=== PATIENT | male | born 1935 | race Caucasian/White ===

== ENCOUNTER 2018-07-21 21:52 | Inpatient (IN) | payer MEDICARE, BC ==
[~2018-07-21] VITALS: Ht 165.1 cm; Wt 73.6 kg
[~2018-07-21 21:52] MED LIST: ACETAMINOPHEN325 M1 ORAL; ACETAMINOPHEN650 M2 ORAL; ATORVASTATIN CA40 MG ORAL; BACTRIM DS TAB1 EAC1 ORAL; CLONIDINE0.1 MG PO; COLACE100 MG ORAL; COUMADIN3 MG ORAL; DEPAKENE250 MG/5 M ORAL; DEPAKENE250 MG/5 M PO; DILANTIN-1125 MG/5 M PO; DOCUSATE SODIU100 M2 ORAL; DORZOLAMIDE HCL10 M1 BOTH EYES; FLOMAX0.4 MG ORAL; FLUOXETINE HCL20 MG ORAL; HEPARIN SO5000 UNIT2 SUBQ; HYDROCODON-ACE1 EA13 ORAL; LACTULOSE20 GM/301 ORAL; LEVAQUIN750 MG ORAL; LOPRESSOR25 M1 ORAL; LORAZEPAM2 MG/1 M4 ORAL; LOVENOX30 MG/0.3 SQ; MELATONIN5 M4 ORAL; METOPROLOL SUCC25 MG ORAL; METOPROLOL TART25 MG ORAL; MOM30 ML ORAL; MULTIVITAMINS1 EAC8 ORAL; NORCO 5-325 TA1 EACH ORAL; NORCO 7.5/3251 EA ORAL; OMEPRAZOLE20 M2 ORAL; QUETIAPINE FUMA50 MG ORAL; RANITIDINE HCL150 M1 ORAL; TAMSULOSIN HCL0.4 MG ORAL; TEMAZEPAM15 MG ORAL; XARELTO10 MG ORAL; ZITHROMAX250 MG ORAL; dilantin
[2018-07-21 21:55] VITALS: BP 129/76
--- NOTE | 2018-07-21 21:55 | NUR ---
ED Nurse Note: patient presents BIBA, with c/o SOB satting 94% on NR.
[2018-07-21] MEDS ORDERED: Albuterol ud Inhalation HHN ONE (22:00)
--- NOTE | 2018-07-21 22:05 | Emergency Room Report ---
History of Present Illness General Chief Complaint: Dyspnea/Respdistress Source: Medical Record Present Illness HPI This is an 82-year-old male with history of medical problems including cerebral palsy, DVT, CAD with MA in the past. He presents with chief complaint shortness of breath and respiratory distress. Onset was acute and occurred 30 minutes to an hour prior to arrival. Per EMS, his room air oxygenation was 87% . Better after oxygen. He has a cough and felt warm to the touch. Denies any other complaint. History is limited because of patient condition. Allergies: Coded Allergies: PENICILLIN G (Verified Allergy, Intermediate, 04/13/14) PENICILLINS (Unverified Allergy, Unknown, 07/21/18) Patient History Past Medical History: see triage record, old chart reviewed Past Surgical History: other Pertinent Family History: none Social History: Denies: smoking Immunizations: UTD Reviewed Nursing Documentation: PMH: Agreed; PSxH: Agreed Nursing Documentation-PMH Past Medical History: No History, Except For Hx Cardiac Problems: Yes - MA, CAD, Hyperlipidemia Hx Hypertension: Yes Hx COPD: Yes Hx Diabetes: Yes Hx Cancer: No Hx Gastrointestinal Problems: Yes - GERD Hx Neurological Problems: Yes - Subarachnoid hemorrhage, Cerebral Palsy, Cerebral Aneurysm, Abnormal gait Hx Parkinson's Disease: Yes Hx Seizures: Yes Hx Cerebral Palsy: Yes Hx Tremors: Yes Hx Dysphasia: Yes Hx Weakness: Yes Review of Systems Respiratory: Reports: cough, shortness of breath All Other Systems: limited - Secondary to patient's condition Physical Exam Vital Signs Date Time Temp Pulse Resp B/P (MAP) Pulse Ox O2 Delivery O2 Flow Rate FiO2 07/21/18 21:36 134 24 129/76 95 Non-Rebreather 15.0 vitals with fever and tachycardia Sp02 EP Interpretation: abnormal General Appearance: moderate distress Head: normocephalic, atraumatic Eyes: bilateral eye PERRL, bilateral eye EOMI ENT: hearing grossly normal, normal pharynx Neck: full range of motion, supple, no meningismus Respiratory: chest non-tender, respiratory distress, decreased breath sounds, rhonchi Cardiovascular #1: regular rate, rhythm, no murmur, tachycardia Gastrointestinal: normal bowel sounds, non tender, no mass, no organomegaly, no bruit, non-distended Musculoskeletal: back normal, gait/station normal, normal range of motion Psychiatric: mood/affect normal Skin: warm/dry Procedures Critical Care Time Critical Care Time Critical care is mandated in this patient who presented with sepsis from pneumonia. Patient require my urgent intervention to attenuate the risks of metabolic collapse which may lead to cardiovascular collapse and . Critical care time is 35 minutes excluding any reportable procedure. Critical care time included evaluation, multiple reevaluation, looking at old charts, interpreting laboratory and diagnostic data, discussing case with patient and family and consultants, and charting. Medical Decision Making Diagnostic Impression: Primary Impression: Sepsis Qualified Codes: A41.9 - Sepsis, unspecified organism Additional Impressions: HCAP (healthcare-associated pneumonia) Respiratory distress ER Course Patient presents with respiratory distress and fever. Chest x-ray pretty unremarkable except for possible left lingular infiltrate. Labs unremarkable. I place him on antibiotics to cover for healthcare associated pneumonia. Will admit. I discussed case with Dr. Perry and Dr. Patel for admission. Lab Results Impression labs with elevated lactic acid EKG Diagnostic Results Rate: tachycardiac Rhythm: NSR ST Segments: other - NSST changes. PVC Rhythm Strip Diag. Results Rhythm Strip Time: 00:38 EP Interpretation: yes Rate: 100 Rhythm: NSR, no PVC's, no ectopy Chest X-Ray Diagnostic Results Chest X-Ray Diagnostic Results : Chest X-Ray Ordered: Yes # of Views/Limited/Complete: 1 View Indication: Shortness of Breath EP Interpretation: Yes Interpretation: no effusion, no pneumothorax, other - Left lingula infiltrate Impression: Other - Left lingula infiltrate Electronically Signed by: Sameer Weir MD Last Vital Signs Date Time Temp Pulse Resp B/P (MAP) Pulse Ox O2 Delivery O2 Flow Rate FiO2 07/21/18 21:36 134 24 129/76 95 Non-Rebreather 15.0 Status: improved Disposition: ADMITTED INPATIENT Condition: Serious Sameer Weir MD Jul 21, 2018 22:05
[2018-07-21] MEDS ORDERED: Acetaminophen 500mg (ES) tab ORAL ONE (22:15)
[2018-07-21] MEDS ORDERED: IPRATROPIU0.2 MG/1 M HHN (22:28)
--- NOTE | 2018-07-21 22:57 | NUR ---
ED Nurse Note: Patient responding to breathing treatment well, still tachycardic, satting between 94-97% on 3l of O2 afterbreating treatment. Sepsis workuo Addendum: 07/21/18 at 2332 by LOLY sepsis work up completed, IV started at left forearm 24G.
[2018-07-21 22:59] LABS: BASOPHILS % (AUTO) 0.6 % (0.0-2.0); EOSINOPHILS % (AUTO) 0.5 % (0.0-3.0); HEMATOCRIT 36.9 % (42.0-52.0); HEMOGLOBIN 12.1 G/DL (14.2-18.0); LYMPHOCYTES % (AUTO) 9.1 % (20.0-45.0); MEAN CORPUSCULAR VOLUME 94 FL (80-99); MONOCYTES % (AUTO) 9.1 % (1.0-10.0); NEUTROPHILS % (AUTO) 80.7 % (45.0-75.0); PLATELET COUNT 134 K/UL (150-450); RED BLOOD COUNT 3.93 M/UL (4.70-6.10); RED CELL DISTRIBUTION WIDTH 13.6 % (11.6-14.8); WHITE BLOOD COUNT 9.8 K/UL (4.8-10.8)
[2018-07-21 23:11] LABS: INR 1.4 (0.9-1.1)
[2018-07-21 23:23] LABS: ALANINE AMINOTRANSFERASE 13 U/L (12-78); ALBUMIN 2.5 G/DL (3.4-5.0); ALBUMIN/GLOBULIN RATIO 0.5 (1.0-2.7); ALKALINE PHOSPHATASE 79 U/L (46-116); ANION GAP 10 mmol/L (5-15); ASPARTATE AMINO TRANSFERASE 33 U/L (15-37); BILIRUBIN,TOTAL 0.4 MG/DL (0.2-1.0); BLOOD UREA NITROGEN 32 mg/dL (7-18); CALCIUM 8.8 MG/DL (8.5-10.1); CARBON DIOXIDE 27 MMOL/L (21-32); CHLORIDE 105 MMOL/L (98-107); CKMB 3.2 NG/ML (0.0-3.6); CREATINE KINASE 214 U/L (26-308); CREATININE 1.4 MG/DL (0.55-1.30); POTASSIUM 4.4 MMOL/L (3.5-5.1); SODIUM 142 MMOL/L (136-145)
[2018-07-21 23:28] VITALS: BP 116/64
--- NOTE | 2018-07-21 23:58 | NUR ---
ED Nurse Note: Patient resting comfortably. no s/s of acute distress. morales patent, urine clear and lexie in color.
[2018-07-22] MEDS ORDERED: Cefepime HCl 1 GM in D5W 55 ML IVPB ONE (00:15)
--- NOTE | 2018-07-22 01:25 | NUR ---
ED Nurse Note: Patient awake and alert, no s/s of acute distress. awaiting transport to tele.
--- NOTE | 2018-07-22 01:48 | NUR ---
ED Nurse Note: Report callled into becca RN, patient is awake and alert X3, no s/s of acute distress. PAtient has NS and levaquin running in the left AC. PAtient will be accompanied to tele by an eR-techCecil and RN, Hammad Valentine. Patient vital signs are stable upon departure.
[2018-07-22 02:10] VITALS: BP 124/79
--- NOTE | 2018-07-22 02:15 | NUR ---
NURSE NOTES: Patient received from ED, report received from JOSE LUIS Urrutia. Patient awake, alert and verbally responsive to simple questions. No SOB, no acute distress on 3 L via NC, O2 sat at 96%. Put on equipment monitor phototypesetting, shows sinus rhythm. Body assessment done, no skin breakdown noted. IV site on L FA #24,patent and intact. F/C intact and patent inserted at ED for urinary retention, noted with yellow-colored output. Belongings checked. Oriented to staff and unit, instructed to press call light for any assistance. Fall precaution and sz precautions in place. Paged Dr. Patel for admission orders. Will continue plan of care.
[2018-07-22 04:00] VITALS: BP 130/82
--- NOTE | 2018-07-22 07:29 | NUR ---
HAND-OFF: Report given to JOSE LUIS Cochran. Obtained admission orders from Dr. Perry, orders noted and carried out, will endorse to verify cefepime 1 gm Q12 d/t allergy. Also MD aware regarding dark lexie-colored output in the F/C, inserted at ED upon admission.
[2018-07-22] MEDS ORDERED: Lactulose 20gm/30ml UDC ORAL PRN (07:30)
[2018-07-22] MEDS ORDERED: HYDROcodone/Acetamin 10/325 tab ORAL PRN (07:30)
[2018-07-22] MEDS ORDERED: HYDROcodone/Acetamin 10/325 tab ORAL SCH (07:30)
[2018-07-22] MEDS ORDERED: Albuterol/Ipratropium 3ml neb HHN PRN (07:30)
[2018-07-22 08:00] VITALS: BP 115/79
[2018-07-22] MEDS ORDERED: Metoprolol 25mg tab ORAL SCH (09:00)
[2018-07-22] MEDS: Azithromycin 250mg tab ORAL SCH ×2 (09:48→09:54)
[2018-07-22] MEDS: Multivitamin w/Minerals tab ORAL SCH (09:48)
[2018-07-22] MEDS: Heparin 5000 units/ml inj SUBQ SCH ×2 (09:51→21:00)
[2018-07-22] MEDS: Docusate 100mg cap ORAL SCH ×2 (09:54→18:11)
[2018-07-22] MEDS: Metoprolol 25mg tab ORAL SCH ×2 (09:54→21:00)
[2018-07-22 10:49] LABS: BASOPHILS % (AUTO) 0.5 % (0.0-2.0); EOSINOPHILS % (AUTO) 1.9 % (0.0-3.0); HEMATOCRIT 34.6 % (42.0-52.0); HEMOGLOBIN 11.3 G/DL (14.2-18.0); LYMPHOCYTES % (AUTO) 10.5 % (20.0-45.0); MEAN CORPUSCULAR VOLUME 94 FL (80-99); MONOCYTES % (AUTO) 11.4 % (1.0-10.0); NEUTROPHILS % (AUTO) 75.8 % (45.0-75.0); PLATELET COUNT 127 K/UL (150-450); RED BLOOD COUNT 3.68 M/UL (4.70-6.10); WHITE BLOOD COUNT 6.7 K/UL (4.8-10.8)
[2018-07-22 11:08] LABS: ALANINE AMINOTRANSFERASE 14 U/L (12-78); ALBUMIN 2.3 G/DL (3.4-5.0); ALBUMIN/GLOBULIN RATIO 0.5 (1.0-2.7); ALKALINE PHOSPHATASE 69 U/L (46-116); ANION GAP 5 mmol/L (5-15); ASPARTATE AMINO TRANSFERASE 20 U/L (15-37); BILIRUBIN,TOTAL 0.3 MG/DL (0.2-1.0); BLOOD UREA NITROGEN 23 mg/dL (7-18); CALCIUM 8.2 MG/DL (8.5-10.1); CARBON DIOXIDE 31 MMOL/L (21-32); CHLORIDE 110 MMOL/L (98-107); PHOSPHORUS 2.6 MG/DL (2.5-4.9); POTASSIUM 3.8 MMOL/L (3.5-5.1); SODIUM 146 MMOL/L (136-145)
--- NOTE | 2018-07-22 11:50 | Diagnostic Imaging Report ---
Indication: Shortness of breath Technique: One view of the chest Comparison: 04/27/2016 Findings: Atelectatic changes are seen at both lung bases. The remainder of the lungs and pleural spaces are clear. The heart size is upper limits of normal. The aorta is tortuous Impression: Bilateral basilar atelectatic changes No acute process otherwise
[2018-07-22 12:00] VITALS: BP 121/69
--- NOTE | 2018-07-22 12:31 | Consultation ---
History of Present Illness General Chief Complaint: Dyspnea/Respdistress Present Illness HPI 82-year-old white male, with hx of bipolar do who presents with a chief complaint of shortness of breath. the pt is well known to me from the sniff the pt is hard of hearing and reported more anxiety the pt is currently on depakote and seroquel Allergies: Coded Allergies: PENICILLIN G (Verified Allergy, Intermediate, 04/13/14) PENICILLINS (Unverified Allergy, Unknown, 07/21/18) Medication History Scheduled Atorvastatin Calcium* (Atorvastatin Calcium*), 40 MG ORAL BEDTIME, (Reported) Docusate Sodium (Docusate Sodium), 100 MG ORAL TWICE A DAY, (Reported) Heparin Sod (Porcine) (Heparin Sodium*), 5,000 UNITS SUBQ Q12HR, (Reported) Hydrocodone Bit/Acetaminophen 10-325* (Hydrocodon-Acetaminophn 10-325*), 1 TAB ORAL Q6H, (Reported) Metoprolol Tartrate* (Metoprolol Tartrate*), 25 MG ORAL EVERY 12 HOURS, ( Reported) Multivitamin With Minerals (Multivitamins With Minerals*), 1 TAB ORAL DAILY, ( Reported) Omeprazole (Omeprazole), 20 MG ORAL DAILY, (Reported) Quetiapine Fumarate* (Quetiapine Fumarate*), 25 MG ORAL HS, (Reported) Ranitidine Hcl (Ranitidine Hcl), 150 MG ORAL DAILY, (Reported) Tamsulosin Hcl (Tamsulosin Hcl*), 0.4 MG ORAL BEDTIME, (Reported) Valproate Sodium (Depakene), 500 MG PO QPM, (Reported) Scheduled PRN Acetaminophen (Acetaminophen 8 Hour), 650 MG ORAL Q6H PRN for PRN, (Reported) Clonidine HCl (Clonidine HCl), 0.1 MG PO Q6HR PRN for PRN, (Reported) Lactulose (Lactulose*), 30 ML ORAL DAILY PRN for Constipation, (Reported) Melatonin (Melatonin), 5 MG ORAL BEDTIME PRN for Insomnia, (Reported) Temazepam (Temazepam*), 15 MG ORAL BEDTIME PRN for PRN, (Reported) Discontinued Medications Fluoxetine Hcl* (Fluoxetine Hcl*), 20 MG ORAL DAILY, (Reported) Discontinued Reason: MD discontinued med Ipratropium [place] 0.5MG/2.5ML (Ipratropium [place] 0.5MG/2.5ML), 0.5 MG HHN Q6H PRN for Shortness of Breath, (Reported) Discontinued Reason: MD discontinued med Levofloxacin* (Levaquin*), 750 MG ORAL DAILY, (Reported) Discontinued Reason: MD discontinued med Lorazepam (Lorazepam), 2 MG ORAL Q6HR PRN for PRN, (Reported) Discontinued Reason: MD discontinued med Rivaroxaban (Xarelto*), 15 MG ORAL BID, (Reported) Discontinued Reason: MD discontinued med Rivaroxaban (Xarelto*), 20 MG ORAL DAILY, (Reported) Discontinued Reason: MD discontinued med Trimethoprim/Sulfamethoxazole 160/800* (Bactrim Ds Tablet*), 1 TAB ORAL TWICE A DAY, (Reported) Discontinued Reason: MD discontinued med Valproate Sodium (Depakene), 250 MG ORAL BID Discontinued Reason: Medication dose changed Valproate Sodium (Depakene), 7.5 ML PO DAILY, (Reported) Discontinued Reason: Medication dose changed Warfarin Sod* (Coumadin*), 3 MG ORAL QPM, (Reported) Discontinued Reason: MD discontinued med Patient History History Provided By: Patient, Medical Record, PMD Healthcare decision maker Resuscitation status Full Code Advanced Directive on File No Past Medical/Surgical History Past Medical/Surgical History: (1) Acute respiratory failure (2) Anxiety disorder (3) MDD (major depressive disorder), recurrent episode, moderate (4) MA (myocardial infarction) (5) SAH (subarachnoid hemorrhage) (6) Unable to ambulate (7) Iron deficiency anemia (8) History of alcohol abuse (9) Cerebral palsy (10) CAD (coronary artery disease) (11) HTN (hypertension) (12) BPH (benign prostatic hyperplasia) (13) Hyperkalemia (14) HCAP (healthcare-associated pneumonia) (15) Sepsis Review of Systems Psychiatric: Reports: anxiety, depressed feelings, emotional problems Physical Exam General Appearance: no apparent distress, alert Neurologic: oriented x 3, responsive, depressed affect Last 24 Hour Vital Signs Date Time Temp Pulse Resp B/P (MAP) Pulse Ox O2 Delivery O2 Flow Rate FiO2 07/22/18 09:54 91 115/79 07/22/18 08:08 Nasal Cannula 3.0 07/22/18 08:00 97.2 91 23 115/79 (91) 95 07/22/18 07:58 85 07/22/18 04:00 97.9 96 20 130/82 (98) 98 07/22/18 04:00 96 07/22/18 02:35 Nasal Cannula 3.0 07/22/18 02:10 94 07/22/18 02:10 97.6 94 18 124/79 (94) 96 07/22/18 01:50 97.5 115 30 116/64 95 Nasal Cannula 3.0 32 07/21/18 23:28 97.5 115 30 116/64 95 Nasal Cannula 3.0 32 07/21/18 22:47 97.5 07/21/18 22:31 124 23 97 Nasal Cannula 3.0 32 07/21/18 22:05 133 24 98 Non-Rebreather 15.0 100 07/21/18 22:03 133 24 Non-Rebreather 15.0 100 07/21/18 21:55 134 24 Non-Rebreather 15.0 07/21/18 21:55 100.4 120 24 129/76 95 Non-Rebreather 15.0 07/21/18 21:36 134 24 129/76 95 Non-Rebreather 15.0 Intake and Output 07/21/18 07/22/18 18:59 06:59 Intake Total 2060 ml Output Total 220 ml Balance 1840 ml Intake Oral 60 ml IV Total 2000 ml Output Urine Total 220 ml Laboratory Tests Test 07/21/18 22:30 07/22/18 00:00 07/22/18 10:30 White Blood Count 9.8 K/UL (4.8-10.8) 6.7 K/UL (4.8-10.8) Red Blood Count 3.93 M/UL (4.70-6.10) L 3.68 M/UL (4.70-6.10) L Hemoglobin 12.1 G/DL (14.2-18.0) L 11.3 G/DL (14.2-18.0) L Hematocrit 36.9 % (42.0-52.0) L 34.6 % (42.0-52.0) L Mean Corpuscular Volume 94 FL (80-99) 94 FL (80-99) Mean Corpuscular Hemoglobin 30.8 PG (27.0-31.0) 30.5 PG (27.0-31.0) Mean Corpuscular Hemoglobin Concent 32.9 G/DL (32.0-36.0) 32.5 G/DL (32.0-36.0) Red Cell Distribution Width 13.6 % (11.6-14.8) 14.0 % (11.6-14.8) Platelet Count 134 K/UL (150-450) L 127 K/UL (150-450) L Mean Platelet Volume 7.2 FL (6.5-10.1) 7.6 FL (6.5-10.1) Neutrophils (%) (Auto) 80.7 % (45.0-75.0) H 75.8 % (45.0-75.0) H Lymphocytes (%) (Auto) 9.1 % (20.0-45.0) L 10.5 % (20.0-45.0) L Monocytes (%) (Auto) 9.1 % (1.0-10.0) 11.4 % (1.0-10.0) H Eosinophils (%) (Auto) 0.5 % (0.0-3.0) 1.9 % (0.0-3.0) Basophils (%) (Auto) 0.6 % (0.0-2.0) 0.5 % (0.0-2.0) Prothrombin Time 14.2 SEC (9.30-11.50) H Prothromb Time International Ratio 1.4 (0.9-1.1) H Activated Partial Thromboplast Time 35 SEC (23-33) H Sodium Level 142 MMOL/L (136-145) 146 MMOL/L (136-145) H Potassium Level 4.4 MMOL/L (3.5-5.1) 3.8 MMOL/L (3.5-5.1) Chloride Level 105 MMOL/L (98-107) 110 MMOL/L (98-107) H Carbon Dioxide Level 27 MMOL/L (21-32) 31 MMOL/L (21-32) Anion Gap 10 mmol/L (5-15) 5 mmol/L (5-15) Blood Urea Nitrogen 32 mg/dL (7-18) H 23 mg/dL (7-18) H Creatinine 1.4 MG/DL (0.55-1.30) H 1.0 MG/DL (0.55-1.30) Estimat Glomerular Filtration Rate mL/min (>60) mL/min (>60) Glucose Level 166 MG/DL (74-106) H 81 MG/DL (74-106) Lactic Acid Level 2.70 mmol/L (0.4-2.0) H 2.00 mmol/L (0.66-2.22) Calcium Level 8.8 MG/DL (8.5-10.1) 8.2 MG/DL (8.5-10.1) L Total Bilirubin 0.4 MG/DL (0.2-1.0) 0.3 MG/DL (0.2-1.0) Aspartate Amino Transf (AST/SGOT) 33 U/L (15-37) 20 U/L (15-37) Alanine Aminotransferase (ALT/SGPT) 13 U/L (12-78) 14 U/L (12-78) Alkaline Phosphatase 79 U/L (46-116) 69 U/L (46-116) Total Creatine Kinase 214 U/L (26-308) Creatine Kinase MB 3.2 NG/ML (0.0-3.6) Creatine Kinase MB Relative Index 1.4 Troponin I 0.030 ng/mL (0.000-0.056) 0.069 ng/mL (0.000-0.056) Total Protein 7.5 G/DL (6.4-8.2) 6.7 G/DL (6.4-8.2) Albumin 2.5 G/DL (3.4-5.0) L 2.3 G/DL (3.4-5.0) L Globulin 5.0 g/dL 4.4 g/dL Albumin/Globulin Ratio 0.5 (1.0-2.7) L 0.5 (1.0-2.7) L Phosphorus Level 2.6 MG/DL (2.5-4.9) Magnesium Level 1.7 MG/DL (1.8-2.4) L Microbiology Date/Time Source Procedure Growth Status 07/22/18 01:30 Rectum Received Height (Feet): 5 Height (Inches): 5.00 Weight (Pounds): 165 Medications Current Medications Medications (Trade) Dose Ordered Sig/Yazmin Route PRN Reason Start Time Stop Time Status Last Admin Dose Admin Acetaminophen (Tylenol) 650 mg Q6H PRN ORAL Mild Pain/Temp > 100.5 07/22/18 07:30 08/21/18 07:29 Acetaminophen/ Hydrocodone Bitart ([place] 10/325) 1 tab Q6H PRN ORAL Severe Pain (Pain Scale 7-10) 07/22/18 07:30 07/29/18 07:29 Albuterol/ Ipratropium (Albuterol/ Ipratropium) 3 ml Q6H PRN HHN Shortness of Breath 07/22/18 07:30 07/27/18 07:29 Atorvastatin Calcium (Lipitor) 40 mg BEDTIME ORAL 07/22/18 21:00 08/21/18 20:59 Azithromycin (Zithromax) 250 mg DAILY ORAL 07/22/18 09:00 07/29/18 08:59 07/22/18 09:54 Cefepime HCl 1 gm/ Dextrose 55 ml @ 110 mls/hr Q24H IVPB 07/23/18 00:00 07/30/18 00:00 Clonidine HCl (Catapres Tab) 0.1 mg Q6H PRN ORAL SBP >160 07/22/18 07:30 08/21/18 07:29 Docusate Sodium (Colace) 100 mg TWICE A DAY ORAL 07/22/18 09:00 08/21/18 08:59 07/22/18 09:54 Heparin Sodium (Porcine) (Heparin 5000 units/ml) 5,000 units Q12HR SUBQ 07/22/18 09:00 08/21/18 08:59 07/22/18 09:51 Lactulose (Cephulac) 30 gm DAILY PRN ORAL Constipation 07/22/18 07:30 08/21/18 07:29 Metoprolol Tartrate (Lopressor) 25 mg Q12HR ORAL 07/22/18 09:00 08/21/18 08:59 07/22/18 09:54 Multivitamins Therapeutic (Therapeutic Multivitamin) 1 ea DAILY ORAL 07/22/18 09:00 08/21/18 08:59 07/22/18 09:48 Pantoprazole (Protonix) 40 mg DAILY ORAL 07/22/18 09:00 08/21/18 08:59 07/22/18 09:48 Quetiapine Fumarate (SEROquel) 25 mg QHS ORAL 07/22/18 21:00 08/21/18 20:59 Tamsulosin HCl (Flomax) 0.4 mg BEDTIME ORAL 07/22/18 21:00 08/21/18 20:59 Temazepam (Restoril) 15 mg BEDTIME PRN ORAL insomnia 07/22/18 07:30 07/29/18 07:29 Valproic Acid (Depakene) 500 mg Q12HR ORAL 07/22/18 09:00 08/21/18 08:59 07/22/18 09:52 Assessment/Plan Problem List: (1) MDD (major depressive disorder), recurrent episode, moderate ICD Codes: F33.1 - Major depressive disorder, recurrent, moderate SNOMED: 10891072, 860613438 (2) Anxiety disorder ICD Codes: F41.9 - Anxiety disorder, unspecified SNOMED: 776739041 Assessment/Plan cont depakote cont Akira Francis MD Jul 22, 2018 12:31
--- NOTE | 2018-07-22 13:27 | Consultation ---
History of Present Illness General Date patient seen: Jul 22, 2018 Chief Complaint: Dyspnea/Respdistress Present Illness HPI 82 year old male with past medical history significant for cerebral palsy, history of brain aneurysm, BPH, coronary artery disease, prior history of myocardial infarction, hypertension, skilled nursing resident BIPA b/o episode of desaturation and dyspnea. His pulse oximeter was 87% on room air. He had low grade temperature of 100.4 and was thought to have sepsis and admitted to telemetry. Allergies: Coded Allergies: PENICILLIN G (Verified Allergy, Intermediate, 04/13/14) PENICILLINS (Unverified Allergy, Unknown, 07/21/18) Medication History Scheduled Atorvastatin Calcium* (Atorvastatin Calcium*), 40 MG ORAL BEDTIME, (Reported) Docusate Sodium (Docusate Sodium), 100 MG ORAL TWICE A DAY, (Reported) Heparin Sod (Porcine) (Heparin Sodium*), 5,000 UNITS SUBQ Q12HR, (Reported) Hydrocodone Bit/Acetaminophen 10-325* (Hydrocodon-Acetaminophn 10-325*), 1 TAB ORAL Q6H, (Reported) Metoprolol Tartrate* (Metoprolol Tartrate*), 25 MG ORAL EVERY 12 HOURS, ( Reported) Multivitamin With Minerals (Multivitamins With Minerals*), 1 TAB ORAL DAILY, ( Reported) Omeprazole (Omeprazole), 20 MG ORAL DAILY, (Reported) Quetiapine Fumarate* (Quetiapine Fumarate*), 25 MG ORAL HS, (Reported) Ranitidine Hcl (Ranitidine Hcl), 150 MG ORAL DAILY, (Reported) Tamsulosin Hcl (Tamsulosin Hcl*), 0.4 MG ORAL BEDTIME, (Reported) Valproate Sodium (Depakene), 500 MG PO QPM, (Reported) Scheduled PRN Acetaminophen (Acetaminophen 8 Hour), 650 MG ORAL Q6H PRN for PRN, (Reported) Clonidine HCl (Clonidine HCl), 0.1 MG PO Q6HR PRN for PRN, (Reported) Lactulose (Lactulose*), 30 ML ORAL DAILY PRN for Constipation, (Reported) Melatonin (Melatonin), 5 MG ORAL BEDTIME PRN for Insomnia, (Reported) Temazepam (Temazepam*), 15 MG ORAL BEDTIME PRN for PRN, (Reported) Discontinued Medications Fluoxetine Hcl* (Fluoxetine Hcl*), 20 MG ORAL DAILY, (Reported) Discontinued Reason: MD discontinued med Ipratropium [place] 0.5MG/2.5ML (Ipratropium [place] 0.5MG/2.5ML), 0.5 MG HHN Q6H PRN for Shortness of Breath, (Reported) Discontinued Reason: MD discontinued med Levofloxacin* (Levaquin*), 750 MG ORAL DAILY, (Reported) Discontinued Reason: MD discontinued med Lorazepam (Lorazepam), 2 MG ORAL Q6HR PRN for PRN, (Reported) Discontinued Reason: MD discontinued med Rivaroxaban (Xarelto*), 15 MG ORAL BID, (Reported) Discontinued Reason: MD discontinued med Rivaroxaban (Xarelto*), 20 MG ORAL DAILY, (Reported) Discontinued Reason: MD discontinued med Trimethoprim/Sulfamethoxazole 160/800* (Bactrim Ds Tablet*), 1 TAB ORAL TWICE A DAY, (Reported) Discontinued Reason: MD discontinued med Valproate Sodium (Depakene), 250 MG ORAL BID Discontinued Reason: Medication dose changed Valproate Sodium (Depakene), 7.5 ML PO DAILY, (Reported) Discontinued Reason: Medication dose changed Warfarin Sod* (Coumadin*), 3 MG ORAL QPM, (Reported) Discontinued Reason: MD discontinued med Patient History Healthcare decision maker Resuscitation status Full Code Advanced Directive on File No Past Medical/Surgical History Past Medical/Surgical History: (1) SAH (subarachnoid hemorrhage) (2) SD (myocardial infarction) (3) History of alcohol abuse (4) CAD (coronary artery disease) (5) HTN (hypertension) (6) BPH (benign prostatic hyperplasia) Review of Systems All Other Systems: negative except mentioned in HPI Physical Exam General Appearance: WD/WN Lines, tubes and drains: peripheral HEENT: normocephalic, atraumatic Neck: non-tender, normal alignment Respiratory/Chest: chest wall non-tender, lungs clear Abdomen: normal bowel sounds, non tender Extremities: normal range of motion Skin Exam: normal pigmentation Last 24 Hour Vital Signs Date Time Temp Pulse Resp B/P (MAP) Pulse Ox O2 Delivery O2 Flow Rate FiO2 07/22/18 09:54 91 115/79 07/22/18 08:08 Nasal Cannula 3.0 07/22/18 08:00 97.2 91 23 115/79 (91) 95 07/22/18 07:58 85 07/22/18 04:00 97.9 96 20 130/82 (98) 98 07/22/18 04:00 96 07/22/18 02:35 Nasal Cannula 3.0 07/22/18 02:10 94 07/22/18 02:10 97.6 94 18 124/79 (94) 96 07/22/18 01:50 97.5 115 30 116/64 95 Nasal Cannula 3.0 32 07/21/18 23:28 97.5 115 30 116/64 95 Nasal Cannula 3.0 32 07/21/18 22:47 97.5 07/21/18 22:31 124 23 97 Nasal Cannula 3.0 32 07/21/18 22:05 133 24 98 Non-Rebreather 15.0 100 07/21/18 22:03 133 24 Non-Rebreather 15.0 100 07/21/18 21:55 134 24 Non-Rebreather 15.0 07/21/18 21:55 100.4 120 24 129/76 95 Non-Rebreather 15.0 07/21/18 21:36 134 24 129/76 95 Non-Rebreather 15.0 Intake and Output 07/21/18 07/22/18 18:59 06:59 Intake Total 2060 ml Output Total 220 ml Balance 1840 ml Intake Oral 60 ml IV Total 2000 ml Output Urine Total 220 ml Laboratory Tests Test 07/21/18 22:30 07/22/18 00:00 07/22/18 10:30 White Blood Count 9.8 K/UL (4.8-10.8) 6.7 K/UL (4.8-10.8) Red Blood Count 3.93 M/UL (4.70-6.10) L 3.68 M/UL (4.70-6.10) L Hemoglobin 12.1 G/DL (14.2-18.0) L 11.3 G/DL (14.2-18.0) L Hematocrit 36.9 % (42.0-52.0) L 34.6 % (42.0-52.0) L Mean Corpuscular Volume 94 FL (80-99) 94 FL (80-99) Mean Corpuscular Hemoglobin 30.8 PG (27.0-31.0) 30.5 PG (27.0-31.0) Mean Corpuscular Hemoglobin Concent 32.9 G/DL (32.0-36.0) 32.5 G/DL (32.0-36.0) Red Cell Distribution Width 13.6 % (11.6-14.8) 14.0 % (11.6-14.8) Platelet Count 134 K/UL (150-450) L 127 K/UL (150-450) L Mean Platelet Volume 7.2 FL (6.5-10.1) 7.6 FL (6.5-10.1) Neutrophils (%) (Auto) 80.7 % (45.0-75.0) H 75.8 % (45.0-75.0) H Lymphocytes (%) (Auto) 9.1 % (20.0-45.0) L 10.5 % (20.0-45.0) L Monocytes (%) (Auto) 9.1 % (1.0-10.0) 11.4 % (1.0-10.0) H Eosinophils (%) (Auto) 0.5 % (0.0-3.0) 1.9 % (0.0-3.0) Basophils (%) (Auto) 0.6 % (0.0-2.0) 0.5 % (0.0-2.0) Prothrombin Time 14.2 SEC (9.30-11.50) H Prothromb Time International Ratio 1.4 (0.9-1.1) H Activated Partial Thromboplast Time 35 SEC (23-33) H Sodium Level 142 MMOL/L (136-145) 146 MMOL/L (136-145) H Potassium Level 4.4 MMOL/L (3.5-5.1) 3.8 MMOL/L (3.5-5.1) Chloride Level 105 MMOL/L (98-107) 110 MMOL/L (98-107) H Carbon Dioxide Level 27 MMOL/L (21-32) 31 MMOL/L (21-32) Anion Gap 10 mmol/L (5-15) 5 mmol/L (5-15) Blood Urea Nitrogen 32 mg/dL (7-18) H 23 mg/dL (7-18) H Creatinine 1.4 MG/DL (0.55-1.30) H 1.0 MG/DL (0.55-1.30) Estimat Glomerular Filtration Rate mL/min (>60) mL/min (>60) Glucose Level 166 MG/DL (74-106) H 81 MG/DL (74-106) Lactic Acid Level 2.70 mmol/L (0.4-2.0) H 2.00 mmol/L (0.66-2.22) Calcium Level 8.8 MG/DL (8.5-10.1) 8.2 MG/DL (8.5-10.1) L Total Bilirubin 0.4 MG/DL (0.2-1.0) 0.3 MG/DL (0.2-1.0) Aspartate Amino Transf (AST/SGOT) 33 U/L (15-37) 20 U/L (15-37) Alanine Aminotransferase (ALT/SGPT) 13 U/L (12-78) 14 U/L (12-78) Alkaline Phosphatase 79 U/L (46-116) 69 U/L (46-116) Total Creatine Kinase 214 U/L (26-308) Creatine Kinase MB 3.2 NG/ML (0.0-3.6) Creatine Kinase MB Relative Index 1.4 Troponin I 0.030 ng/mL (0.000-0.056) 0.069 ng/mL (0.000-0.056) Total Protein 7.5 G/DL (6.4-8.2) 6.7 G/DL (6.4-8.2) Albumin 2.5 G/DL (3.4-5.0) L 2.3 G/DL (3.4-5.0) L Globulin 5.0 g/dL 4.4 g/dL Albumin/Globulin Ratio 0.5 (1.0-2.7) L 0.5 (1.0-2.7) L Phosphorus Level 2.6 MG/DL (2.5-4.9) Magnesium Level 1.7 MG/DL (1.8-2.4) L Microbiology Date/Time Source Procedure Growth Status 07/22/18 01:30 Rectum Received Height (Feet): 5 Height (Inches): 5.00 Weight (Pounds): 165 Medications Current Medications Medications (Trade) Dose Ordered Sig/Yazmin Route PRN Reason Start Time Stop Time Status Last Admin Dose Admin Acetaminophen (Tylenol) 650 mg Q6H PRN ORAL Mild Pain/Temp > 100.5 07/22/18 07:30 08/21/18 07:29 Acetaminophen/ Hydrocodone Bitart ([place] 10/325) 1 tab Q6H PRN ORAL Severe Pain (Pain Scale 7-10) 07/22/18 07:30 07/29/18 07:29 Albuterol/ Ipratropium (Albuterol/ Ipratropium) 3 ml Q6H PRN HHN Shortness of Breath 07/22/18 07:30 07/27/18 07:29 Atorvastatin Calcium (Lipitor) 40 mg BEDTIME ORAL 07/22/18 21:00 08/21/18 20:59 Azithromycin (Zithromax) 250 mg DAILY ORAL 07/22/18 09:00 07/29/18 08:59 07/22/18 09:54 Cefepime HCl 1 gm/ Dextrose 55 ml @ 110 mls/hr Q24H IVPB 07/23/18 00:00 07/30/18 00:00 Clonidine HCl (Catapres Tab) 0.1 mg Q6H PRN ORAL SBP >160 07/22/18 07:30 08/21/18 07:29 Docusate Sodium (Colace) 100 mg TWICE A DAY ORAL 07/22/18 09:00 08/21/18 08:59 07/22/18 09:54 Heparin Sodium (Porcine) (Heparin 5000 units/ml) 5,000 units Q12HR SUBQ 07/22/18 09:00 08/21/18 08:59 07/22/18 09:51 Lactulose (Cephulac) 30 gm DAILY PRN ORAL Constipation 07/22/18 07:30 08/21/18 07:29 Metoprolol Tartrate (Lopressor) 25 mg Q12HR ORAL 07/22/18 09:00 08/21/18 08:59 07/22/18 09:54 Multivitamins Therapeutic (Therapeutic Multivitamin) 1 ea DAILY ORAL 07/22/18 09:00 08/21/18 08:59 07/22/18 09:48 Pantoprazole (Protonix) 40 mg DAILY ORAL 07/22/18 09:00 08/21/18 08:59 07/22/18 09:48 Quetiapine Fumarate (SEROquel) 25 mg QHS ORAL 07/22/18 21:00 08/21/18 20:59 Tamsulosin HCl (Flomax) 0.4 mg BEDTIME ORAL 07/22/18 21:00 08/21/18 20:59 Temazepam (Restoril) 15 mg BEDTIME PRN ORAL insomnia 07/22/18 07:30 07/29/18 07:29 Valproic Acid (Depakene) 500 mg Q12HR ORAL 07/22/18 09:00 08/21/18 08:59 07/22/18 09:52 Assessment/Plan Problem List: (1) Acute respiratory failure ICD Codes: J96.00 - Acute respiratory failure, unspecified whether with hypoxia or hypercapnia SNOMED: 94244121 (2) Sepsis ICD Codes: A41.9 - Sepsis, unspecified organism SNOMED: 45307575 Qualifiers: Qualified Codes: A41.9 - Sepsis, unspecified organism (3) Unable to ambulate ICD Codes: R26.2 - Difficulty in walking, not elsewhere classified SNOMED: 523876480 (4) BPH (benign prostatic hyperplasia) ICD Codes: N40.0 - Benign prostatic hyperplasia without lower urinary tract symptoms SNOMED: 968176557, 416557047 (5) HTN (hypertension) ICD Codes: I10 - Essential (primary) hypertension SNOMED: 46019105 (6) History of alcohol abuse ICD Codes: F10.10 - History of alcohol abuse SNOMED: 956789588 Assessment/Plan CT angio to rule out PE iv abx chopra culture symptomatic treatment check echo dvt prophylaxis Aldair Patel MD Jul 22, 2018 13:27
--- NOTE | 2018-07-22 13:28 | General Progress Note ---
Progress Note Progress Note pt needs procedures done including CT angio chest to rule out PE. He is not capable of signing himself. Unknown family or DPOA. Aldair Patel MD Jul 22, 2018 13:28
[2018-07-22] MEDS ORDERED: Isovue-370 150ml vial INJ PRN (13:30)
[2018-07-22 16:00] VITALS: BP 132/97
--- NOTE | 2018-07-22 18:25 | History & Physical ---
History and Physical History & Physicial Dictated for Int Med-Dr Perry no. [id number]. Jose Jha MD Jul 22, 2018 18:25
--- NOTE | 2018-07-22 18:27 | NUR ---
CASE MANAGEMENT: REVIEW 82/M BIBA FROM HOME CC: RESP DISTRESS SI: SEPSIS . PNA T 100.4 HR 134 RR 24 BP 129/76 SAT 95% NON-REBREATHER FIO2 100 H/H 12.1/36.9 BUN 32 CR 1.4 LACTIC ACID 2.70 IS: NS IVF BOLUS X1 ALBUTEROL HHN X1 TYLENOL PO X1 LEVOFLOXACIN IV X1 CEFEPIME IV X1 PATIENT ADMITTED TO TELEMETRY UNIT 07/21/2018 DCP: PATIENT IS FROM HOME
[2018-07-22] MEDS ORDERED: Promethazine/Codeine 5ml UD ORAL PRN (18:30)
--- NOTE | 2018-07-22 19:30 | History and Physical Report ---
DATE OF ADMISSION: 07/22/2018 CHIEF COMPLAINT: The patient is an 82-year-old white male, who presents with a chief complaint of shortness of breath. HISTORY OF PRESENT ILLNESS: The patient is a resident of [facility]. According to staff at [facility], the patient became acutely short of breath. The patient was found to have oxygen saturation of 87%. The patient was transferred to [facility]. The patient is admitted with acute respiratory failure to rule out pneumonia. PAST MEDICAL HISTORY: Significant for, 1. Deep venous thrombosis of right lower extremity in 2015. 2. Dysphagia. 3. Chronic renal failure. 4. History of cerebral palsy. 5. Brain aneurysm. 6. Benign prostatic hypertrophy. 7. Coronary artery disease, status post myocardial infarction. 8. Hypertension. PAST SURGICAL HISTORY: Significant for open reduction and internal fixation of right hip fracture in 2013. CURRENT MEDICATIONS: 1. Tylenol 650 mg one tab p.o. q.6 hours p.r.n. 2. Atorvastatin 40 mg p.o. at bedtime. 3. Clonidine 0.1 mg p.o. q.6 hours p.r.n. 4. Heparin 5000 units subcutaneously twice daily. 5. [place] 10/325 mg one tablet p.o. q.6 h. p.r.n. 6. Lactulose 30 mL orally daily. 7. Metoprolol 25 mg p.o. twice daily. 8. Multivitamin one tablet p.o. daily. 9. Omeprazole 20 mg p.o. daily. 10. Seroquel 25 mg p.o. at bedtime. 11. Ranitidine 150 mg p.o. daily. 12. Tamsulosin 0.4 mg p.o. at bedtime. 13. Temazepam 15 mg p.o. at bedtime. 14. Depakote 500 mg p.o. at bedtime. ALLERGIES: Penicillin. SOCIAL HISTORY: The patient is single and lives at [facility]. The patient denies tobacco or alcohol use. PHYSICAL EXAMINATION: VITAL SIGNS: Temperature 100.4, respirations 24, pulse 134, and blood pressure 129/76. GENERAL: The patient is a well-developed and well-nourished white male, who is in moderate respiratory distress. HEENT: Eyes, pupils are equal and responsive to light and accommodation. Extraocular movements are intact. NECK: Supple without lymphadenopathy. CHEST: Bilateral crackles in the bilateral bases. Otherwise, clear to auscultation without wheezes or rales. CARDIOVASCULAR: Tachycardic. Regular rhythm. S1 and S2 are normal without murmurs, rubs, or gallops. ABDOMEN: Soft, nontender, and nondistended. Positive bowel sounds. No evidence of hepatosplenomegaly. Currently, no rebound or guarding noted. EXTREMITIES: Negative for clubbing, cyanosis, or edema. RECTAL/GENITAL: Refused. NEUROLOGIC: Cranial nerves II through XII are grossly intact without focal deficits. IMAGING: A chest x-ray was reported as bibasilar atelectatic changes. Otherwise, no acute disease. LABORATORY STUDY: WBC 9.8, hemoglobin 12.1, hematocrit 36.9, and platelets 135,000. Sodium 142, potassium 4.4, chloride 105, CO2 27, BUN 32, creatinine 1.4, and glucose 166. ASSESSMENT: This is an 82-year-old white male. 1. Respiratory failure. 2. Hypoxia. 3. Hypertension. 4. Hypercholesterolemia. 5. Coronary artery disease. 6. Chronic renal failure. 7. Deep venous thrombosis of the right lower extremity, history. 8. Cerebral palsy. 9. Benign prostatic hypertrophy. 10. History of brain aneurysm. TREATMENT: 1. Hypoxia/respiratory failure. The patient was placed initially on a nonrebreather. A Pulmonary consultation has been obtained with Dr. Aldair Patel. The patient has been started empirically on cefepime for possible early pneumonia. We will follow recommendations of Pulmonary. 2. Hypertension. Continue metoprolol and clonidine as above. 3. Hypercholesterolemia. Continue atorvastatin as above. 4. Coronary artery disease, status post myocardial infarction. 5. Chronic renal failure. 6. History of deep venous thrombosis of right lower extremity. Continue heparin as above. 7. Cerebral palsy. 8. Benign prostatic hypertrophy. Continue Flomax as above. 9. History of brain aneurysm. Jose Jha M.D. DR: JC JOB#: [id number] CC:
--- NOTE | 2018-07-22 19:34 | NUR ---
HAND-OFF: Report given to Yehuda Layton.
--- NOTE | 2018-07-22 19:37 | NUR ---
NURSE NOTES: Got report from Dimas AMAYA. Pt in stable condition. Denies any pain. No s/s of distress or discomfort noted. Pt resting in bed comfortably. Bed in low and locked position, call light within reach, bedside table within reach. continue to monitor.
[2018-07-22 20:00] VITALS: BP 137/82
[2018-07-22] MEDS ORDERED: Atorvastatin 80mg tab ORAL SCH (21:00)
[2018-07-22] MEDS ORDERED: Tamsulosin 0.4mg cap ORAL SCH (21:00)
[2018-07-23] VITALS: BP 134/86
[2018-07-23 04:20] VITALS: BP 156/86
[2018-07-23 07:16] LABS: ANION GAP 6 mmol/L (5-15); BLOOD UREA NITROGEN 17 mg/dL (7-18); CARBON DIOXIDE 28 MMOL/L (21-32); CHLORIDE 107 MMOL/L (98-107); CREATININE 0.9 MG/DL (0.55-1.30); POTASSIUM 4.1 MMOL/L (3.5-5.1); SODIUM 141 MMOL/L (136-145)
--- NOTE | 2018-07-23 07:30 | NUR ---
NURSE NOTES: Received report from JOSE LUIS Blackman. Patient is resting in bed, in semi- burgos position. Alert and oriented x2. No signs and symptoms of acute distress at this time. Bed at lowest position, with two side rails up. call light and bed side table within reach. Will continue to monitor and follow plan of care.
[2018-07-23 07:40] LABS: BASOPHILS % (AUTO) 0.4 % (0.0-2.0); EOSINOPHILS % (AUTO) 3.5 % (0.0-3.0); HEMATOCRIT 33.2 % (42.0-52.0); HEMOGLOBIN 11.1 G/DL (14.2-18.0); LYMPHOCYTES % (AUTO) 14.7 % (20.0-45.0); MEAN CORPUSCULAR VOLUME 92 FL (80-99); MONOCYTES % (AUTO) 12.4 % (1.0-10.0); NEUTROPHILS % (AUTO) 68.9 % (45.0-75.0); PLATELET COUNT 132 K/UL (150-450); RED BLOOD COUNT 3.61 M/UL (4.70-6.10); RED CELL DISTRIBUTION WIDTH 13.3 % (11.6-14.8); WHITE BLOOD COUNT 6.3 K/UL (4.8-10.8)
[2018-07-23 08:00] VITALS: BP 162/87
[2018-07-23] MEDS: Azithromycin 250mg tab ORAL SCH (09:51)
[2018-07-23] MEDS: Metoprolol 25mg tab ORAL SCH ×2 (09:51→20:44)
[2018-07-23] MEDS: Docusate 100mg cap ORAL SCH ×2 (09:51→17:26)
[2018-07-23] MEDS: Multivitamin w/Minerals tab ORAL SCH (09:51)
[2018-07-23] MEDS: Heparin 5000 units/ml inj SUBQ SCH ×2 (09:53→20:45)
--- NOTE | 2018-07-23 10:03 | Diagnostic Imaging Report ---
ndication: Chest pain Technique: IV administration nonionic contrast. Spiral acquisitions obtained from the lung bases to the lung apices. Multiplanar and 3-D reconstructions were generated. Total dose length product 882.39 mGycm. CTDIvol(s) 21.41 mGy. Dose reduction achieved using automated exposure control Comparison: none Findings: There is good quality opacification of the pulmonary arteries. However, there is some image degradation due to respiratory motion artifact. No definite intraluminal filling defects or other findings to suggest acute pulmonary embolus demonstrated there are questionably some mural filling defects in a few segmental left upper lobe arteries, but these are probably artifactual as similar findings are seen in one or more adjacent veins. There is normal variant anatomy of common origin of the right brachiocephalic and left common carotid arteries. Otherwise unremarkable great neck vessels. No evidence of thoracic aortic aneurysm or dissection. The ascending thoracic aorta is mildly ectatic but not frankly aneurysmal. No evidence of pulmonary arterial dilatation or isolated right ventricular dilatation. The included upper abdominal visceral vessels appear unremarkable. The pulmonary parenchyma demonstrates areas of dense opacification of the right lower lobe. Similar but less extensive findings were seen in the left lower lobe. The right lower lobe opacities demonstrate a slight degree of associated bronchiectasis and honeycombing. There is some associated calcification bilaterally. There is mild hyperinflation of the upper lobes. No definite effusions. The heart size is upper limits normal. There is evidence of left ventricular muscular hypertrophy. No pericardial effusion. No mediastinal or hilar mass or adenopathy. There is minimal bilateral gynecomastia. No axillary or chest wall mass or adenopathy. The esophagus is unremarkable. There are degenerative changes of the thoracic spine The included upper abdominal anatomy demonstrates a left renal cyst. Stranding and perinephric fluid adjacent to the cyst may indicate partial cyst rupture. Impression: Limited exam due to respiratory motion artifact, precluding exclusion of peripheral emboli. No gross large vessel central pulmonary emboli demonstrated Bilateral lower lobe parenchymal opacities, right greater than left. Presence of some bronchiectasis, honeycombing, and calcification suggests that these are predominantly areas of chronic scarring. However, superimposed acute infiltrates are also possible. Correlate with clinical findings Bilateral upper lobe hyperinflation, likely COPD Evidence of left ventricular muscular hypertrophy. Left renal cyst. Stranding and perinephric fluid adjacent to the cyst could indicate partial cyst rupture Incidental findings as noted, including gynecomastia, degenerative spondylosis The CT scanner at [facility] is accredited by the [employer] and the scans are performed using protocols designed to limit radiation exposure to as low as reasonably achievable to attain images of sufficient resolution adequate for diagnostic evaluation.
[2018-07-23 12:00] VITALS: BP 139/82
--- NOTE | 2018-07-23 12:06 | Pulmonology Progress Note ---
Assessment/Plan Problems: (1) Acute respiratory failure (2) Sepsis (3) Unable to ambulate (4) BPH (benign prostatic hyperplasia) (5) HTN (hypertension) (6) History of alcohol abuse Assessment/Plan CT chest reviewed, RLL infiltrate check sputum IV abx chest pt monitor BP dvt prophylaxis Subjective Interval Events: awake, comfortable Allergies: Coded Allergies: PENICILLIN G (Verified Allergy, Intermediate, 04/13/14) PENICILLINS (Unverified Allergy, Unknown, 07/21/18) Objective Last 24 Hour Vital Signs Date Time Temp Pulse Resp B/P (MAP) Pulse Ox O2 Delivery O2 Flow Rate FiO2 07/23/18 09:51 77 162/87 07/23/18 09:00 Nasal Cannula 3.0 07/23/18 08:00 77 07/23/18 08:00 97.2 77 20 162/87 (112) 99 07/23/18 06:35 77 22 Room Air 21 07/23/18 04:20 97.2 91 18 156/86 (109) 95 07/23/18 04:00 85 07/23/18 00:00 74 07/23/18 00:00 98.4 92 19 134/86 (102) 95 07/22/18 23:03 65 20 Room Air 07/22/18 21:00 89 137/82 07/22/18 21:00 Nasal Cannula 3.0 07/22/18 20:00 86 07/22/18 20:00 98.6 89 19 137/82 (100) 95 07/22/18 16:00 97.2 73 22 132/97 (109) 93 07/22/18 15:49 76 Intake and Output 07/22/18 07/23/18 18:59 06:59 Intake Total 480 ml 240 ml Output Total 460 ml 550 ml Balance 20 ml -310 ml Intake Oral 480 ml 240 ml Output Urine Total 460 ml 550 ml # Voids 1 General Appearance: WD/WN, cachetic HEENT: normocephalic Respiratory/Chest: chest wall non-tender, crackles/rales Cardiovascular: normal peripheral pulses, normal rate Abdomen: normal bowel sounds, soft, non tender Genitourinary: normal external genitalia Extremities: no clubbing Skin: no ulcers Neurologic/Psychiatric: digital cartographer II-XII grossly normal Lymphatic: no groin adenopathy Musculoskeletal: no effusion Microbiology Date/Time Source Procedure Growth Status 07/21/18 22:35 Blood Blood Culture - Preliminary NO GROWTH AFTER 24 HOURS Resulted 07/21/18 22:30 Blood Blood Culture - Preliminary NO GROWTH AFTER 24 HOURS Resulted 07/22/18 01:30 Rectum Received Laboratory Tests 07/22/18 17:10: Troponin I 0.035 07/23/18 05:50: Troponin I 0.027, White Blood Count 6.3, Red Blood Count 3.61L, Hemoglobin 11.1L , Hematocrit 33.2L, Mean Corpuscular Volume 92, Mean Corpuscular Hemoglobin 30.7 , Mean Corpuscular Hemoglobin Concent 33.4, Red Cell Distribution Width 13.3, Platelet Count 132L, Mean Platelet Volume 7.6, Neutrophils (%) (Auto) 68.9, Lymphocytes (%) (Auto) 14.7L, Monocytes (%) (Auto) 12.4H, Eosinophils (%) (Auto ) 3.5H, Basophils (%) (Auto) 0.4, Sodium Level 141, Potassium Level 4.1, Chloride Level 107, Carbon Dioxide Level 28, Anion Gap 6, Blood Urea Nitrogen 17 , Creatinine 0.9, Estimat Glomerular Filtration Rate , Glucose Level 81, Calcium Level 9.0 Current Medications Medications (Trade) Dose Ordered Sig/Yazmin Route PRN Reason Start Time Stop Time Status Last Admin Dose Admin Acetaminophen (Tylenol) 650 mg Q6H PRN ORAL Mild Pain/Temp > 100.5 07/22/18 07:30 08/21/18 07:29 Acetaminophen/ Hydrocodone Bitart ([place] 10/325) 1 tab Q6H PRN ORAL Severe Pain (Pain Scale 7-10) 07/22/18 07:30 07/29/18 07:29 Albuterol/ Ipratropium (Albuterol/ Ipratropium) 3 ml Q6H PRN HHN Shortness of Breath 07/22/18 07:30 07/27/18 07:29 Atorvastatin Calcium (Lipitor) 40 mg BEDTIME ORAL 07/22/18 21:00 08/21/18 20:59 Azithromycin (Zithromax) 250 mg DAILY ORAL 07/22/18 09:00 07/29/18 08:59 07/23/18 09:51 Cefepime HCl 1 gm/ Dextrose 55 ml @ 110 mls/hr Q24H IVPB 07/23/18 00:00 07/30/18 00:00 Clonidine HCl (Catapres Tab) 0.1 mg Q6H PRN ORAL SBP >160 07/22/18 07:30 08/21/18 07:29 Docusate Sodium (Colace) 100 mg TWICE A DAY ORAL 07/22/18 09:00 08/21/18 08:59 07/23/18 09:51 Heparin Sodium (Porcine) (Heparin 5000 units/ml) 5,000 units Q12HR SUBQ 07/22/18 09:00 08/21/18 08:59 07/23/18 09:53 Iopamidol (Isovue-370 150ml) 150 ml NOW PRN INJ Radiology Procedure 07/22/18 13:30 07/24/18 13:19 Lactulose (Cephulac) 30 gm DAILY PRN ORAL Constipation 07/22/18 07:30 08/21/18 07:29 Metoprolol Tartrate (Lopressor) 25 mg Q12HR ORAL 07/22/18 09:00 08/21/18 08:59 07/23/18 09:51 Multivitamins Therapeutic (Therapeutic Multivitamin) 1 ea DAILY ORAL 07/22/18 09:00 08/21/18 08:59 07/23/18 09:51 Pantoprazole (Protonix) 40 mg DAILY ORAL 07/22/18 09:00 08/21/18 08:59 07/23/18 09:51 Promethazine HCl/ Codeine (Phenergan with Codeine) 5 ml Q4H PRN ORAL For Cough 07/22/18 18:30 08/21/18 18:29 Quetiapine Fumarate (SEROquel) 25 mg QHS ORAL 07/22/18 21:00 08/21/18 20:59 Tamsulosin HCl (Flomax) 0.4 mg BEDTIME ORAL 07/22/18 21:00 08/21/18 20:59 Temazepam (Restoril) 15 mg BEDTIME PRN ORAL insomnia 07/22/18 07:30 07/29/18 07:29 Valproic Acid (Depakene) 500 mg Q12HR ORAL 07/22/18 09:00 08/21/18 08:59 07/23/18 09:52 Aldair Patel MD Jul 23, 2018 12:06
--- NOTE | 2018-07-23 13:05 | General Progress Note ---
Assessment/Plan Problem List: (1) MDD (major depressive disorder), recurrent episode, moderate ICD Codes: F33.1 - Major depressive disorder, recurrent, moderate SNOMED: 35283091, 437741611 (2) Anxiety disorder ICD Codes: F41.9 - Anxiety disorder, unspecified SNOMED: 208416002 Assessment/Plan cont seroquel 25mg po qhs lexapro 10mg po qam provided ro/st Subjective Neurologic/Psychiatric: Reports: anxiety, depressed, emotional problems Allergies: Coded Allergies: PENICILLIN G (Verified Allergy, Intermediate, 04/13/14) PENICILLINS (Unverified Allergy, Unknown, 07/21/18) Objective Last 24 Hour Vital Signs Date Time Temp Pulse Resp B/P (MAP) Pulse Ox O2 Delivery O2 Flow Rate FiO2 07/23/18 12:00 98.0 78 20 139/82 (101) 99 07/23/18 09:51 77 162/87 07/23/18 09:00 Nasal Cannula 3.0 07/23/18 08:00 77 07/23/18 08:00 97.2 77 20 162/87 (112) 99 07/23/18 06:35 77 22 Room Air 21 07/23/18 04:20 97.2 91 18 156/86 (109) 95 07/23/18 04:00 85 07/23/18 00:00 74 07/23/18 00:00 98.4 92 19 134/86 (102) 95 07/22/18 23:03 65 20 Room Air 07/22/18 21:00 89 137/82 07/22/18 21:00 Nasal Cannula 3.0 07/22/18 20:00 86 07/22/18 20:00 98.6 89 19 137/82 (100) 95 07/22/18 16:00 97.2 73 22 132/97 (109) 93 07/22/18 15:49 76 Intake and Output 07/22/18 07/23/18 18:59 06:59 Intake Total 480 ml 240 ml Output Total 460 ml 550 ml Balance 20 ml -310 ml Intake Oral 480 ml 240 ml Output Urine Total 460 ml 550 ml # Voids 1 Laboratory Tests 07/22/18 17:10: Troponin I 0.035 07/23/18 05:50: Troponin I 0.027, White Blood Count 6.3, Red Blood Count 3.61L, Hemoglobin 11.1L , Hematocrit 33.2L, Mean Corpuscular Volume 92, Mean Corpuscular Hemoglobin 30.7 , Mean Corpuscular Hemoglobin Concent 33.4, Red Cell Distribution Width 13.3, Platelet Count 132L, Mean Platelet Volume 7.6, Neutrophils (%) (Auto) 68.9, Lymphocytes (%) (Auto) 14.7L, Monocytes (%) (Auto) 12.4H, Eosinophils (%) (Auto ) 3.5H, Basophils (%) (Auto) 0.4, Sodium Level 141, Potassium Level 4.1, Chloride Level 107, Carbon Dioxide Level 28, Anion Gap 6, Blood Urea Nitrogen 17 , Creatinine 0.9, Estimat Glomerular Filtration Rate , Glucose Level 81, Calcium Level 9.0 Height (Feet): 5 Height (Inches): 5.00 Weight (Pounds): 165 General Appearance: no apparent distress, alert Neurologic: oriented x 3, responsive, depressed affect Akira Shaffer MD Jul 23, 2018 13:05
[2018-07-23 16:00] VITALS: BP 102/79
--- NOTE | 2018-07-23 16:33 | NUR ---
TRANSFER TO FLOOR: Patient transferred to Med-Surg, per Dr. Patel's order. Report given to JOSE LUIS Estrada. Belongings and medications given to JOSE LUIS Estrada. Patient transfered in stable condition.
--- NOTE | 2018-07-23 16:34 | NUR ---
NURSE NOTES: Received pt from Tele (JOSE LUIS Ndiaye) with stable condition. pt is a/ox1 nonverbal. breathing regular and unlabored. denies any pain at this time. Iv site intact and patent. will continue to monitor
--- NOTE | 2018-07-23 16:38 | Internal Med Progress Note ---
Subjective Date of Service: Jul 23, 2018 Physician Name Jha,Jose Attending Physician Joey Perry MD Current Medications Medications (Trade) Dose Ordered Sig/Yazmin Route PRN Reason Start Time Stop Time Status Last Admin Dose Admin Acetaminophen (Tylenol) 650 mg Q6H PRN ORAL Mild Pain/Temp > 100.5 07/22/18 07:30 08/21/18 07:29 Acetaminophen/ Hydrocodone Bitart ([place] 10/325) 1 tab Q6H PRN ORAL Severe Pain (Pain Scale 7-10) 07/22/18 07:30 07/29/18 07:29 Albuterol/ Ipratropium (Albuterol/ Ipratropium) 3 ml Q6H PRN HHN Shortness of Breath 07/22/18 07:30 07/27/18 07:29 Atorvastatin Calcium (Lipitor) 40 mg BEDTIME ORAL 07/22/18 21:00 08/21/18 20:59 Azithromycin (Zithromax) 250 mg DAILY ORAL 07/22/18 09:00 07/29/18 08:59 07/23/18 09:51 Cefepime HCl 1 gm/ Dextrose 55 ml @ 110 mls/hr Q24H IVPB 07/23/18 18:00 07/30/18 17:59 Clonidine HCl (Catapres Tab) 0.1 mg Q6H PRN ORAL SBP >160 07/22/18 07:30 08/21/18 07:29 Docusate Sodium (Colace) 100 mg TWICE A DAY ORAL 07/22/18 09:00 08/21/18 08:59 07/23/18 09:51 Escitalopram Oxalate (Lexapro) 10 mg DAILY ORAL 07/24/18 09:00 08/23/18 08:59 Heparin Sodium (Porcine) (Heparin 5000 units/ml) 5,000 units Q12HR SUBQ 07/22/18 09:00 08/21/18 08:59 07/23/18 09:53 Iopamidol (Isovue-370 150ml) 150 ml NOW PRN INJ Radiology Procedure 07/22/18 13:30 07/24/18 13:19 Lactulose (Cephulac) 30 gm DAILY PRN ORAL Constipation 07/22/18 07:30 08/21/18 07:29 Metoprolol Tartrate (Lopressor) 25 mg Q12HR ORAL 07/22/18 09:00 08/21/18 08:59 07/23/18 09:51 Multivitamins Therapeutic (Therapeutic Multivitamin) 1 ea DAILY ORAL 07/22/18 09:00 08/21/18 08:59 07/23/18 09:51 Pantoprazole (Protonix) 40 mg DAILY ORAL 07/22/18 09:00 08/21/18 08:59 07/23/18 09:51 Promethazine HCl/ Codeine (Phenergan with Codeine) 5 ml Q4H PRN ORAL For Cough 07/22/18 18:30 08/21/18 18:29 Quetiapine Fumarate (SEROquel) 25 mg QHS ORAL 07/22/18 21:00 08/21/18 20:59 Tamsulosin HCl (Flomax) 0.4 mg BEDTIME ORAL 07/22/18 21:00 08/21/18 20:59 Temazepam (Restoril) 15 mg BEDTIME PRN ORAL insomnia 07/22/18 07:30 07/29/18 07:29 Valproic Acid (Depakene) 500 mg Q12HR ORAL 07/22/18 09:00 08/21/18 08:59 07/23/18 09:52 Allergies: Coded Allergies: PENICILLIN G (Verified Allergy, Intermediate, 04/13/14) PENICILLINS (Unverified Allergy, Unknown, 07/21/18) ROS Limited/Unobtainable: No Constitutional: Reports: no symptoms HEENT: Reports: no symptoms Cardiovascular: Reports: no symptoms Respiratory: Reports: shortness of breath Gastrointestinal/Abdominal: Reports: no symptoms Genitourinary: Reports: no symptoms Neurologic/Psychiatric: Reports: no symptoms Subjective 82 YO M admitted with dyspnea. Now pneumonia. Cover for Int Paul-Dr Perry Objective Last Vital Signs Date Time Temp Pulse Resp B/P (MAP) Pulse Ox O2 Delivery O2 Flow Rate FiO2 07/23/18 16:00 98.6 86 20 102/79 (87) 99 07/23/18 09:00 Nasal Cannula 3.0 07/23/18 06:35 21 General Appearance: WD/WN, no apparent distress, alert EENT: PERRL/EOMI, normal ENT inspection, TMs normal Neck: non-tender, normal alignment, supple, normal inspection Cardiovascular: normal peripheral pulses, normal rate, regular rhythm, no gallop/murmur, no JVD Respiratory/Chest: respiratory distress, accessory muscle use, crackles/rales, rhonchi - bilaterally, expiratory wheezing Abdomen: normal bowel sounds, non tender, soft, no organomegaly, no mass Extremities: normal range of motion, non-tender 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, no motor/sensory deficits Skin: normal pigmentation, warm/dry Laboratory Tests Test 07/22/18 17:10 07/23/18 05:50 Troponin I 0.035 ng/mL (0.000-0.056) 0.027 ng/mL (0.000-0.056) White Blood Count 6.3 K/UL (4.8-10.8) Red Blood Count 3.61 M/UL (4.70-6.10) L Hemoglobin 11.1 G/DL (14.2-18.0) L Hematocrit 33.2 % (42.0-52.0) L Mean Corpuscular Volume 92 FL (80-99) Mean Corpuscular Hemoglobin 30.7 PG (27.0-31.0) Mean Corpuscular Hemoglobin Concent 33.4 G/DL (32.0-36.0) Red Cell Distribution Width 13.3 % (11.6-14.8) Platelet Count 132 K/UL (150-450) L Mean Platelet Volume 7.6 FL (6.5-10.1) Neutrophils (%) (Auto) 68.9 % (45.0-75.0) Lymphocytes (%) (Auto) 14.7 % (20.0-45.0) L Monocytes (%) (Auto) 12.4 % (1.0-10.0) H Eosinophils (%) (Auto) 3.5 % (0.0-3.0) H Basophils (%) (Auto) 0.4 % (0.0-2.0) Sodium Level 141 MMOL/L (136-145) Potassium Level 4.1 MMOL/L (3.5-5.1) Chloride Level 107 MMOL/L (98-107) Carbon Dioxide Level 28 MMOL/L (21-32) Anion Gap 6 mmol/L (5-15) Blood Urea Nitrogen 17 mg/dL (7-18) Creatinine 0.9 MG/DL (0.55-1.30) Estimat Glomerular Filtration Rate mL/min (>60) Glucose Level 81 MG/DL (74-106) Calcium Level 9.0 MG/DL (8.5-10.1) Microbiology Date/Time Source Procedure Growth Status 07/21/18 22:35 Blood Blood Culture - Preliminary NO GROWTH AFTER 24 HOURS Resulted 07/21/18 22:30 Blood Blood Culture - Preliminary NO GROWTH AFTER 24 HOURS Resulted 07/22/18 01:30 Rectum Received Intake and Output 07/22/18 07/23/18 18:59 06:59 Intake Total 480 ml 240 ml Output Total 460 ml 550 ml Balance 20 ml -310 ml Intake Oral 480 ml 240 ml Output Urine Total 460 ml 550 ml # Voids 1 Assessment/Plan Problem List: (1) Renal failure (2) HCAP (healthcare-associated pneumonia) Assessment & Plan: CT angio chest=neg pulm embolus. Continue cefepime and azithromycin. See pulmonary note. (3) Acute respiratory failure Assessment & Plan: tolerating nasal canula (4) HTN (hypertension) (5) CAD (coronary artery disease) (6) Cerebral palsy (7) BPH (benign prostatic hyperplasia) Status: not improved Jose Jha MD Jul 23, 2018 16:38
[2018-07-23] MEDS ORDERED: HYDROcodone/Acetamin 10/325 tab ORAL PRN (16:42)
[2018-07-23] MEDS ORDERED: Isovue-370 150ml vial INJ PRN (16:42)
[2018-07-23] MEDS ORDERED: Albuterol/Ipratropium 3ml neb HHN PRN (16:42)
[2018-07-23] MEDS ORDERED: Promethazine/Codeine 5ml UD ORAL PRN (16:43)
[2018-07-23] MEDS ORDERED: Lactulose 20gm/30ml UDC ORAL PRN (16:43)
[2018-07-23] MEDS: Cefepime HCl 1 GM in D5W 55 ML IVPB SCH (17:25)
[2018-07-23] MEDS ORDERED: Cefepime HCl 1 GM in D5W 55 ML IVPB SCH ×3 (18:00)
--- NOTE | 2018-07-23 19:32 | NUR ---
HAND-OFF: Report given to JOSE LUIS Nassar.
[2018-07-23 20:00] VITALS: BP 132/94
--- NOTE | 2018-07-23 20:19 | NUR ---
NURSE NOTES: Received patient awake in bed, noticed dinner at the bedside untouched, group underwriter fed him one spoonful but he refused a second. Tremors noted. IV site asymptomatic, dressing dry and intact. Bed on lowest position, call light and belongings within reach, 2 side rails up.
[2018-07-23] MEDS: Atorvastatin 20mg tab ORAL SCH (20:43)
[2018-07-23] MEDS: Tamsulosin 0.4mg cap ORAL SCH (20:44)
[2018-07-24] VITALS: BP 127/88
[2018-07-24 01:51] LABS: APPEARANCE,URINE CLEAR; BILIRUBIN, URINE NEGATIVE (NEGATIVE); GLUCOSE, URINE (UA) NEGATIVE (NEGATIVE); KETONES,URINE 1+ (NEGATIVE); LEUKOCYTE ESTERASE ,URINE 1+ (NEGATIVE); NITRITE,URINE NEGATIVE (NEGATIVE); PH,URINE 6 (4.5-8.0); PROTEIN,URINE 3+ (NEGATIVE); UROBILINOGEN,URINE NORMAL MG/DL (0.0-1.0)
[2018-07-24 01:59] LABS: COLOR,URINE YELLOW
[2018-07-24 04:00] VITALS: BP 129/87
[2018-07-24 07:00] LABS: BASOPHILS % (AUTO) 0.3 % (0.0-2.0); HEMATOCRIT 35.6 % (42.0-52.0); LYMPHOCYTES % (AUTO) 12.2 % (20.0-45.0); MEAN CORPUSCULAR VOLUME 93 FL (80-99); MONOCYTES % (AUTO) 16.5 % (1.0-10.0); NEUTROPHILS % (AUTO) 70.9 % (45.0-75.0); PLATELET COUNT 144 K/UL (150-450); RED BLOOD COUNT 3.85 M/UL (4.70-6.10); RED CELL DISTRIBUTION WIDTH 13.7 % (11.6-14.8); WHITE BLOOD COUNT 8.4 K/UL (4.8-10.8)
--- NOTE | 2018-07-24 07:14 | NUR ---
HAND-OFF: Report given to JOSE LUIS Zavala.
[2018-07-24 07:15] LABS: ALANINE AMINOTRANSFERASE 10 U/L (12-78); ALBUMIN 2.2 G/DL (3.4-5.0); ALBUMIN/GLOBULIN RATIO 0.4 (1.0-2.7); ALKALINE PHOSPHATASE 63 U/L (46-116); ANION GAP 7 mmol/L (5-15); ASPARTATE AMINO TRANSFERASE 23 U/L (15-37); BILIRUBIN,TOTAL 0.3 MG/DL (0.2-1.0); BLOOD UREA NITROGEN 15 mg/dL (7-18); CALCIUM 8.4 MG/DL (8.5-10.1); CARBON DIOXIDE 28 MMOL/L (21-32); CHLORIDE 105 MMOL/L (98-107); CREATININE 1.1 MG/DL (0.55-1.30); PHOSPHORUS 3.4 MG/DL (2.5-4.9); POTASSIUM 4.2 MMOL/L (3.5-5.1); SODIUM 140 MMOL/L (136-145)
--- NOTE | 2018-07-24 07:46 | NUR ---
NURSE NOTES: Patient received in stable condition, sleeping in bed. Breathing unlabored on room air. No s/s of respiratory distress or pain. [place] catheter patent and intact. IV sites patent, no s/s of infiltration or irritation observed. Bed locked in low position, will continue to monitor.
[2018-07-24 08:00] VITALS: BP 111/73
[2018-07-24] MEDS: Heparin 5000 units/ml inj SUBQ SCH ×2 (09:00→21:00)
[2018-07-24] MEDS: Azithromycin 250mg tab ORAL SCH (09:06)
[2018-07-24] MEDS: Metoprolol 25mg tab ORAL SCH ×3 (09:07→22:59)
[2018-07-24] MEDS: Multivitamin w/Minerals tab ORAL SCH (09:07)
[2018-07-24] MEDS: Docusate 100mg cap ORAL SCH ×2 (09:07→18:13)
--- NOTE | 2018-07-24 11:34 | Internal Med Progress Note ---
Subjective Date of Service: Jul 24, 2018 Physician Name Jose Jha Attending Physician Joey Perry MD Current Medications Medications (Trade) Dose Ordered Sig/Yazmin Route PRN Reason Start Time Stop Time Status Last Admin Dose Admin Acetaminophen (Tylenol) 650 mg Q6H PRN ORAL Mild Pain/Temp > 100.5 07/23/18 16:41 08/21/18 16:40 Acetaminophen/ Hydrocodone Bitart ([place] 10/325) 1 tab Q6H PRN ORAL Severe Pain (Pain Scale 7-10) 07/23/18 16:42 07/29/18 16:41 Albuterol/ Ipratropium (Albuterol/ Ipratropium) 3 ml Q6H PRN HHN Shortness of Breath 07/23/18 16:42 07/27/18 16:41 Atorvastatin Calcium (Lipitor) 40 mg BEDTIME ORAL 07/23/18 21:00 08/21/18 20:59 07/23/18 20:43 Azithromycin (Zithromax) 250 mg DAILY ORAL 07/24/18 09:00 07/29/18 08:59 07/24/18 09:06 Cefepime HCl 1 gm/ Dextrose 55 ml @ 110 mls/hr Q24H IVPB 07/23/18 18:00 07/30/18 17:59 07/23/18 17:25 Clonidine HCl (Catapres Tab) 0.1 mg Q6H PRN ORAL SBP >160 07/23/18 16:42 08/21/18 16:41 Docusate Sodium (Colace) 100 mg TWICE A DAY ORAL 07/23/18 18:00 08/21/18 08:59 07/24/18 09:07 Escitalopram Oxalate (Lexapro) 10 mg DAILY ORAL 07/24/18 09:00 08/23/18 08:59 07/24/18 09:07 Heparin Sodium (Porcine) (Heparin 5000 units/ml) 5,000 units Q12HR SUBQ 07/23/18 21:00 08/21/18 08:59 07/23/18 20:45 Iopamidol (Isovue-370 150ml) 150 ml NOW PRN INJ Radiology Procedure 07/23/18 16:42 07/24/18 16:41 Lactulose (Cephulac) 30 gm DAILYPRN PRN ORAL Constipation 07/23/18 16:43 08/22/18 16:42 Metoprolol Tartrate (Lopressor) 25 mg Q12HR ORAL 07/23/18 21:00 08/21/18 08:59 07/24/18 09:07 Multivitamins Therapeutic (Therapeutic Multivitamin) 1 ea DAILY ORAL 07/24/18 09:00 08/21/18 08:59 07/24/18 09:07 Pantoprazole (Protonix) 40 mg DAILY ORAL 07/24/18 09:00 08/21/18 08:59 07/24/18 09:08 Promethazine HCl/ Codeine (Phenergan with Codeine) 5 ml Q4H PRN ORAL For Cough 07/23/18 16:43 08/21/18 16:42 Quetiapine Fumarate (SEROquel) 25 mg QHS ORAL 07/23/18 21:00 08/21/18 20:59 07/23/18 20:44 Tamsulosin HCl (Flomax) 0.4 mg BEDTIME ORAL 07/23/18 21:00 08/21/18 20:59 07/23/18 20:44 Temazepam (Restoril) 15 mg BEDTIME PRN ORAL insomnia 07/23/18 21:00 07/29/18 07:29 Valproic Acid (Depakene) 500 mg Q12HR ORAL 07/23/18 21:00 08/21/18 08:59 07/24/18 09:07 Allergies: Coded Allergies: PENICILLIN G (Verified Allergy, Intermediate, 04/13/14) PENICILLINS (Unverified Allergy, Unknown, 07/21/18) ROS Limited/Unobtainable: No Constitutional: Reports: no symptoms HEENT: Reports: no symptoms Cardiovascular: Reports: no symptoms Respiratory: Reports: shortness of breath Gastrointestinal/Abdominal: Reports: no symptoms Genitourinary: Reports: no symptoms Neurologic/Psychiatric: Reports: no symptoms Subjective 82 YO M admitted with dyspnea. Now pneumonia. Cover for Int Paul-Dr Perry Objective Last Vital Signs Date Time Temp Pulse Resp B/P (MAP) Pulse Ox O2 Delivery O2 Flow Rate FiO2 07/24/18 09:07 100 129/87 07/24/18 09:00 Nasal Cannula 3.0 07/24/18 08:00 98.2 19 95 07/23/18 20:00 21 Laboratory Tests Test 07/24/18 01:00 07/24/18 05:10 Urine Color Yellow Urine Appearance Clear Urine pH 6 (4.5-8.0) Urine Specific [place] 1.010 (1.005-1.035) Urine Protein 3+ (NEGATIVE) H Urine Glucose (UA) Negative (NEGATIVE) Urine Ketones 1+ (NEGATIVE) H Urine Blood 5+ (NEGATIVE) H Urine Nitrite Negative (NEGATIVE) Urine Bilirubin Negative (NEGATIVE) Urine Urobilinogen Normal MG/DL (0.0-1.0) Urine Leukocyte Esterase 1+ (NEGATIVE) H Urine RBC Tntc /HPF (0 - 0) H Urine WBC 10-15 /HPF (0 - 0) H Urine Squamous Epithelial Cells None /LPF (NONE/OCC) Urine Bacteria Few /HPF (NONE) White Blood Count 8.4 K/UL (4.8-10.8) Red Blood Count 3.85 M/UL (4.70-6.10) L Hemoglobin 12.0 G/DL (14.2-18.0) L Hematocrit 35.6 % (42.0-52.0) L Mean Corpuscular Volume 93 FL (80-99) Mean Corpuscular Hemoglobin 31.0 PG (27.0-31.0) Mean Corpuscular Hemoglobin Concent 33.5 G/DL (32.0-36.0) Red Cell Distribution Width 13.7 % (11.6-14.8) Platelet Count 144 K/UL (150-450) L Mean Platelet Volume 8.1 FL (6.5-10.1) Neutrophils (%) (Auto) 70.9 % (45.0-75.0) Lymphocytes (%) (Auto) 12.2 % (20.0-45.0) L Monocytes (%) (Auto) 16.5 % (1.0-10.0) H Eosinophils (%) (Auto) 0.0 % (0.0-3.0) Basophils (%) (Auto) 0.3 % (0.0-2.0) Erythrocyte Sedimentation Rate 70 MM/HR (0-20) H Sodium Level 140 MMOL/L (136-145) Potassium Level 4.2 MMOL/L (3.5-5.1) Chloride Level 105 MMOL/L (98-107) Carbon Dioxide Level 28 MMOL/L (21-32) Anion Gap 7 mmol/L (5-15) Blood Urea Nitrogen 15 mg/dL (7-18) Creatinine 1.1 MG/DL (0.55-1.30) Estimat Glomerular Filtration Rate mL/min (>60) Glucose Level 117 MG/DL (74-106) H Calcium Level 8.4 MG/DL (8.5-10.1) L Phosphorus Level 3.4 MG/DL (2.5-4.9) Magnesium Level 1.9 MG/DL (1.8-2.4) Total Bilirubin 0.3 MG/DL (0.2-1.0) Aspartate Amino Transf (AST/SGOT) 23 U/L (15-37) Alanine Aminotransferase (ALT/SGPT) 10 U/L (12-78) L Alkaline Phosphatase 63 U/L (46-116) Troponin I 0.015 ng/mL (0.000-0.056) C-Reactive Protein, Quantitative 16.9 mg/dL (0.00-0.90) H Total Protein 7.1 G/DL (6.4-8.2) Albumin 2.2 G/DL (3.4-5.0) L Globulin 4.9 g/dL Albumin/Globulin Ratio 0.4 (1.0-2.7) L Microbiology Date/Time Source Procedure Growth Status 07/21/18 22:35 Blood Blood Culture - Preliminary NO GROWTH AFTER 48 HOURS Resulted 07/21/18 22:30 Blood Blood Culture - Preliminary NO GROWTH AFTER 48 HOURS Resulted 07/22/18 01:30 Nasal Nares MRSA Culture - Final NO METHICILLIN RESISTANT STAPH AUREUS... Complete 07/22/18 01:30 Rectum VRE Culture - Final Enterococcus Faecalis - Vre Complete Intake and Output 07/23/18 07/24/18 19:00 07:00 Intake Total 295 ml 240 ml Output Total 650 ml 400 ml Balance -355 ml -160 ml Intake Oral 240 ml 240 ml IV Total 55 ml Output Urine Total 650 ml 400 ml # Voids 1 Objective General Appearance: WD/WN, no apparent distress, alert EENT: PERRL/EOMI, normal ENT inspection, TMs normal Neck: non-tender, normal alignment, supple, normal inspection Cardiovascular: normal peripheral pulses, normal rate, regular rhythm, no gallop/murmur, no JVD Respiratory/Chest: respiratory distress, accessory muscle use, crackles/rales, rhonchi - bilaterally, expiratory wheezing Abdomen: normal bowel sounds, non tender, soft, no organomegaly, no mass Extremities: normal range of motion, non-tender 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 Continue cefepime and azithromycin. See pulmonary note. (3) Acute respiratory failure Assessment & Plan: tolerating nasal canula (4) HTN (hypertension) (5) CAD (coronary artery disease) (6) Cerebral palsy (7) BPH (benign prostatic hyperplasia) Status: not improved Assessment/Plan Discharge planning: Jose Hernandez MD Jul 24, 2018 11:34
[2018-07-24 12:00] VITALS: BP 106/69
--- NOTE | 2018-07-24 12:47 | General Progress Note ---
Assessment/Plan Problem List: (1) MDD (major depressive disorder), recurrent episode, moderate ICD Codes: F33.1 - Major depressive disorder, recurrent, moderate SNOMED: 14837609, [id number] (2) Anxiety disorder ICD Codes: F41.9 - Anxiety disorder, unspecified SNOMED: 487314916 Status: stable, progressing Assessment/Plan cont depakote cont seroquel Subjective Neurologic/Psychiatric: Reports: anxiety, depressed, emotional problems Allergies: Coded Allergies: PENICILLIN G (Verified Allergy, Intermediate, 04/13/14) PENICILLINS (Unverified Allergy, Unknown, 07/21/18) Objective Last 24 Hour Vital Signs Date Time Temp Pulse Resp B/P (MAP) Pulse Ox O2 Delivery O2 Flow Rate FiO2 07/24/18 09:07 100 129/87 07/24/18 09:00 Nasal Cannula 3.0 07/24/18 08:10 81 18 Nasal Cannula 2.0 28 07/24/18 08:10 Nasal Cannula 2.0 28 07/24/18 08:10 95 Nasal Cannula 2.0 28 07/24/18 08:00 98.2 80 19 111/73 (86) 95 07/24/18 04:00 98.5 100 19 129/87 (101) 99 07/24/18 00:00 98.1 99 20 127/88 (101) 99 07/23/18 21:00 Nasal Cannula 3.0 07/23/18 20:44 86 102/79 07/23/18 20:00 98.3 101 18 132/94 (107) 99 07/23/18 20:00 82 20 Room Air 21 07/23/18 16:00 98.6 86 20 102/79 (87) 99 Intake and Output 07/23/18 07/24/18 19:00 07:00 Intake Total 295 ml 240 ml Output Total 650 ml 400 ml Balance -355 ml -160 ml Intake Oral 240 ml 240 ml IV Total 55 ml Output Urine Total 650 ml 400 ml # Voids 1 Laboratory Tests 07/24/18 01:00: Urine Color Yellow, Urine Appearance Clear, Urine pH 6, Urine Specific [place] 1.010, Urine Protein 3+H, Urine Glucose (UA) Negative, Urine Ketones 1+H, Urine Blood 5+H, Urine Nitrite Negative, Urine Bilirubin Negative, Urine Urobilinogen Normal, Urine Leukocyte Esterase 1+H, Urine RBC TntcH, Urine WBC 10-15H, Urine Squamous Epithelial Cells None, Urine Bacteria Few 07/24/18 05:10: White Blood Count 8.4, Red Blood Count 3.85L, Hemoglobin 12.0L, Hematocrit 35.6L , Mean Corpuscular Volume 93, Mean Corpuscular Hemoglobin 31.0, Mean Corpuscular Hemoglobin Concent 33.5, Red Cell Distribution Width 13.7, Platelet Count 144L, Mean Platelet Volume 8.1, Neutrophils (%) (Auto) 70.9, Lymphocytes ( %) (Auto) 12.2L, Monocytes (%) (Auto) 16.5H, Eosinophils (%) (Auto) 0.0, Basophils (%) (Auto) 0.3, Erythrocyte Sedimentation Rate 70H, Sodium Level 140, Potassium Level 4.2, Chloride Level 105, Carbon Dioxide Level 28, Anion Gap 7, Blood Urea Nitrogen 15, Creatinine 1.1, Estimat Glomerular Filtration Rate , Glucose Level 117H, Calcium Level 8.4L, Phosphorus Level 3.4, Magnesium Level 1.9, Total Bilirubin 0.3, Aspartate Amino Transf (AST/SGOT) 23, Alanine Aminotransferase (ALT/SGPT) 10L, Alkaline Phosphatase 63, Troponin I 0.015, C- Reactive Protein, Quantitative 16.9H, Total Protein 7.1, Albumin 2.2L, Globulin 4.9, Albumin/Globulin Ratio 0.4L Height (Feet): 5 Height (Inches): 5.00 Weight (Pounds): 162 General Appearance: no apparent distress, alert Neurologic: oriented x 3, responsive, depressed affect Akira Shaffer MD Jul 24, 2018 12:47
--- NOTE | 2018-07-24 13:40 | Pulmonology Progress Note ---
Assessment/Plan Problems: (1) Acute respiratory failure (2) Sepsis (3) Unable to ambulate (4) BPH (benign prostatic hyperplasia) (5) HTN (hypertension) (6) History of alcohol abuse Assessment/Plan CT chest reviewed, RLL infiltrate cultures still pending, afebrile now check sputum IV abx chest pt monitor BP dvt prophylaxis Subjective ROS Limited/Unobtainable: No Constitutional: Reports: no symptoms HEENT: Repors: no symptoms Allergies: Coded Allergies: PENICILLIN G (Verified Allergy, Intermediate, 04/13/14) PENICILLINS (Unverified Allergy, Unknown, 07/21/18) Objective Last 24 Hour Vital Signs Date Time Temp Pulse Resp B/P (MAP) Pulse Ox O2 Delivery O2 Flow Rate FiO2 07/24/18 09:07 100 129/87 07/24/18 09:00 Nasal Cannula 3.0 07/24/18 08:10 81 18 Nasal Cannula 2.0 28 07/24/18 08:10 Nasal Cannula 2.0 28 07/24/18 08:10 95 Nasal Cannula 2.0 28 07/24/18 08:00 98.2 80 19 111/73 (86) 95 07/24/18 04:00 98.5 100 19 129/87 (101) 99 07/24/18 00:00 98.1 99 20 127/88 (101) 99 07/23/18 21:00 Nasal Cannula 3.0 07/23/18 20:44 86 102/79 07/23/18 20:00 98.3 101 18 132/94 (107) 99 07/23/18 20:00 82 20 Room Air 21 07/23/18 16:00 98.6 86 20 102/79 (87) 99 Intake and Output 07/23/18 07/24/18 18:59 06:59 Intake Total 295 ml 240 ml Output Total 650 ml 400 ml Balance -355 ml -160 ml Intake Oral 240 ml 240 ml IV Total 55 ml Output Urine Total 650 ml 400 ml # Voids 1 General Appearance: WD/WN HEENT: normocephalic, atraumatic Respiratory/Chest: chest wall non-tender, lungs clear Abdomen: normal bowel sounds, soft, non tender, non distended Genitourinary: normal external genitalia Extremities: no clubbing Skin: no lesions Microbiology Date/Time Source Procedure Growth Status 07/21/18 22:35 Blood Blood Culture - Preliminary NO GROWTH AFTER 48 HOURS Resulted 07/21/18 22:30 Blood Blood Culture - Preliminary NO GROWTH AFTER 48 HOURS Resulted 07/22/18 01:30 Nasal Nares MRSA Culture - Final NO METHICILLIN RESISTANT STAPH AUREUS... Complete 07/22/18 01:30 Rectum VRE Culture - Final Enterococcus Faecalis - Vre Complete Laboratory Tests 07/24/18 01:00: Urine Color Yellow, Urine Appearance Clear, Urine pH 6, Urine Specific [place] 1.010, Urine Protein 3+H, Urine Glucose (UA) Negative, Urine Ketones 1+H, Urine Blood 5+H, Urine Nitrite Negative, Urine Bilirubin Negative, Urine Urobilinogen Normal, Urine Leukocyte Esterase 1+H, Urine RBC TntcH, Urine WBC 10-15H, Urine Squamous Epithelial Cells None, Urine Bacteria Few 07/24/18 05:10: White Blood Count 8.4, Red Blood Count 3.85L, Hemoglobin 12.0L, Hematocrit 35.6L , Mean Corpuscular Volume 93, Mean Corpuscular Hemoglobin 31.0, Mean Corpuscular Hemoglobin Concent 33.5, Red Cell Distribution Width 13.7, Platelet Count 144L, Mean Platelet Volume 8.1, Neutrophils (%) (Auto) 70.9, Lymphocytes ( %) (Auto) 12.2L, Monocytes (%) (Auto) 16.5H, Eosinophils (%) (Auto) 0.0, Basophils (%) (Auto) 0.3, Erythrocyte Sedimentation Rate 70H, Sodium Level 140, Potassium Level 4.2, Chloride Level 105, Carbon Dioxide Level 28, Anion Gap 7, Blood Urea Nitrogen 15, Creatinine 1.1, Estimat Glomerular Filtration Rate , Glucose Level 117H, Calcium Level 8.4L, Phosphorus Level 3.4, Magnesium Level 1.9, Total Bilirubin 0.3, Aspartate Amino Transf (AST/SGOT) 23, Alanine Aminotransferase (ALT/SGPT) 10L, Alkaline Phosphatase 63, Troponin I 0.015, C- Reactive Protein, Quantitative 16.9H, Total Protein 7.1, Albumin 2.2L, Globulin 4.9, Albumin/Globulin Ratio 0.4L Current Medications Medications (Trade) Dose Ordered Sig/Yazmin Route PRN Reason Start Time Stop Time Status Last Admin Dose Admin Acetaminophen (Tylenol) 650 mg Q6H PRN ORAL Mild Pain/Temp > 100.5 2/12/19 16:41 08/21/18 16:40 Acetaminophen/ Hydrocodone Bitart ([place] 10/325) 1 tab Q6H PRN ORAL Severe Pain (Pain Scale 7-10) 07/23/18 16:42 07/29/18 16:41 Albuterol/ Ipratropium (Albuterol/ Ipratropium) 3 ml Q6H PRN HHN Shortness of Breath 07/23/18 16:42 07/27/18 16:41 Atorvastatin Calcium (Lipitor) 40 mg BEDTIME ORAL 07/23/18 21:00 08/21/18 20:59 07/23/18 20:43 Azithromycin (Zithromax) 250 mg DAILY ORAL 07/24/18 09:00 07/29/18 08:59 07/24/18 09:06 Cefepime HCl 1 gm/ Dextrose 55 ml @ 110 mls/hr Q24H IVPB 07/23/18 18:00 07/30/18 17:59 07/23/18 17:25 Clonidine HCl (Catapres Tab) 0.1 mg Q6H PRN ORAL SBP >160 07/23/18 16:42 08/21/18 16:41 Docusate Sodium (Colace) 100 mg TWICE A DAY ORAL 07/23/18 18:00 08/21/18 08:59 07/24/18 09:07 Escitalopram Oxalate (Lexapro) 10 mg DAILY ORAL 07/24/18 09:00 08/23/18 08:59 07/24/18 09:07 Heparin Sodium (Porcine) (Heparin 5000 units/ml) 5,000 units Q12HR SUBQ 07/23/18 21:00 08/21/18 08:59 07/23/18 20:45 Iopamidol (Isovue-370 150ml) 150 ml NOW PRN INJ Radiology Procedure 07/23/18 16:42 07/24/18 16:41 Lactulose (Cephulac) 30 gm DAILYPRN PRN ORAL Constipation 07/23/18 16:43 08/22/18 16:42 Metoprolol Tartrate (Lopressor) 25 mg Q12HR ORAL 07/23/18 21:00 08/21/18 08:59 07/24/18 09:07 Multivitamins Therapeutic (Therapeutic Multivitamin) 1 ea DAILY ORAL 07/24/18 09:00 08/21/18 08:59 07/24/18 09:07 Pantoprazole (Protonix) 40 mg DAILY ORAL 07/24/18 09:00 08/21/18 08:59 07/24/18 09:08 Promethazine HCl/ Codeine (Phenergan with Codeine) 5 ml Q4H PRN ORAL For Cough 07/23/18 16:43 08/21/18 16:42 Quetiapine Fumarate (SEROquel) 25 mg QHS ORAL 07/23/18 21:00 08/21/18 20:59 07/23/18 20:44 Tamsulosin HCl (Flomax) 0.4 mg BEDTIME ORAL 07/23/18 21:00 08/21/18 20:59 07/23/18 20:44 Temazepam (Restoril) 15 mg BEDTIME PRN ORAL insomnia 07/23/18 21:00 07/29/18 07:29 Valproic Acid (Depakene) 500 mg Q12HR ORAL 07/23/18 21:00 08/21/18 08:59 07/24/18 09:07 Aldair Patel MD Jul 24, 2018 13:40
[2018-07-24 16:00] VITALS: BP 119/79
--- NOTE | 2018-07-24 17:18 | Consultation ---
History of Present Illness General Date patient seen: Jul 24, 2018 Time patient seen: 17:07 Chief Complaint: Dyspnea/Respdistress Present Illness HPI 82 y/o M with hx of Bipolar disorder, Cerebral palsy, HLD, dysphagia, R hip fx s /p ORIF 2013, GERD, RLE DVT 2015, Parkinson's disease, brain aneurysm, BPH, CAD /MT, HTN, SNF resident presents to ED on 07/22 with desaturation (87% at RA), dyspnea, cough and fever of 100.4. Allergies: Coded Allergies: PENICILLIN G (Verified Allergy, Intermediate, 04/13/14) PENICILLINS (Unverified Allergy, Unknown, 07/21/18) Medication History Scheduled Atorvastatin Calcium* (Atorvastatin Calcium*), 40 MG ORAL BEDTIME, (Reported) Docusate Sodium (Docusate Sodium), 100 MG ORAL TWICE A DAY, (Reported) Heparin Sod (Porcine) (Heparin Sodium*), 5,000 UNITS SUBQ Q12HR, (Reported) Hydrocodone Bit/Acetaminophen 10-325* (Hydrocodon-Acetaminophn 10-325*), 1 TAB ORAL Q6H, (Reported) Metoprolol Tartrate* (Metoprolol Tartrate*), 25 MG ORAL EVERY 12 HOURS, ( Reported) Multivitamin With Minerals (Multivitamins With Minerals*), 1 TAB ORAL DAILY, ( Reported) Omeprazole (Omeprazole), 20 MG ORAL DAILY, (Reported) Quetiapine Fumarate* (Quetiapine Fumarate*), 25 MG ORAL HS, (Reported) Ranitidine Hcl (Ranitidine Hcl), 150 MG ORAL DAILY, (Reported) Tamsulosin Hcl (Tamsulosin Hcl*), 0.4 MG ORAL BEDTIME, (Reported) Valproate Sodium (Depakene), 500 MG PO QPM, (Reported) Scheduled PRN Acetaminophen (Acetaminophen 8 Hour), 650 MG ORAL Q6H PRN for PRN, (Reported) Clonidine HCl (Clonidine HCl), 0.1 MG PO Q6HR PRN for PRN, (Reported) Lactulose (Lactulose*), 30 ML ORAL DAILY PRN for Constipation, (Reported) Melatonin (Melatonin), 5 MG ORAL BEDTIME PRN for Insomnia, (Reported) Temazepam (Temazepam*), 15 MG ORAL BEDTIME PRN for PRN, (Reported) Discontinued Medications Fluoxetine Hcl* (Fluoxetine Hcl*), 20 MG ORAL DAILY, (Reported) Discontinued Reason: MD discontinued med Ipratropium [place] 0.5MG/2.5ML (Ipratropium [place] 0.5MG/2.5ML), 0.5 MG HHN Q6H PRN for Shortness of Breath, (Reported) Discontinued Reason: MD discontinued med Levofloxacin* (Levaquin*), 750 MG ORAL DAILY, (Reported) Discontinued Reason: MD discontinued med Lorazepam (Lorazepam), 2 MG ORAL Q6HR PRN for PRN, (Reported) Discontinued Reason: MD discontinued med Rivaroxaban (Xarelto*), 15 MG ORAL BID, (Reported) Discontinued Reason: MD discontinued med Rivaroxaban (Xarelto*), 20 MG ORAL DAILY, (Reported) Discontinued Reason: MD discontinued med Trimethoprim/Sulfamethoxazole 160/800* (Bactrim Ds Tablet*), 1 TAB ORAL TWICE A DAY, (Reported) Discontinued Reason: MD discontinued med Valproate Sodium (Depakene), 250 MG ORAL BID Discontinued Reason: Medication dose changed Valproate Sodium (Depakene), 7.5 ML PO DAILY, (Reported) Discontinued Reason: Medication dose changed Warfarin Sod* (Coumadin*), 3 MG ORAL QPM, (Reported) Discontinued Reason: MD discontinued med Patient History Healthcare decision maker Resuscitation status Full Code Advanced Directive on File No Patient History Narrative Pmhx: as above shx:The patient is single and lives at [facility]. The patient denies tobacco or alcohol use. Fhx: non contributory Review of Systems All Other Systems: negative except mentioned in HPI Physical Exam Physical Exam Narrative General Appearance: WD/WN Lines, tubes and drains: peripheral HEENT: normocephalic, atraumatic Neck: non-tender, normal alignment Respiratory/Chest: chest wall non-tender, lungs clear Abdomen: normal bowel sounds, non tender Extremities: normal range of motion Skin Exam: normal pigmentation Last 24 Hour Vital Signs Date Time Temp Pulse Resp B/P (MAP) Pulse Ox O2 Delivery O2 Flow Rate FiO2 07/24/18 16:00 98.4 87 19 119/79 (92) 95 07/24/18 12:00 97.3 82 20 106/69 (81) 99 07/24/18 09:07 100 129/87 07/24/18 09:00 Nasal Cannula 3.0 07/24/18 08:10 81 18 Nasal Cannula 2.0 28 07/24/18 08:10 Nasal Cannula 2.0 28 07/24/18 08:10 95 Nasal Cannula 2.0 28 07/24/18 08:00 98.2 80 19 111/73 (86) 95 07/24/18 04:00 98.5 100 19 129/87 (101) 99 07/24/18 00:00 98.1 99 20 127/88 (101) 99 07/23/18 21:00 Nasal Cannula 3.0 07/23/18 20:44 86 102/79 07/23/18 20:00 98.3 101 18 132/94 (107) 99 07/23/18 20:00 82 20 Room Air 21 Intake and Output 07/23/18 07/24/18 18:59 06:59 Intake Total 295 ml 240 ml Output Total 650 ml 400 ml Balance -355 ml -160 ml Intake Oral 240 ml 240 ml IV Total 55 ml Output Urine Total 650 ml 400 ml # Voids 1 Laboratory Tests Test 07/24/18 01:00 07/24/18 05:10 Urine Color Yellow Urine Appearance Clear Urine pH 6 (4.5-8.0) Urine Specific [place] 1.010 (1.005-1.035) Urine Protein 3+ (NEGATIVE) H Urine Glucose (UA) Negative (NEGATIVE) Urine Ketones 1+ (NEGATIVE) H Urine Blood 5+ (NEGATIVE) H Urine Nitrite Negative (NEGATIVE) Urine Bilirubin Negative (NEGATIVE) Urine Urobilinogen Normal MG/DL (0.0-1.0) Urine Leukocyte Esterase 1+ (NEGATIVE) H Urine RBC Tntc /HPF (0 - 0) H Urine WBC 10-15 /HPF (0 - 0) H Urine Squamous Epithelial Cells None /LPF (NONE/OCC) Urine Bacteria Few /HPF (NONE) White Blood Count 8.4 K/UL (4.8-10.8) Red Blood Count 3.85 M/UL (4.70-6.10) L Hemoglobin 12.0 G/DL (14.2-18.0) L Hematocrit 35.6 % (42.0-52.0) L Mean Corpuscular Volume 93 FL (80-99) Mean Corpuscular Hemoglobin 31.0 PG (27.0-31.0) Mean Corpuscular Hemoglobin Concent 33.5 G/DL (32.0-36.0) Red Cell Distribution Width 13.7 % (11.6-14.8) Platelet Count 144 K/UL (150-450) L Mean Platelet Volume 8.1 FL (6.5-10.1) Neutrophils (%) (Auto) 70.9 % (45.0-75.0) Lymphocytes (%) (Auto) 12.2 % (20.0-45.0) L Monocytes (%) (Auto) 16.5 % (1.0-10.0) H Eosinophils (%) (Auto) 0.0 % (0.0-3.0) Basophils (%) (Auto) 0.3 % (0.0-2.0) Erythrocyte Sedimentation Rate 70 MM/HR (0-20) H Sodium Level 140 MMOL/L (136-145) Potassium Level 4.2 MMOL/L (3.5-5.1) Chloride Level 105 MMOL/L (98-107) Carbon Dioxide Level 28 MMOL/L (21-32) Anion Gap 7 mmol/L (5-15) Blood Urea Nitrogen 15 mg/dL (7-18) Creatinine 1.1 MG/DL (0.55-1.30) Estimat Glomerular Filtration Rate mL/min (>60) Glucose Level 117 MG/DL (74-106) H Calcium Level 8.4 MG/DL (8.5-10.1) L Phosphorus Level 3.4 MG/DL (2.5-4.9) Magnesium Level 1.9 MG/DL (1.8-2.4) Total Bilirubin 0.3 MG/DL (0.2-1.0) Aspartate Amino Transf (AST/SGOT) 23 U/L (15-37) Alanine Aminotransferase (ALT/SGPT) 10 U/L (12-78) L Alkaline Phosphatase 63 U/L (46-116) Troponin I 0.015 ng/mL (0.000-0.056) C-Reactive Protein, Quantitative 16.9 mg/dL (0.00-0.90) H Total Protein 7.1 G/DL (6.4-8.2) Albumin 2.2 G/DL (3.4-5.0) L Globulin 4.9 g/dL Albumin/Globulin Ratio 0.4 (1.0-2.7) L Height (Feet): 5 Height (Inches): 5.00 Weight (Pounds): 162 Medications Current Medications Medications (Trade) Dose Ordered Sig/Yazmin Route PRN Reason Start Time Stop Time Status Last Admin Dose Admin Acetaminophen (Tylenol) 650 mg Q6H PRN ORAL Mild Pain/Temp > 100.5 07/23/18 16:41 08/21/18 16:40 Acetaminophen/ Hydrocodone Bitart ([place] 10/325) 1 tab Q6H PRN ORAL Severe Pain (Pain Scale 7-10) 07/23/18 16:42 07/29/18 16:41 Albuterol/ Ipratropium (Albuterol/ Ipratropium) 3 ml Q6H PRN HHN Shortness of Breath 07/23/18 16:42 07/27/18 16:41 Atorvastatin Calcium (Lipitor) 40 mg BEDTIME ORAL 07/23/18 21:00 08/21/18 20:59 07/23/18 20:43 Azithromycin (Zithromax) 250 mg DAILY ORAL 07/24/18 09:00 07/29/18 08:59 07/24/18 09:06 Cefepime HCl 1 gm/ Dextrose 55 ml @ 110 mls/hr Q24H IVPB 07/23/18 18:00 07/30/18 17:59 07/23/18 17:25 Clonidine HCl (Catapres Tab) 0.1 mg Q6H PRN ORAL SBP >160 07/23/18 16:42 08/21/18 16:41 Docusate Sodium (Colace) 100 mg TWICE A DAY ORAL 07/23/18 18:00 08/21/18 08:59 07/24/18 09:07 Escitalopram Oxalate (Lexapro) 10 mg DAILY ORAL 07/24/18 09:00 08/23/18 08:59 07/24/18 09:07 Heparin Sodium (Porcine) (Heparin 5000 units/ml) 5,000 units Q12HR SUBQ 07/23/18 21:00 08/21/18 08:59 07/23/18 20:45 Lactulose (Cephulac) 30 gm DAILYPRN PRN ORAL Constipation 07/23/18 16:43 08/22/18 16:42 Metoprolol Tartrate (Lopressor) 25 mg Q12HR ORAL 07/23/18 21:00 08/21/18 08:59 07/24/18 09:07 Multivitamins Therapeutic (Therapeutic Multivitamin) 1 ea DAILY ORAL 07/24/18 09:00 08/21/18 08:59 07/24/18 09:07 Pantoprazole (Protonix) 40 mg DAILY ORAL 07/24/18 09:00 08/21/18 08:59 07/24/18 09:08 Promethazine HCl/ Codeine (Phenergan with Codeine) 5 ml Q4H PRN ORAL For Cough 07/23/18 16:43 08/21/18 16:42 Quetiapine Fumarate (SEROquel) 25 mg QHS ORAL 07/23/18 21:00 08/21/18 20:59 07/23/18 20:44 Tamsulosin HCl (Flomax) 0.4 mg BEDTIME ORAL 07/23/18 21:00 08/21/18 20:59 07/23/18 20:44 Temazepam (Restoril) 15 mg BEDTIME PRN ORAL insomnia 07/23/18 21:00 07/29/18 07:29 Valproic Acid (Depakene) 500 mg Q12HR ORAL 07/23/18 21:00 08/21/18 08:59 07/24/18 09:07 Assessment/Plan Assessment/Plan Abx: Cefepime 07/22- Azithromycin 07/22- Levaquin x1 07/22 Assessment: Sepsis 2ry to PNA- r/o UTI, r/o Influenza -u/a wbc 10-15, RBC tnct, nit neg, leuk +1; ucx p -BCx NTD Acute hypoxic respiratory failure s/p NRB, now on NC -CTA chest: Limited exam due to respiratory motion artifact, precluding exclusion of peripheral emboli. No gross large vessel central pulmonary emboli demonstrated. Bilateral lower lobe parenchymal opacities, right greater than left. Presence of some bronchiectasis, honeycombing, and calcification suggests that these are predominantly areas of chronic scarring. However, superimposed acute infiltrates are also possible.Correlate with clinical findings, Bilateral upper lobe hyperinflation, likely COPD Low grade fever, improving No leukocytosis Bipolar disorder Cerebral palsy HLD dysphagia R hip fx s/p ORIF 2014 GERD RLE DVT 2016 Parkinson's disease brain aneurysm BPH CAD/MT HTN SNF resident Plan: -Continue empiric Cefepime and Azithromycin #3 for PNA pending cultures -start empiric Tamiflu pending influenza test -f/u cx -Monitor CBC/CMP, temperatures -sp cx, legionella ag urine, influenza sc -aspiration precautions Thank you for this consultation. Will continue to follow along with you. Discussed with Daly Eaton M.D. Jul 24, 2018 17:18
[2018-07-24] MEDS: Cefepime HCl 1 GM in D5W 55 ML IVPB SCH (18:18)
--- NOTE | 2018-07-24 19:30 | NUR ---
NURSE NOTES: Patient awake in bed, takes off the O2 at times, no signs of pain. With [place] cath intact and draining well.Instructed the use of call light. Call light and needs in reach. Bed in lowest position, lock engaged and alarm on. Will continue to monitor.
--- NOTE | 2018-07-24 19:37 | NUR ---
HAND-OFF: Report given to Becky AMAYA.
[2018-07-24 20:00] VITALS: BP 100/79
[2018-07-24] MEDS: Atorvastatin 20mg tab ORAL SCH (22:59)
[2018-07-24] MEDS: Tamsulosin 0.4mg cap ORAL SCH (23:00)
[2018-07-25] VITALS: BP 156/88
--- NOTE | 2018-07-25 02:00 | NUR ---
NURSE NOTES: Influenza swab done and urine collected. Sent to the lab.
[2018-07-25 04:00] VITALS: BP 157/95
[2018-07-25 07:07] LABS: ANION GAP 7 mmol/L (5-15); BLOOD UREA NITROGEN 17 mg/dL (7-18); CALCIUM 8.6 MG/DL (8.5-10.1); CARBON DIOXIDE 28 MMOL/L (21-32); CHLORIDE 104 MMOL/L (98-107); POTASSIUM 3.9 MMOL/L (3.5-5.1); SODIUM 139 MMOL/L (136-145)
[2018-07-25 07:15] LABS: BASOPHILS % (AUTO) 0.4 % (0.0-2.0); EOSINOPHILS % (AUTO) 0.2 % (0.0-3.0); HEMATOCRIT 34.3 % (42.0-52.0); HEMOGLOBIN 11.4 G/DL (14.2-18.0); LYMPHOCYTES % (AUTO) 10.8 % (20.0-45.0); MEAN CORPUSCULAR VOLUME 92 FL (80-99); MONOCYTES % (AUTO) 14.6 % (1.0-10.0); PLATELET COUNT 148 K/UL (150-450); RED BLOOD COUNT 3.73 M/UL (4.70-6.10); RED CELL DISTRIBUTION WIDTH 13.7 % (11.6-14.8); WHITE BLOOD COUNT 8.3 K/UL (4.8-10.8)
--- NOTE | 2018-07-25 07:37 | NUR ---
HAND-OFF: Report given to JOSE LUIS Zavala.
--- NOTE | 2018-07-25 07:54 | NUR ---
NURSE NOTES: Patient received in stable condition, sleeping in bed. Breathing unlabored, NC at 2L/min. No s/s of respiratory distress or pain observed. [place] catheter patent and intact, draining yellow colored urine. Seizure precautions maintained. Bed rails padded and locked in low position. Will continue to monitor.
[2018-07-25 08:00] VITALS: BP 151/93
[2018-07-25] MEDS: Heparin 5000 units/ml inj SUBQ SCH ×2 (09:00→21:00)
[2018-07-25] MEDS: Azithromycin 250mg tab ORAL SCH (09:12)
[2018-07-25] MEDS: Metoprolol 25mg tab ORAL SCH ×2 (09:13→21:32)
[2018-07-25] MEDS: Multivitamin w/Minerals tab ORAL SCH (09:13)
[2018-07-25] MEDS: Docusate 100mg cap ORAL SCH ×2 (09:13→17:09)
[2018-07-25 12:00] VITALS: BP 135/75
--- NOTE | 2018-07-25 12:54 | Pulmonology Progress Note ---
Assessment/Plan Problems: (1) Acute respiratory failure (2) Sepsis (3) Unable to ambulate (4) BPH (benign prostatic hyperplasia) (5) HTN (hypertension) (6) History of alcohol abuse Assessment/Plan improving no new complains all reviewed cultures still pending, afebrile now check sputum IV abx chest pt monitor BP dvt prophylaxis Subjective ROS Limited/Unobtainable: No Constitutional: Reports: no symptoms HEENT: Repors: no symptoms Respiratory: Reports: no symptoms Allergies: Coded Allergies: PENICILLIN G (Verified Allergy, Intermediate, 04/13/14) PENICILLINS (Unverified Allergy, Unknown, 07/21/18) Objective Last 24 Hour Vital Signs Date Time Temp Pulse Resp B/P (MAP) Pulse Ox O2 Delivery O2 Flow Rate FiO2 07/25/18 12:00 98.0 86 20 135/75 (95) 95 07/25/18 09:48 Nasal Cannula 2.0 07/25/18 09:13 101 157/95 07/25/18 09:00 Nasal Cannula 3.0 07/25/18 08:10 Nasal Cannula 2.0 28 07/25/18 08:10 97 Nasal Cannula 2.0 28 07/25/18 08:10 103 18 Nasal Cannula 2.0 28 07/25/18 08:00 99.1 100 20 151/93 (112) 96 07/25/18 04:00 98.0 101 19 157/95 (115) 93 07/25/18 00:00 98.9 105 17 156/88 (110) 93 07/24/18 21:00 Nasal Cannula 3.0 07/24/18 21:00 109 100/79 07/24/18 20:51 94 Nasal Cannula 2.0 28 07/24/18 20:50 20 18 Nasal Cannula 2.0 28 07/24/18 20:48 Nasal Cannula 2.0 28 07/24/18 20:00 98.9 109 18 100/79 (86) 93 07/24/18 16:00 98.4 87 19 119/79 (92) 95 Intake and Output 07/24/18 07/25/18 19:00 07:00 Intake Total 240 ml Output Total 150 ml 150 ml Balance 90 ml -150 ml Intake Oral 240 ml Output Urine Total 150 ml 150 ml # Bowel Movements 1 General Appearance: WD/WN HEENT: normocephalic, atraumatic Respiratory/Chest: chest wall non-tender, normal breath sounds Cardiovascular: normal peripheral pulses, normal rate Abdomen: soft, non tender, no mass Extremities: no clubbing Skin: no lesions Neurologic/Psychiatric: vascular specialists II-XII grossly normal Microbiology Date/Time Source Procedure Growth Status 07/24/18 23:50 Nasopharynx Influenza Types A,B Antigen (YANE) - Final Complete 07/24/18 01:00 Urine,Clean Catch Urine Culture - Preliminary NO GROWTH AFTER 24 HOURS Resulted Laboratory Tests 07/24/18 23:00: Urine Legionella Antigen [Pending] 07/25/18 05:15: White Blood Count 8.3, Red Blood Count 3.73L, Hemoglobin 11.4L, Hematocrit 34.3L , Mean Corpuscular Volume 92, Mean Corpuscular Hemoglobin 30.7, Mean Corpuscular Hemoglobin Concent 33.3, Red Cell Distribution Width 13.7, Platelet Count 148L, Mean Platelet Volume 6.9, Neutrophils (%) (Auto) 74.0, Lymphocytes ( %) (Auto) 10.8L, Monocytes (%) (Auto) 14.6H, Eosinophils (%) (Auto) 0.2, Basophils (%) (Auto) 0.4, Sodium Level 139, Potassium Level 3.9, Chloride Level 104, Carbon Dioxide Level 28, Anion Gap 7, Blood Urea Nitrogen 17, Creatinine 1.0, Estimat Glomerular Filtration Rate , Glucose Level 101, Calcium Level 8.6 Current Medications Medications (Trade) Dose Ordered Sig/Yazmin Route PRN Reason Start Time Stop Time Status Last Admin Dose Admin Acetaminophen (Tylenol) 650 mg Q6H PRN ORAL Mild Pain/Temp > 100.5 07/23/18 16:41 08/21/18 16:40 Acetaminophen/ Hydrocodone Bitart ([place] 10/325) 1 tab Q6H PRN ORAL Severe Pain (Pain Scale 7-10) 07/23/18 16:42 07/29/18 16:41 Albuterol/ Ipratropium (Albuterol/ Ipratropium) 3 ml Q6H PRN HHN Shortness of Breath 07/23/18 16:42 07/27/18 16:41 Atorvastatin Calcium (Lipitor) 40 mg BEDTIME ORAL 07/23/18 21:00 08/21/18 20:59 07/24/18 22:59 Azithromycin (Zithromax) 250 mg DAILY ORAL 07/24/18 09:00 07/29/18 08:59 07/25/18 09:12 Cefepime HCl 1 gm/ Dextrose 55 ml @ 110 mls/hr Q24H IVPB 07/23/18 18:00 07/30/18 17:59 07/24/18 18:18 Clonidine HCl (Catapres Tab) 0.1 mg Q6H PRN ORAL SBP >160 07/23/18 16:42 08/21/18 16:41 Docusate Sodium (Colace) 100 mg TWICE A DAY ORAL 07/23/18 18:00 08/21/18 08:59 07/25/18 09:13 Escitalopram Oxalate (Lexapro) 10 mg DAILY ORAL 07/24/18 09:00 08/23/18 08:59 07/25/18 09:13 Heparin Sodium (Porcine) (Heparin 5000 units/ml) 5,000 units Q12HR SUBQ 07/23/18 21:00 08/21/18 08:59 07/23/18 20:45 Lactulose (Cephulac) 30 gm DAILYPRN PRN ORAL Constipation 07/23/18 16:43 08/22/18 16:42 Metoprolol Tartrate (Lopressor) 25 mg Q12HR ORAL 07/23/18 21:00 08/21/18 08:59 07/25/18 09:13 Multivitamins Therapeutic (Therapeutic Multivitamin) 1 ea DAILY ORAL 07/24/18 09:00 08/21/18 08:59 07/25/18 09:13 Oseltamivir Phosphate (Tamiflu) 30 mg TWICE A DAY ORAL 07/24/18 18:00 07/29/18 17:59 07/25/18 09:13 Pantoprazole (Protonix) 40 mg DAILY ORAL 07/24/18 09:00 08/21/18 08:59 07/25/18 09:13 Promethazine HCl/ Codeine (Phenergan with Codeine) 5 ml Q4H PRN ORAL For Cough 07/23/18 16:43 08/21/18 16:42 Quetiapine Fumarate (SEROquel) 25 mg QHS ORAL 07/23/18 21:00 08/21/18 20:59 07/24/18 22:59 Tamsulosin HCl (Flomax) 0.4 mg BEDTIME ORAL 07/23/18 21:00 08/21/18 20:59 07/24/18 23:00 Temazepam (Restoril) 15 mg BEDTIME PRN ORAL insomnia 07/23/18 21:00 07/29/18 07:29 Valproic Acid (Depakene) 500 mg Q12HR ORAL 07/23/18 21:00 08/21/18 08:59 07/25/18 09:13 Aldair Patel MD Jul 25, 2018 12:54
--- NOTE | 2018-07-25 13:28 | General Progress Note ---
Assessment/Plan Problem List: (1) MDD (major depressive disorder), recurrent episode, moderate ICD Codes: F33.1 - Major depressive disorder, recurrent, moderate SNOMED: 17658067, [id number] (2) Anxiety disorder ICD Codes: F41.9 - Anxiety disorder, unspecified SNOMED: 099272057 Status: stable, progressing Assessment/Plan cont depakote cont seroquel provide ro/st Subjective Neurologic/Psychiatric: Reports: anxiety, depressed, emotional problems Allergies: Coded Allergies: PENICILLIN G (Verified Allergy, Intermediate, 04/13/14) PENICILLINS (Unverified Allergy, Unknown, 07/21/18) Objective Last 24 Hour Vital Signs Date Time Temp Pulse Resp B/P (MAP) Pulse Ox O2 Delivery O2 Flow Rate FiO2 07/25/18 12:00 98.0 86 20 135/75 (95) 95 07/25/18 09:48 Nasal Cannula 2.0 07/25/18 09:13 101 157/95 07/25/18 09:00 Nasal Cannula 3.0 07/25/18 08:10 Nasal Cannula 2.0 28 07/25/18 08:10 97 Nasal Cannula 2.0 28 07/25/18 08:10 103 18 Nasal Cannula 2.0 28 07/25/18 08:00 99.1 100 20 151/93 (112) 96 07/25/18 04:00 98.0 101 19 157/95 (115) 93 07/25/18 00:00 98.9 105 17 156/88 (110) 93 07/24/18 21:00 Nasal Cannula 3.0 07/24/18 21:00 109 100/79 07/24/18 20:51 94 Nasal Cannula 2.0 28 07/24/18 20:50 20 18 Nasal Cannula 2.0 28 07/24/18 20:48 Nasal Cannula 2.0 28 07/24/18 20:00 98.9 109 18 100/79 (86) 93 07/24/18 16:00 98.4 87 19 119/79 (92) 95 Intake and Output 07/24/18 07/25/18 19:00 07:00 Intake Total 240 ml Output Total 150 ml 150 ml Balance 90 ml -150 ml Intake Oral 240 ml Output Urine Total 150 ml 150 ml # Bowel Movements 1 Laboratory Tests 07/24/18 23:00: Urine Legionella Antigen [Pending] 07/25/18 05:15: White Blood Count 8.3, Red Blood Count 3.73L, Hemoglobin 11.4L, Hematocrit 34.3L , Mean Corpuscular Volume 92, Mean Corpuscular Hemoglobin 30.7, Mean Corpuscular Hemoglobin Concent 33.3, Red Cell Distribution Width 13.7, Platelet Count 148L, Mean Platelet Volume 6.9, Neutrophils (%) (Auto) 74.0, Lymphocytes ( %) (Auto) 10.8L, Monocytes (%) (Auto) 14.6H, Eosinophils (%) (Auto) 0.2, Basophils (%) (Auto) 0.4, Sodium Level 139, Potassium Level 3.9, Chloride Level 104, Carbon Dioxide Level 28, Anion Gap 7, Blood Urea Nitrogen 17, Creatinine 1.0, Estimat Glomerular Filtration Rate , Glucose Level 101, Calcium Level 8.6 Height (Feet): 5 Height (Inches): 5.00 Weight (Pounds): 162 General Appearance: WD/WN, no apparent distress, alert Neurologic: oriented x 3, responsive, depressed affect Akira Shaffer MD Jul 25, 2018 13:27
--- NOTE | 2018-07-25 13:33 | NUR ---
RD ASSESSMENT & RECOMMENDATIONS SEE CARE ACTIVITY FOR COMPLETE ASSESSMENT DAILY ESTIMATED NEEDS: Needs based on cardiac, sepsis/ 70.4kg 25-30 kcals/kg 2547-2793 total kcals 1-2 g protein/kg 70-140g g total protein 25-30 mL/kg 8710-8849 total fluid mLs NUTRITION DIAGNOSIS: 1) Chewing and swallowing difficulty R/T edentulous status, h/o dysphagia, h/o cerebral palsy and Parkinson's disease as evidenced by pt on chopped texture diet. CURRENT DIET:Cardiac, mech soft chopped PO DIET RECOMMENDATIONS: Low Na/ texture per [employer] ADDITIONAL RECOMMENDATIONS: * Rec [employer] eval for appropriate texture- dyspahgia dx, h/o Parkinson's, h/o cerebral palsy * Monitor PO intake and tolerance * Calibrated bedscale wt for accurate CBW
[2018-07-25 16:00] VITALS: BP 142/82
--- NOTE | 2018-07-25 16:06 | Infectious Diseases Prog Note ---
Assessment/Plan Assessment/Plan Abx: Cefepime 07/22- Azithromycin 07/22- Levaquin x1 07/22 Assessment: Sepsis 2ry to PNA- r/o UTI -u/a wbc 10-15, RBC tnct, nit neg, leuk +1; ucx NTD -BCx NTD -sp cx p -Influenza sc neg Acute hypoxic respiratory failure s/p NRB, now on NC -CTA chest: Limited exam due to respiratory motion artifact, precluding exclusion of peripheral emboli. No gross large vessel central pulmonary emboli demonstrated. Bilateral lower lobe parenchymal opacities, right greater than left. Presence of some bronchiectasis, honeycombing, and calcification suggests that these are predominantly areas of chronic scarring. However, superimposed acute infiltrates are also possible.Correlate with clinical findings, Bilateral upper lobe hyperinflation, likely COPD Low grade fever, SP No leukocytosis Bipolar disorder Cerebral palsy HLD dysphagia R hip fx s/p ORIF 2013 GERD RLE DVT 2016 Parkinson's disease brain aneurysm BPH CAD/VA HTN SNF resident Plan: -Continue empiric Cefepime and Azithromycin #4/-7 for PNA pending cultures -D/c empiric Tamiflu #2 -07/22 SP Levaquin x1 -f/u cx -Monitor CBC/CMP, temperatures -f/u sp cx, legionella ag urine -aspiration precautions Thank you for this consultation. Will continue to follow along with you. Discussed with RN. Subjective Allergies: Coded Allergies: PENICILLIN G (Verified Allergy, Intermediate, 04/13/14) PENICILLINS (Unverified Allergy, Unknown, 07/21/18) Subjective afebrile >72hrs no leukocytosis at 2l NC Objective Vital Signs Last 24 Hour Vital Signs Date Time Temp Pulse Resp B/P (MAP) Pulse Ox O2 Delivery O2 Flow Rate FiO2 07/25/18 12:00 98.0 86 20 135/75 (95) 95 07/25/18 09:48 Nasal Cannula 2.0 07/25/18 09:13 101 157/95 07/25/18 09:00 Nasal Cannula 3.0 07/25/18 08:10 Nasal Cannula 2.0 28 07/25/18 08:10 97 Nasal Cannula 2.0 28 07/25/18 08:10 103 18 Nasal Cannula 2.0 28 07/25/18 08:00 99.1 100 20 151/93 (112) 96 07/25/18 04:00 98.0 101 19 157/95 (115) 93 07/25/18 00:00 98.9 105 17 156/88 (110) 93 07/24/18 21:00 Nasal Cannula 3.0 07/24/18 21:00 109 100/79 07/24/18 20:51 94 Nasal Cannula 2.0 28 07/24/18 20:50 20 18 Nasal Cannula 2.0 28 07/24/18 20:48 Nasal Cannula 2.0 28 07/24/18 20:00 98.9 109 18 100/79 (86) 93 07/24/18 16:00 98.4 87 19 119/79 (92) 95 Height (Feet): 5 Height (Inches): 5.00 Weight (Pounds): 162 Objective General Appearance: WD/WN Lines, tubes and drains: peripheral HEENT: normocephalic, atraumatic Neck: non-tender, normal alignment Respiratory/Chest: chest wall non-tender, lungs clear Abdomen: normal bowel sounds, non tender Extremities: normal range of motion Skin Exam: normal pigmentation Microbiology Date/Time Source Procedure Growth Status 07/24/18 23:50 Nasopharynx Influenza Types A,B Antigen (YANE) - Final Complete 07/24/18 01:00 Urine,Clean Catch Urine Culture - Preliminary NO GROWTH AFTER 24 HOURS Resulted Laboratory Tests Test 07/24/18 23:00 07/25/18 05:15 Urine Legionella Antigen Pending White Blood Count 8.3 K/UL (4.8-10.8) Red Blood Count 3.73 M/UL (4.70-6.10) L Hemoglobin 11.4 G/DL (14.2-18.0) L Hematocrit 34.3 % (42.0-52.0) L Mean Corpuscular Volume 92 FL (80-99) Mean Corpuscular Hemoglobin 30.7 PG (27.0-31.0) Mean Corpuscular Hemoglobin Concent 33.3 G/DL (32.0-36.0) Red Cell Distribution Width 13.7 % (11.6-14.8) Platelet Count 148 K/UL (150-450) L Mean Platelet Volume 6.9 FL (6.5-10.1) Neutrophils (%) (Auto) 74.0 % (45.0-75.0) Lymphocytes (%) (Auto) 10.8 % (20.0-45.0) L Monocytes (%) (Auto) 14.6 % (1.0-10.0) H Eosinophils (%) (Auto) 0.2 % (0.0-3.0) Basophils (%) (Auto) 0.4 % (0.0-2.0) Sodium Level 139 MMOL/L (136-145) Potassium Level 3.9 MMOL/L (3.5-5.1) Chloride Level 104 MMOL/L (98-107) Carbon Dioxide Level 28 MMOL/L (21-32) Anion Gap 7 mmol/L (5-15) Blood Urea Nitrogen 17 mg/dL (7-18) Creatinine 1.0 MG/DL (0.55-1.30) Estimat Glomerular Filtration Rate mL/min (>60) Glucose Level 101 MG/DL (74-106) Calcium Level 8.6 MG/DL (8.5-10.1) Current Medications Medications (Trade) Dose Ordered Sig/Yazmin Route PRN Reason Start Time Stop Time Status Last Admin Dose Admin Acetaminophen (Tylenol) 650 mg Q6H PRN ORAL Mild Pain/Temp > 100.5 07/23/18 16:41 08/21/18 16:40 Acetaminophen/ Hydrocodone Bitart ([place] 10/325) 1 tab Q6H PRN ORAL Severe Pain (Pain Scale 7-10) 07/23/18 16:42 07/29/18 16:41 Albuterol/ Ipratropium (Albuterol/ Ipratropium) 3 ml Q6H PRN HHN Shortness of Breath 07/23/18 16:42 07/27/18 16:41 Atorvastatin Calcium (Lipitor) 40 mg BEDTIME ORAL 07/23/18 21:00 08/21/18 20:59 07/24/18 22:59 Azithromycin (Zithromax) 250 mg DAILY ORAL 07/24/18 09:00 07/29/18 08:59 07/25/18 09:12 Cefepime HCl 1 gm/ Dextrose 55 ml @ 110 mls/hr Q24H IVPB 07/23/18 18:00 07/30/18 17:59 07/24/18 18:18 Clonidine HCl (Catapres Tab) 0.1 mg Q6H PRN ORAL SBP >160 07/23/18 16:42 08/21/18 16:41 Docusate Sodium (Colace) 100 mg TWICE A DAY ORAL 07/23/18 18:00 08/21/18 08:59 07/25/18 09:13 Escitalopram Oxalate (Lexapro) 10 mg DAILY ORAL 07/24/18 09:00 08/23/18 08:59 07/25/18 09:13 Heparin Sodium (Porcine) (Heparin 5000 units/ml) 5,000 units Q12HR SUBQ 07/23/18 21:00 08/21/18 08:59 07/23/18 20:45 Lactulose (Cephulac) 30 gm DAILYPRN PRN ORAL Constipation 07/23/18 16:43 08/22/18 16:42 Metoprolol Tartrate (Lopressor) 25 mg Q12HR ORAL 07/23/18 21:00 08/21/18 08:59 07/25/18 09:13 Multivitamins Therapeutic (Therapeutic Multivitamin) 1 ea DAILY ORAL 07/24/18 09:00 08/21/18 08:59 07/25/18 09:13 Oseltamivir Phosphate (Tamiflu) 30 mg TWICE A DAY ORAL 07/24/18 18:00 07/29/18 17:59 07/25/18 09:13 Pantoprazole (Protonix) 40 mg DAILY ORAL 07/24/18 09:00 08/21/18 08:59 07/25/18 09:13 Promethazine HCl/ Codeine (Phenergan with Codeine) 5 ml Q4H PRN ORAL For Cough 07/23/18 16:43 08/21/18 16:42 Quetiapine Fumarate (SEROquel) 25 mg QHS ORAL 07/23/18 21:00 08/21/18 20:59 07/24/18 22:59 Tamsulosin HCl (Flomax) 0.4 mg BEDTIME ORAL 07/23/18 21:00 08/21/18 20:59 07/24/18 23:00 Temazepam (Restoril) 15 mg BEDTIME PRN ORAL insomnia 07/23/18 21:00 07/29/18 07:29 Valproic Acid (Depakene) 500 mg Q12HR ORAL 07/23/18 21:00 08/21/18 08:59 07/25/18 09:13 Daly Daniel M.D. Jul 25, 2018 16:06
[2018-07-25] MEDS: Cefepime HCl 1 GM in D5W 55 ML IVPB SCH (17:09)
--- NOTE | 2018-07-25 19:30 | NUR ---
HAND-OFF: Report given to Dana AMAYA.
--- NOTE | 2018-07-25 19:35 | Internal Med Progress Note ---
Subjective Date of Service: Jul 25, 2018 Physician Name Jose Jha Attending Physician Joey Perry MD Current Medications Medications (Trade) Dose Ordered Sig/Yazmin Route PRN Reason Start Time Stop Time Status Last Admin Dose Admin Acetaminophen (Tylenol) 650 mg Q6H PRN ORAL Mild Pain/Temp > 100.5 07/23/18 16:41 08/21/18 16:40 Acetaminophen/ Hydrocodone Bitart ([place] 10/325) 1 tab Q6H PRN ORAL Severe Pain (Pain Scale 7-10) 07/23/18 16:42 07/29/18 16:41 Albuterol/ Ipratropium (Albuterol/ Ipratropium) 3 ml Q6H PRN HHN Shortness of Breath 07/23/18 16:42 07/27/18 16:41 Atorvastatin Calcium (Lipitor) 40 mg BEDTIME ORAL 07/23/18 21:00 08/21/18 20:59 07/24/18 22:59 Azithromycin (Zithromax) 250 mg DAILY ORAL 07/24/18 09:00 07/29/18 08:59 07/25/18 09:12 Cefepime HCl 1 gm/ Dextrose 55 ml @ 110 mls/hr Q12H IVPB 07/26/18 06:00 08/02/18 05:59 Clonidine HCl (Catapres Tab) 0.1 mg Q6H PRN ORAL SBP >160 07/23/18 16:42 08/21/18 16:41 Docusate Sodium (Colace) 100 mg TWICE A DAY ORAL 07/23/18 18:00 08/21/18 08:59 07/25/18 17:09 Escitalopram Oxalate (Lexapro) 10 mg DAILY ORAL 07/24/18 09:00 08/23/18 08:59 07/25/18 09:13 Heparin Sodium (Porcine) (Heparin 5000 units/ml) 5,000 units Q12HR SUBQ 07/23/18 21:00 08/21/18 08:59 07/23/18 20:45 Lactulose (Cephulac) 30 gm DAILYPRN PRN ORAL Constipation 07/23/18 16:43 08/22/18 16:42 Metoprolol Tartrate (Lopressor) 25 mg Q12HR ORAL 07/23/18 21:00 08/21/18 08:59 07/25/18 09:13 Multivitamins Therapeutic (Therapeutic Multivitamin) 1 ea DAILY ORAL 07/24/18 09:00 08/21/18 08:59 07/25/18 09:13 Pantoprazole (Protonix) 40 mg DAILY ORAL 07/24/18 09:00 08/21/18 08:59 07/25/18 09:13 Promethazine HCl/ Codeine (Phenergan with Codeine) 5 ml Q4H PRN ORAL For Cough 07/23/18 16:43 08/21/18 16:42 Quetiapine Fumarate (SEROquel) 25 mg QHS ORAL 07/23/18 21:00 08/21/18 20:59 07/24/18 22:59 Tamsulosin HCl (Flomax) 0.4 mg BEDTIME ORAL 07/23/18 21:00 08/21/18 20:59 07/24/18 23:00 Temazepam (Restoril) 15 mg BEDTIME PRN ORAL insomnia 07/23/18 21:00 07/29/18 07:29 Valproic Acid (Depakene) 500 mg Q12HR ORAL 07/23/18 21:00 08/21/18 08:59 07/25/18 09:13 Allergies: Coded Allergies: PENICILLIN G (Verified Allergy, Intermediate, 04/13/14) PENICILLINS (Unverified Allergy, Unknown, 07/21/18) ROS Limited/Unobtainable: No Constitutional: Reports: no symptoms HEENT: Reports: no symptoms Cardiovascular: Reports: no symptoms Respiratory: Reports: shortness of breath Gastrointestinal/Abdominal: Reports: no symptoms Genitourinary: Reports: no symptoms Neurologic/Psychiatric: Reports: no symptoms Subjective 82 YO M admitted with dyspnea. Now pneumonia. Cover for Int Paul-Dr Perry Objective Last Vital Signs Date Time Temp Pulse Resp B/P (MAP) Pulse Ox O2 Delivery O2 Flow Rate FiO2 07/25/18 16:00 98.1 87 20 142/82 (102) 95 07/25/18 09:48 Nasal Cannula 2.0 07/25/18 08:10 28 Laboratory Tests Test 07/24/18 23:00 07/25/18 05:15 Urine Legionella Antigen Pending White Blood Count 8.3 K/UL (4.8-10.8) Red Blood Count 3.73 M/UL (4.70-6.10) L Hemoglobin 11.4 G/DL (14.2-18.0) L Hematocrit 34.3 % (42.0-52.0) L Mean Corpuscular Volume 92 FL (80-99) Mean Corpuscular Hemoglobin 30.7 PG (27.0-31.0) Mean Corpuscular Hemoglobin Concent 33.3 G/DL (32.0-36.0) Red Cell Distribution Width 13.7 % (11.6-14.8) Platelet Count 148 K/UL (150-450) L Mean Platelet Volume 6.9 FL (6.5-10.1) Neutrophils (%) (Auto) 74.0 % (45.0-75.0) Lymphocytes (%) (Auto) 10.8 % (20.0-45.0) L Monocytes (%) (Auto) 14.6 % (1.0-10.0) H Eosinophils (%) (Auto) 0.2 % (0.0-3.0) Basophils (%) (Auto) 0.4 % (0.0-2.0) Sodium Level 139 MMOL/L (136-145) Potassium Level 3.9 MMOL/L (3.5-5.1) Chloride Level 104 MMOL/L (98-107) Carbon Dioxide Level 28 MMOL/L (21-32) Anion Gap 7 mmol/L (5-15) Blood Urea Nitrogen 17 mg/dL (7-18) Creatinine 1.0 MG/DL (0.55-1.30) Estimat Glomerular Filtration Rate mL/min (>60) Glucose Level 101 MG/DL (74-106) Calcium Level 8.6 MG/DL (8.5-10.1) Microbiology Date/Time Source Procedure Growth Status 07/24/18 23:50 Nasopharynx Influenza Types A,B Antigen (YANE) - Final Complete 07/24/18 01:00 Urine,Clean Catch Urine Culture - Preliminary NO GROWTH AFTER 24 HOURS Resulted Intake and Output 07/24/18 07/25/18 19:00 07:00 Intake Total 240 ml Output Total 150 ml 150 ml Balance 90 ml -150 ml Intake Oral 240 ml Output Urine Total 150 ml 150 ml # Bowel Movements 1 Objective General Appearance: WD/WN, no apparent distress, alert EENT: PERRL/EOMI, normal ENT inspection, TMs normal Neck: non-tender, normal alignment, supple, normal inspection Cardiovascular: normal peripheral pulses, normal rate, regular rhythm, no gallop/murmur, no JVD Respiratory/Chest: respiratory distress, accessory muscle use, crackles/rales, rhonchi - bilaterally, expiratory wheezing Abdomen: normal bowel sounds, non tender, soft, no organomegaly, no mass Extremities: normal range of motion, non-tender 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 Continue cefepime and azithromycin. See pulmonary note. (3) Acute respiratory failure Assessment & Plan: tolerating nasal canula (4) HTN (hypertension) (5) CAD (coronary artery disease) (6) Cerebral palsy (7) BPH (benign prostatic hyperplasia) Status: not improved Assessment/Plan Discharge planning: Jose Hernandez MD Jul 25, 2018 19:35
--- NOTE | 2018-07-25 19:58 | NUR ---
NURSE NOTES: Patient in bed, awake. No s/s of respiratory distress or pain observed. Del Rosario catheter in place. Bed in lowest position, call light within reach, bed alarm on. Will continue to monitor.
[2018-07-25 20:00] VITALS: BP 138/85
[2018-07-25] MEDS: Tamsulosin 0.4mg cap ORAL SCH (21:32)
[2018-07-25] MEDS: Atorvastatin 20mg tab ORAL SCH (21:33)
[2018-07-26 00:40] VITALS: BP 117/67
[2018-07-26 04:00] VITALS: BP 136/73
--- NOTE | 2018-07-26 05:00 | NUR ---
NURSE NOTES: PATIENT ASLEEP, V/S STABLE, NO DISTRESS.
[2018-07-26] MEDS: Cefepime HCl 1 GM in D5W 55 ML IVPB SCH ×2 (05:12→17:49)
--- NOTE | 2018-07-26 07:12 | NUR ---
HAND-OFF: Report given to BENITO VALADEZ RN.
[2018-07-26 07:37] LABS: ANION GAP 5 mmol/L (5-15); BLOOD UREA NITROGEN 20 mg/dL (7-18); CALCIUM 8.7 MG/DL (8.5-10.1); CARBON DIOXIDE 29 MMOL/L (21-32); CHLORIDE 105 MMOL/L (98-107); CREATININE 0.8 MG/DL (0.55-1.30); POTASSIUM 3.9 MMOL/L (3.5-5.1); SODIUM 139 MMOL/L (136-145)
--- NOTE | 2018-07-26 07:38 | NUR ---
NURSE NOTES: Report received from JOSE LUIS Cortez. Pt in bed, awake, talkative, no apparent distress noted, bed in lowest position, call light within reach.
[2018-07-26 08:00] VITALS: BP 128/74
[2018-07-26 08:10] LABS: BASOPHILS % (AUTO) 0.3 % (0.0-2.0); EOSINOPHILS % (AUTO) 3.7 % (0.0-3.0); HEMATOCRIT 31.6 % (42.0-52.0); HEMOGLOBIN 10.5 G/DL (14.2-18.0); LYMPHOCYTES % (AUTO) 9.8 % (20.0-45.0); MEAN CORPUSCULAR VOLUME 92 FL (80-99); MONOCYTES % (AUTO) 10.5 % (1.0-10.0); NEUTROPHILS % (AUTO) 75.8 % (45.0-75.0); PLATELET COUNT 151 K/UL (150-450); RED BLOOD COUNT 3.44 M/UL (4.70-6.10); RED CELL DISTRIBUTION WIDTH 13.6 % (11.6-14.8); WHITE BLOOD COUNT 7.4 K/UL (4.8-10.8)
[2018-07-26] MEDS: Metoprolol 25mg tab ORAL SCH ×2 (09:05→22:19)
[2018-07-26] MEDS: Multivitamin w/Minerals tab ORAL SCH (09:05)
[2018-07-26] MEDS: Docusate 100mg cap ORAL SCH ×2 (09:05→17:48)
[2018-07-26] MEDS: Azithromycin 250mg tab ORAL SCH (09:05)
[2018-07-26] MEDS: Heparin 5000 units/ml inj SUBQ SCH ×2 (09:06→22:23)
[2018-07-26 12:00] VITALS: BP 130/71
--- NOTE | 2018-07-26 13:32 | Pulmonology Progress Note ---
Assessment/Plan Problems: (1) Acute respiratory failure (2) Sepsis (3) Unable to ambulate (4) BPH (benign prostatic hyperplasia) (5) HTN (hypertension) (6) History of alcohol abuse Assessment/Plan improving no new complains all reviewed ID consult appreciated cultures still pending, afebrile now check sputum IV abx chest pt monitor BP dvt prophylaxis Subjective ROS Limited/Unobtainable: No Constitutional: Reports: no symptoms HEENT: Repors: no symptoms Respiratory: Reports: no symptoms Allergies: Coded Allergies: PENICILLIN G (Verified Allergy, Intermediate, 04/13/14) PENICILLINS (Unverified Allergy, Unknown, 07/21/18) Objective Last 24 Hour Vital Signs Date Time Temp Pulse Resp B/P (MAP) Pulse Ox O2 Delivery O2 Flow Rate FiO2 07/26/18 12:00 98.8 81 17 130/71 (90) 97 07/26/18 09:05 72 128/74 07/26/18 09:00 Room Air 07/26/18 08:00 98.0 72 12 128/74 (92) 95 07/26/18 04:00 97.8 69 19 136/73 (94) 96 07/26/18 00:40 97.5 70 19 117/67 (84) 95 07/25/18 22:23 Room Air 07/25/18 21:32 81 138/85 07/25/18 20:00 98.6 81 20 138/85 (102) 94 07/25/18 19:50 Room Air 21 07/25/18 19:49 87 18 Room Air 21 07/25/18 19:49 94 Room Air 21 07/25/18 16:00 98.1 87 20 142/82 (102) 95 Intake and Output 07/25/18 07/26/18 18:59 06:59 Intake Total 610 ml 115 ml Output Total 400 ml 300 ml Balance 210 ml -185 ml Intake Oral 610 ml 60 ml IV Total 55 ml Output Urine Total 400 ml 300 ml # Bowel Movements 1 1 General Appearance: WD/WN HEENT: normocephalic, anicteric Respiratory/Chest: chest wall non-tender, normal breath sounds Cardiovascular: normal peripheral pulses, regular rhythm Abdomen: normal bowel sounds, no mass Microbiology Date/Time Source Procedure Growth Status 07/24/18 23:50 Nasopharynx Influenza Types A,B Antigen (YANE) - Final Complete 07/24/18 01:00 Urine,Clean Catch Urine Culture - Final NO GROWTH AFTER 48 HOURS Complete Laboratory Tests 07/26/18 06:27: White Blood Count 7.4, Red Blood Count 3.44L, Hemoglobin 10.5L, Hematocrit 31.6L , Mean Corpuscular Volume 92, Mean Corpuscular Hemoglobin 30.6, Mean Corpuscular Hemoglobin Concent 33.3, Red Cell Distribution Width 13.6, Platelet Count 151, Mean Platelet Volume 7.3, Neutrophils (%) (Auto) 75.8H, Lymphocytes ( %) (Auto) 9.8L, Monocytes (%) (Auto) 10.5H, Eosinophils (%) (Auto) 3.7H, Basophils (%) (Auto) 0.3, Sodium Level 139, Potassium Level 3.9, Chloride Level 105, Carbon Dioxide Level 29, Anion Gap 5, Blood Urea Nitrogen 20H, Creatinine 0.8, Estimat Glomerular Filtration Rate , Glucose Level 90, Calcium Level 8.7 Current Medications Medications (Trade) Dose Ordered Sig/Yazmin Route PRN Reason Start Time Stop Time Status Last Admin Dose Admin Acetaminophen (Tylenol) 650 mg Q6H PRN ORAL Mild Pain/Temp > 100.5 07/23/18 16:41 08/21/18 16:40 Acetaminophen/ Hydrocodone Bitart ([place] 10/325) 1 tab Q6H PRN ORAL Severe Pain (Pain Scale 7-10) 07/23/18 16:42 07/29/18 16:41 Albuterol/ Ipratropium (Albuterol/ Ipratropium) 3 ml Q6H PRN HHN Shortness of Breath 07/23/18 16:42 07/27/18 16:41 Atorvastatin Calcium (Lipitor) 40 mg BEDTIME ORAL 07/23/18 21:00 08/21/18 20:59 07/25/18 21:33 Azithromycin (Zithromax) 250 mg DAILY ORAL 07/24/18 09:00 07/29/18 08:59 07/26/18 09:05 Cefepime HCl 1 gm/ Dextrose 55 ml @ 110 mls/hr Q12H IVPB 07/26/18 06:00 08/02/18 05:59 07/26/18 05:12 Clonidine HCl (Catapres Tab) 0.1 mg Q6H PRN ORAL SBP >160 07/23/18 16:42 08/21/18 16:41 Docusate Sodium (Colace) 100 mg TWICE A DAY ORAL 07/23/18 18:00 08/21/18 08:59 07/26/18 09:05 Escitalopram Oxalate (Lexapro) 10 mg DAILY ORAL 07/24/18 09:00 08/23/18 08:59 07/26/18 09:05 Heparin Sodium (Porcine) (Heparin 5000 units/ml) 5,000 units Q12HR SUBQ 07/23/18 21:00 08/21/18 08:59 07/26/18 09:06 Lactulose (Cephulac) 30 gm DAILYPRN PRN ORAL Constipation 07/23/18 16:43 08/22/18 16:42 Metoprolol Tartrate (Lopressor) 25 mg Q12HR ORAL 07/23/18 21:00 08/21/18 08:59 07/26/18 09:05 Multivitamins Therapeutic (Therapeutic Multivitamin) 1 ea DAILY ORAL 07/24/18 09:00 08/21/18 08:59 07/26/18 09:05 Pantoprazole (Protonix) 40 mg DAILY ORAL 07/24/18 09:00 08/21/18 08:59 07/26/18 09:05 Promethazine HCl/ Codeine (Phenergan with Codeine) 5 ml Q4H PRN ORAL For Cough 07/23/18 16:43 08/21/18 16:42 Quetiapine Fumarate (SEROquel) 25 mg QHS ORAL 07/23/18 21:00 08/21/18 20:59 07/25/18 21:43 Tamsulosin HCl (Flomax) 0.4 mg BEDTIME ORAL 07/23/18 21:00 08/21/18 20:59 07/25/18 21:32 Temazepam (Restoril) 15 mg BEDTIME PRN ORAL insomnia 07/23/18 21:00 07/29/18 07:29 Valproic Acid (Depakene) 500 mg Q12HR ORAL 07/23/18 21:00 08/21/18 08:59 07/26/18 09:05 Aldair Patel MD Jul 26, 2018 13:32
--- NOTE | 2018-07-26 15:04 | Internal Med Progress Note ---
Subjective Date of Service: Jul 26, 2018 Physician Name Jose Jha Attending Physician Joey Perry MD Current Medications Medications (Trade) Dose Ordered Sig/Yazmin Route PRN Reason Start Time Stop Time Status Last Admin Dose Admin Acetaminophen (Tylenol) 650 mg Q6H PRN ORAL Mild Pain/Temp > 100.5 07/23/18 16:41 08/21/18 16:40 Acetaminophen/ Hydrocodone Bitart ([place] 10/325) 1 tab Q6H PRN ORAL Severe Pain (Pain Scale 7-10) 07/23/18 16:42 07/29/18 16:41 Albuterol/ Ipratropium (Albuterol/ Ipratropium) 3 ml Q6H PRN HHN Shortness of Breath 07/23/18 16:42 07/27/18 16:41 Atorvastatin Calcium (Lipitor) 40 mg BEDTIME ORAL 07/23/18 21:00 08/21/18 20:59 07/25/18 21:33 Azithromycin (Zithromax) 250 mg DAILY ORAL 07/24/18 09:00 07/29/18 08:59 07/26/18 09:05 Cefepime HCl 1 gm/ Dextrose 55 ml @ 110 mls/hr Q12H IVPB 07/26/18 06:00 08/02/18 05:59 07/26/18 05:12 Clonidine HCl (Catapres Tab) 0.1 mg Q6H PRN ORAL SBP >160 07/23/18 16:42 08/21/18 16:41 Docusate Sodium (Colace) 100 mg TWICE A DAY ORAL 07/23/18 18:00 08/21/18 08:59 07/26/18 09:05 Escitalopram Oxalate (Lexapro) 10 mg DAILY ORAL 07/24/18 09:00 08/23/18 08:59 07/26/18 09:05 Heparin Sodium (Porcine) (Heparin 5000 units/ml) 5,000 units Q12HR SUBQ 07/23/18 21:00 08/21/18 08:59 07/26/18 09:06 Lactulose (Cephulac) 30 gm DAILYPRN PRN ORAL Constipation 07/23/18 16:43 08/22/18 16:42 Metoprolol Tartrate (Lopressor) 25 mg Q12HR ORAL 07/23/18 21:00 08/21/18 08:59 07/26/18 09:05 Multivitamins Therapeutic (Therapeutic Multivitamin) 1 ea DAILY ORAL 07/24/18 09:00 08/21/18 08:59 07/26/18 09:05 Pantoprazole (Protonix) 40 mg DAILY ORAL 07/24/18 09:00 08/21/18 08:59 07/26/18 09:05 Promethazine HCl/ Codeine (Phenergan with Codeine) 5 ml Q4H PRN ORAL For Cough 07/23/18 16:43 08/21/18 16:42 Quetiapine Fumarate (SEROquel) 25 mg QHS ORAL 07/23/18 21:00 08/21/18 20:59 07/25/18 21:43 Tamsulosin HCl (Flomax) 0.4 mg BEDTIME ORAL 07/23/18 21:00 08/21/18 20:59 07/25/18 21:32 Temazepam (Restoril) 15 mg BEDTIME PRN ORAL insomnia 07/23/18 21:00 07/29/18 07:29 Valproic Acid (Depakene) 500 mg Q12HR ORAL 07/23/18 21:00 08/21/18 08:59 07/26/18 09:05 Allergies: Coded Allergies: PENICILLIN G (Verified Allergy, Intermediate, 04/13/14) PENICILLINS (Unverified Allergy, Unknown, 07/21/18) ROS Limited/Unobtainable: No Subjective 82 YO M admitted with dyspnea. Now pneumonia. Cover for Int Paul-Dr Perry Objective Last Vital Signs Date Time Temp Pulse Resp B/P (MAP) Pulse Ox O2 Delivery O2 Flow Rate FiO2 07/26/18 12:00 98.8 81 17 130/71 (90) 97 07/26/18 09:00 Room Air 07/25/18 19:50 21 07/25/18 09:48 2.0 Laboratory Tests Test 07/26/18 06:27 White Blood Count 7.4 K/UL (4.8-10.8) Red Blood Count 3.44 M/UL (4.70-6.10) L Hemoglobin 10.5 G/DL (14.2-18.0) L Hematocrit 31.6 % (42.0-52.0) L Mean Corpuscular Volume 92 FL (80-99) Mean Corpuscular Hemoglobin 30.6 PG (27.0-31.0) Mean Corpuscular Hemoglobin Concent 33.3 G/DL (32.0-36.0) Red Cell Distribution Width 13.6 % (11.6-14.8) Platelet Count 151 K/UL (150-450) Mean Platelet Volume 7.3 FL (6.5-10.1) Neutrophils (%) (Auto) 75.8 % (45.0-75.0) H Lymphocytes (%) (Auto) 9.8 % (20.0-45.0) L Monocytes (%) (Auto) 10.5 % (1.0-10.0) H Eosinophils (%) (Auto) 3.7 % (0.0-3.0) H Basophils (%) (Auto) 0.3 % (0.0-2.0) Sodium Level 139 MMOL/L (136-145) Potassium Level 3.9 MMOL/L (3.5-5.1) Chloride Level 105 MMOL/L (98-107) Carbon Dioxide Level 29 MMOL/L (21-32) Anion Gap 5 mmol/L (5-15) Blood Urea Nitrogen 20 mg/dL (7-18) H Creatinine 0.8 MG/DL (0.55-1.30) Estimat Glomerular Filtration Rate mL/min (>60) Glucose Level 90 MG/DL (74-106) Calcium Level 8.7 MG/DL (8.5-10.1) Microbiology Date/Time Source Procedure Growth Status 07/24/18 23:50 Nasopharynx Influenza Types A,B Antigen (YANE) - Final Complete 07/24/18 01:00 Urine,Clean Catch Urine Culture - Final NO GROWTH AFTER 48 HOURS Complete Intake and Output 07/25/18 07/26/18 19:00 07:00 Intake Total 610 ml 115 ml Output Total 400 ml 300 ml Balance 210 ml -185 ml Intake Oral 610 ml 60 ml IV Total 55 ml Output Urine Total 400 ml 300 ml # Bowel Movements 1 1 Objective General Appearance: WD/WN, no apparent distress, alert EENT: PERRL/EOMI, normal ENT inspection, TMs normal Neck: non-tender, normal alignment, supple, normal inspection Cardiovascular: normal peripheral pulses, normal rate, regular rhythm, no gallop/murmur, no JVD Respiratory/Chest: respiratory distress, accessory muscle use, crackles/rales, rhonchi - bilaterally, expiratory wheezing Abdomen: normal bowel sounds, non tender, soft, no organomegaly, no mass Extremities: normal range of motion, non-tender 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 Continue cefepime and azithromycin. See pulmonary note. (3) Acute respiratory failure Assessment & Plan: tolerating nasal canula (4) HTN (hypertension) (5) CAD (coronary artery disease) (6) Cerebral palsy (7) BPH (benign prostatic hyperplasia) Status: not improved Assessment/Plan Discharge planning: Jose Hernandez MD Jul 26, 2018 15:04
[2018-07-26 16:00] VITALS: BP 131/76
--- NOTE | 2018-07-26 17:09 | Infectious Diseases Prog Note ---
Assessment/Plan Assessment/Plan Assessment: Sepsis 2ry to PNA- r/o UTI -u/a wbc 10-15, RBC tnct, nit neg, leuk +1; ucx NTD -BCx NTD -sp cx p -Influenza sc neg Acute hypoxic respiratory failure s/p NRB, now on NC -CTA chest: Limited exam due to respiratory motion artifact, precluding exclusion of peripheral emboli. No gross large vessel central pulmonary emboli demonstrated. Bilateral lower lobe parenchymal opacities, right greater than left. Presence of some bronchiectasis, honeycombing, and calcification suggests that these are predominantly areas of chronic scarring. However, superimposed acute infiltrates are also possible.Correlate with clinical findings, Bilateral upper lobe hyperinflation, likely COPD Low grade fever, SP No leukocytosis Bipolar disorder Cerebral palsy HLD dysphagia R hip fx s/p ORIF 2013 GERD RLE DVT 2016 Parkinson's disease brain aneurysm BPH CAD/LA HTN SNF resident Plan: -Continue empiric Cefepime and Azithromycin #5/5-7 for PNA pending cultures -07/25 SP Tamiflu #2 -07/22 SP Levaquin x1 -f/u cx -Monitor CBC/CMP, temperatures -f/u sp cx, legionella ag urine -aspiration precautions Thank you for this consultation. Will continue to follow along with you. Discussed with RN. Subjective Allergies: Coded Allergies: PENICILLIN G (Verified Allergy, Intermediate, 04/13/14) PENICILLINS (Unverified Allergy, Unknown, 07/21/18) Subjective afebrile no leukocytosis at RA Objective Vital Signs Last 24 Hour Vital Signs Date Time Temp Pulse Resp B/P (MAP) Pulse Ox O2 Delivery O2 Flow Rate FiO2 07/26/18 16:00 97.7 86 18 131/76 (94) 95 07/26/18 12:00 98.8 81 17 130/71 (90) 97 07/26/18 09:05 72 128/74 07/26/18 09:00 Room Air 07/26/18 08:00 98.0 72 12 128/74 (92) 95 07/26/18 04:00 97.8 69 19 136/73 (94) 96 07/26/18 00:40 97.5 70 19 117/67 (84) 95 07/25/18 22:23 Room Air 07/25/18 21:32 81 138/85 07/25/18 20:00 98.6 81 20 138/85 (102) 94 07/25/18 19:50 Room Air 21 07/25/18 19:49 87 18 Room Air 21 07/25/18 19:49 94 Room Air 21 Height (Feet): 5 Height (Inches): 5.00 Weight (Pounds): 162 Objective General Appearance: WD/WN Lines, tubes and drains: peripheral HEENT: normocephalic, atraumatic Neck: non-tender, normal alignment Respiratory/Chest: chest wall non-tender, lungs clear Abdomen: normal bowel sounds, non tender Extremities: normal range of motion Skin Exam: normal pigmentation Microbiology Date/Time Source Procedure Growth Status 07/24/18 23:50 Nasopharynx Influenza Types A,B Antigen (YANE) - Final Complete 07/24/18 01:00 Urine,Clean Catch Urine Culture - Final NO GROWTH AFTER 48 HOURS Complete Laboratory Tests Test 07/26/18 06:27 White Blood Count 7.4 K/UL (4.8-10.8) Red Blood Count 3.44 M/UL (4.70-6.10) L Hemoglobin 10.5 G/DL (14.2-18.0) L Hematocrit 31.6 % (42.0-52.0) L Mean Corpuscular Volume 92 FL (80-99) Mean Corpuscular Hemoglobin 30.6 PG (27.0-31.0) Mean Corpuscular Hemoglobin Concent 33.3 G/DL (32.0-36.0) Red Cell Distribution Width 13.6 % (11.6-14.8) Platelet Count 151 K/UL (150-450) Mean Platelet Volume 7.3 FL (6.5-10.1) Neutrophils (%) (Auto) 75.8 % (45.0-75.0) H Lymphocytes (%) (Auto) 9.8 % (20.0-45.0) L Monocytes (%) (Auto) 10.5 % (1.0-10.0) H Eosinophils (%) (Auto) 3.7 % (0.0-3.0) H Basophils (%) (Auto) 0.3 % (0.0-2.0) Sodium Level 139 MMOL/L (136-145) Potassium Level 3.9 MMOL/L (3.5-5.1) Chloride Level 105 MMOL/L (98-107) Carbon Dioxide Level 29 MMOL/L (21-32) Anion Gap 5 mmol/L (5-15) Blood Urea Nitrogen 20 mg/dL (7-18) H Creatinine 0.8 MG/DL (0.55-1.30) Estimat Glomerular Filtration Rate mL/min (>60) Glucose Level 90 MG/DL (74-106) Calcium Level 8.7 MG/DL (8.5-10.1) Current Medications Medications (Trade) Dose Ordered Sig/Yazmin Route PRN Reason Start Time Stop Time Status Last Admin Dose Admin Acetaminophen (Tylenol) 650 mg Q6H PRN ORAL Mild Pain/Temp > 100.5 07/23/18 16:41 08/21/18 16:40 Acetaminophen/ Hydrocodone Bitart ([place] 10/325) 1 tab Q6H PRN ORAL Severe Pain (Pain Scale 7-10) 07/23/18 16:42 07/29/18 16:41 Albuterol/ Ipratropium (Albuterol/ Ipratropium) 3 ml Q6H PRN HHN Shortness of Breath 07/23/18 16:42 07/27/18 16:41 Atorvastatin Calcium (Lipitor) 40 mg BEDTIME ORAL 07/23/18 21:00 08/21/18 20:59 07/25/18 21:33 Azithromycin (Zithromax) 250 mg DAILY ORAL 07/24/18 09:00 07/29/18 08:59 07/26/18 09:05 Cefepime HCl 1 gm/ Dextrose 55 ml @ 110 mls/hr Q12H IVPB 07/26/18 06:00 08/02/18 05:59 07/26/18 05:12 Clonidine HCl (Catapres Tab) 0.1 mg Q6H PRN ORAL SBP >160 07/23/18 16:42 08/21/18 16:41 Docusate Sodium (Colace) 100 mg TWICE A DAY ORAL 07/23/18 18:00 08/21/18 08:59 07/26/18 09:05 Escitalopram Oxalate (Lexapro) 10 mg DAILY ORAL 07/24/18 09:00 08/23/18 08:59 07/26/18 09:05 Heparin Sodium (Porcine) (Heparin 5000 units/ml) 5,000 units Q12HR SUBQ 07/23/18 21:00 08/21/18 08:59 07/26/18 09:06 Lactulose (Cephulac) 30 gm DAILYPRN PRN ORAL Constipation 07/23/18 16:43 08/22/18 16:42 Metoprolol Tartrate (Lopressor) 25 mg Q12HR ORAL 07/23/18 21:00 08/21/18 08:59 07/26/18 09:05 Multivitamins Therapeutic (Therapeutic Multivitamin) 1 ea DAILY ORAL 07/24/18 09:00 08/21/18 08:59 07/26/18 09:05 Pantoprazole (Protonix) 40 mg DAILY ORAL 07/24/18 09:00 08/21/18 08:59 07/26/18 09:05 Promethazine HCl/ Codeine (Phenergan with Codeine) 5 ml Q4H PRN ORAL For Cough 07/23/18 16:43 08/21/18 16:42 Quetiapine Fumarate (SEROquel) 25 mg QHS ORAL 07/23/18 21:00 08/21/18 20:59 07/25/18 21:43 Tamsulosin HCl (Flomax) 0.4 mg BEDTIME ORAL 07/23/18 21:00 08/21/18 20:59 07/25/18 21:32 Temazepam (Restoril) 15 mg BEDTIME PRN ORAL insomnia 07/23/18 21:00 07/29/18 07:29 Valproic Acid (Depakene) 500 mg Q12HR ORAL 07/23/18 21:00 08/21/18 08:59 07/26/18 09:05 Daly Daniel M.D. Jul 26, 2018 17:09
[2018-07-26 20:00] VITALS: BP 151/80
--- NOTE | 2018-07-26 20:01 | NUR ---
HAND-OFF: Report given to JOSE LUIS Cortez. Pt stable.
--- NOTE | 2018-07-26 20:28 | General Progress Note ---
Assessment/Plan Problem List: (1) MDD (major depressive disorder), recurrent episode, moderate ICD Codes: F33.1 - Major depressive disorder, recurrent, moderate SNOMED: 58822691, 644633535 (2) Anxiety disorder ICD Codes: F41.9 - Anxiety disorder, unspecified SNOMED: 325952980 Assessment/Plan cont depakote cont seroquel provide ro/st Subjective Neurologic/Psychiatric: Reports: anxiety, depressed, emotional problems Allergies: Coded Allergies: PENICILLIN G (Verified Allergy, Intermediate, 04/13/14) PENICILLINS (Unverified Allergy, Unknown, 07/21/18) Objective Last 24 Hour Vital Signs Date Time Temp Pulse Resp B/P (MAP) Pulse Ox O2 Delivery O2 Flow Rate FiO2 07/26/18 16:00 97.7 86 18 131/76 (94) 95 07/26/18 12:00 98.8 81 17 130/71 (90) 97 07/26/18 09:05 72 128/74 07/26/18 09:00 Room Air 07/26/18 08:00 98.0 72 12 128/74 (92) 95 07/26/18 04:00 97.8 69 19 136/73 (94) 96 07/26/18 00:40 97.5 70 19 117/67 (84) 95 07/25/18 22:23 Room Air 07/25/18 21:32 81 138/85 Intake and Output 07/25/18 07/26/18 19:00 07:00 Intake Total 610 ml 115 ml Output Total 400 ml 300 ml Balance 210 ml -185 ml Intake Oral 610 ml 60 ml IV Total 55 ml Output Urine Total 400 ml 300 ml # Bowel Movements 1 1 Laboratory Tests 07/26/18 06:27: White Blood Count 7.4, Red Blood Count 3.44L, Hemoglobin 10.5L, Hematocrit 31.6L , Mean Corpuscular Volume 92, Mean Corpuscular Hemoglobin 30.6, Mean Corpuscular Hemoglobin Concent 33.3, Red Cell Distribution Width 13.6, Platelet Count 151, Mean Platelet Volume 7.3, Neutrophils (%) (Auto) 75.8H, Lymphocytes ( %) (Auto) 9.8L, Monocytes (%) (Auto) 10.5H, Eosinophils (%) (Auto) 3.7H, Basophils (%) (Auto) 0.3, Sodium Level 139, Potassium Level 3.9, Chloride Level 105, Carbon Dioxide Level 29, Anion Gap 5, Blood Urea Nitrogen 20H, Creatinine 0.8, Estimat Glomerular Filtration Rate , Glucose Level 90, Calcium Level 8.7 Height (Feet): 5 Height (Inches): 5.00 Weight (Pounds): 162 General Appearance: WD/WN, no apparent distress, alert Neurologic: oriented x 3, responsive, depressed affect Akira Shaffer MD Jul 26, 2018 20:28
[2018-07-26] MEDS: Tamsulosin 0.4mg cap ORAL SCH (22:20)
[2018-07-26] MEDS: Atorvastatin 20mg tab ORAL SCH (22:20)
--- NOTE | 2018-07-26 22:57 | NUR ---
NURSE NOTES: Patient in bed, awake. No s/s of respiratory distress or s/s pain noted. Del Rosario catheter in place, draining urine. Bed in lowest position, call light within reach, bed alarm on. Will continue to monitor.
[2018-07-27 00:39] VITALS: BP 109/74
[2018-07-27 04:59] VITALS: BP 125/70
[2018-07-27] MEDS: Cefepime HCl 1 GM in D5W 55 ML IVPB SCH (05:22)
--- NOTE | 2018-07-27 07:20 | NUR ---
NURSE NOTES: Report received from JOSE LUIS Cortez. Pt in bed, asleep, respiration unlabored, no apparent distress, bed in lowest position, call light within reach.
--- NOTE | 2018-07-27 07:28 | NUR ---
HAND-OFF: Report given to BENITO VALADEZ RN.
[2018-07-27 08:00] VITALS: BP 126/75
--- NOTE | 2018-07-27 08:03 | Infectious Diseases Prog Note ---
Assessment/Plan Assessment/Plan Sepsis 2ry to PNA- r/o UTI -u/a wbc 10-15, RBC tnct, nit neg, leuk +1; ucx NTD -BCx NTD -sp cx p -Influenza sc neg Acute hypoxic respiratory failure s/p NRB, now on NC -CTA chest: Limited exam due to respiratory motion artifact, precluding exclusion of peripheral emboli. No gross large vessel central pulmonary emboli demonstrated. Bilateral lower lobe parenchymal opacities, right greater than left. Presence of some bronchiectasis, honeycombing, and calcification suggests that these are predominantly areas of chronic scarring. However, superimposed acute infiltrates are also possible.Correlate with clinical findings, Bilateral upper lobe hyperinflation, likely COPD Low grade fever, SP No leukocytosis Bipolar disorder Cerebral palsy HLD dysphagia R hip fx s/p ORIF 2013 GERD RLE DVT 2016 Parkinson's disease brain aneurysm BPH CAD/[place] HTN SNF resident Plan: -Continue empiric Cefepime and Azithromycin #6/7 for PNA -07/25 SP Tamiflu #2 -07/22 SP Levaquin x1 -f/u cx -Monitor CBC/CMP, temperatures -f/u sp cx, legionella ag urine -aspiration precautions Thank you for this consultation. Will continue to follow along with you. Subjective Allergies: Coded Allergies: PENICILLIN G (Verified Allergy, Intermediate, 04/13/14) PENICILLINS (Unverified Allergy, Unknown, 07/21/18) Subjective Afebrile No Leukocytosis Objective Vital Signs Last 24 Hour Vital Signs Date Time Temp Pulse Resp B/P (MAP) Pulse Ox O2 Delivery O2 Flow Rate FiO2 07/27/18 04:59 97.9 69 18 125/70 (88) 95 07/27/18 00:39 97.5 78 18 109/74 (86) 94 07/26/18 22:43 Room Air 07/26/18 22:19 79 151/80 07/26/18 20:58 Room Air 21 07/26/18 20:56 88 18 Room Air 21 07/26/18 20:56 96 Room Air 21 07/26/18 20:00 98.3 79 18 151/80 (103) 96 07/26/18 16:00 97.7 86 18 131/76 (94) 95 07/26/18 12:00 98.8 81 17 130/71 (90) 97 07/26/18 09:05 72 128/74 07/26/18 09:00 Room Air Height (Feet): 5 Height (Inches): 5.00 Weight (Pounds): 162 Objective General Appearance: NAD HEENT: NCAT, MMM Respiratory/Chest: chest wall non-tender, lungs clear Abdomen: normal bowel sounds, non tender Extremities: normal range of motion Microbiology Date/Time Source Procedure Growth Status 07/24/18 23:50 Nasopharynx Influenza Types A,B Antigen (YANE) - Final Complete Current Medications Medications (Trade) Dose Ordered Sig/Yazmin Route PRN Reason Start Time Stop Time Status Last Admin Dose Admin Acetaminophen (Tylenol) 650 mg Q6H PRN ORAL Mild Pain/Temp > 100.5 07/23/18 16:41 08/21/18 16:40 Acetaminophen/ Hydrocodone Bitart ([place] 10/325) 1 tab Q6H PRN ORAL Severe Pain (Pain Scale 7-10) 07/23/18 16:42 07/29/18 16:41 Albuterol/ Ipratropium (Albuterol/ Ipratropium) 3 ml Q6H PRN HHN Shortness of Breath 07/23/18 16:42 07/27/18 16:41 Atorvastatin Calcium (Lipitor) 40 mg BEDTIME ORAL 07/23/18 21:00 08/21/18 20:59 07/26/18 22:20 Azithromycin (Zithromax) 250 mg DAILY ORAL 07/24/18 09:00 07/29/18 08:59 07/26/18 09:05 Cefepime HCl 1 gm/ Dextrose 55 ml @ 110 mls/hr Q12H IVPB 07/26/18 06:00 08/02/18 05:59 07/27/18 05:22 Clonidine HCl (Catapres Tab) 0.1 mg Q6H PRN ORAL SBP >160 07/23/18 16:42 08/21/18 16:41 Docusate Sodium (Colace) 100 mg TWICE A DAY ORAL 07/23/18 18:00 08/21/18 08:59 07/26/18 17:48 Escitalopram Oxalate (Lexapro) 10 mg DAILY ORAL 07/24/18 09:00 08/23/18 08:59 07/26/18 09:05 Heparin Sodium (Porcine) (Heparin 5000 units/ml) 5,000 units Q12HR SUBQ 07/23/18 21:00 08/21/18 08:59 07/26/18 22:23 Lactulose (Cephulac) 30 gm DAILYPRN PRN ORAL Constipation 07/23/18 16:43 08/22/18 16:42 Metoprolol Tartrate (Lopressor) 25 mg Q12HR ORAL 07/23/18 21:00 08/21/18 08:59 07/26/18 22:19 Multivitamins Therapeutic (Therapeutic Multivitamin) 1 ea DAILY ORAL 07/24/18 09:00 08/21/18 08:59 07/26/18 09:05 Pantoprazole (Protonix) 40 mg DAILY ORAL 07/24/18 09:00 08/21/18 08:59 07/26/18 09:05 Promethazine HCl/ Codeine (Phenergan with Codeine) 5 ml Q4H PRN ORAL For Cough 07/23/18 16:43 08/21/18 16:42 Quetiapine Fumarate (SEROquel) 25 mg QHS ORAL 07/23/18 21:00 08/21/18 20:59 07/26/18 22:19 Tamsulosin HCl (Flomax) 0.4 mg BEDTIME ORAL 07/23/18 21:00 08/21/18 20:59 07/26/18 22:20 Temazepam (Restoril) 15 mg BEDTIME PRN ORAL insomnia 07/23/18 21:00 07/29/18 07:29 Valproic Acid (Depakene) 500 mg Q12HR ORAL 07/23/18 21:00 08/21/18 08:59 07/26/18 22:20 Cipriano Silva MD Jul 27, 2018 08:03
[2018-07-27] MEDS: Docusate 100mg cap ORAL SCH (09:01)
[2018-07-27] MEDS: Metoprolol 25mg tab ORAL SCH (09:01)
[2018-07-27] MEDS: Multivitamin w/Minerals tab ORAL SCH (09:01)
[2018-07-27] MEDS: Azithromycin 250mg tab ORAL SCH (09:01)
[2018-07-27] MEDS: Heparin 5000 units/ml inj SUBQ SCH (09:03)
[2018-07-27] MEDS ORDERED: CEFEPIME-D1 GM/50 ML IVPB (11:06)
--- NOTE | 2018-07-27 11:07 | Pulmonology Progress Note ---
Assessment/Plan Problems: (1) Acute respiratory failure (2) Sepsis (3) Unable to ambulate (4) BPH (benign prostatic hyperplasia) (5) HTN (hypertension) (6) History of alcohol abuse Assessment/Plan improving no new complains all reviewed ID consult appreciated cultures still pending, afebrile now check sputum IV abx chest pt monitor BP dvt prophylaxis needs none more day of iv cefepime All medications and treatment were reviewed. med/recon for chcf done Subjective ROS Limited/Unobtainable: No Constitutional: Reports: no symptoms HEENT: Repors: no symptoms Respiratory: Reports: no symptoms Allergies: Coded Allergies: PENICILLIN G (Verified Allergy, Intermediate, 04/13/14) PENICILLINS (Unverified Allergy, Unknown, 07/21/18) Objective Last 24 Hour Vital Signs Date Time Temp Pulse Resp B/P (MAP) Pulse Ox O2 Delivery O2 Flow Rate FiO2 07/27/18 09:01 72 126/75 07/27/18 09:00 Room Air 07/27/18 08:00 98.0 72 20 126/75 (92) 96 07/27/18 04:59 97.9 69 18 125/70 (88) 95 07/27/18 00:39 97.5 78 18 109/74 (86) 94 07/26/18 22:43 Room Air 07/26/18 22:19 79 151/80 07/26/18 20:58 Room Air 21 07/26/18 20:56 88 18 Room Air 21 07/26/18 20:56 96 Room Air 21 07/26/18 20:00 98.3 79 18 151/80 (103) 96 07/26/18 16:00 97.7 86 18 131/76 (94) 95 07/26/18 12:00 98.8 81 17 130/71 (90) 97 Intake and Output 07/26/18 07/27/18 18:59 06:59 Intake Total 1055 ml Output Total 1900 ml Balance -845 ml IV Total 55 ml Other 1000 ml Output Urine Total 1900 ml Objective General Appearance: WD/WN Lines, tubes and drains: peripheral HEENT: normocephalic, atraumatic Neck: non-tender Respiratory/Chest: chest wall non-tender, normal breath sounds Breasts: no masses Cardiovascular/Chest: normal peripheral pulses Genitourinary/Rectal: normal genital exam Extremities: normal range of motion Microbiology Date/Time Source Procedure Growth Status 07/24/18 23:50 Nasopharynx Influenza Types A,B Antigen (YANE) - Final Complete Current Medications Medications (Trade) Dose Ordered Sig/Yazmin Route PRN Reason Start Time Stop Time Status Last Admin Dose Admin Acetaminophen (Tylenol) 650 mg Q6H PRN ORAL Mild Pain/Temp > 100.5 07/23/18 16:41 08/21/18 16:40 Acetaminophen/ Hydrocodone Bitart ([place] 10/325) 1 tab Q6H PRN ORAL Severe Pain (Pain Scale 7-10) 07/23/18 16:42 07/29/18 16:41 Albuterol/ Ipratropium (Albuterol/ Ipratropium) 3 ml Q6H PRN HHN Shortness of Breath 07/23/18 16:42 07/27/18 16:41 Atorvastatin Calcium (Lipitor) 40 mg BEDTIME ORAL 07/23/18 21:00 08/21/18 20:59 07/26/18 22:20 Azithromycin (Zithromax) 250 mg DAILY ORAL 07/24/18 09:00 07/29/18 08:59 07/27/18 09:01 Cefepime HCl 1 gm/ Dextrose 55 ml @ 110 mls/hr Q12H IVPB 07/26/18 06:00 08/02/18 05:59 07/27/18 05:22 Clonidine HCl (Catapres Tab) 0.1 mg Q6H PRN ORAL SBP >160 07/23/18 16:42 08/21/18 16:41 Docusate Sodium (Colace) 100 mg TWICE A DAY ORAL 07/23/18 18:00 08/21/18 08:59 07/27/18 09:01 Escitalopram Oxalate (Lexapro) 10 mg DAILY ORAL 07/24/18 09:00 08/23/18 08:59 07/27/18 09:01 Heparin Sodium (Porcine) (Heparin 5000 units/ml) 5,000 units Q12HR SUBQ 07/23/18 21:00 08/21/18 08:59 07/27/18 09:03 Lactulose (Cephulac) 30 gm DAILYPRN PRN ORAL Constipation 07/23/18 16:43 3/14/19 16:42 Metoprolol Tartrate (Lopressor) 25 mg Q12HR ORAL 07/23/18 21:00 08/21/18 08:59 07/27/18 09:01 Multivitamins Therapeutic (Therapeutic Multivitamin) 1 ea DAILY ORAL 07/24/18 09:00 08/21/18 08:59 07/27/18 09:01 Pantoprazole (Protonix) 40 mg DAILY ORAL 07/24/18 09:00 08/21/18 08:59 07/27/18 09:01 Promethazine HCl/ Codeine (Phenergan with Codeine) 5 ml Q4H PRN ORAL For Cough 07/23/18 16:43 08/21/18 16:42 Quetiapine Fumarate (SEROquel) 25 mg QHS ORAL 07/23/18 21:00 08/21/18 20:59 07/26/18 22:19 Tamsulosin HCl (Flomax) 0.4 mg BEDTIME ORAL 07/23/18 21:00 08/21/18 20:59 07/26/18 22:20 Temazepam (Restoril) 15 mg BEDTIME PRN ORAL insomnia 07/23/18 21:00 07/29/18 07:29 Valproic Acid (Depakene) 500 mg Q12HR ORAL 07/23/18 21:00 08/21/18 08:59 07/27/18 09:01 Aldair Patel MD Jul 27, 2018 11:07
[2018-07-27 11:47] LABS: BASOPHILS % (AUTO) 0.7 % (0.0-2.0); EOSINOPHILS % (AUTO) 6.2 % (0.0-3.0); HEMATOCRIT 36.1 % (42.0-52.0); HEMOGLOBIN 11.8 G/DL (14.2-18.0); LYMPHOCYTES % (AUTO) 13.2 % (20.0-45.0); MEAN CORPUSCULAR VOLUME 92 FL (80-99); MONOCYTES % (AUTO) 10.1 % (1.0-10.0); NEUTROPHILS % (AUTO) 69.9 % (45.0-75.0); PLATELET COUNT 183 K/UL (150-450); RED BLOOD COUNT 3.94 M/UL (4.70-6.10); RED CELL DISTRIBUTION WIDTH 13.2 % (11.6-14.8); WHITE BLOOD COUNT 5.6 K/UL (4.8-10.8)
[2018-07-27 11:52] LABS: ANION GAP 7 mmol/L (5-15); BLOOD UREA NITROGEN 20 mg/dL (7-18); CALCIUM 8.5 MG/DL (8.5-10.1); CARBON DIOXIDE 27 MMOL/L (21-32); CHLORIDE 106 MMOL/L (98-107); POTASSIUM 4.1 MMOL/L (3.5-5.1); SODIUM 140 MMOL/L (136-145)
[2018-07-27 12:00] VITALS: BP 124/57
[2018-07-27 12:30] LABS: CREATININE 0.9 MG/DL (0.55-1.30)
--- NOTE | 2018-07-27 12:45 | NUR ---
DISCHARGE DISPOSITION: PLEASE READ PATIENT TO BE DISCHARGED TO [address] ROOM [address]C T: [phone]>>> CALL [facility] FOR REPORT [facility] ETA 1530 TRANSFER REPORT TO BE PROVIDED
--- NOTE | 2018-07-27 14:51 | NUR ---
NURSE NOTES: Called report to JOSE LUIS Leblanc at [facility]. Pt being discharged with Del Rosario and IV to continue Cefepime abx.
--- NOTE | 2018-07-27 15:59 | Diagnostic Imaging Report ---
EXAM: XR Left Hand Complete, 3 or More Views CLINICAL HISTORY: Swelling TECHNIQUE: Frontal, lateral and oblique views of the left hand. COMPARISON: No relevant prior studies available. FINDINGS: Bones/joints: Cortical irregularity noted within the trapezium. Moderate to severe degenerative joint space loss at the thumb carpometacarpal joint and the radiocarpal joint. Mild degenerative joint space loss at the interphalangeal and remaining carpometacarpal joints. Soft tissues: Diffuse soft tissue swelling overlying the left wrist and hand. No radiodense foreign bodies. No soft tissue gas lucencies. IMPRESSION: 1. Diffuse soft tissue swelling overlying the left wrist and hand. 2. Moderate to severe degenerative joint space loss at the thumb carpometacarpal joint and the radiocarpal joint. 3. Recommend correlation with point tenderness over the region of the thumb carpometacarpal joint to exclude a fracture of the trapezium.
--- NOTE | 2018-07-27 16:01 | Diagnostic Imaging Report ---
EXAM: XR Left Forearm, 2 Views CLINICAL HISTORY: Swelling TECHNIQUE: Frontal and lateral views of the left forearm. COMPARISON: Left hand x-rays obtained the same date. FINDINGS: Bones/joints: Well-corticated 3 mm ossific body anterior to the elbow joint, nonspecific, likely chronic. Extensive degenerative changes at the thumb carpometacarpal joint and at the radiocarpal joint. Degenerative joint space narrowing at the elbow joint. Soft tissues: Soft tissue swelling overlying the distal forearm and wrist. No radiodense foreign bodies. No soft tissue gas lucencies. IMPRESSION: 1. Soft tissue swelling overlying the distal forearm and wrist. 2. Well-corticated 3 mm ossific body anterior to the elbow joint, nonspecific, likely chronic. This may represent soft tissue calcification, small accessory ossicle, or sequela of remote trauma.
--- NOTE | 2018-07-27 16:13 | NUR ---
NURSE NOTES: PT discharged back to [facility] with all belongings. Iv in place according to order and Del Rosario in place according to order, pt stable for discharge.
--- NOTE | 2018-07-27 16:23 | Cardiology Report ---
APPROVED REPORT EKG Measurement Heart [id number] Sinus tachyarrhythmia Left axis deviation Left ventricular hypertrophy with repolarization abnormality Inferior infarct, age undetermined Abnormal ECG
--- NOTE | 2018-07-27 22:17 | General Progress Note ---
Assessment/Plan Problem List: (1) MDD (major depressive disorder), recurrent episode, moderate ICD Codes: F33.1 - Major depressive disorder, recurrent, moderate SNOMED: 62999392, [id number] (2) Anxiety disorder ICD Codes: F41.9 - Anxiety disorder, unspecified SNOMED: [id number] Assessment/Plan cont depakote cont seroquel provide ro/st Subjective Neurologic/Psychiatric: Reports: anxiety, depressed, emotional problems Allergies: Coded Allergies: PENICILLIN G (Verified Allergy, Intermediate, 04/13/14) PENICILLINS (Unverified Allergy, Unknown, 07/21/18) Objective Last 24 Hour Vital Signs Date Time Temp Pulse Resp B/P (MAP) Pulse Ox O2 Delivery O2 Flow Rate FiO2 07/27/18 12:00 98.0 68 14 124/57 (79) 95 07/27/18 09:01 72 126/75 07/27/18 09:00 Room Air 07/27/18 08:00 98.0 72 20 126/75 (92) 96 07/27/18 04:59 97.9 69 18 125/70 (88) 95 07/27/18 00:39 97.5 78 18 109/74 (86) 94 07/26/18 22:43 Room Air 07/26/18 22:19 79 151/80 Intake and Output 07/26/18 07/27/18 19:00 07:00 Intake Total 1055 ml Output Total 1900 ml Balance -845 ml IV Total 55 ml Other 1000 ml Output Urine Total 1900 ml Laboratory Tests 07/27/18 11:30: White Blood Count 5.6, Red Blood Count 3.94L, Hemoglobin 11.8L, Hematocrit 36.1L , Mean Corpuscular Volume 92, Mean Corpuscular Hemoglobin 29.9, Mean Corpuscular Hemoglobin Concent 32.6, Red Cell Distribution Width 13.2, Platelet Count 183, Mean Platelet Volume 7.5, Neutrophils (%) (Auto) 69.9, Lymphocytes (% ) (Auto) 13.2L, Monocytes (%) (Auto) 10.1H, Eosinophils (%) (Auto) 6.2H, Basophils (%) (Auto) 0.7, Sodium Level 140, Potassium Level 4.1, Chloride Level 106, Carbon Dioxide Level 27, Anion Gap 7, Blood Urea Nitrogen 20H, Creatinine 0.9, Estimat Glomerular Filtration Rate , Glucose Level 89, Calcium Level 8.5 Height (Feet): 5 Height (Inches): 5.00 Weight (Pounds): 162 General Appearance: no apparent distress, alert Neurologic: oriented x 3, responsive, depressed affect Akira Shaffer MD Jul 27, 2018 22:17
--- NOTE | 2018-07-29 12:52 | Cardiology Report ---
APPROVED REPORT EXAM: Two-dimensional and M-mode echocardiogram with Doppler and color Doppler. INDICATION Left ventricular function M-Mode DIMENSIONS IVSd0.8 (0.7-1.1cm)Left Atrium (MM)3.0 (1.6-4.0cm) LVDd3.7 (3.5-5.6cm)Aortic Root2.7 (2.0-3.7cm) PWd1.4 (0.7-1.1cm)Aortic Cusp Exc.1.6 (1.5-2.0cm) LVDs2.5 (2.5-4.0cm) PWs1.4 cm Technically difficult study due to poor acoustic windows. Study quality precludes accurate assessment of regional wall motion. Normal left ventricular chamber size, systolic function and wall motion. Left ventricular ejection fraction estimated to be 60 %. Mild left ventricular hypertrophy. Anterior Echo-free space, may be due to pericardial fat or effusion. Mild right atrial and right ventricular enlargement. Left atrial chamber size is within normal limits. Mild focal aortic valve sclerosis with adequate cusp excursion. Mildly thickened mitral valve leaflets with normal excursion. Mild mitral annulus and aortic root calcification. Pulmonic valve not well visualized. Normal tricuspid valve structure. IVC dilated at 2.3 cm with physiological collapse. A color flow and spectral Doppler study was performed and revealed: No aortic insufficiency. No mitral regurgitation. Mitral diastolic velocities suggest mild left ventricular diastolic dysfunction (Grade I). Trace tricuspid regurgitation. Tricuspid systolic velocities suggests peak right ventricular systolic pressure of 33 mmHg. No pulmonic regurgitation present.
--- NOTE | 2018-07-29 14:25 | Discharge Summary ---
Discharge Summary Discharge Summary _ . DATE OF ADMISSION: 07/22/2018 DATE OF DISCHARGE: 07/27/2018 DISCHARGED BY: Dr. Perry REASON FOR ADMISSION: 82 years old male with past medical history significant for coronary artery disease with history of IA, DVT, hyperlipidemia, hypertension, COPD, diabetes mellitus, presented with chief complaint of shortness of breath and respiratory distress. Onset was acute , 30 minutes to an hour prior to arrival. Pulse oximetry was only 87%per paramedics, and improved after supplemental oxygen. Patient demonstrated cough and felt warm to touch. Upon evaluation in ED patient was tachycardic , tachypneic, febrile. Pulse oximetry was 95% on 100% nonrebreathing mask. Laboratory workup revealed no leukocytosis, hemoglobin 12.1 ,hematocrit 26.9. BUN 34, creatinine 1.4. Lactic acid 2.7. Troponin negative.EKG revealed sinus tachycardia, no acute ischemic changes. Albumin 2.5. Urinalysis with evidence of pyuria, hematuria, +3 protein and few bacteria. Chest x-ray revealed bilateral basilar atelectatic changes. Patient was admitted for further management CONSULTANTS: pulmonary Dr. Patel ID specialist Dr. Roberts psychiatrist [facility] COURSE: Patient admitted. Septic workup initiated. Patient started on empiric antibiotics. Echocardiogram revealed preserved ejection fraction of 60% with mild ventricular hypertrophy. No evidence of wall motion abnormality. Right ventricular systolic pressure of 33. CT angiogram of the chest revealed no gross large vessel central pulmonary emboli. Bilateral upper lobe consolidation. Bilateral lower lobe parenchymal opacities, right greater than left. Presence of bronchiectasis, honeycombing and calcification. Venous Doppler bilateral lower extremity revealed no evidence of acute DVT. Supplemental oxygen provided and titrated as needed to keep pulse oximetry above 92%. Pulmonary toilet provided as needed. Patient started on empiric antibiotics. Blood cultures were negative. Urine culture was negative. Influenza screen test was negative. Urine Legionella antigen was negative. Patient was on empiric cefepime and azithromycin for pneumonia . Patient will need to complete antibiotic course for 1 additional day at the facility. Antitussive provided as needed Patient initially was treated with Tamiflu until rapid influenza screen test was obtained, was negative. Aspiration precautions were maintained. Blood pressure was managed with beta-william and remained stable. Statin was continued. DVT prophylaxis provided. Seizure precaution maintained. Depakote continued. No evidence of seizure activity while in the hospital. Flomax continued. No difficulty with voiding. Bowel regimen instituted. GI prophylaxis provided. Renal parameters and electrolytes were closely monitored. Electrolytes corrected as needed. Nephrotoxins were avoided. Prior to discharge creatinine from 1.4 down to 0.9. Psychiatrist diagnosed patient with major depressive disorder and anxiety disorder. Psychiatric medication regimen was optimized as per psychiatrist. Patient clinically stabilized . Pulse oximetry was stable on room air. Patient remained afebrile. Patient was discharged back to senior living facility for continuation of care FINAL DIAGNOSES: Acute hypoxic respiratory failure requiring nonrebreather mask,- resolved Sepsis, secondary to pneumonia Healthcare associated pneumonia Acute kidney injury-resolved Hypertension BPH Seizure disorder Cerebral palsy Coronary artery disease Hyperlipidemia Dysphagia Major depressive disorder Anxiety DISCHARGE MEDICATIONS: See Medication Reconciliation list. DISCHARGE INSTRUCTIONS: Patient was discharged to the senior living facility. Follow up with medical doctor at the facility. I have been assigned to dictate discharge summary for this account. I was not involved in the patient's management. Shira Alas NP Jul 29, 2018 14:25
--- NOTE | 2018-07-29 21:53 | Diagnostic Imaging Report ---
APPROVED REPORT CPT Code: 66080 Present Symptoms Shortness of breath BILATERAL: Imaging reveals a patent deep venous system bilaterally. There is no evidence of thrombus within the common femoral, superficial femoral, popliteal or tibial segments. The greater saphenous veins are also within normal limits. Doppler indicates normal spontaneous flow within these segments.
== END 2018-07-27 15:40 | DRG 871 ==
LOC: EDBD 21:52 → EMR 22:02 → EDBEDREQ 07-22 00:13 → 2E 07-22 00:23 → EDBEDREQ 07-22 01:16 → 2E 07-22 22:39 → 4E 07-23 16:44
DX: A41.9 Sepsis, unspecified organism (principal); J18.9 Pneumonia, unspecified organism; J96.00 Acute respiratory failure, unspecified whether with hypoxia or hypercapnia; J96.01 Acute respiratory failure with hypoxia; I82.501 Chronic embolism and thrombosis of unspecified deep veins of right lower extremity; I10 Essential (primary) hypertension; I25.10 Atherosclerotic heart disease of native coronary artery without angina pectoris; Z79.01 Long term (current) use of anticoagulants; G80.9 Cerebral palsy, unspecified; Z86.718 Personal history of other venous thrombosis and embolism; N40.0 Benign prostatic hyperplasia without lower urinary tract symptoms; F32.9 Major depressive disorder, single episode, unspecified; F31.9 Bipolar disorder, unspecified; I25.2 Old myocardial infarction; G20 Parkinson's disease; E78.5 Hyperlipidemia, unspecified; F41.9 Anxiety disorder, unspecified; Z88.0 Allergy status to penicillin
CPT/HCPCS: 36415; 71045; 71275; 80048; 80053; 81003; 82164; 82550; 82553; 83605; 83735; 84100; 84484; 85025; 85610; 85651; 85730; 86140; 86710; 87040; 87081; 87086; 93005; 93306; 93970; 94640; 94664; 94760; 96361; 96365; 96368; 99291

== ENCOUNTER 2020-02-20 20:17 | Inpatient (IN) | payer MEDICARE, BC, MEDICAID ==
[~2020-02-20] VITALS: Ht 177.8 cm; Wt 65.4 kg
[~2020-02-20 20:17] MED LIST changes: +CEFEPIME-D1 GM/50 ML IVPB; +IPRATROPIU0.2 MG/1 M HHN
--- NOTE | 2020-02-20 20:20 | NUR ---
ED Nurse Note: brought in by ambulance apa 280 from [facility] c/o cough and fever x 1 day.resulted covid positive 02/17/20. Hx of RI,CVA,cerebral palsy. 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 ERMD at bedside
[2020-02-20] MEDS ORDERED: Acetaminophen 500mg (ES) tab ORAL ONE (20:30)
[2020-02-20] MEDS ORDERED: VOLTAREN ARTHRI20 GM TP (20:32)
--- NOTE | 2020-02-20 21:01 | Emergency Room Report ---
History of Present Illness General Chief Complaint: Fever Source: Medical Record, EMS Present Illness HPI Disclaimer: Please note that this report is being documented using DRAGON technology. This can lead to erroneous entry secondary to incorrect interpretation by the dictating instrument. HPI: 84-year-old male recently COVID-19 positive presents for evaluation of fever. Sent over by PMD from [facility]. States that his fever has been greater than 100.7 for the past 2 days and is not coming down. Patient is a full code. No reported cough. He has a history of cerebral palsy, hypertension , seizure disorder, anemia, schizophrenia and depression. His baseline is ANO x1-2. Patient is nonverbal at this time and not providing any history. 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 COVID-19 Screening: Positive COVID-19 COVID-19 Testing Source: 02/17/20 Nursing Documentation-PMH Hx Cardiac Problems: Yes - RI, CAD, Hyperlipidemia Hx Hypertension: Yes Hx COPD: Yes Hx Diabetes: Yes Hx Cancer: No Hx Gastrointestinal Problems: Yes - GERD Hx Neurological Problems: Yes - Subarachnoid hemorrhage, Cerebral Palsy, Cerebral Aneurysm, Abnormal gait Hx Parkinson's Disease: Yes Hx Seizures: Yes Hx Cerebral Palsy: Yes Hx Tremors: Yes Hx Dysphasia: Yes Hx Weakness: Yes Review of Systems All Other Systems: negative except mentioned in HPI Physical Exam Vital Signs Date Time Temp Pulse Resp B/P (MAP) Pulse Ox O2 Delivery O2 Flow Rate FiO2 02/20/20 20:18 100.8 88 18 106/62 (77) 93 Nasal Cannula 2.0 General: Awake, febrile HEENT: NC/AT. EOMI. Cardiovascular: RRR. S1 and S2 normal. No murmur appreciated Resp: Normal work of breathing. No cough, wheezing or crackles appreciated Abdomen: Abdomen is soft, nondistended. Nontender Skin: Intact. No abrasions, laceration or rash over the exposed skin MSK: Normal tone and bulk. Moving all extremities. No obvious deformity. Neuro: Awake and alert. Nonverbal. Making good eye contact. Rhythmic movements of the extremities and face. Medical Decision Making Diagnostic Impression: Primary Impression: COVID-19 Additional Impressions: Fever UTI (urinary tract infection) Hypernatremia ER Course 84-year-old male recent testing positive for COVID-19 presents from nursing facility for evaluation of persistent fever. Concern for sepsis, symptoms COVID -19 infection, viral syndrome, pneumonia among others. Will start 30 cc/kg fluid bolus, draw labs, lactate, blood cultures. EKG nonischemic. Chest x-ray does not show obvious infiltrate. Urinalysis concerning for urinary tract infection. Patient treated with Zosyn. Lactate within normal limits. Patient will be admitted to his PMD, Dr. Perry, for further care. Laboratory Tests Test 02/20/20 20:40 02/20/20 21:00 White Blood Count 5.0 K/UL (4.8-10.8) Red Blood Count 4.17 M/UL (4.70-6.10) L Hemoglobin 13.0 G/DL (14.2-18.0) L Hematocrit 40.2 % (42.0-52.0) L Mean Corpuscular Volume 96 FL (80-99) Mean Corpuscular Hemoglobin 31.2 PG (27.0-31.0) H Mean Corpuscular Hemoglobin Concent 32.3 G/DL (32.0-36.0) Red Cell Distribution Width 14.4 % (11.6-14.8) Platelet Count 83 K/UL (150-450) L Mean Platelet Volume 10.6 FL (6.5-10.1) H Neutrophils (%) (Auto) % (45.0-75.0) Lymphocytes (%) (Auto) % (20.0-45.0) Monocytes (%) (Auto) % (1.0-10.0) Eosinophils (%) (Auto) % (0.0-3.0) Basophils (%) (Auto) % (0.0-2.0) Neutrophils % (Manual) Pending Lymphocytes % (Manual) Pending Platelet Estimate Pending Platelet Morphology Pending Prothrombin Time Pending Prothrombin Time INR Pending Activated Partial Thromboplast Time Pending D-Dimer Pending Sodium Level 154 MMOL/L (136-145) H Potassium Level 4.1 MMOL/L (3.5-5.1) Chloride Level 115 MMOL/L (98-107) H Carbon Dioxide Level 31 MMOL/L (21-32) Anion Gap 8 mmol/L (5-15) Blood Urea Nitrogen 37 mg/dL (7-18) H Creatinine 1.3 MG/DL (0.55-1.30) Estimated Glomerular Filtration Rate > 60 mL/min (>60) Glucose Level 104 MG/DL (74-106) Lactic Acid Level 2.00 mmol/L (0.4-2.0) Calcium Level 8.8 MG/DL (8.5-10.1) Phosphorus Level 3.5 MG/DL (2.5-4.9) Magnesium Level 2.3 MG/DL (1.8-2.4) Ferritin 657 NG/ML (8-388) H Total Bilirubin 0.3 MG/DL (0.2-1.0) Aspartate Amino Transferase (AST) 26 U/L (15-37) Alanine Aminotransferase (ALT) 15 U/L (12-78) Alkaline Phosphatase 61 U/L (46-116) Lactate Dehydrogenase 235 U/L (81-234) H Total Creatine Kinase 290 U/L (26-308) Creatine Kinase MB 1.3 NG/ML (0.0-3.6) Creatine Kinase MB Relative Index 0.4 Troponin I 0.043 ng/mL (0.000-0.056) C-Reactive Protein, Quantitative 6.1 mg/dL (0.00-0.90) H Total Protein 7.4 G/DL (6.4-8.2) Albumin 2.8 G/DL (3.4-5.0) L Globulin 4.6 g/dL Albumin/Globulin Ratio 0.6 (1.0-2.7) L Urine Color Yellow Urine Appearance Slightly cloudy Urine pH 5 (4.5-8.0) Urine Specific [place] 1.020 (1.005-1.035) Urine Protein 3+ (NEGATIVE) H Urine Glucose (UA) Negative (NEGATIVE) Urine Ketones Negative (NEGATIVE) Urine Blood 1+ (NEGATIVE) H Urine Nitrite Positive (NEGATIVE) H Urine Bilirubin Negative (NEGATIVE) Urine Urobilinogen Normal MG/DL (0.0-1.0) Urine Leukocyte Esterase 2+ (NEGATIVE) H Urine RBC 5-10 /HPF (0 - 0) H Urine WBC 20-30 /HPF (0 - 0) H Urine Squamous Epithelial Cells None /LPF (NONE/OCC) Urine Bacteria Many /HPF (NONE) H EKG Diagnostic Results EKG Time: 20:35 Rate: normal Rhythm: NSR ST Segments: no acute changes Other Impression Sinus rhythm, left axis deviation, no ST segment abnormalities Rhythm Strip Diag. Results Rhythm Strip Time: 20:35 EP Interpretation: yes Rate: 99 Rhythm: NSR, no PVC's, no ectopy Chest X-Ray Diagnostic Results Chest X-Ray Diagnostic Results : Chest X-Ray Ordered: Yes # of Views/Limited/Complete: 1 View Indication: Shortness of Breath EP Interpretation: Yes Interpretation: no consolidation, no effusion, no pneumothorax, no acute cardiopulmonary disease Impression: No acute disease Electronically Signed by: Electronically signed by Dr. Jayson Jeong Last Vital Signs Date Time Temp Pulse Resp B/P (MAP) Pulse Ox O2 Delivery O2 Flow Rate FiO2 02/20/20 20:18 100.8 88 18 106/62 (77) 93 Nasal Cannula 2.0 Disposition: ADMITTED INPATIENT Condition: Serious Jayson Jeong MD Feb 20, 2020 21:01
[2020-02-20 21:13] VITALS: BP 106/62
[2020-02-20 21:22] LABS: BILIRUBIN, URINE NEGATIVE (NEGATIVE); GLUCOSE, URINE (UA) NEGATIVE (NEGATIVE); KETONES,URINE NEGATIVE (NEGATIVE); LEUKOCYTE ESTERASE ,URINE 2+ (NEGATIVE); NITRITE,URINE POSITIVE (NEGATIVE); PH,URINE 5 (4.5-8.0); PROTEIN,URINE 3+ (NEGATIVE); UROBILINOGEN,URINE NORMAL MG/DL (0.0-1.0)
[2020-02-20 21:26] LABS: APPEARANCE,URINE SLIGHTLY CLOUDY; COLOR,URINE YELLOW
[2020-02-20 21:27] LABS: ANION GAP 8 mmol/L (5-15); BLOOD UREA NITROGEN 37 mg/dL (7-18); CALCIUM 8.8 MG/DL (8.5-10.1); CARBON DIOXIDE 31 MMOL/L (21-32); CHLORIDE 115 MMOL/L (98-107); CREATININE 1.3 MG/DL (0.55-1.30); POTASSIUM 4.1 MMOL/L (3.5-5.1); SODIUM 154 MMOL/L (136-145)
[2020-02-20] MEDS ORDERED: cefTRIAXone 1 GM in NS 55 ML IVPB ONE (21:30)
[2020-02-20 21:43] LABS: HEMATOCRIT 40.2 % (42.0-52.0); MEAN CORPUSCULAR VOLUME 96 FL (80-99); PLATELET COUNT 83 K/UL (150-450); RED BLOOD COUNT 4.17 M/UL (4.70-6.10); RED CELL DISTRIBUTION WIDTH 14.4 % (11.6-14.8)
--- NOTE | 2020-02-20 21:49 | Diagnostic Imaging Report ---
EXAM: XR Chest, 1 View CLINICAL HISTORY: SOB TECHNIQUE: Frontal view of the chest. COMPARISON: 07/21/18. FINDINGS: Lungs: Mild left basilar atelectasis. No clear consolidation. Pleural space: Unremarkable. No pneumothorax. Heart: Unremarkable. No cardiomegaly. Mediastinum: Unremarkable. Bones/joints: Degeneration of the spine and shoulders. Mild thoracic dextrocurvature. IMPRESSION: Mild left basilar atelectasis. No clear consolidation.
[2020-02-20 21:51] LABS: ALANINE AMINOTRANSFERASE 15 U/L (12-78); ALBUMIN 2.8 G/DL (3.4-5.0); ALBUMIN/GLOBULIN RATIO 0.6 (1.0-2.7); ALKALINE PHOSPHATASE 61 U/L (46-116); ASPARTATE AMINO TRANSFERASE 26 U/L (15-37); BILIRUBIN,TOTAL 0.3 MG/DL (0.2-1.0); CKMB 1.3 NG/ML (0.0-3.6); CREATINE KINASE 290 U/L (26-308); FERRITIN 657 NG/ML (8-388); PHOSPHORUS 3.5 MG/DL (2.5-4.9)
[2020-02-20] MEDS ORDERED: Enoxaparin 100mg Inj SUBQ SCH (22:00)
[2020-02-20] MEDS ORDERED: Promethazine/Codeine 5ml UD ORAL PRN (22:45)
[2020-02-20] MEDS ORDERED: Miralax 17gm pkt ORAL PRN (22:45)
[2020-02-20] MEDS ORDERED: Albuterol/Ipratropium 3ml neb HHN PRN (22:45)
[2020-02-21] MEDS: Azithromycin 250 MG in D5W 275 ML IV SCH ×2
[2020-02-21 00:35] VITALS: BP 112/68
--- NOTE | 2020-02-21 00:35 | NUR ---
TRANSFER TO FLOOR: Patient transferred to as ordered, per Dr Perry. Report given to JOSE LUIS Khan. Belongings and medications given to . Family and or S/O informed of transfer.
[2020-02-21] MEDS ORDERED: HYDROcodone/Acetamin 10/325 tab ORAL PRN (01:45)
[2020-02-21] MEDS ORDERED: Diclofenac 1% Gel 100gm TOPIC PRN (01:45)
[2020-02-21] MEDS ORDERED: Azithromycin 500mg Inj IV ONE (02:08)
[2020-02-21 04:00] VITALS: BP_SYST 128; BP_SYST 131; BP_DIAS 72; BP_DIAS 74
--- NOTE | 2020-02-21 06:50 | NUR ---
NURSE NOTES: Patient received from Nusrat AMAYA via [facility]. Patient in stable condition. Saturating well on 3L o oxygen via nasal cannula. IV site patent and intact on Right FA 20G running Azithromycin as ordered. Patient is COVID positive. A&Ox1-2. Primary MD called for admission orders, verified and carried out. Condom catheter, gown and world travel counselor put in place. No s/s of distress. Bed in lowest position and locked. Will continue plan of care.
--- NOTE | 2020-02-21 07:15 | NUR ---
NURSE NOTES: Received report from JOSE LUIS Zamorano. Pt is AOx0, nonverbal. Pt unable to respond to any questions. Pt on 2LPM NC with unlabored breathing, stable and sitting upright in bed. Pt R 20g IV SL, asymptomatic and intact. pt bed low and locked, call light in reach, and bed alarm on. Sacral redness/ discoloration noted. Pt unable to verbalize understanding. No s/s or complaitns of distress at this time. Addendum: 02/21/20 at 1734 by Cheyenne Ludwig RN RN small lower scrotal redness and DTI stage 1-2
--- NOTE | 2020-02-21 07:29 | NUR ---
NURSE HAND-OFF REPORT: Important Events on Shift:[Admission] Patient Status: [Stable] Diet: [Regular Mech Soft texture thin liquids] Pending Orders: [] Pending Results/Labs:[] Pending MD notification:[] Latest Vital Signs: Temperature 98.4 , Pulse 92 , B/P 131 /72 , Respiratory Rate 20 , O2 SAT 94 , Nasal Cannula, O2 Flow Rate 3.0 . Vital Sign Comment: [] EKG Rhythm: Sinus Rhythm Rhythm change?: N MD Notified?: N - MD Response: Latest Carrillo Fall Score: 95 Fall Risk: High Risk Safety Measures: Call light Within Reach, Bed Alarm Zone 1, Side Rails Side Rails x3, Bed position Low and Locked. Fall Precautions: Yellow Socks Yellow Gown Door Sign Patient Fall Education Report given to [Cheyenne AMAYA].
[2020-02-21 07:47] LABS: HEMOGLOBIN 12.6 G/DL (14.2-18.0); MEAN CORPUSCULAR VOLUME 95 FL (80-99); PLATELET COUNT 54 K/UL (150-450); RED BLOOD COUNT 4.12 M/UL (4.70-6.10); WHITE BLOOD COUNT 4.9 K/UL (4.8-10.8)
[2020-02-21 08:00] VITALS: BP 133/92
[2020-02-21 08:20] LABS: PHOSPHORUS 2.8 MG/DL (2.5-4.9)
[2020-02-21 08:22] LABS: ALBUMIN 2.3 G/DL (3.4-5.0); ANION GAP 7 mmol/L (5-15); BLOOD UREA NITROGEN 28 mg/dL (7-18); CALCIUM 7.8 MG/DL (8.5-10.1); CARBON DIOXIDE 25 MMOL/L (21-32); CHLORIDE 119 MMOL/L (98-107); PHOSPHORUS 2.7 MG/DL (2.5-4.9); POTASSIUM 4.2 MMOL/L (3.5-5.1); SODIUM 151 MMOL/L (136-145)
[2020-02-21 08:23] LABS: ALANINE AMINOTRANSFERASE 15 U/L (12-78); ALBUMIN 2.4 G/DL (3.4-5.0); ALBUMIN/GLOBULIN RATIO 0.7 (1.0-2.7); ALKALINE PHOSPHATASE 48 U/L (46-116); ANION GAP 9 mmol/L (5-15); ASPARTATE AMINO TRANSFERASE 32 U/L (15-37); BILIRUBIN,TOTAL 0.2 MG/DL (0.2-1.0); BLOOD UREA NITROGEN 28 mg/dL (7-18); CALCIUM 7.6 MG/DL (8.5-10.1); CARBON DIOXIDE 24 MMOL/L (21-32); CHLORIDE 119 MMOL/L (98-107); CREATININE 0.9 MG/DL (0.55-1.30); POTASSIUM 4.4 MMOL/L (3.5-5.1); SODIUM 152 MMOL/L (136-145)
--- NOTE | 2020-02-21 08:56 | Consultation ---
History of Present Illness General Date patient seen: Feb 21, 2020 Chief Complaint: Fever Present Illness HPI 84-year-old male with a pmhx of cerebral palsy, Anemia, schizophrenia, depression, BPH, seizure disorder recently COVID-19 positive presents for evaluation of fever for the past 2 days . Pt can't give any history. He is admitted for further management. Allergies: Coded Allergies: PENICILLIN G (Verified Allergy, Intermediate, 04/13/14) PENICILLINS (Unverified Allergy, Unknown, 07/21/18) Medication History Scheduled Atorvastatin Calcium* (Atorvastatin Calcium*), 40 MG ORAL BEDTIME, (Reported) Docusate Sodium (Docusate Sodium), 100 MG ORAL TWICE A DAY, (Reported) Hydrocodone Bit/Acetaminophen 10-325* (Hydrocodon-Acetaminophn 10-325*), 1 TAB ORAL Q6H, (Reported) Metoprolol Tartrate* (Metoprolol Tartrate*), 25 MG ORAL EVERY 12 HOURS, ( Reported) Multivitamin With Minerals (Multivitamins With Minerals*), 1 TAB ORAL DAILY, ( Reported) Quetiapine Fumarate* (Quetiapine Fumarate*), 25 MG ORAL HS, (Reported) Ranitidine Hcl (Ranitidine Hcl), 150 MG ORAL DAILY, (Reported) Tamsulosin Hcl (Tamsulosin Hcl*), 0.4 MG ORAL BEDTIME, (Reported) Valproate Sodium (Depakene), 500 MG PO QPM, (Reported) Scheduled PRN Acetaminophen (Acetaminophen 8 Hour), 650 MG ORAL Q6H PRN for PRN, (Reported) Clonidine HCl (Clonidine HCl), 0.1 MG PO Q6HR PRN for PRN, (Reported) Miscellaneous Medications Diclofenac Sodium (Voltaren Arthritis Pain), 20 GM TP, (Reported) Discontinued Medications Cefepime Hcl/D5w (Cefepime-Dextrose 1 Gm/50 Ml), 1 GM IVPB EVERY 12 HOURS Discontinued Reason: Pt stopped taking med Heparin Sod (Porcine) (Heparin Sodium*), 5,000 UNITS SUBQ Q12HR, (Reported) Discontinued Reason: Pt stopped taking med Lactulose (Lactulose*), 30 ML ORAL DAILY PRN for Constipation, (Reported) Discontinued Reason: Pt stopped taking med Melatonin (Melatonin), 5 MG ORAL BEDTIME PRN for Insomnia, (Reported) Discontinued Reason: Pt stopped taking med Omeprazole (Omeprazole), 20 MG ORAL DAILY, (Reported) Discontinued Reason: Pt stopped taking med Temazepam (Temazepam*), 15 MG ORAL BEDTIME PRN for PRN, (Reported) Discontinued Reason: Pt stopped taking med Patient History Healthcare decision maker Resuscitation status Advanced Directive on File Past Medical/Surgical History Past Medical/Surgical History: (1) [place] (myocardial infarction) (2) SAH (subarachnoid hemorrhage) (3) History of alcohol abuse (4) Cerebral palsy (5) CAD (coronary artery disease) (6) HTN (hypertension) (7) BPH (benign prostatic hyperplasia) (8) Anxiety disorder (9) MDD (major depressive disorder), recurrent episode, moderate Review of Systems All Other Systems: negative except mentioned in HPI Physical Exam General Appearance: WD/WN, no apparent distress, alert Lines, tubes and drains: peripheral HEENT: normocephalic, atraumatic Neck: non-tender, normal alignment, supple Respiratory/Chest: chest wall non-tender, lungs clear Breasts: no masses Cardiovascular/Chest: normal peripheral pulses Abdomen: normal bowel sounds, non tender Genitourinary/Rectal: normal genital exam, normal rectal exam Extremities: normal range of motion Last 24 Hour Vital Signs Date Time Temp Pulse Resp B/P (MAP) Pulse Ox O2 Delivery O2 Flow Rate FiO2 02/21/20 04:00 98.4 92 20 131/72 (91) 94 02/21/20 04:00 91 02/21/20 03:21 Nasal Cannula 3.0 02/21/20 02:57 Nasal Cannula 3.0 02/21/20 00:35 99.4 102 30 112/68 100 Nasal Cannula 2.0 02/21/20 00:35 99.4 102 30 112/68 100 Nasal Cannula 2.0 02/20/20 21:13 100.8 102 18 106/62 95 Nasal Cannula 2.0 02/20/20 21:13 88 18 Nasal Cannula 2.0 02/20/20 20:18 100.8 88 18 106/62 (77) 93 Nasal Cannula 2.0 Laboratory Tests Test 02/20/20 20:40 02/20/20 21:00 02/21/20 06:00 White Blood Count 5.0 K/UL (4.8-10.8) 4.9 K/UL (4.8-10.8) Red Blood Count 4.17 M/UL (4.70-6.10) L 4.12 M/UL (4.70-6.10) L Hemoglobin 13.0 G/DL (14.2-18.0) L 12.6 G/DL (14.2-18.0) L Hematocrit 40.2 % (42.0-52.0) L 39.0 % (42.0-52.0) L Mean Corpuscular Volume 96 FL (80-99) 95 FL (80-99) Mean Corpuscular Hemoglobin 31.2 PG (27.0-31.0) H 30.6 PG (27.0-31.0) Mean Corpuscular Hemoglobin Concent 32.3 G/DL (32.0-36.0) 32.2 G/DL (32.0-36.0) Red Cell Distribution Width 14.4 % (11.6-14.8) 14.0 % (11.6-14.8) Platelet Count 83 K/UL (150-450) L 54 K/UL (150-450) L Mean Platelet Volume 10.6 FL (6.5-10.1) H 10.8 FL (6.5-10.1) H Neutrophils (%) (Auto) % (45.0-75.0) % (45.0-75.0) Lymphocytes (%) (Auto) % (20.0-45.0) % (20.0-45.0) Monocytes (%) (Auto) % (1.0-10.0) % (1.0-10.0) Eosinophils (%) (Auto) % (0.0-3.0) % (0.0-3.0) Basophils (%) (Auto) % (0.0-2.0) % (0.0-2.0) Differential Total Cells Counted 100 Neutrophils % (Manual) 68 % (45-75) Pending Lymphocytes % (Manual) 20 % (20-45) Pending Monocytes % (Manual) 6 % (1-10) Eosinophils % (Manual) 0 % (0-3) Basophils % (Manual) 0 % (0-2) Band Neutrophils 6 % (0-8) Platelet Estimate Decreased L Pending Platelet Morphology Normal Pending Red Blood Cell Morphology Normal Prothrombin Time 10.9 SEC (9.30-11.50) Prothromb Time International Ratio 1.0 (0.9-1.1) Activated Partial Thromboplast Time 26 SEC (23-33) D-Dimer 5.40 mg/L FEU (0.00-0.49) H Sodium Level 154 MMOL/L (136-145) H 152 MMOL/L (136-145) H Potassium Level 4.1 MMOL/L (3.5-5.1) 4.4 MMOL/L (3.5-5.1) Chloride Level 115 MMOL/L (98-107) H 119 MMOL/L (98-107) H Carbon Dioxide Level 31 MMOL/L (21-32) 24 MMOL/L (21-32) Anion Gap 8 mmol/L (5-15) 9 mmol/L (5-15) Blood Urea Nitrogen 37 mg/dL (7-18) H 28 mg/dL (7-18) H Creatinine 1.3 MG/DL (0.55-1.30) 0.9 MG/DL (0.55-1.30) Estimat Glomerular Filtration Rate > 60 mL/min (>60) > 60 mL/min (>60) Glucose Level 104 MG/DL (74-106) 80 MG/DL (74-106) Lactic Acid Level 2.00 mmol/L (0.4-2.0) Calcium Level 8.8 MG/DL (8.5-10.1) 7.6 MG/DL (8.5-10.1) L Phosphorus Level 3.5 MG/DL (2.5-4.9) 2.8 MG/DL (2.5-4.9) Magnesium Level 2.3 MG/DL (1.8-2.4) 2.0 MG/DL (1.8-2.4) Ferritin 657 NG/ML (8-388) H Total Bilirubin 0.3 MG/DL (0.2-1.0) 0.2 MG/DL (0.2-1.0) Aspartate Amino Transf (AST/SGOT) 26 U/L (15-37) 32 U/L (15-37) Alanine Aminotransferase (ALT/SGPT) 15 U/L (12-78) 15 U/L (12-78) Alkaline Phosphatase 61 U/L (46-116) 48 U/L (46-116) Lactate Dehydrogenase 235 U/L (81-234) H Total Creatine Kinase 290 U/L (26-308) Creatine Kinase MB 1.3 NG/ML (0.0-3.6) Creatine Kinase MB Relative Index 0.4 Troponin I 0.043 ng/mL (0.000-0.056) C-Reactive Protein, Quantitative 6.1 mg/dL (0.00-0.90) H Total Protein 7.4 G/DL (6.4-8.2) 6.0 G/DL (6.4-8.2) L Albumin 2.8 G/DL (3.4-5.0) L 2.4 G/DL (3.4-5.0) L Globulin 4.6 g/dL 3.6 g/dL Albumin/Globulin Ratio 0.6 (1.0-2.7) L 0.7 (1.0-2.7) L Urine Color Yellow Urine Appearance Slightly cloudy Urine pH 5 (4.5-8.0) Urine Specific [place] 1.020 (1.005-1.035) Urine Protein 3+ (NEGATIVE) H Urine Glucose (UA) Negative (NEGATIVE) Urine Ketones Negative (NEGATIVE) Urine Blood 1+ (NEGATIVE) H Urine Nitrite Positive (NEGATIVE) H Urine Bilirubin Negative (NEGATIVE) Urine Urobilinogen Normal MG/DL (0.0-1.0) Urine Leukocyte Esterase 2+ (NEGATIVE) H Urine RBC 5-10 /HPF (0 - 0) H Urine WBC 20-30 /HPF (0 - 0) H Urine Squamous Epithelial Cells None /LPF (NONE/OCC) Urine Bacteria Many /HPF (NONE) H Microbiology Date/Time Source Procedure Growth Status 02/20/20 20:45 Nasopharynx SARS-CoV-2 RdRp Gene Assay - Final Complete 02/20/20 21:00 Urine,Clean Catch Urine Culture - Preliminary NO GROWTH Resulted Height (Feet): 5 Height (Inches): 10.00 Weight (Pounds): 159 Medications Current Medications Medications (Trade) Dose Ordered Sig/Yazmin Route PRN Reason Start Time Stop Time Status Last Admin Dose Admin Acetaminophen (Tylenol) 650 mg Q6H PRN ORAL Temp >100.5 and Mild Pain 02/21/20 01:45 03/22/20 01:44 Acetaminophen/ Hydrocodone Bitart ([place] 10/325) 1 tab Q6H PRN ORAL For Mod to Severe Pain 02/21/20 01:45 02/28/20 01:44 Albuterol/ Ipratropium (Albuterol/ Ipratropium) 3 ml Q4H PRN HHN Shortness of Breath 02/20/20 22:45 02/25/20 22:44 Atorvastatin Calcium (Lipitor) 40 mg BEDTIME ORAL 02/21/20 21:00 05/21/20 20:59 Azithromycin 250 mg/Dextrose 275 ml @ 275 mls/hr Q24HRS IV 02/21/20 00:00 02/26/20 00:00 02/21/20 00:00 Clonidine HCl (Catapres Tab) 0.1 mg Q8H PRN ORAL For SBP >160 02/21/20 01:45 05/21/20 01:44 Dexamethasone (Decadron) 4 mg DAILY ORAL 02/21/20 09:00 03/22/20 08:59 Dextrose (Dextrose 50%) 25 ml Q30M PRN IV Hypoglycemia 02/20/20 22:45 05/20/20 22:44 Dextrose (Dextrose 50%) 50 ml Q30M PRN IV Hypoglycemia 02/20/20 22:45 05/20/20 22:44 Diclofenac Sodium (Voltaren gel) 1 applic BID PRN TOPIC As needed for pain 02/21/20 01:45 05/21/20 01:44 Docusate Sodium (Colace) 100 mg TWICE A DAY ORAL 02/21/20 09:00 03/22/20 08:59 Heparin Sodium (Porcine) (Heparin 5000 units/ml) 5,000 units EVERY 12 HOURS SUBQ 02/21/20 09:00 04/06/20 08:59 UNV Metoprolol Tartrate (Lopressor) 25 mg EVERY 12 HOURS ORAL 02/21/20 09:00 05/21/20 08:59 Multivitamins (Multivitamins) 1 tab DAILY ORAL 02/21/20 09:00 03/22/20 08:59 Ondansetron HCl (Zofran) 4 mg Q6H PRN IVP Nausea & Vomiting 02/20/20 22:45 03/21/20 22:44 Polyethylene Glycol (Miralax) 17 gm DAILYPRN PRN ORAL Constipation 02/20/20 22:45 03/21/20 22:44 Promethazine HCl/ Codeine (Phenergan with Codeine) 5 ml Q6H PRN ORAL cough 02/20/20 22:45 03/21/20 22:44 Quetiapine Fumarate (SEROqueL) 25 mg Q12HR ORAL 02/21/20 09:00 04/06/20 08:59 Tamsulosin HCl (Flomax) 0.4 mg BEDTIME ORAL 02/21/20 21:00 03/22/20 20:59 Valproic Acid (Depakene) 500 mg EVERY 12 HOURS ORAL 02/21/20 09:00 04/06/20 08:59 Assessment/Plan Problem List: (1) COVID-19 ICD Codes: U07.1 - COVID-19 SNOMED: 587730362 (2) Hypernatremia ICD Codes: E87.0 - Hyperosmolality and hypernatremia SNOMED: 478912493 (3) HTN (hypertension) ICD Codes: I10 - Essential (primary) hypertension SNOMED: 91559426 (4) CAD (coronary artery disease) ICD Codes: I25.10 - Atherosclerotic heart disease of ute coronary artery without angina pectoris SNOMED: 31108828 (5) Cerebral palsy ICD Codes: G80.9 - Cerebral palsy SNOMED: 831610793 (6) SAH (subarachnoid hemorrhage) ICD Codes: I60.9 - SAH (subarachnoid hemorrhage) SNOMED: 57945151 (7) BPH (benign prostatic hyperplasia) ICD Codes: N40.0 - Benign prostatic hyperplasia without lower urinary tract symptoms SNOMED: 474548697, 961038214 Assessment/Plan: chopra culture iv abx steroids ID evaluaion dvt prophylaxis seizure precaution dvt prohylaxis. Aldair Patel MD Feb 21, 2020 08:56
[2020-02-21] MEDS ORDERED: Heparin 5000 units/ml inj SUBQ SCH (09:00)
[2020-02-21] MEDS: Valproic Acid 250mg/5ml Liquid ORAL SCH (09:22)
[2020-02-21] MEDS: Docusate 100mg cap ORAL SCH ×2 (09:23→18:16)
--- NOTE | 2020-02-21 11:00 | NUR ---
CASE MANAGEMENT:INITIAL REVIEW 84 YR OLD MALE BIBA FROM [facility] CC;FEVER SI;COVID 19. FEVER. T 100.8 P 102 RR 30 BP 112/68 SpO2 93% 2L NC PLT 83 NA 154 CL 115 BUN 37 FERRITIN 657 ALB 2.8 D-DIMER 5.40 UA+ PROTEIN, BLOOD, NITRITE, LEUKOCYTE ESTERASE, RBC, WBC, BACTERIA COVID-19 RAPID ~ POSITIVE CXR ~ Mild left basilar atelectasis. No clear consolidation. IS;TYLENOL PO ONCE IVF NS BOLUS ROCEPHIN IV ADMITTED TO TELEMETRY TELE STATUS DCP;FROM [facility]
[2020-02-21 12:00] VITALS: BP 125/78
--- NOTE | 2020-02-21 15:30 | History and Physical Report ---
DATE OF ADMISSION: 02/20/2020 CHIEF COMPLAINT: The patient is an 84-year-old male, who presents with chief complaint of fever. HISTORY OF PRESENT ILLNESS: The patient is a resident of [facility]. The patient recently tested positive for COVID-19. History of present illness began two days prior to admission. The patient was found to have fevers of 100.7 to 102.0 degrees Fahrenheit. The patient was transferred to [facility] for evaluation. The patient was admitted with COVID-19 positive and probable pneumonia. REVIEW OF SYSTEMS: Unable to assess secondary to the patient's mental status. PAST MEDICAL HISTORY: Significant for: 1. Dysphagia, status post PEG placement. 2. Chronic renal failure. 3. History of cerebral palsy. 4. History of brain aneurysm. 5. Subarachnoid hemorrhage. 6. Benign prostatic hypertrophy. 7. Coronary artery disease, status post ST elevated myocardial infarction. 8. Hypertension. 9. Congestive heart failure, diastolic. 10. Bilateral lower extremity deep venous thrombosis in 2015, on Coumadin. 11. Iron deficiency anemia. 12. Hypercholesterolemia. 13. Seizure disorder. 14. Schizophrenia. PAST SURGICAL HISTORY: Significant for open reduction and internal fixation of right hip fracture in 2013. CURRENT MEDICATIONS: 1. Atorvastatin 40 mg p.o. at bedtime. 2. Clonidine 0.1 mg p.o. q.6h. p.r.n. 3. Colace 100 mg p.o. twice daily. 4. [place] 10/325 mg one tablet p.o. q.6h. p.r.n. 5. Metoprolol 25 mg p.o. twice daily. 6. Seroquel 50 mg p.o. at bedtime. 7. Ranitidine 150 mg p.o. daily. 8. Flomax 0.4 mg p.o. at bedtime. 9. Valproic acid 500 mg p.o. at bedtime. ALLERGIES: Penicillin. SOCIAL HISTORY: The patient is single and is a resident of [facility]. The patient denies tobacco or alcohol use. PHYSICAL EXAMINATION: VITAL SIGNS: Temperature 100.8, respirations 18, pulse 88, blood pressure 106/62. GENERAL: The patient is a thin-appearing male, in no apparent distress. HEENT: Eyes, pupils equal and responsive to light and accommodation. Extraocular movements are intact. NECK: Supple without lymphadenopathy. CHEST: Lungs are clear to auscultation bilaterally with decreased breath sounds bilateral bases. Otherwise, without rales. CARDIOVASCULAR: Regular rhythm and rate. S1, S2 normal without murmurs, rubs, or gallops. ABDOMEN: Soft, nontender, and nondistended. Positive bowel sounds. No evidence of hepatosplenomegaly. Currently, no rebound or guarding noted. EXTREMITIES: Negative for clubbing, cyanosis, or edema. RECTAL/GENITAL: Not performed. NEUROLOGIC: Cranial nerves II through XII are grossly intact without focal deficits. DIAGNOSTIC DATA: A chest x-ray was reported as bibasilar atelectasis without acute consolidation. LABORATORY STUDIES: WBC 5.0, hemoglobin 13.2, hematocrit 40.2, platelets . Sodium 154, potassium 4.1, chloride 115, CO2 31, BUN 37, creatinine 1.3, glucose 104. Troponin 0.043. ASSESSMENT: This is an 84-year-old male. 1. COVID-19 positive. 2. Fever. 3. Probable COVID-19 pneumonia. 4. Chronic renal failure. 5. Dysphagia. 6. History of cerebral palsy. 7. Brain aneurysm. 8. Subarachnoid hemorrhage. 9. Benign prostatic hypertrophy. 10. Coronary artery disease. 11. Hypertension. 12. Congestive heart failure. 13. Bilateral lower extremity deep venous thrombosis. 14. Iron deficiency anemia. 15. Hypercholesterolemia. 16. Seizure disorder. 17. Schizophrenia. TREATMENT: 1. COVID-19 positive/probable pneumonia. A Pulmonary consultation has been obtained with Dr. Aldair Patel. The patient has been placed empirically on Decadron. The patient is currently on azithromycin and ceftriaxone. 2. Bilateral lower extremity deep venous thrombosis. The patient is currently off anticoagulation. 3. Chronic renal failure. 4. Dysphagia. 5. History of cerebral palsy. 6. Subarachnoid hemorrhage. 7. Benign prostatic hypertrophy. 8. Coronary artery disease. 9. Hypertension. Continue clonidine as above. 10. Iron deficiency anemia. 11. Hypercholesterolemia. 12. Seizure disorder. Continue valproic acid as above. 13. Schizophrenia. Jose Jha M.D. DR: CARLOS JOB#: [id number] CC:
[2020-02-21 16:00] VITALS: BP 130/83
--- NOTE | 2020-02-21 19:30 | NUR ---
NURSE HAND-OFF REPORT: Important Events on Shift: Patient Status: fc. stable Diet: regular diet, mech soft Pending Orders: Pending Results/Labs: Pending MD notification: Latest Vital Signs: Temperature 98.4 , Pulse 84 , B/P 130 /83 , Respiratory Rate 20 , O2 SAT 96 , Nasal Cannula, O2 Flow Rate 2.0 . Vital Sign Comment: EKG Rhythm: Sinus Rhythm Rhythm change?: Y MD Notified?: N - MD Response: Latest Carrillo Fall Score: 95 Fall Risk: High Risk Safety Measures: Call light Within Reach, Bed Alarm Zone 1, Side Rails Side Rails x2, Bed position Low and Locked. Fall Precautions: Yellow Socks Report given to JOSE LUIS Davis. Addendum: 02/21/20 at 1952 by Cheyenne Ludwig RN RN Plt 54, heparin was held
[2020-02-21 20:00] VITALS: BP 128/75
[2020-02-21] MEDS ORDERED: Tamsulosin 0.4mg cap ORAL SCH (21:00)
[2020-02-22] VITALS: BP 135/68
[2020-02-22] MEDS: Valproic Acid 250mg/5ml Liquid ORAL SCH ×3 (00:19→21:46)
[2020-02-22] MEDS: Atorvastatin 20mg tab ORAL SCH ×2 (00:20→21:47)
[2020-02-22] MEDS: Tamsulosin 0.4mg cap ORAL SCH ×2 (00:20→21:47)
[2020-02-22] MEDS: Azithromycin 250 MG in D5W 275 ML IV SCH (00:21)
[2020-02-22 04:00] VITALS: BP 112/54
--- NOTE | 2020-02-22 07:35 | NUR ---
NURSE HAND-OFF REPORT: Important Events on Shift: Patient Status: fc. stable Diet: regular diet, mech soft Pending Orders: cbc, cmp Pending Results/Labs:cbc cmp Pending MD notification:- Latest Vital Signs: Temperature 98.4 , Pulse 84 , B/P 130 /83 , Respiratory Rate 20 , O2 SAT 96 , currently room air, satting 96%, o O2 Nasal Cannula, O2 Flow Rate 2.0 . Vital Sign Comment: EKG Rhythm: Sinus Rhythm Rhythm change?: N MD Notified?: N - MD Response: Latest Carrillo Fall Score: 95 Fall Risk: High Risk Safety Measures: Call light Within Reach, Bed Alarm Zone 1, Side Rails Side Rails x2, Bed position Low and Locked. Fall Precautions: Yellow Socks Report given to Liz AMAYA
--- NOTE | 2020-02-22 07:35 | NUR ---
NURSE NOTES: Pt received from Susan AMAYA. Pt in bed awake and resing. No sign of distress at this time. Bed low and locked. Alfonzo light within reach. NC running at 2 liters.
[2020-02-22 08:00] VITALS: BP 121/75
[2020-02-22] MEDS: Docusate 100mg cap ORAL SCH ×2 (08:28→17:01)
[2020-02-22] MEDS: Heparin 5000 units/ml inj SUBQ SCH ×2 (09:00→20:15)
--- NOTE | 2020-02-22 09:18 | NUR ---
NURSE NOTES: Attempted blood draw to no success. Per lab they will not do blood draw until 2 more people attempt. Held heparin as platelets were 54 yesterday and i do not have numbers for today. hold if under 100 directions noted.
[2020-02-22] MEDS ORDERED: Albuterol/Ipratropium 3ml neb HHN PRN (10:45)
[2020-02-22 12:00] VITALS: BP 93/75
--- NOTE | 2020-02-22 13:00 | NUR ---
NURSE NOTES: Offered to feed lunch. Did not like mashed potatoes/minced meat/mushy peas. Had some of the soup and all of the juice.
[2020-02-22 13:25] LABS: HEMATOCRIT 33.9 % (42.0-52.0); HEMOGLOBIN 11.3 G/DL (14.2-18.0); MEAN CORPUSCULAR VOLUME 92 FL (80-99); PLATELET COUNT 72 K/UL (150-450); RED BLOOD COUNT 3.68 M/UL (4.70-6.10); RED CELL DISTRIBUTION WIDTH 13.4 % (11.6-14.8); WHITE BLOOD COUNT 6.5 K/UL (4.8-10.8)
[2020-02-22 14:07] LABS: ALANINE AMINOTRANSFERASE 11 U/L (12-78); ALBUMIN 2.5 G/DL (3.4-5.0); ALBUMIN/GLOBULIN RATIO 0.6 (1.0-2.7); ALKALINE PHOSPHATASE 47 U/L (46-116); ANION GAP 11 mmol/L (5-15); ASPARTATE AMINO TRANSFERASE 27 U/L (15-37); BILIRUBIN,TOTAL 0.4 MG/DL (0.2-1.0); BLOOD UREA NITROGEN 23 mg/dL (7-18); CALCIUM 7.9 MG/DL (8.5-10.1); CARBON DIOXIDE 24 MMOL/L (21-32); CHLORIDE 115 MMOL/L (98-107); PHOSPHORUS 1.8 MG/DL (2.5-4.9); POTASSIUM 4.6 MMOL/L (3.5-5.1); SODIUM 150 MMOL/L (136-145)
--- NOTE | 2020-02-22 14:42 | Internal Med Progress Note ---
Subjective Date of Service: Feb 22, 2020 Physician Name YudelkaJose Attending Physician Joey Perry MD Current Medications Medications (Trade) Dose Ordered Sig/Yazmin Route PRN Reason Start Time Stop Time Status Last Admin Dose Admin Acetaminophen (Tylenol) 650 mg Q6H PRN ORAL Temp >100.5 and Mild Pain 02/21/20 01:45 03/22/20 01:44 Acetaminophen/ Hydrocodone Bitart ([place] 10/325) 1 tab Q6H PRN ORAL For Mod to Severe Pain 02/21/20 01:45 02/28/20 01:44 Albuterol/ Ipratropium (Albuterol/ Ipratropium) 3 ml Q4H PRN HHN Shortness of Breath 02/20/20 22:45 02/25/20 22:44 Albuterol/ Ipratropium (Combivent Respimat) 1 puff Q4H PRN INH Shortness of Breath 02/22/20 11:00 03/23/20 10:59 Atorvastatin Calcium (Lipitor) 40 mg BEDTIME ORAL 02/21/20 21:00 05/21/20 20:59 02/22/20 00:20 Azithromycin 250 mg/Dextrose 275 ml @ 275 mls/hr Q24HRS IV 02/21/20 00:00 02/26/20 00:00 02/22/20 00:21 Clonidine HCl (Catapres Tab) 0.1 mg Q8H PRN ORAL For SBP >160 02/21/20 01:45 05/21/20 01:44 Dexamethasone (Decadron) 4 mg DAILY ORAL 02/21/20 09:00 03/22/20 08:59 02/22/20 08:28 Dextrose (Dextrose 50%) 25 ml Q30M PRN IV Hypoglycemia 02/20/20 22:45 05/20/20 22:44 Dextrose (Dextrose 50%) 50 ml Q30M PRN IV Hypoglycemia 02/20/20 22:45 05/20/20 22:44 Diclofenac Sodium (Voltaren gel) 1 applic BID PRN TOPIC As needed for pain 02/21/20 01:45 05/21/20 01:44 Docusate Sodium (Colace) 100 mg TWICE A DAY ORAL 02/21/20 09:00 03/22/20 08:59 02/22/20 08:28 Heparin Sodium (Porcine) (Heparin 5000 units/ml) 5,000 units EVERY 12 HOURS SUBQ 02/22/20 09:00 04/07/20 08:59 Metoprolol Tartrate (Lopressor) 25 mg EVERY 12 HOURS ORAL 02/21/20 09:00 05/21/20 08:59 02/22/20 08:30 Multivitamins (Multivitamins) 1 tab DAILY ORAL 02/21/20 09:00 03/22/20 08:59 02/22/20 08:30 Ondansetron HCl (Zofran) 4 mg Q6H PRN IVP Nausea & Vomiting 02/20/20 22:45 03/21/20 22:44 Polyethylene Glycol (Miralax) 17 gm DAILYPRN PRN ORAL Constipation 02/20/20 22:45 03/21/20 22:44 Promethazine HCl/ Codeine (Phenergan with Codeine) 5 ml Q6H PRN ORAL cough 02/20/20 22:45 03/21/20 22:44 Quetiapine Fumarate (SEROqueL) 25 mg Q12HR ORAL 02/21/20 09:00 04/06/20 08:59 02/22/20 08:31 Tamsulosin HCl (Flomax) 0.4 mg BEDTIME ORAL 02/21/20 21:00 03/22/20 20:59 02/22/20 00:20 Valproic Acid (Depakene) 500 mg EVERY 12 HOURS ORAL 02/21/20 09:00 04/06/20 08:59 02/22/20 08:29 Allergies: Coded Allergies: PENICILLIN G (Verified Allergy, Intermediate, 04/13/14) PENICILLINS (Unverified Allergy, Unknown, 07/21/18) ROS Limited/Unobtainable: Yes Subjective 84 YO M admitted with fever. Now COVID 19 positive. Cover for Int aki-DR Perry Objective Last Vital Signs Date Time Temp Pulse Resp B/P (MAP) Pulse Ox O2 Delivery O2 Flow Rate FiO2 02/22/20 12:00 73 02/22/20 12:00 98.1 22 93/75 (81) 94 02/22/20 09:00 Room Air 02/21/20 09:00 2.0 Laboratory Tests Test 02/22/20 13:00 White Blood Count 6.5 K/UL (4.8-10.8) Red Blood Count 3.68 M/UL (4.70-6.10) L Hemoglobin 11.3 G/DL (14.2-18.0) L Hematocrit 33.9 % (42.0-52.0) L Mean Corpuscular Volume 92 FL (80-99) Mean Corpuscular Hemoglobin 30.7 PG (27.0-31.0) Mean Corpuscular Hemoglobin Concent 33.3 G/DL (32.0-36.0) Red Cell Distribution Width 13.4 % (11.6-14.8) Platelet Count 72 K/UL (150-450) L Mean Platelet Volume 9.4 FL (6.5-10.1) Neutrophils (%) (Auto) % (45.0-75.0) Lymphocytes (%) (Auto) % (20.0-45.0) Monocytes (%) (Auto) % (1.0-10.0) Eosinophils (%) (Auto) % (0.0-3.0) Basophils (%) (Auto) % (0.0-2.0) Differential Total Cells Counted 100 Neutrophils % (Manual) 84 % (45-75) H Lymphocytes % (Manual) 12 % (20-45) L Monocytes % (Manual) 4 % (1-10) Eosinophils % (Manual) 0 % (0-3) Basophils % (Manual) 0 % (0-2) Band Neutrophils 0 % (0-8) Platelet Estimate Decreased L Platelet Morphology Normal Hypochromasia 2+ Erythrocyte Sedimentation Rate 34 MM/HR (0-20) H Sodium Level 150 MMOL/L (136-145) H Potassium Level 4.6 MMOL/L (3.5-5.1) Chloride Level 115 MMOL/L (98-107) H Carbon Dioxide Level 24 MMOL/L (21-32) Anion Gap 11 mmol/L (5-15) Blood Urea Nitrogen 23 mg/dL (7-18) H Creatinine 1.0 MG/DL (0.55-1.30) Estimat Glomerular Filtration Rate > 60 mL/min (>60) Glucose Level 106 MG/DL (74-106) Calcium Level 7.9 MG/DL (8.5-10.1) L Phosphorus Level 1.8 MG/DL (2.5-4.9) L Magnesium Level 1.9 MG/DL (1.8-2.4) Total Bilirubin 0.4 MG/DL (0.2-1.0) Aspartate Amino Transf (AST/SGOT) 27 U/L (15-37) Alanine Aminotransferase (ALT/SGPT) 11 U/L (12-78) L Alkaline Phosphatase 47 U/L (46-116) C-Reactive Protein, Quantitative 4.3 mg/dL (0.00-0.90) H Total Protein 6.7 G/DL (6.4-8.2) Albumin 2.5 G/DL (3.4-5.0) L Globulin 4.2 g/dL Albumin/Globulin Ratio 0.6 (1.0-2.7) L Microbiology Date/Time Source Procedure Growth Status 02/20/20 20:45 Blood Blood Culture - Preliminary NO GROWTH AFTER 24 HOURS Resulted 02/20/20 20:30 Blood Blood Culture - Preliminary NO GROWTH AFTER 24 HOURS Resulted 02/20/20 20:45 Nasopharynx SARS-CoV-2 RdRp Gene Assay - Final Complete 02/20/20 21:00 Urine,Clean Catch Urine Culture - Preliminary Staphylococcus Aureus Resulted Intake and Output 02/21/20 02/22/20 19:00 07:00 Intake Total 540 ml Balance 540 ml Intake Oral 540 ml # Voids 2 2 # Bowel Movements 1 2 Objective PHYSICAL EXAMINATION: GENERAL: The patient is a thin-appearing male, in no apparent distress. HEENT: Eyes, pupils equal and responsive to light and accommodation. Extraocular movements are intact. NECK: Supple without lymphadenopathy. CHEST: Lungs are clear to auscultation bilaterally with decreased breath sounds bilateral bases. Otherwise, without rales. CARDIOVASCULAR: Regular rhythm and rate. S1, S2 normal without murmurs, rubs, or gallops. ABDOMEN: Soft, nontender, and nondistended. Positive bowel sounds. No evidence of hepatosplenomegaly. Currently, no rebound or guarding noted. EXTREMITIES: Negative for clubbing, cyanosis, or edema. RECTAL/GENITAL: Not performed. NEUROLOGIC: Cranial nerves II through XII are grossly intact without focal deficits. Assessment/Plan Assessment/Plan ASSESSMENT: This is an 84-year-old male. 1. COVID-19 positive. 2. Fever. 3. Probable COVID-19 pneumonia. 4. Chronic renal failure. 5. Dysphagia. 6. History of cerebral palsy. 7. Brain aneurysm. 8. Subarachnoid hemorrhage. 9. Benign prostatic hypertrophy. 10. Coronary artery disease. 11. Hypertension. 12. Congestive heart failure. 13. Bilateral lower extremity deep venous thrombosis. 14. Iron deficiency anemia. 15. Hypercholesterolemia. 16. Seizure disorder. 17. Schizophrenia. TREATMENT: 1. COVID-19 positive/probable pneumonia. Pulmonary consultation = Dr. Aldair Patel. The patient has been placed empirically on Decadron. The patient is currently on azithromycin and ceftriaxone. 2. Bilateral lower extremity deep venous thrombosis (chronic). Anticoagulation=heparin subcut 3. Chronic renal failure. 4. Dysphagia. 5. History of cerebral palsy. 6. Subarachnoid hemorrhage. 7. Benign prostatic hypertrophy. 8. Coronary artery disease. 9. Hypertension. Continue clonidine as above. 10. Iron deficiency anemia. 11. Hypercholesterolemia. 12. Seizure disorder. Continue valproic acid as above. 13. Schizophrenia. 14. Full code Jose Jha MD Feb 22, 2020 14:42
[2020-02-22 16:00] VITALS: BP 159/76
--- NOTE | 2020-02-22 19:22 | Pulmonology Progress Note ---
Subjective ROS Limited/Unobtainable: No Allergies: Coded Allergies: PENICILLIN G (Verified Allergy, Intermediate, 04/13/14) PENICILLINS (Unverified Allergy, Unknown, 07/21/18) Objective Last 24 Hour Vital Signs Date Time Temp Pulse Resp B/P (MAP) Pulse Ox O2 Delivery O2 Flow Rate FiO2 02/22/20 16:00 88 02/22/20 16:00 98.1 74 22 159/76 (103) 96 02/22/20 12:00 73 02/22/20 12:00 98.1 80 22 93/75 (81) 94 02/22/20 09:00 Room Air 02/22/20 08:30 82 121/75 02/22/20 08:00 97.9 82 22 121/75 (90) 94 02/22/20 08:00 84 02/22/20 04:00 74 02/22/20 04:00 99.3 71 23 112/54 (73) 96 02/22/20 00:20 77 128/75 02/22/20 00:00 72 02/22/20 00:00 98.2 76 23 135/68 (90) 96 02/21/20 21:00 Room Air 02/21/20 20:00 79 02/21/20 20:00 99.5 77 22 128/75 (92) 97 Intake and Output 02/21/20 02/22/20 19:00 07:00 Intake Total 540 ml Balance 540 ml Intake Oral 540 ml # Voids 2 2 # Bowel Movements 1 2 General Appearance: WD/WN Respiratory: chest wall non-tender Abdomen: normal bowel sounds, no organomegaly Genitourinary: normal external genitalia Skin: no rash Neurologic: 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 II-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 grossly normal Microbiology Date/Time Source Procedure Growth Status 02/20/20 20:45 Blood Blood Culture - Preliminary NO GROWTH AFTER 24 HOURS Resulted 02/20/20 20:30 Blood Blood Culture - Preliminary NO GROWTH AFTER 24 HOURS Resulted 02/20/20 20:45 Nasopharynx SARS-CoV-2 RdRp Gene Assay - Final Complete 02/20/20 21:00 Urine,Clean Catch Urine Culture - Preliminary Staphylococcus Aureus Resulted Laboratory Tests 02/22/20 13:00: White Blood Count 6.5, Red Blood Count 3.68L, Hemoglobin 11.3L, Hematocrit 33.9L , Mean Corpuscular Volume 92, Mean Corpuscular Hemoglobin 30.7, Mean Corpuscular Hemoglobin Concent 33.3, Red Cell Distribution Width 13.4, Platelet Count 72L, Mean Platelet Volume 9.4, Neutrophils (%) (Auto) , Lymphocytes (%) ( Auto) , Monocytes (%) (Auto) , Eosinophils (%) (Auto) , Basophils (%) (Auto) , Differential Total Cells Counted 100, Neutrophils % (Manual) 84H, Lymphocytes % (Manual) 12L, Monocytes % (Manual) 4, Eosinophils % (Manual) 0, Basophils % ( Manual) 0, Band Neutrophils 0, Platelet Estimate DecreasedL, Platelet Morphology Normal, Hypochromasia 2+, Erythrocyte Sedimentation Rate 34H, Sodium Level 150H, Potassium Level 4.6, Chloride Level 115H, Carbon Dioxide Level 24, Anion Gap 11, Blood Urea Nitrogen 23H, Creatinine 1.0, Estimat Glomerular Filtration Rate > 60, Glucose Level 106, Calcium Level 7.9L, Phosphorus Level 1.8L, Magnesium Level 1.9, Total Bilirubin 0.4, Aspartate Amino Transf (AST/SGOT ) 27, Alanine Aminotransferase (ALT/SGPT) 11L, Alkaline Phosphatase 47, C- Reactive Protein, Quantitative 4.3H, Total Protein 6.7, Albumin 2.5L, Globulin 4.2, Albumin/Globulin Ratio 0.6L Current Medications Medications (Trade) Dose Ordered Sig/Yazmin Route PRN Reason Start Time Stop Time Status Last Admin Dose Admin Acetaminophen (Tylenol) 650 mg Q6H PRN ORAL Temp >100.5 and Mild Pain 02/21/20 01:45 03/22/20 01:44 Acetaminophen/ Hydrocodone Bitart ([place] 10) 1 tab Q6H PRN ORAL For Mod to Severe Pain 02/21/20 01:45 02/28/20 01:44 Albuterol/ Ipratropium (Albuterol/ Ipratropium) 3 ml Q4H PRN HHN Shortness of Breath 02/20/20 22:45 02/25/20 22:44 Albuterol/ Ipratropium (Combivent Respimat) 1 puff Q4H PRN INH Shortness of Breath 02/22/20 11:00 03/23/20 10:59 Atorvastatin Calcium (Lipitor) 40 mg BEDTIME ORAL 02/21/20 21:00 05/21/20 20:59 02/22/20 00:20 Azithromycin 250 mg/Dextrose 275 ml @ 275 mls/hr Q24HRS IV 02/21/20 00:00 02/26/20 00:00 02/22/20 00:21 Clonidine HCl (Catapres Tab) 0.1 mg Q8H PRN ORAL For SBP >160 02/21/20 01:45 05/21/20 01:44 Dexamethasone (Decadron) 4 mg DAILY ORAL 02/21/20 09:00 03/22/20 08:59 02/22/20 08:28 Dextrose (Dextrose 50%) 25 ml Q30M PRN IV Hypoglycemia 02/20/20 22:45 05/20/20 22:44 Dextrose (Dextrose 50%) 50 ml Q30M PRN IV Hypoglycemia 02/20/20 22:45 05/20/20 22:44 Diclofenac Sodium (Voltaren gel) 1 applic BID PRN TOPIC As needed for pain 02/21/20 01:45 05/21/20 01:44 Docusate Sodium (Colace) 100 mg TWICE A DAY ORAL 02/21/20 09:00 03/22/20 08:59 02/22/20 17:01 Heparin Sodium (Porcine) (Heparin 5000 units/ml) 5,000 units EVERY 12 HOURS SUBQ 02/22/20 09:00 04/07/20 08:59 Metoprolol Tartrate (Lopressor) 25 mg EVERY 12 HOURS ORAL 02/21/20 09:00 05/21/20 08:59 02/22/20 08:30 Multivitamins (Multivitamins) 1 tab DAILY ORAL 02/21/20 09:00 03/22/20 08:59 02/22/20 08:30 Ondansetron HCl (Zofran) 4 mg Q6H PRN IVP Nausea & Vomiting 02/20/20 22:45 03/21/20 22:44 Polyethylene Glycol (Miralax) 17 gm DAILYPRN PRN ORAL Constipation 02/20/20 22:45 03/21/20 22:44 Promethazine HCl/ Codeine (Phenergan with Codeine) 5 ml Q6H PRN ORAL cough 02/20/20 22:45 03/21/20 22:44 Quetiapine Fumarate (SEROqueL) 25 mg Q12HR ORAL 02/21/20 09:00 04/06/20 08:59 02/22/20 08:31 Tamsulosin HCl (Flomax) 0.4 mg BEDTIME ORAL 02/21/20 21:00 03/22/20 20:59 02/22/20 00:20 Valproic Acid (Depakene) 500 mg EVERY 12 HOURS ORAL 02/21/20 09:00 04/06/20 08:59 02/22/20 08:29 Assessment/Plan Problems: (1) COVID-19 (2) Hypernatremia (3) HTN (hypertension) (4) CAD (coronary artery disease) (5) Cerebral palsy (6) SAH (subarachnoid hemorrhage) (7) BPH (benign prostatic hyperplasia) Assessment/Plan all reviewed chopra culture iv abx steroids ID evaluaion dvt prophylaxis seizure precaution dvt prohylaxis. Aldair Patel MD Feb 22, 2020 19:22
--- NOTE | 2020-02-22 19:40 | NUR ---
HAND-OFF: Report given to Nena AMAYA.
--- NOTE | 2020-02-22 19:45 | NUR ---
NURSE NOTES: Patient received from JOSE LUIS Hill. Patient is A/O x 1. Was notified that patient has low platelet level. Will hold heparin. Patient on regular diet but food needs to be finely chopped. Currently not showing any signs of acute distress. Patient's bed is in the lowest position, call light within reach. Will continue to monitor.
[2020-02-22 20:00] VITALS: BP 143/68
[2020-02-23] VITALS: BP 128/74
[2020-02-23] MEDS: Azithromycin 250 MG in D5W 275 ML IV SCH (01:13)
--- NOTE | 2020-02-23 03:32 | NUR ---
NURSE NOTES: Hygiene care rendered, however, patient is strongly refusing to be repositioned to have sacral wound dressing changed and assessed at this time.
[2020-02-23 04:00] VITALS: BP 145/75
--- NOTE | 2020-02-23 07:13 | NUR ---
NURSE NOTES: Pt received from Nena AMAYA. Pt in bed awake and resting. No sign of distress at this time. Bed low and locked. Alfonzo light within reach. He has taken off his NC. Tremors present along with dry cough, this is patients baseline. Asked if he is alright and he said "yes".
[2020-02-23] MEDS: Heparin 5000 units/ml inj SUBQ SCH ×2 (07:19→21:00)
--- NOTE | 2020-02-23 07:19 | NUR ---
NURSE NOTES: Heparin held since I only have blood draw results from yesterday and plt are 72 (less than 100). 2 RN's have already attempted blood draw. I will try and contact lab if I am unable.
--- NOTE | 2020-02-23 07:35 | NUR ---
NURSE HAND-OFF REPORT: Important Events on Shift:[Patient experience elevated temperature. Gave antipyretic medication and cooling measures initiated. Patient is resistive to care] Patient Status: [Stable] Diet: [Regular diet, mechanical soft, finely chopped] Pending Orders: [] Pending Results/Labs:[] Pending MD notification:[] Latest Vital Signs: Temperature 100.1 , Pulse 73 , B/P 145 /75 , Respiratory Rate 24 , O2 SAT 95 , Room Air, O2 Flow Rate 2.0 . Vital Sign Comment: [] EKG Rhythm: Sinus Rhythm Rhythm change?: N MD Notified?: N - MD Response: Latest Carrillo Fall Score: 70 Fall Risk: High Risk Safety Measures: Call light Within Reach, Bed Alarm Zone 1, Side Rails Side Rails x2, Bed position Low and Locked. Fall Precautions: Yellow Socks Report given to [JOSE LUIS Hill].
[2020-02-23 08:00] VITALS: BP 154/78
[2020-02-23] MEDS: Docusate 100mg cap ORAL SCH ×2 (08:29→17:12)
[2020-02-23] MEDS: Valproic Acid 250mg/5ml Liquid ORAL SCH ×2 (08:30→20:41)
[2020-02-23 09:14] LABS: BASOPHILS % (AUTO) 0.1 % (0.0-2.0); EOSINOPHILS % (AUTO) 0.1 % (0.0-3.0); HEMATOCRIT 37.8 % (42.0-52.0); HEMOGLOBIN 12.5 G/DL (14.2-18.0); LYMPHOCYTES % (AUTO) 10.4 % (20.0-45.0); MEAN CORPUSCULAR VOLUME 95 FL (80-99); MONOCYTES % (AUTO) 6.2 % (1.0-10.0); NEUTROPHILS % (AUTO) 83.2 % (45.0-75.0); PLATELET COUNT 100 K/UL (150-450); RED BLOOD COUNT 3.99 M/UL (4.70-6.10); RED CELL DISTRIBUTION WIDTH 14.3 % (11.6-14.8); WHITE BLOOD COUNT 7.6 K/UL (4.8-10.8)
[2020-02-23 10:03] LABS: ALANINE AMINOTRANSFERASE 18 U/L (12-78); ALBUMIN 2.7 G/DL (3.4-5.0); ALBUMIN/GLOBULIN RATIO 0.7 (1.0-2.7); ALKALINE PHOSPHATASE 53 U/L (46-116); ANION GAP 12 mmol/L (5-15); ASPARTATE AMINO TRANSFERASE 41 U/L (15-37); BILIRUBIN,TOTAL 0.5 MG/DL (0.2-1.0); BLOOD UREA NITROGEN 24 mg/dL (7-18); CALCIUM 7.7 MG/DL (8.5-10.1); CARBON DIOXIDE 26 MMOL/L (21-32); CHLORIDE 112 MMOL/L (98-107); PHOSPHORUS 1.8 MG/DL (2.5-4.9); POTASSIUM 4.1 MMOL/L (3.5-5.1); SODIUM 150 MMOL/L (136-145)
--- NOTE | 2020-02-23 10:38 | Diagnostic Imaging Report ---
Procedure: XRAY Chest 1v Reason for study: Reason For Exam: [id number] Comparison films: 02/20/2020. FINDINGS: A single one view chest is obtained. Vascularity is normal. Minimal atelectasis noted left lung base. Cardiac and mediastinal silhouette are within normal limits. No significant effusion seen. The bony thorax appear unremarkable. IMPRESSION: NO SIGNIFICANT CHANGE COMPARED TO PREVIOUS EXAM.
--- NOTE | 2020-02-23 10:45 | NUR ---
NURSE NOTES: New plt of 100 noted. Per order hold if less than 100. However, 100 is very low, do not feel comfortable giving this low.
--- NOTE | 2020-02-23 11:12 | NUR ---
NURSE NOTES: Patient received from JOSE LUIS Hill. Pt is A/O x1. Pt is 2L NC and SATIng well, but pt continues to take O2 off. IV site patent and intact on Right FA 20G which is saline locked. Patient is COVID positive. No SOB or acute distress noted. Bed in lowest position and locked. Bed rails padded for seizure precautions. Will continue plan of care.
--- NOTE | 2020-02-23 11:39 | NUR ---
HAND-OFF: Report given to Dea AMAYA.
[2020-02-23 12:00] VITALS: BP 151/75
--- NOTE | 2020-02-23 12:04 | Pulmonology Progress Note ---
Subjective ROS Limited/Unobtainable: Yes Allergies: Coded Allergies: PENICILLIN G (Verified Allergy, Intermediate, 04/13/14) PENICILLINS (Unverified Allergy, Unknown, 07/21/18) Objective Last 24 Hour Vital Signs Date Time Temp Pulse Resp B/P (MAP) Pulse Ox O2 Delivery O2 Flow Rate FiO2 02/23/20 09:00 Room Air 02/23/20 08:30 95 154/78 02/23/20 08:00 84 02/23/20 08:00 99.8 95 22 154/78 (103) 96 02/23/20 04:00 100.1 73 24 145/75 (98) 95 02/23/20 04:00 75 02/23/20 00:00 77 02/23/20 00:00 99.7 65 24 128/74 (92) 95 02/22/20 22:19 100.6 02/22/20 21:48 74 143/68 02/22/20 21:00 Room Air 02/22/20 20:00 72 02/22/20 20:00 100.9 74 24 143/68 (93) 95 02/22/20 16:00 88 02/22/20 16:00 98.1 74 22 159/76 (103) 96 Intake and Output 02/22/20 02/23/20 19:00 07:00 Intake Total 800 ml 275 ml Balance 800 ml 275 ml Intake Oral 800 ml IV Total 275 ml # Voids 4 4 # Bowel Movements 1 1 General Appearance: WD/WN HEENT: normocephalic, atraumatic, EOMI Respiratory: chest wall non-tender Abdomen: normal bowel sounds, no organomegaly Genitourinary: normal external genitalia Skin: no rash Neurologic: liquefaction and regasification helper II-XII grossly normal Microbiology Date/Time Source Procedure Growth Status 02/20/20 20:45 Blood Blood Culture - Preliminary NO GROWTH AFTER 48 HOURS Resulted 02/20/20 20:30 Blood Blood Culture - Preliminary NO GROWTH AFTER 48 HOURS Resulted 02/21/20 00:10 Nasal Nares MRSA Culture - Final NO METHICILLIN RESISTANT STAPH AUREUS... Complete 02/20/20 20:45 Nasopharynx SARS-CoV-2 RdRp Gene Assay - Final Complete 02/20/20 21:00 Urine,Clean Catch Urine Culture - Final Staphylococcus Aureus - Mrsa Complete 02/21/20 00:10 Rectum - Final NO CARBAPENEM-RESISTANT ENTEROBACTERI... Complete 02/21/20 00:10 Rectum VRE Culture - Final NO VANCOMYCIN RESISTANT ENTEROCOCCUS ... Complete Laboratory Tests 02/22/20 13:00: White Blood Count 6.5, Red Blood Count 3.68L, Hemoglobin 11.3L, Hematocrit 33.9L , Mean Corpuscular Volume 92, Mean Corpuscular Hemoglobin 30.7, Mean Corpuscular Hemoglobin Concent 33.3, Red Cell Distribution Width 13.4, Platelet Count 72L, Mean Platelet Volume 9.4, Neutrophils (%) (Auto) , Lymphocytes (%) ( Auto) , Monocytes (%) (Auto) , Eosinophils (%) (Auto) , Basophils (%) (Auto) , Differential Total Cells Counted 100, Neutrophils % (Manual) 84H, Lymphocytes % (Manual) 12L, Monocytes % (Manual) 4, Eosinophils % (Manual) 0, Basophils % ( Manual) 0, Band Neutrophils 0, Platelet Estimate DecreasedL, Platelet Morphology Normal, Hypochromasia 2+, Erythrocyte Sedimentation Rate 34H, Sodium Level 150H, Potassium Level 4.6, Chloride Level 115H, Carbon Dioxide Level 24, Anion Gap 11, Blood Urea Nitrogen 23H, Creatinine 1.0, Estimat Glomerular Filtration Rate > 60, Glucose Level 106, Calcium Level 7.9L, Phosphorus Level 1.8L, Magnesium Level 1.9, Total Bilirubin 0.4, Aspartate Amino Transf (AST/SGOT ) 27, Alanine Aminotransferase (ALT/SGPT) 11L, Alkaline Phosphatase 47, C- Reactive Protein, Quantitative 4.3H, Total Protein 6.7, Albumin 2.5L, Globulin 4.2, Albumin/Globulin Ratio 0.6L 02/23/20 07:55: White Blood Count 7.6, Red Blood Count 3.99L, Hemoglobin 12.5L, Hematocrit 37.8L , Mean Corpuscular Volume 95, Mean Corpuscular Hemoglobin 31.3H, Mean Corpuscular Hemoglobin Concent 33.1, Red Cell Distribution Width 14.3, Platelet Count 100L, Mean Platelet Volume 8.8, Neutrophils (%) (Auto) 83.2H, Lymphocytes (%) (Auto) 10.4L, Monocytes (%) (Auto) 6.2, Eosinophils (%) (Auto) 0.1, Basophils (%) (Auto) 0.1, Erythrocyte Sedimentation Rate 38H, Sodium Level 150H , Potassium Level 4.1, Chloride Level 112H, Carbon Dioxide Level 26, Anion Gap 12, Blood Urea Nitrogen 24H, Creatinine 1.0, Estimat Glomerular Filtration Rate > 60, Glucose Level 79, Calcium Level 7.7L, Phosphorus Level 1.8L, Magnesium Level 1.9, Total Bilirubin 0.5, Aspartate Amino Transf (AST/SGOT) 41H, Alanine Aminotransferase (ALT/SGPT) 18, Alkaline Phosphatase 53, C-Reactive Protein, Quantitative 6.4H, Total Protein 6.8, Albumin 2.7L, Globulin 4.1, Albumin/ Globulin Ratio 0.7L Current Medications Medications (Trade) Dose Ordered Sig/Yazmin Route PRN Reason Start Time Stop Time Status Last Admin Dose Admin Acetaminophen (Tylenol) 650 mg Q6H PRN ORAL Temp >100.5 and Mild Pain 02/21/20 01:45 03/22/20 01:44 02/22/20 21:49 Acetaminophen/ Hydrocodone Bitart ([place] 10) 1 tab Q6H PRN ORAL For Mod to Severe Pain 02/21/20 01:45 02/28/20 01:44 Albuterol/ Ipratropium (Albuterol/ Ipratropium) 3 ml Q4H PRN HHN Shortness of Breath 02/20/20 22:45 02/25/20 22:44 Albuterol/ Ipratropium (Combivent Respimat) 1 puff Q4H PRN INH Shortness of Breath 02/22/20 11:00 03/23/20 10:59 Atorvastatin Calcium (Lipitor) 40 mg BEDTIME ORAL 02/21/20 21:00 05/21/20 20:59 02/22/20 21:47 Azithromycin 250 mg/Dextrose 275 ml @ 275 mls/hr Q24HRS IV 02/21/20 00:00 02/26/20 00:00 02/23/20 01:13 Clonidine HCl (Catapres Tab) 0.1 mg Q8H PRN ORAL For SBP >160 02/21/20 01:45 05/21/20 01:44 Dexamethasone (Decadron) 4 mg DAILY ORAL 02/21/20 09:00 03/22/20 08:59 02/23/20 08:30 Dextrose (Dextrose 50%) 25 ml Q30M PRN IV Hypoglycemia 02/20/20 22:45 05/20/20 22:44 Dextrose (Dextrose 50%) 50 ml Q30M PRN IV Hypoglycemia 02/20/20 22:45 05/20/20 22:44 Diclofenac Sodium (Voltaren gel) 1 applic BID PRN TOPIC As needed for pain 02/21/20 01:45 05/21/20 01:44 Docusate Sodium (Colace) 100 mg TWICE A DAY ORAL 02/21/20 09:00 03/22/20 08:59 02/23/20 08:29 Heparin Sodium (Porcine) (Heparin 5000 units/ml) 5,000 units EVERY 12 HOURS SUBQ 02/22/20 09:00 04/07/20 08:59 Metoprolol Tartrate (Lopressor) 25 mg EVERY 12 HOURS ORAL 02/21/20 09:00 05/21/20 08:59 02/23/20 08:30 Multivitamins (Multivitamins) 1 tab DAILY ORAL 02/21/20 09:00 03/22/20 08:59 02/23/20 08:31 Ondansetron HCl (Zofran) 4 mg Q6H PRN IVP Nausea & Vomiting 02/20/20 22:45 03/21/20 22:44 Polyethylene Glycol (Miralax) 17 gm DAILYPRN PRN ORAL Constipation 02/20/20 22:45 03/21/20 22:44 Promethazine HCl/ Codeine (Phenergan with Codeine) 5 ml Q6H PRN ORAL cough 02/20/20 22:45 03/21/20 22:44 Quetiapine Fumarate (SEROqueL) 25 mg Q12HR ORAL 02/21/20 09:00 04/06/20 08:59 02/23/20 08:31 Tamsulosin HCl (Flomax) 0.4 mg BEDTIME ORAL 02/21/20 21:00 03/22/20 20:59 02/22/20 21:47 Valproic Acid (Depakene) 500 mg EVERY 12 HOURS ORAL 02/21/20 09:00 04/06/20 08:59 02/23/20 08:30 Assessment/Plan Problems: (1) COVID-19 (2) Hypernatremia (3) HTN (hypertension) (4) CAD (coronary artery disease) (5) Cerebral palsy (6) SAH (subarachnoid hemorrhage) (7) BPH (benign prostatic hyperplasia) Assessment/Plan all reviewed chopra culture, MRSA nares on [place] steroids ID evaluaion dvt prophylaxis seizure precaution dvt prohylaxis. Aldair Patel MD Feb 23, 2020 12:04
--- NOTE | 2020-02-23 13:15 | NUR ---
NURSES NOTE: Sacral wound care done with [facility] which determined that sacral was not a active DTI.
[2020-02-23 16:00] VITALS: BP 137/75
--- NOTE | 2020-02-23 16:39 | NUR ---
CASE MANAGEMENT: REVIEW SI: COVID-19 . PNA T 100.1 HR 73 RR 24 BP 145/75 SAT 95% ROOM AIR NA 150 CALCIUM 7.7 IS: AZITHROMYCIN IV Q24HR HEPARIN SUBQ Q12HR COMBIVENT INH Q4HR PRN TELEMETRY UNIT STATUS DCP: PATIENT IS FROM [facility]
--- NOTE | 2020-02-23 17:55 | Consultation ---
History of Present Illness General Date patient seen: Feb 23, 2020 Chief Complaint: Fever Present Illness HPI 84 y/o M with hx of CP, anemia, HTN, non verbal, HLD, B/l LE DVT 2015 on coumadin, CKD, iron def anemia, R hip fx s/p ORIF 2013, CAD/UT, HLD, GERD, SAH 2ry to cerebral aneurysm, DM2, COPD, schizoaffective disorder- depressive type, BPH, seizure disorder, recent COVID19 (02/17/20), [place] resident ([facility]) presented to ED on 02/20/20 with 2 days of fever No reported cough Allergies: Coded Allergies: PENICILLIN G (Verified Allergy, Intermediate, 04/13/14) PENICILLINS (Unverified Allergy, Unknown, 07/21/18) Medication History Scheduled Atorvastatin Calcium* (Atorvastatin Calcium*), 40 MG ORAL BEDTIME, (Reported) Docusate Sodium (Docusate Sodium), 100 MG ORAL TWICE A DAY, (Reported) Metoprolol Tartrate* (Metoprolol Tartrate*), 25 MG ORAL EVERY 12 HOURS, ( Reported) Multivitamin With Minerals (Multivitamins With Minerals*), 1 TAB ORAL DAILY, ( Reported) Quetiapine Fumarate* (Quetiapine Fumarate*), 25 MG ORAL QHS, (Reported) Tamsulosin Hcl (Tamsulosin Hcl*), 0.4 MG ORAL BEDTIME, (Reported) Valproate Sodium (Depakene), 500 MG PO BID, (Reported) Scheduled PRN Acetaminophen (Acetaminophen 8 Hour), 650 MG ORAL Q6H PRN for MILD PAIN/TEMP > 101, (Reported) Clonidine HCl (Clonidine HCl), 0.1 MG PO Q8HR PRN for SBP >160, (Reported) Diclofenac Sodium (Voltaren Arthritis Pain), 2 GM TP BID PRN for BILATERAL SHOULDER PAIN, (Reported) Hydrocodone Bit/Acetaminophen 10-325* (Hydrocodon-Acetaminophn 10-325*), 1 TAB ORAL Q6H PRN for MODERATE TO SEVERE PAIN, (Reported) Discontinued Medications Cefepime Hcl/D5w (Cefepime-Dextrose 1 Gm/50 Ml), 1 GM IVPB EVERY 12 HOURS Discontinued Reason: Pt stopped taking med Heparin Sod (Porcine) (Heparin Sodium*), 5,000 UNITS SUBQ Q12HR, (Reported) Discontinued Reason: Pt stopped taking med Lactulose (Lactulose*), 30 ML ORAL DAILY PRN for Constipation, (Reported) Discontinued Reason: Pt stopped taking med Melatonin (Melatonin), 5 MG ORAL BEDTIME PRN for Insomnia, (Reported) Discontinued Reason: Pt stopped taking med Omeprazole (Omeprazole), 20 MG ORAL DAILY, (Reported) Discontinued Reason: Pt stopped taking med Temazepam (Temazepam*), 15 MG ORAL BEDTIME PRN for PRN, (Reported) Discontinued Reason: Pt stopped taking med Patient History Healthcare decision maker Resuscitation status Advanced Directive on File Patient History Narrative Pmhx: as above Shx: The patient is single and is a resident of [facility]. The patient denies tobacco or alcohol use. Fhx: non contributory Review of Systems All Other Systems: negative except mentioned in HPI Physical Exam Physical Exam Narrative GENERAL: The patient is a thin-appearing male, in no apparent distress. HEENT: Eyes, pupils equal and responsive to light and accommodation. Extraocular movements are intact. NECK: Supple without lymphadenopathy. CHEST: Lungs are clear to auscultation bilaterally with decreased breath sounds bilateral bases. Otherwise, without rales. CARDIOVASCULAR: Regular rhythm and rate. S1, S2 normal without murmurs, rubs, or gallops. ABDOMEN: Soft, nontender, and nondistended. Positive bowel sounds. No evidence of hepatosplenomegaly. Currently, no rebound or guarding noted. EXTREMITIES: Negative for clubbing, cyanosis, or edema. Last 24 Hour Vital Signs Date Time Temp Pulse Resp B/P (MAP) Pulse Ox O2 Delivery O2 Flow Rate FiO2 02/23/20 16:00 99.0 78 18 137/75 (95) 96 02/23/20 16:00 81 02/23/20 12:00 88 02/23/20 12:00 99.0 88 20 151/75 (100) 96 02/23/20 09:00 Room Air 02/23/20 08:30 95 154/78 02/23/20 08:00 84 02/23/20 08:00 99.8 95 22 154/78 (103) 96 02/23/20 04:00 100.1 73 24 145/75 (98) 95 02/23/20 04:00 75 02/23/20 00:00 77 02/23/20 00:00 99.7 65 24 128/74 (92) 95 02/22/20 22:19 100.6 02/22/20 21:48 74 143/68 02/22/20 21:00 Room Air 02/22/20 20:00 72 02/22/20 20:00 100.9 74 24 143/68 (93) 95 Intake and Output 02/22/20 02/23/20 19:00 07:00 Intake Total 800 ml 275 ml Balance 800 ml 275 ml Intake Oral 800 ml IV Total 275 ml # Voids 4 4 # Bowel Movements 1 1 Laboratory Tests Test 02/23/20 07:55 White Blood Count 7.6 K/UL (4.8-10.8) Red Blood Count 3.99 M/UL (4.70-6.10) L Hemoglobin 12.5 G/DL (14.2-18.0) L Hematocrit 37.8 % (42.0-52.0) L Mean Corpuscular Volume 95 FL (80-99) Mean Corpuscular Hemoglobin 31.3 PG (27.0-31.0) H Mean Corpuscular Hemoglobin Concent 33.1 G/DL (32.0-36.0) Red Cell Distribution Width 14.3 % (11.6-14.8) Platelet Count 100 K/UL (150-450) L Mean Platelet Volume 8.8 FL (6.5-10.1) Neutrophils (%) (Auto) 83.2 % (45.0-75.0) H Lymphocytes (%) (Auto) 10.4 % (20.0-45.0) L Monocytes (%) (Auto) 6.2 % (1.0-10.0) Eosinophils (%) (Auto) 0.1 % (0.0-3.0) Basophils (%) (Auto) 0.1 % (0.0-2.0) Erythrocyte Sedimentation Rate 38 MM/HR (0-20) H Sodium Level 150 MMOL/L (136-145) H Potassium Level 4.1 MMOL/L (3.5-5.1) Chloride Level 112 MMOL/L (98-107) H Carbon Dioxide Level 26 MMOL/L (21-32) Anion Gap 12 mmol/L (5-15) Blood Urea Nitrogen 24 mg/dL (7-18) H Creatinine 1.0 MG/DL (0.55-1.30) Estimat Glomerular Filtration Rate > 60 mL/min (>60) Glucose Level 79 MG/DL (74-106) Calcium Level 7.7 MG/DL (8.5-10.1) L Phosphorus Level 1.8 MG/DL (2.5-4.9) L Magnesium Level 1.9 MG/DL (1.8-2.4) Total Bilirubin 0.5 MG/DL (0.2-1.0) Aspartate Amino Transf (AST/SGOT) 41 U/L (15-37) H Alanine Aminotransferase (ALT/SGPT) 18 U/L (12-78) Alkaline Phosphatase 53 U/L (46-116) C-Reactive Protein, Quantitative 6.4 mg/dL (0.00-0.90) H Total Protein 6.8 G/DL (6.4-8.2) Albumin 2.7 G/DL (3.4-5.0) L Globulin 4.1 g/dL Albumin/Globulin Ratio 0.7 (1.0-2.7) L Height (Feet): 5 Height (Inches): 10.00 Weight (Pounds): 159 Medications Current Medications Medications (Trade) Dose Ordered Sig/Yazmin Route PRN Reason Start Time Stop Time Status Last Admin Dose Admin Acetaminophen (Tylenol) 650 mg Q6H PRN ORAL Temp >100.5 and Mild Pain 02/21/20 01:45 03/22/20 01:44 02/22/20 21:49 Acetaminophen/ Hydrocodone Bitart ([place] 10/325) 1 tab Q6H PRN ORAL For Mod to Severe Pain 02/21/20 01:45 02/28/20 01:44 Albuterol/ Ipratropium (Albuterol/ Ipratropium) 3 ml Q4H PRN HHN Shortness of Breath 02/20/20 22:45 02/25/20 22:44 Albuterol/ Ipratropium (Combivent Respimat) 1 puff Q4H PRN INH Shortness of Breath 02/22/20 11:00 03/23/20 10:59 Atorvastatin Calcium (Lipitor) 40 mg BEDTIME ORAL 02/21/20 21:00 05/21/20 20:59 02/22/20 21:47 Azithromycin 250 mg/Dextrose 275 ml @ 275 mls/hr Q24HRS IV 02/21/20 00:00 02/26/20 00:00 02/23/20 01:13 Clonidine HCl (Catapres Tab) 0.1 mg Q8H PRN ORAL For SBP >160 02/21/20 01:45 05/21/20 01:44 Dexamethasone (Decadron) 4 mg DAILY ORAL 02/21/20 09:00 03/22/20 08:59 02/23/20 08:30 Dextrose (Dextrose 50%) 25 ml Q30M PRN IV Hypoglycemia 02/20/20 22:45 05/20/20 22:44 Dextrose (Dextrose 50%) 50 ml Q30M PRN IV Hypoglycemia 02/20/20 22:45 05/20/20 22:44 Diclofenac Sodium (Voltaren gel) 1 applic BID PRN TOPIC As needed for pain 02/21/20 01:45 05/21/20 01:44 Docusate Sodium (Colace) 100 mg TWICE A DAY ORAL 02/21/20 09:00 03/22/20 08:59 02/23/20 17:12 Heparin Sodium (Porcine) (Heparin 5000 units/ml) 5,000 units EVERY 12 HOURS SUBQ 02/22/20 09:00 04/07/20 08:59 Metoprolol Tartrate (Lopressor) 25 mg EVERY 12 HOURS ORAL 02/21/20 09:00 05/21/20 08:59 02/23/20 08:30 Multivitamins (Multivitamins) 1 tab DAILY ORAL 02/21/20 09:00 03/22/20 08:59 02/23/20 08:31 Ondansetron HCl (Zofran) 4 mg Q6H PRN IVP Nausea & Vomiting 02/20/20 22:45 03/21/20 22:44 Polyethylene Glycol (Miralax) 17 gm DAILYPRN PRN ORAL Constipation 02/20/20 22:45 03/21/20 22:44 Promethazine HCl/ Codeine (Phenergan with Codeine) 5 ml Q6H PRN ORAL cough 02/20/20 22:45 03/21/20 22:44 Quetiapine Fumarate (SEROqueL) 25 mg Q12HR ORAL 02/21/20 09:00 04/06/20 08:59 02/23/20 08:31 Tamsulosin HCl (Flomax) 0.4 mg BEDTIME ORAL 02/21/20 21:00 03/22/20 20:59 02/22/20 21:47 Valproic Acid (Depakene) 500 mg EVERY 12 HOURS ORAL 02/21/20 09:00 04/06/20 08:59 02/23/20 08:30 Assessment/Plan Assessment/Plan: Abx: Ceftriaxone x1 02/19 Azithromycin 02/20- Assessment: Sepsis 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 -02/19 CXR: Mild left basilar atelectasis. No clear consolidation. UTI R/o probable bacteremia -u.a wbc 20-30, nit +, leuk +2; ucx >100k MRSA ( R tetracycline; S Vanco, bactrim) -Bcx NTD Fever No leukocytosis Cerebral Palsy anemia HTN non verbal HLD hx of B/l LE DVT 2015 on coumadin CKD iron def anemia R hip fx s/p ORIF 2013 CAD/UT GERD SAH 2ry to cerebral aneurysm DM2 COPD schizoaffective disorder- depressive type BPH seizure disorder [place] resident ([facility]) Plan: -Dc Azithromycin #3 -on Decadron #3 per pulm -Start IV Vancomycin for MRSA in ucx -current at RA and no PNA on CXR; if respiratory decompensation, will consider remdesivir -f/u cx -Monitor CBC/CMP, temperatures -Repeat Bcx x2 if T>100.4 -COVID19 isolation Thank you for consulting [facility]. Will continue to follow along with you. Discussed with RN and Dr Patel. Daly Daniel M.D. Feb 23, 2020 17:55
--- NOTE | 2020-02-23 18:18 | Internal Med Progress Note ---
Subjective Date of Service: Feb 23, 2020 Physician Name YudelkaJose Attending Physician Joey Perry MD Current Medications Medications (Trade) Dose Ordered Sig/Yazmin Route PRN Reason Start Time Stop Time Status Last Admin Dose Admin Acetaminophen (Tylenol) 650 mg Q6H PRN ORAL Temp >100.5 and Mild Pain 02/21/20 01:45 03/22/20 01:44 02/22/20 21:49 Acetaminophen/ Hydrocodone Bitart ([place] 10/325) 1 tab Q6H PRN ORAL For Mod to Severe Pain 02/21/20 01:45 02/28/20 01:44 Albuterol/ Ipratropium (Albuterol/ Ipratropium) 3 ml Q4H PRN HHN Shortness of Breath 02/20/20 22:45 02/25/20 22:44 Albuterol/ Ipratropium (Combivent Respimat) 1 puff Q4H PRN INH Shortness of Breath 02/22/20 11:00 03/23/20 10:59 Atorvastatin Calcium (Lipitor) 40 mg BEDTIME ORAL 02/21/20 21:00 05/21/20 20:59 02/22/20 21:47 Clonidine HCl (Catapres Tab) 0.1 mg Q8H PRN ORAL For SBP >160 02/21/20 01:45 05/21/20 01:44 Dexamethasone (Decadron) 4 mg DAILY ORAL 02/21/20 09:00 03/22/20 08:59 02/23/20 08:30 Dextrose (Dextrose 50%) 25 ml Q30M PRN IV Hypoglycemia 02/20/20 22:45 05/20/20 22:44 Dextrose (Dextrose 50%) 50 ml Q30M PRN IV Hypoglycemia 02/20/20 22:45 05/20/20 22:44 Diclofenac Sodium (Voltaren gel) 1 applic BID PRN TOPIC As needed for pain 02/21/20 01:45 05/21/20 01:44 Docusate Sodium (Colace) 100 mg TWICE A DAY ORAL 02/21/20 09:00 03/22/20 08:59 02/23/20 17:12 Heparin Sodium (Porcine) (Heparin 5000 units/ml) 5,000 units EVERY 12 HOURS SUBQ 02/22/20 09:00 04/07/20 08:59 Metoprolol Tartrate (Lopressor) 25 mg EVERY 12 HOURS ORAL 02/21/20 09:00 05/21/20 08:59 02/23/20 08:30 Multivitamins (Multivitamins) 1 tab DAILY ORAL 02/21/20 09:00 03/22/20 08:59 02/23/20 08:31 Ondansetron HCl (Zofran) 4 mg Q6H PRN IVP Nausea & Vomiting 02/20/20 22:45 03/21/20 22:44 Polyethylene Glycol (Miralax) 17 gm DAILYPRN PRN ORAL Constipation 02/20/20 22:45 03/21/20 22:44 Promethazine HCl/ Codeine (Phenergan with Codeine) 5 ml Q6H PRN ORAL cough 02/20/20 22:45 03/21/20 22:44 Quetiapine Fumarate (SEROqueL) 25 mg Q12HR ORAL 02/21/20 09:00 04/06/20 08:59 02/23/20 08:31 Tamsulosin HCl (Flomax) 0.4 mg BEDTIME ORAL 02/21/20 21:00 03/22/20 20:59 02/22/20 21:47 Valproic Acid (Depakene) 500 mg EVERY 12 HOURS ORAL 02/21/20 09:00 04/06/20 08:59 02/23/20 08:30 Vancomycin HCl ([facility] pharmacy to dose) 1 ea DAILY PRN MISC Per rx protocol 02/23/20 18:00 03/24/20 17:59 Allergies: Coded Allergies: PENICILLIN G (Verified Allergy, Intermediate, 04/13/14) PENICILLINS (Unverified Allergy, Unknown, 07/21/18) ROS Limited/Unobtainable: Yes Subjective 84 YO M admitted with fever. Now COVID 19 positive. Cover for Int aki-DR Perry Objective Last Vital Signs Date Time Temp Pulse Resp B/P (MAP) Pulse Ox O2 Delivery O2 Flow Rate FiO2 02/23/20 16:00 99.0 78 18 137/75 (95) 96 02/23/20 09:00 Room Air 02/21/20 09:00 2.0 Laboratory Tests Test 02/23/20 07:55 White Blood Count 7.6 K/UL (4.8-10.8) Red Blood Count 3.99 M/UL (4.70-6.10) L Hemoglobin 12.5 G/DL (14.2-18.0) L Hematocrit 37.8 % (42.0-52.0) L Mean Corpuscular Volume 95 FL (80-99) Mean Corpuscular Hemoglobin 31.3 PG (27.0-31.0) H Mean Corpuscular Hemoglobin Concent 33.1 G/DL (32.0-36.0) Red Cell Distribution Width 14.3 % (11.6-14.8) Platelet Count 100 K/UL (150-450) L Mean Platelet Volume 8.8 FL (6.5-10.1) Neutrophils (%) (Auto) 83.2 % (45.0-75.0) H Lymphocytes (%) (Auto) 10.4 % (20.0-45.0) L Monocytes (%) (Auto) 6.2 % (1.0-10.0) Eosinophils (%) (Auto) 0.1 % (0.0-3.0) Basophils (%) (Auto) 0.1 % (0.0-2.0) Erythrocyte Sedimentation Rate 38 MM/HR (0-20) H Sodium Level 150 MMOL/L (136-145) H Potassium Level 4.1 MMOL/L (3.5-5.1) Chloride Level 112 MMOL/L (98-107) H Carbon Dioxide Level 26 MMOL/L (21-32) Anion Gap 12 mmol/L (5-15) Blood Urea Nitrogen 24 mg/dL (7-18) H Creatinine 1.0 MG/DL (0.55-1.30) Estimat Glomerular Filtration Rate > 60 mL/min (>60) Glucose Level 79 MG/DL (74-106) Calcium Level 7.7 MG/DL (8.5-10.1) L Phosphorus Level 1.8 MG/DL (2.5-4.9) L Magnesium Level 1.9 MG/DL (1.8-2.4) Total Bilirubin 0.5 MG/DL (0.2-1.0) Aspartate Amino Transf (AST/SGOT) 41 U/L (15-37) H Alanine Aminotransferase (ALT/SGPT) 18 U/L (12-78) Alkaline Phosphatase 53 U/L (46-116) C-Reactive Protein, Quantitative 6.4 mg/dL (0.00-0.90) H Total Protein 6.8 G/DL (6.4-8.2) Albumin 2.7 G/DL (3.4-5.0) L Globulin 4.1 g/dL Albumin/Globulin Ratio 0.7 (1.0-2.7) L Microbiology Date/Time Source Procedure Growth Status 02/20/20 20:45 Blood Blood Culture - Preliminary NO GROWTH AFTER 48 HOURS Resulted 02/20/20 20:30 Blood Blood Culture - Preliminary NO GROWTH AFTER 48 HOURS Resulted 02/21/20 00:10 Nasal Nares MRSA Culture - Final NO METHICILLIN RESISTANT STAPH AUREUS... Complete 02/20/20 20:45 Nasopharynx SARS-CoV-2 RdRp Gene Assay - Final Complete 02/20/20 21:00 Urine,Clean Catch Urine Culture - Final Staphylococcus Aureus - Mrsa Complete 02/21/20 00:10 Rectum - Final NO CARBAPENEM-RESISTANT ENTEROBACTERI... Complete 02/21/20 00:10 Rectum VRE Culture - Final NO VANCOMYCIN RESISTANT ENTEROCOCCUS ... Complete Intake and Output 02/22/20 02/23/20 19:00 07:00 Intake Total 800 ml 275 ml Balance 800 ml 275 ml Intake Oral 800 ml IV Total 275 ml # Voids 4 4 # Bowel Movements 1 1 Objective PHYSICAL EXAMINATION: GENERAL: The patient is a thin-appearing male, in no apparent distress. HEENT: Eyes, pupils equal and responsive to light and accommodation. Extraocular movements are intact. NECK: Supple without lymphadenopathy. CHEST: Lungs are clear to auscultation bilaterally with decreased breath sounds bilateral bases. Otherwise, without rales. CARDIOVASCULAR: Regular rhythm and rate. S1, S2 normal without murmurs, rubs, or gallops. ABDOMEN: Soft, nontender, and nondistended. Positive bowel sounds. No evidence of hepatosplenomegaly. Currently, no rebound or guarding noted. EXTREMITIES: Negative for clubbing, cyanosis, or edema. RECTAL/GENITAL: Not performed. NEUROLOGIC: Cranial nerves II through XII are grossly intact without focal deficits. Assessment/Plan Assessment/Plan ASSESSMENT: This is an 84-year-old male. 1. COVID-19 positive. 2. Fever. 3. Probable COVID-19 pneumonia. 4. Chronic renal failure. 5. Dysphagia. 6. History of cerebral palsy. 7. Brain aneurysm. 8. Subarachnoid hemorrhage. 9. Benign prostatic hypertrophy. 10. Coronary artery disease. 11. Hypertension. 12. Congestive heart failure. 13. Bilateral lower extremity deep venous thrombosis. 14. Iron deficiency anemia. 15. Hypercholesterolemia. 16. Seizure disorder. 17. Schizophrenia. TREATMENT: 1. COVID-19 positive/probable pneumonia. Pulmonary consultation = Dr. Aldair Patel. The patient has been placed empirically on Decadron. The patient is currently on azithromycin and ceftriaxone. 2. Bilateral lower extremity deep venous thrombosis (chronic). Anticoagulation=heparin subcut 3. Chronic renal failure. 4. Dysphagia. 5. History of cerebral palsy. 6. Subarachnoid hemorrhage. 7. Benign prostatic hypertrophy. 8. Coronary artery disease. 9. Hypertension. Continue clonidine as above. 10. Iron deficiency anemia. 11. Hypercholesterolemia. 12. Seizure disorder. Continue valproic acid as above. 13. Schizophrenia. 14. Full code Jose Jha MD Feb 23, 2020 18:18
--- NOTE | 2020-02-23 19:34 | NUR ---
NURSE HAND-OFF REPORT: Important Events on Shift: Feeding 1:1 Encourage food and fluid Patient Status: Stable Diet: Mech. Soft Finely Chopped Pending Orders: Pending Results/Labs: Pending MD notification: Latest Vital Signs: Temperature 99.0 , Pulse 81 , B/P 137 /75 , Respiratory Rate 18 , O2 SAT 96 , Room Air, O2 Flow Rate 2.0 . Vital Sign Comment: EKG Rhythm: Sinus Rhythm Rhythm change?: N MD Notified?: N - MD Response: Latest Carrillo Fall Score: 70 Fall Risk: High Risk Safety Measures: Call light Within Reach, Bed Alarm Zone 1, Side Rails Side Rails x2, Bed position Low and Locked. Fall Precautions: Yellow Socks Report given to Sherry Joshua
--- NOTE | 2020-02-23 19:38 | NUR ---
NURSE NOTES: Patient received from JOSE LUIS Malin. Patient is A/O x 1. Patient is resting comfortably in semi-fowlers position. No signs of distress noted. No pain reported at this time. Patient IV site is on right forearm 20G S/L. IV site is not flushing. The earthema or bleeding noted. Will insert now IV. Patient's bed is in the lowest position, side soni up x3. Side rales are padded, suction at bedside. Call light within reach and patient was educated to use call light to call for assistance. Will continue to plan of care.
[2020-02-23 20:00] VITALS: BP 122/76
[2020-02-23] MEDS ORDERED: Vancomycin 1.5gm/NS Premix q24h IVPB SCH (20:00)
[2020-02-23] MEDS: Atorvastatin 20mg tab ORAL SCH (20:42)
--- NOTE | 2020-02-23 21:00 | NUR ---
NURSE NOTES: Non-administered Heparin do to patient platelet levels of 100.
[2020-02-23] MEDS: Tamsulosin 0.4mg cap ORAL SCH (21:21)
[2020-02-24] VITALS: BP 127/83
[2020-02-24 04:00] VITALS: BP 106/84
--- NOTE | 2020-02-24 05:33 | NUR ---
NURSE NOTES: Patient refused Promethazine/codeine. Explained the benefits and risks of medication. Patient still refused.
[2020-02-24 06:38] LABS: HEMATOCRIT 39.1 % (42.0-52.0); MEAN CORPUSCULAR VOLUME 92 FL (80-99); PLATELET COUNT 110 K/UL (150-450); RED BLOOD COUNT 4.26 M/UL (4.70-6.10); RED CELL DISTRIBUTION WIDTH 13.5 % (11.6-14.8); WHITE BLOOD COUNT 8.7 K/UL (4.8-10.8)
[2020-02-24 07:11] LABS: ALANINE AMINOTRANSFERASE 19 U/L (12-78); ALBUMIN 2.5 G/DL (3.4-5.0); ALBUMIN/GLOBULIN RATIO 0.5 (1.0-2.7); ALKALINE PHOSPHATASE 53 U/L (46-116); ANION GAP 12 mmol/L (5-15); ASPARTATE AMINO TRANSFERASE 44 U/L (15-37); BILIRUBIN,TOTAL 0.5 MG/DL (0.2-1.0); BLOOD UREA NITROGEN 25 mg/dL (7-18); CALCIUM 8.1 MG/DL (8.5-10.1); CARBON DIOXIDE 24 MMOL/L (21-32); CHLORIDE 111 MMOL/L (98-107); CREATININE 1.1 MG/DL (0.55-1.30); FERRITIN 780 NG/ML (8-388); PHOSPHORUS 3.2 MG/DL (2.5-4.9); SODIUM 147 MMOL/L (136-145)
--- NOTE | 2020-02-24 07:18 | NUR ---
NURSE HAND-OFF REPORT: Important Events on Shift: IV site change Patient Status: Stable Diet: Regular mechanical finely chopped whole pill. Pending Orders: [] Pending Results/Labs:[] Pending MD notification:[] Latest Vital Signs: Temperature 97.5 , Pulse 91 , B/P 106 /84 , Respiratory Rate 22 , O2 SAT 94 , Room Air, O2 Flow Rate 2.0 . Vital Sign Comment: [] EKG Rhythm: Sinus Rhythm Rhythm change?: N MD Notified?: N - MD Response: Latest Carrillo Fall Score: 70 Fall Risk: High Risk Safety Measures: Call light Within Reach, Bed Alarm Zone 1, Side Rails Side Rails x3, Bed position Low and Locked. Fall Precautions: Yellow Socks Report given to Dea AMAYA.
--- NOTE | 2020-02-24 07:19 | NUR ---
NURSE NOTES: Patient received from JOSE LUIS Hector. Pt is A/O x1. Pt is 2L NC and SATing well, but pt continues to take O2 off. No pain noted. IV site patent and intact on Right FA 20G which is saline locked. Patient is COVID positive. No SOB or acute distress noted. Bed in lowest position and locked. Bed rails padded for seizure precautions. Will continue plan of care.
--- NOTE | 2020-02-24 07:19 | NUR ---
NURSE HAND-OFF REPORT: Important Events on Shift:NA Patient Status: Stable Diet: No Na+ mechanical soft finely chopped nectar liquid Pending Orders: [] Pending Results/Labs:[] Pending MD notification:[] Latest Vital Signs: Temperature 97.5 , Pulse 91 , B/P 106 /84 , Respiratory Rate 22 , O2 SAT 94 , Room Air, O2 Flow Rate 2.0 . Vital Sign Comment: [] EKG Rhythm: Sinus Rhythm Rhythm change?: N MD Notified?: N - MD Response: Latest Carrillo Fall Score: 70 Fall Risk: High Risk Safety Measures: Call light Within Reach, Bed Alarm Zone 1, Side Rails Side Rails x3, Bed position Low and Locked. Fall Precautions: Yellow Socks Report given to Nadja AMAYA. Addendum: 02/24/20 at 0724 by Sherry Harp RN Wrong patient
--- NOTE | 2020-02-24 07:24 | NUR ---
NURSE HAND-OFF REPORT: Important Events on Shift:None Patient Status: Stable Diet: [] Pending Orders: [] Pending Results/Labs:[] Pending MD notification:[] Latest Vital Signs: Temperature 97.5 , Pulse 91 , B/P 106 /84 , Respiratory Rate 22 , O2 SAT 94 , Room Air, O2 Flow Rate 2.0 . Vital Sign Comment: [] EKG Rhythm: Sinus Rhythm Rhythm change?: N MD Notified?: N - MD Response: Latest Carrillo Fall Score: 70 Fall Risk: High Risk Safety Measures: Call light Within Reach, Bed Alarm Zone 1, Side Rails Side Rails x3, Bed position Low and Locked. Fall Precautions: Yellow Socks Report given to Dea AMAYA.
[2020-02-24 08:00] VITALS: BP 143/78
[2020-02-24] MEDS: Heparin 5000 units/ml inj SUBQ SCH ×2 (09:00→21:00)
[2020-02-24] MEDS: Docusate 100mg cap ORAL SCH ×2 (09:17→17:35)
[2020-02-24] MEDS: Valproic Acid 250mg/5ml Liquid ORAL SCH ×2 (09:18→20:59)
--- NOTE | 2020-02-24 10:25 | NUR ---
RD ASSESSMENT & RECOMMENDATIONS SEE CARE ACTIVITY FOR COMPLETE ASSESSMENT DAILY ESTIMATED NEEDS: Needs based on pulmonary 69.5kg 25-30 kcals/kg 9080-2153 total kcals 1.25-1.5 g protein/kg 87-104 g total protein 25-30 mL/kg 9280-7289 total fluid mLs NUTRITION DIAGNOSIS: Chewing and swallowing difficulty R/T edentulous status, h/o dysphagia, h/o cerebral palsy as evidenced by pt on finely chopped texture diet, poor po intake noted. CURRENT DIET: Regular ms finely chopped PO DIET RECOMMENDATIONS: Maintain Regular diet/ texture per PERSONAL INVESTMENT ADVISER ADDITIONAL RECOMMENDATIONS: * Rec PERSONAL INVESTMENT ADVISER eval for appropriate texture- dysphagia dx, h/o cerebral palsy * Add Ensure 1 bottle tid w/ meals + snacks as tolerated in b/w meal s * Monitor PO intake and tolerance * Calibrated bedscale wt for accurate CBW, noted downtrend in wt * Skin integrity, add NEO Fruit punch BID as tolerated
[2020-02-24 12:00] VITALS: BP 146/76
--- NOTE | 2020-02-24 13:06 | Pulmonology Progress Note ---
Subjective ROS Limited/Unobtainable: No Constitutional: Reports: no symptoms HEENT: Repors: no symptoms Respiratory: Reports: no symptoms Allergies: Coded Allergies: PENICILLIN G (Verified Allergy, Intermediate, 04/13/14) PENICILLINS (Unverified Allergy, Unknown, 07/21/18) Objective Last 24 Hour Vital Signs Date Time Temp Pulse Resp B/P (MAP) Pulse Ox O2 Delivery O2 Flow Rate FiO2 02/24/20 09:19 80 143/78 02/24/20 09:00 Room Air 02/24/20 08:00 92 02/24/20 08:00 97.6 80 20 143/78 (99) 94 02/24/20 04:00 80 02/24/20 04:00 97.5 91 22 106/84 (91) 94 02/24/20 00:00 66 02/24/20 00:00 98.8 79 22 127/83 (98) 96 02/23/20 21:00 Room Air 02/23/20 20:42 66 122/76 02/23/20 20:00 97.5 66 24 122/76 (91) 96 02/23/20 20:00 81 02/23/20 16:00 99.0 78 18 137/75 (95) 96 02/23/20 16:00 81 Intake and Output 02/23/20 02/24/20 19:00 07:00 Intake Total 360 ml 120 ml Balance 360 ml 120 ml Intake Oral 360 ml Other 120 ml # Voids 4 3 # Bowel Movements 1 1 General Appearance: WD/WN HEENT: normocephalic, atraumatic, EOMI Respiratory: chest wall non-tender Cardiovascular: normal peripheral pulses Abdomen: normal bowel sounds, no organomegaly Genitourinary: normal external genitalia Skin: no rash Neurologic: bell person II-XII grossly normal Laboratory Tests 02/24/20 05:38: White Blood Count 8.7, Red Blood Count 4.26L, Hemoglobin 13.0L, Hematocrit 39.1L , Mean Corpuscular Volume 92, Mean Corpuscular Hemoglobin 30.5, Mean Corpuscular Hemoglobin Concent 33.2, Red Cell Distribution Width 13.5, Platelet Count 110L, Mean Platelet Volume 7.7, Neutrophils (%) (Auto) , Lymphocytes (%) ( Auto) , Monocytes (%) (Auto) , Eosinophils (%) (Auto) , Basophils (%) (Auto) , Erythrocyte Sedimentation Rate 46H, Fibrinogen 498H, D-Dimer 4.25H, Sodium Level 147H, Potassium Level 4.0, Chloride Level 111H, Carbon Dioxide Level 24, Anion Gap 12, Blood Urea Nitrogen 25H, Creatinine 1.1, Estimat Glomerular Filtration Rate > 60, Glucose Level 95, Calcium Level 8.1L, Phosphorus Level 3.2 , Magnesium Level 2.2, Ferritin 780H, Total Bilirubin 0.5, Aspartate Amino Transf (AST/SGOT) 44H, Alanine Aminotransferase (ALT/SGPT) 19, Alkaline Phosphatase 53, Lactate Dehydrogenase 343H, C-Reactive Protein, Quantitative 16.0H, Total Protein 7.4, Albumin 2.5L, Globulin 4.9, Albumin/Globulin Ratio 0.5L Current Medications Medications (Trade) Dose Ordered Sig/Yazmin Route PRN Reason Start Time Stop Time Status Last Admin Dose Admin Acetaminophen (Tylenol) 650 mg Q6H PRN ORAL Temp >100.5 and Mild Pain 02/21/20 01:45 03/22/20 01:44 02/22/20 21:49 Acetaminophen/ Hydrocodone Bitart ([place] 10325) 1 tab Q6H PRN ORAL For Mod to Severe Pain 02/21/20 01:45 02/28/20 01:44 Albuterol/ Ipratropium (Albuterol/ Ipratropium) 3 ml Q4H PRN HHN Shortness of Breath 02/20/20 22:45 02/25/20 22:44 Albuterol/ Ipratropium (Combivent Respimat) 1 puff Q4H PRN INH Shortness of Breath 02/22/20 11:00 03/23/20 10:59 Atorvastatin Calcium (Lipitor) 40 mg BEDTIME ORAL 02/21/20 21:00 05/21/20 20:59 02/23/20 20:42 Clonidine HCl (Catapres Tab) 0.1 mg Q8H PRN ORAL For SBP >160 02/21/20 01:45 05/21/20 01:44 Dexamethasone (Decadron) 4 mg DAILY ORAL 02/21/20 09:00 03/22/20 08:59 02/24/20 09:17 Dextrose (Dextrose 50%) 25 ml Q30M PRN IV Hypoglycemia 02/20/20 22:45 05/20/20 22:44 Dextrose (Dextrose 50%) 50 ml Q30M PRN IV Hypoglycemia 02/20/20 22:45 05/20/20 22:44 Diclofenac Sodium (Voltaren gel) 1 applic BID PRN TOPIC As needed for pain 02/21/20 01:45 05/21/20 01:44 Docusate Sodium (Colace) 100 mg TWICE A DAY ORAL 02/21/20 09:00 03/22/20 08:59 02/24/20 09:17 Heparin Sodium (Porcine) (Heparin 5000 units/ml) 5,000 units EVERY 12 HOURS SUBQ 02/22/20 09:00 04/07/20 08:59 Metoprolol Tartrate (Lopressor) 25 mg EVERY 12 HOURS ORAL 02/21/20 09:00 05/21/20 08:59 02/24/20 09:19 Multivitamins (Multivitamins) 1 tab DAILY ORAL 02/21/20 09:00 03/22/20 08:59 02/24/20 09:17 Ondansetron HCl (Zofran) 4 mg Q6H PRN IVP Nausea & Vomiting 02/20/20 22:45 03/21/20 22:44 Polyethylene Glycol (Miralax) 17 gm DAILYPRN PRN ORAL Constipation 02/20/20 22:45 03/21/20 22:44 Promethazine HCl/ Codeine (Phenergan with Codeine) 5 ml Q6H PRN ORAL cough 02/20/20 22:45 03/21/20 22:44 Quetiapine Fumarate (SEROqueL) 25 mg Q12HR ORAL 02/21/20 09:00 04/06/20 08:59 02/24/20 09:17 Tamsulosin HCl (Flomax) 0.4 mg BEDTIME ORAL 02/21/20 21:00 03/22/20 20:59 02/23/20 21:21 Valproic Acid (Depakene) 500 mg EVERY 12 HOURS ORAL 02/21/20 09:00 04/06/20 08:59 02/24/20 09:18 Vancomycin HCl (Vanco pharmacy to dose) 1 ea DAILY PRN MISC Per rx protocol 02/23/20 18:00 03/24/20 17:59 Vancomycin HCl 1.25 gm/Dextrose 275 ml @ 183.333 mls/hr Q24H IVPB 02/24/20 20:00 02/29/20 19:59 Assessment/Plan Problems: (1) COVID-19 (2) Hypernatremia (3) HTN (hypertension) (4) CAD (coronary artery disease) (5) Cerebral palsy (6) SAH (subarachnoid hemorrhage) (7) BPH (benign prostatic hyperplasia) Assessment/Plan all reviewed cxr negative CRP still high chopra culture, MRSA nares on [place] ID evaluaion dvt prophylaxis seizure precaution dvt prohylaxis. Aldair Patel MD Feb 24, 2020 13:06
[2020-02-24 16:00] VITALS: BP 135/78
--- NOTE | 2020-02-24 16:24 | Infectious Diseases Prog Note ---
Assessment/Plan Assessment: Sepsis COVID19 infection (dx'ed [facility]ACH[facility]ELDER 02/17/20)- no apparent PNA on CXR- sp NC, now at -02/22 CXR: Minimal atelectasis noted left lung base. -02/19 CXR: Mild left basilar atelectasis. No clear consolidation. UTI R/o probable bacteremia -u.a wbc 20-30, nit +, leuk +2; ucx >100k MRSA ( R tetracycline; S Vanco, bactrim) -Bcx NTD Fever; improving No leukocytosis Cerebral Palsy anemia HTN non verbal HLD hx of B/l LE DVT 2015 on coumadin CKD iron def anemia R hip fx s/p ORIF 2013 CAD/NM GERD SAH 2ry to cerebral aneurysm DM2 COPD schizoaffective disorder- depressive type BPH seizure disorder [place] resident ([facility]) Plan: -on Decadron #4 per pulm -Start IV Vancomycin #2 for MRSA in ucx -current at and no PNA on CXR; if respiratory decompensation, will consider remdesivir -02/22 SP Azithromycin #3 -02/19 SP Ceftriaxone x1 -f/u cx -Monitor CBC/CMP, temperatures -Repeat Bcx x2 if T>100.4 -COVID19 isolation Thank you for consulting [facility]. Will continue to follow along with you. Discussed with RN and Dr Patel. Subjective Allergies: Coded Allergies: PENICILLIN G (Verified Allergy, Intermediate, 04/13/14) PENICILLINS (Unverified Allergy, Unknown, 07/21/18) afebrile >24hrs Bcx NTD at no leukocytosis Objective Last 24 Hour Vital Signs Date Time Temp Pulse Resp B/P (MAP) Pulse Ox O2 Delivery O2 Flow Rate FiO2 02/24/20 12:00 82 02/24/20 12:00 97.7 92 22 146/76 (99) 94 02/24/20 09:19 80 143/78 02/24/20 09:00 Room Air 02/24/20 08:00 92 02/24/20 08:00 97.6 80 20 143/78 (99) 94 02/24/20 04:00 80 02/24/20 04:00 97.5 91 22 106/84 (91) 94 02/24/20 00:00 66 02/24/20 00:00 98.8 79 22 127/83 (98) 96 02/23/20 21:00 Room Air 02/23/20 20:42 66 122/76 02/23/20 20:00 97.5 66 24 122/76 (91) 96 02/23/20 20:00 81 Height (Feet): 5 Height (Inches): 10.00 Weight (Pounds): 159 General Appearance: WD/WN HEENT: normocephalic, atraumatic, EOMI Respiratory: chest wall non-tender Cardiovascular: normal peripheral pulses Abdomen: normal bowel sounds, no organomegaly Laboratory Tests Test 02/24/20 05:38 White Blood Count 8.7 K/UL (4.8-10.8) Red Blood Count 4.26 M/UL (4.70-6.10) L Hemoglobin 13.0 G/DL (14.2-18.0) L Hematocrit 39.1 % (42.0-52.0) L Mean Corpuscular Volume 92 FL (80-99) Mean Corpuscular Hemoglobin 30.5 PG (27.0-31.0) Mean Corpuscular Hemoglobin Concent 33.2 G/DL (32.0-36.0) Red Cell Distribution Width 13.5 % (11.6-14.8) Platelet Count 110 K/UL (150-450) L Mean Platelet Volume 7.7 FL (6.5-10.1) Neutrophils (%) (Auto) % (45.0-75.0) Lymphocytes (%) (Auto) % (20.0-45.0) Monocytes (%) (Auto) % (1.0-10.0) Eosinophils (%) (Auto) % (0.0-3.0) Basophils (%) (Auto) % (0.0-2.0) Erythrocyte Sedimentation Rate 46 MM/HR (0-20) H Fibrinogen 498 mg/dL (200-400) H D-Dimer 4.25 mg/L FEU (0.00-0.49) H Sodium Level 147 MMOL/L (136-145) H Potassium Level 4.0 MMOL/L (3.5-5.1) Chloride Level 111 MMOL/L (98-107) H Carbon Dioxide Level 24 MMOL/L (21-32) Anion Gap 12 mmol/L (5-15) Blood Urea Nitrogen 25 mg/dL (7-18) H Creatinine 1.1 MG/DL (0.55-1.30) Estimat Glomerular Filtration Rate > 60 mL/min (>60) Glucose Level 95 MG/DL (74-106) Calcium Level 8.1 MG/DL (8.5-10.1) L Phosphorus Level 3.2 MG/DL (2.5-4.9) Magnesium Level 2.2 MG/DL (1.8-2.4) Ferritin 780 NG/ML (8-388) H Total Bilirubin 0.5 MG/DL (0.2-1.0) Aspartate Amino Transf (AST/SGOT) 44 U/L (15-37) H Alanine Aminotransferase (ALT/SGPT) 19 U/L (12-78) Alkaline Phosphatase 53 U/L (46-116) Lactate Dehydrogenase 343 U/L (81-234) H C-Reactive Protein, Quantitative 16.0 mg/dL (0.00-0.90) H Total Protein 7.4 G/DL (6.4-8.2) Albumin 2.5 G/DL (3.4-5.0) L Globulin 4.9 g/dL Albumin/Globulin Ratio 0.5 (1.0-2.7) L Current Medications Medications (Trade) Dose Ordered Sig/Yazmin Route PRN Reason Start Time Stop Time Status Last Admin Dose Admin Acetaminophen (Tylenol) 650 mg Q6H PRN ORAL Temp >100.5 and Mild Pain 02/21/20 01:45 03/22/20 01:44 02/22/20 21:49 Acetaminophen/ Hydrocodone Bitart ([place] 10/325) 1 tab Q6H PRN ORAL For Mod to Severe Pain 02/21/20 01:45 02/28/20 01:44 Albuterol/ Ipratropium (Albuterol/ Ipratropium) 3 ml Q4H PRN HHN Shortness of Breath 02/20/20 22:45 02/25/20 22:44 Albuterol/ Ipratropium (Combivent Respimat) 1 puff Q4H PRN INH Shortness of Breath 02/22/20 11:00 03/23/20 10:59 Atorvastatin Calcium (Lipitor) 40 mg BEDTIME ORAL 02/21/20 21:00 05/21/20 20:59 02/23/20 20:42 Clonidine HCl (Catapres Tab) 0.1 mg Q8H PRN ORAL For SBP >160 02/21/20 01:45 05/21/20 01:44 Dexamethasone (Decadron) 4 mg DAILY ORAL 02/21/20 09:00 03/22/20 08:59 02/24/20 09:17 Dextrose (Dextrose 50%) 25 ml Q30M PRN IV Hypoglycemia 02/20/20 22:45 05/20/20 22:44 Dextrose (Dextrose 50%) 50 ml Q30M PRN IV Hypoglycemia 02/20/20 22:45 05/20/20 22:44 Diclofenac Sodium (Voltaren gel) 1 applic BID PRN TOPIC As needed for pain 02/21/20 01:45 05/21/20 01:44 Docusate Sodium (Colace) 100 mg TWICE A DAY ORAL 02/21/20 09:00 03/22/20 08:59 02/24/20 09:17 Heparin Sodium (Porcine) (Heparin 5000 units/ml) 5,000 units EVERY 12 HOURS SUBQ 02/22/20 09:00 04/07/20 08:59 Metoprolol Tartrate (Lopressor) 25 mg EVERY 12 HOURS ORAL 02/21/20 09:00 05/21/20 08:59 02/24/20 09:19 Multivitamins (Multivitamins) 1 tab DAILY ORAL 02/21/20 09:00 03/22/20 08:59 02/24/20 09:17 Ondansetron HCl (Zofran) 4 mg Q6H PRN IVP Nausea & Vomiting 02/20/20 22:45 03/21/20 22:44 Polyethylene Glycol (Miralax) 17 gm DAILYPRN PRN ORAL Constipation 02/20/20 22:45 03/21/20 22:44 Promethazine HCl/ Codeine (Phenergan with Codeine) 5 ml Q6H PRN ORAL cough 02/20/20 22:45 03/21/20 22:44 Quetiapine Fumarate (SEROqueL) 25 mg Q12HR ORAL 02/21/20 09:00 04/06/20 08:59 02/24/20 09:17 Tamsulosin HCl (Flomax) 0.4 mg BEDTIME ORAL 02/21/20 21:00 03/22/20 20:59 02/23/20 21:21 Valproic Acid (Depakene) 500 mg EVERY 12 HOURS ORAL 02/21/20 09:00 04/06/20 08:59 02/24/20 09:18 Vancomycin HCl (Vanco pharmacy to dose) 1 ea DAILY PRN MISC Per rx protocol 02/23/20 18:00 03/24/20 17:59 Vancomycin HCl 1.25 gm/Dextrose 275 ml @ 183.333 mls/hr Q24H IVPB 02/24/20 20:00 02/29/20 19:59 Daly Daniel M.D. Feb 24, 2020 16:24
--- NOTE | 2020-02-24 18:03 | Internal Med Progress Note ---
Subjective Date of Service: Feb 24, 2020 Physician Name YudelkaJose Attending Physician Joey Perry MD Current Medications Medications (Trade) Dose Ordered Sig/Yazmin Route PRN Reason Start Time Stop Time Status Last Admin Dose Admin Acetaminophen (Tylenol) 650 mg Q6H PRN ORAL Temp >100.5 and Mild Pain 02/21/20 01:45 03/22/20 01:44 02/22/20 21:49 Acetaminophen/ Hydrocodone Bitart ([place] 10/325) 1 tab Q6H PRN ORAL For Mod to Severe Pain 02/21/20 01:45 02/28/20 01:44 Albuterol/ Ipratropium (Albuterol/ Ipratropium) 3 ml Q4H PRN HHN Shortness of Breath 02/20/20 22:45 02/25/20 22:44 Albuterol/ Ipratropium (Combivent Respimat) 1 puff Q4H PRN INH Shortness of Breath 02/22/20 11:00 03/23/20 10:59 Atorvastatin Calcium (Lipitor) 40 mg BEDTIME ORAL 02/21/20 21:00 05/21/20 20:59 02/23/20 20:42 Clonidine HCl (Catapres Tab) 0.1 mg Q8H PRN ORAL For SBP >160 02/21/20 01:45 05/21/20 01:44 Dexamethasone (Decadron) 4 mg DAILY ORAL 02/21/20 09:00 03/22/20 08:59 02/24/20 09:17 Dextrose (Dextrose 50%) 25 ml Q30M PRN IV Hypoglycemia 02/20/20 22:45 05/20/20 22:44 Dextrose (Dextrose 50%) 50 ml Q30M PRN IV Hypoglycemia 02/20/20 22:45 05/20/20 22:44 Diclofenac Sodium (Voltaren gel) 1 applic BID PRN TOPIC As needed for pain 02/21/20 01:45 05/21/20 01:44 Docusate Sodium (Colace) 100 mg TWICE A DAY ORAL 02/21/20 09:00 03/22/20 08:59 02/24/20 17:35 Heparin Sodium (Porcine) (Heparin 5000 units/ml) 5,000 units EVERY 12 HOURS SUBQ 02/22/20 09:00 04/07/20 08:59 Metoprolol Tartrate (Lopressor) 25 mg EVERY 12 HOURS ORAL 02/21/20 09:00 05/21/20 08:59 02/24/20 09:19 Multivitamins (Multivitamins) 1 tab DAILY ORAL 02/21/20 09:00 03/22/20 08:59 02/24/20 09:17 Ondansetron HCl (Zofran) 4 mg Q6H PRN IVP Nausea & Vomiting 02/20/20 22:45 03/21/20 22:44 Polyethylene Glycol (Miralax) 17 gm DAILYPRN PRN ORAL Constipation 02/20/20 22:45 03/21/20 22:44 Promethazine HCl/ Codeine (Phenergan with Codeine) 5 ml Q6H PRN ORAL cough 02/20/20 22:45 03/21/20 22:44 Quetiapine Fumarate (SEROqueL) 25 mg Q12HR ORAL 02/21/20 09:00 04/06/20 08:59 02/24/20 09:17 Tamsulosin HCl (Flomax) 0.4 mg BEDTIME ORAL 02/21/20 21:00 03/22/20 20:59 02/23/20 21:21 Valproic Acid (Depakene) 500 mg EVERY 12 HOURS ORAL 02/21/20 09:00 04/06/20 08:59 02/24/20 09:18 Vancomycin HCl (Vanco pharmacy to dose) 1 ea DAILY PRN MISC Per rx protocol 02/23/20 18:00 03/24/20 17:59 Vancomycin HCl 1.25 gm/Dextrose 275 ml @ 183.333 mls/hr Q24H IVPB 02/24/20 20:00 02/29/20 19:59 Allergies: Coded Allergies: PENICILLIN G (Verified Allergy, Intermediate, 04/13/14) PENICILLINS (Unverified Allergy, Unknown, 07/21/18) ROS Limited/Unobtainable: Yes Subjective 84 YO M admitted with fever. Now COVID 19 positive. Cover for Int aki-DR Perry Objective Last Vital Signs Date Time Temp Pulse Resp B/P (MAP) Pulse Ox O2 Delivery O2 Flow Rate FiO2 02/24/20 16:00 97.8 82 20 135/78 (97) 94 02/24/20 09:00 Room Air 02/21/20 09:00 2.0 Laboratory Tests Test 02/24/20 05:38 White Blood Count 8.7 K/UL (4.8-10.8) Red Blood Count 4.26 M/UL (4.70-6.10) L Hemoglobin 13.0 G/DL (14.2-18.0) L Hematocrit 39.1 % (42.0-52.0) L Mean Corpuscular Volume 92 FL (80-99) Mean Corpuscular Hemoglobin 30.5 PG (27.0-31.0) Mean Corpuscular Hemoglobin Concent 33.2 G/DL (32.0-36.0) Red Cell Distribution Width 13.5 % (11.6-14.8) Platelet Count 110 K/UL (150-450) L Mean Platelet Volume 7.7 FL (6.5-10.1) Neutrophils (%) (Auto) % (45.0-75.0) Lymphocytes (%) (Auto) % (20.0-45.0) Monocytes (%) (Auto) % (1.0-10.0) Eosinophils (%) (Auto) % (0.0-3.0) Basophils (%) (Auto) % (0.0-2.0) Erythrocyte Sedimentation Rate 46 MM/HR (0-20) H Fibrinogen 498 mg/dL (200-400) H D-Dimer 4.25 mg/L FEU (0.00-0.49) H Sodium Level 147 MMOL/L (136-145) H Potassium Level 4.0 MMOL/L (3.5-5.1) Chloride Level 111 MMOL/L (98-107) H Carbon Dioxide Level 24 MMOL/L (21-32) Anion Gap 12 mmol/L (5-15) Blood Urea Nitrogen 25 mg/dL (7-18) H Creatinine 1.1 MG/DL (0.55-1.30) Estimat Glomerular Filtration Rate > 60 mL/min (>60) Glucose Level 95 MG/DL (74-106) Calcium Level 8.1 MG/DL (8.5-10.1) L Phosphorus Level 3.2 MG/DL (2.5-4.9) Magnesium Level 2.2 MG/DL (1.8-2.4) Ferritin 780 NG/ML (8-388) H Total Bilirubin 0.5 MG/DL (0.2-1.0) Aspartate Amino Transf (AST/SGOT) 44 U/L (15-37) H Alanine Aminotransferase (ALT/SGPT) 19 U/L (12-78) Alkaline Phosphatase 53 U/L (46-116) Lactate Dehydrogenase 343 U/L (81-234) H C-Reactive Protein, Quantitative 16.0 mg/dL (0.00-0.90) H Total Protein 7.4 G/DL (6.4-8.2) Albumin 2.5 G/DL (3.4-5.0) L Globulin 4.9 g/dL Albumin/Globulin Ratio 0.5 (1.0-2.7) L Intake and Output 02/23/20 02/24/20 19:00 07:00 Intake Total 360 ml 120 ml Balance 360 ml 120 ml Intake Oral 360 ml Other 120 ml # Voids 4 3 # Bowel Movements 1 1 Objective PHYSICAL EXAMINATION: GENERAL: The patient is a thin-appearing male, in no apparent distress. HEENT: Eyes, pupils equal and responsive to light and accommodation. Extraocular movements are intact. NECK: Supple without lymphadenopathy. CHEST: Lungs are clear to auscultation bilaterally with decreased breath sounds bilateral bases. Otherwise, without rales. CARDIOVASCULAR: Regular rhythm and rate. S1, S2 normal without murmurs, rubs, or gallops. ABDOMEN: Soft, nontender, and nondistended. Positive bowel sounds. No evidence of hepatosplenomegaly. Currently, no rebound or guarding noted. EXTREMITIES: Negative for clubbing, cyanosis, or edema. RECTAL/GENITAL: Not performed. NEUROLOGIC: Cranial nerves II through XII are grossly intact without focal deficits. Assessment/Plan Assessment/Plan ASSESSMENT: This is an 84-year-old male. 1. COVID-19 positive. 2. Fever. 3. Probable COVID-19 pneumonia. 4. Chronic renal failure. 5. Dysphagia. 6. History of cerebral palsy. 7. Brain aneurysm. 8. Subarachnoid hemorrhage. 9. Benign prostatic hypertrophy. 10. Coronary artery disease. 11. Hypertension. 12. Congestive heart failure. 13. Bilateral lower extremity deep venous thrombosis. 14. Iron deficiency anemia. 15. Hypercholesterolemia. 16. Seizure disorder. 17. Schizophrenia. 18. UTI=MRSA TREATMENT: 1. COVID-19 positive/probable pneumonia. Pulmonary consultation = Dr. Aldair Patel. The patient has been placed empirically on Decadron. The patient is currently on azithromycin and ceftriaxone. 2. Bilateral lower extremity deep venous thrombosis (chronic). Anticoagulation=heparin subcut 3. Chronic renal failure. 4. Dysphagia. 5. History of cerebral palsy. 6. Subarachnoid hemorrhage. 7. Benign prostatic hypertrophy. 8. Coronary artery disease. 9. Hypertension. Continue clonidine as above. 10. Iron deficiency anemia. 11. Hypercholesterolemia. 12. Seizure disorder. Continue valproic acid as above. 13. Schizophrenia. 14. Full code 15. aBX=Jose Mcclain MD Feb 24, 2020 18:03
--- NOTE | 2020-02-24 19:32 | NUR ---
NURSE HAND-OFF REPORT: Important Events on Shift: Rapid Swab Pending Patient Status: Stable Full Code Diet: Regular Mech finely Chopped Pending Orders: Pending Results/Labs: Pending MD notification: Latest Vital Signs: Temperature 97.8 , Pulse 82 , B/P 135 /78 , Respiratory Rate 20 , O2 SAT 94 , Room Air, O2 Flow Rate 2.0 . Vital Sign Comment: EKG Rhythm: Sinus Rhythm Rhythm change?: N MD Notified?: N - MD Response: Latest Carrillo Fall Score: 70 Fall Risk: High Risk Safety Measures: Call light Within Reach, Bed Alarm Zone 1, Side Rails Side Rails x2, Bed position Low and Locked. Fall Precautions: Yellow Socks Report given to Yana.
--- NOTE | 2020-02-24 19:35 | NUR ---
NURSE NOTES: Received pt and report from JOSE LUIS Malin. Observed pt resting in bed with both eyes closed; arousable to voice. Pt is A/Ox1-2. electronic device monitor is in placed, IV site intact, asymptomatic, and patent. Bed is in the lowest position, locked, and alarmed. No signs/symptoms of acute distress noted at this time. Will continue plan of care.
[2020-02-24 20:00] VITALS: BP 115/57
[2020-02-24] MEDS: Vancomycin 1.25 GM in D5W 275 ML IVPB SCH (20:53)
[2020-02-24] MEDS: Tamsulosin 0.4mg cap ORAL SCH (20:59)
[2020-02-24] MEDS: Atorvastatin 20mg tab ORAL SCH (21:00)
--- NOTE | 2020-02-24 23:02 | CDS Physician Query ---
Clarification is required for compliance, coding accuracy, and to reflect severity of illness for this patient. Dear Dr. Jha Date: 02/24/20 CDI: Prince Napoles A possible diagnosis of SEPSIS was made in the medical record on 02/23/20 and 02/24/20. Upon review, it is difficult to determine whether this diagnosis has been ruled in, ruled out,or is still being worked up. Please indicate below the status of the aforementioned diagnosis. Clinical Documentation States: Infectious Disease Progress notes on 02/23/20 and 02/24/20: Sepsis, COVID19 infection, UTI, R/o probable bacteremia [X] Fever (temp >38.3 degrees C or 100.4 degrees F) [X] Heart rate > 90/min [X] Tachypnea/RR > 20 bpm [X] Hyperlactatemia (> 1 mmol/L) UA: WBC 20-30, nit +, Leuk +2; UCX >100k MRSA ( R tetracycline; S Vanco, bactrim) IV Vancomycin #2 for MRSA in ucx 02/22 SP Azithromycin #3 02/19 SP Ceftriaxone x1 [ ] Treated and resolve [ X] Presumed and treated [ ] Currently under treatment [ ] Still being worked-up [ ] Ruled out Present on Admission: [ X ] Yes [ ] No [ ] Clinically Undetermined Physician signature Date Please also document in your Progress Notes and/or Discharge Summary and indicate if the condition was present on admission. MTDD
[2020-02-25] VITALS: BP 104/64
--- NOTE | 2020-02-25 02:30 | NUR ---
NURSE NOTES: Observed pt asleep comfortably. No signs/symptoms of acute distress noted.
[2020-02-25 04:00] VITALS: BP 122/76
--- NOTE | 2020-02-25 04:30 | NUR ---
NURSE NOTES: New IV inserted on Right hand 24G. IV intact, asymptomatic, and patent. Addendum: 02/25/20 at 0634 by Heather Evans Mai, RN Previous IV site occluded.
[2020-02-25 06:06] LABS: HEMATOCRIT 37.4 % (42.0-52.0); HEMOGLOBIN 12.4 G/DL (14.2-18.0); MEAN CORPUSCULAR VOLUME 91 FL (80-99); PLATELET COUNT 137 K/UL (150-450); RED BLOOD COUNT 4.09 M/UL (4.70-6.10); RED CELL DISTRIBUTION WIDTH 13.6 % (11.6-14.8)
--- NOTE | 2020-02-25 06:39 | NUR ---
NURSE NOTES: Dr. Daniel made aware that pt's 02/24/20 COVID swab came back positive.
[2020-02-25 06:55] LABS: ANION GAP 10 mmol/L (5-15); BLOOD UREA NITROGEN 29 mg/dL (7-18); CARBON DIOXIDE 27 MMOL/L (21-32); CHLORIDE 114 MMOL/L (98-107); CREATININE 1.2 MG/DL (0.55-1.30); SODIUM 150 MMOL/L (136-145)
--- NOTE | 2020-02-25 07:29 | NUR ---
NURSE HAND-OFF REPORT: Important Events on Shift: Pt's COVID swab resulted positive (02/24/20). Inserted new IV on Right hand 24G. Previous IV was occluded. Patient Status: Stable Diet: Regular Pending Orders: N Pending Results/Labs: AM Labs Pending MD notification: N Latest Vital Signs: Temperature 98.8 , Pulse 80 , B/P 122 /76 , Respiratory Rate 22 , O2 SAT 94 , Nasal Cannula, O2 Flow Rate 2.0 . EKG Rhythm: Sinus Rhythm Rhythm change?: N MD Notified?: N - MD Response: Latest Carrillo Fall Score: 70 Fall Risk: High Risk Safety Measures: Call light Within Reach, Bed Alarm Zone 1, Side Rails Side Rails x2, Bed position Low and Locked. Fall Precautions: Yellow Socks Yellow Gown Door Sign Patient Fall Education Report given to JOSE LUIS Malin.
[2020-02-25 08:00] VITALS: BP 123/80
--- NOTE | 2020-02-25 08:03 | NUR ---
NURSE NOTES: Patient received from JOSE LUIS Millan. Pt is A/O x1. No SOB or acute distress noted. Pt is 2L NC and SATing @ 97%, but pt continues to take O2 off. No pain noted. IV site patent and intact on RH 24G which is saline locked, but is patent and intact. Bed in lowest position and locked. Bed rails padded for seizure precautions. Will continue plan of care.
[2020-02-25] MEDS: Docusate 100mg cap ORAL SCH ×2 (09:54→17:26)
[2020-02-25] MEDS: Valproic Acid 250mg/5ml Liquid ORAL SCH ×2 (09:55→20:37)
[2020-02-25] MEDS: Heparin 5000 units/ml inj SUBQ SCH ×2 (09:57→20:39)
[2020-02-25 12:00] VITALS: BP 102/59
--- NOTE | 2020-02-25 12:34 | Internal Med Progress Note ---
Subjective Date of Service: Feb 25, 2020 Physician Name YudelkaJose Attending Physician Joey Perry MD Current Medications Medications (Trade) Dose Ordered Sig/Yazmin Route PRN Reason Start Time Stop Time Status Last Admin Dose Admin Acetaminophen (Tylenol) 650 mg Q6H PRN ORAL Temp >100.5 and Mild Pain 02/21/20 01:45 03/22/20 01:44 02/25/20 00:28 Acetaminophen/ Hydrocodone Bitart ([place] 10/325) 1 tab Q6H PRN ORAL For Mod to Severe Pain 02/21/20 01:45 02/28/20 01:44 Albuterol/ Ipratropium (Albuterol/ Ipratropium) 3 ml Q4H PRN HHN Shortness of Breath 02/20/20 22:45 02/25/20 22:44 Albuterol/ Ipratropium (Combivent Respimat) 1 puff Q4H PRN INH Shortness of Breath 02/22/20 11:00 03/23/20 10:59 Atorvastatin Calcium (Lipitor) 40 mg BEDTIME ORAL 02/21/20 21:00 05/21/20 20:59 02/24/20 21:00 Clonidine HCl (Catapres Tab) 0.1 mg Q8H PRN ORAL For SBP >160 02/21/20 01:45 05/21/20 01:44 Dexamethasone (Decadron) 4 mg DAILY ORAL 02/21/20 09:00 03/22/20 08:59 02/25/20 09:55 Dextrose (Dextrose 50%) 25 ml Q30M PRN IV Hypoglycemia 02/20/20 22:45 05/20/20 22:44 Dextrose (Dextrose 50%) 50 ml Q30M PRN IV Hypoglycemia 02/20/20 22:45 05/20/20 22:44 Diclofenac Sodium (Voltaren gel) 1 applic BID PRN TOPIC As needed for pain 02/21/20 01:45 05/21/20 01:44 Docusate Sodium (Colace) 100 mg TWICE A DAY ORAL 02/21/20 09:00 03/22/20 08:59 02/25/20 09:54 Heparin Sodium (Porcine) (Heparin 5000 units/ml) 5,000 units EVERY 12 HOURS SUBQ 02/22/20 09:00 04/07/20 08:59 02/25/20 09:57 Metoprolol Tartrate (Lopressor) 25 mg EVERY 12 HOURS ORAL 02/21/20 09:00 05/21/20 08:59 02/25/20 09:55 Multivitamins (Multivitamins) 1 tab DAILY ORAL 02/21/20 09:00 03/22/20 08:59 02/25/20 09:55 Ondansetron HCl (Zofran) 4 mg Q6H PRN IVP Nausea & Vomiting 02/20/20 22:45 03/21/20 22:44 Polyethylene Glycol (Miralax) 17 gm DAILYPRN PRN ORAL Constipation 02/20/20 22:45 03/21/20 22:44 Promethazine HCl/ Codeine (Phenergan with Codeine) 5 ml Q6H PRN ORAL cough 02/20/20 22:45 03/21/20 22:44 Quetiapine Fumarate (SEROqueL) 25 mg Q12HR ORAL 02/21/20 09:00 04/06/20 08:59 02/25/20 09:55 Tamsulosin HCl (Flomax) 0.4 mg BEDTIME ORAL 02/21/20 21:00 03/22/20 20:59 02/24/20 20:59 Valproic Acid (Depakene) 500 mg EVERY 12 HOURS ORAL 02/21/20 09:00 04/06/20 08:59 02/25/20 09:55 Vancomycin HCl ([facility] pharmacy to dose) 1 ea DAILY PRN MISC Per rx protocol 02/23/20 18:00 03/24/20 17:59 Vancomycin HCl 1.25 gm/Dextrose 275 ml @ 183.333 mls/hr Q24H IVPB 02/24/20 20:00 02/29/20 19:59 02/24/20 20:53 Allergies: Coded Allergies: PENICILLIN G (Verified Allergy, Intermediate, 04/13/14) PENICILLINS (Unverified Allergy, Unknown, 07/21/18) ROS Limited/Unobtainable: Yes Subjective 84 YO M admitted with fever. Now COVID 19 positive. Cover for Int aki-DR Perry Objective Last Vital Signs Date Time Temp Pulse Resp B/P (MAP) Pulse Ox O2 Delivery O2 Flow Rate FiO2 02/25/20 09:55 78 123/80 02/25/20 09:00 Nasal Cannula 2.0 02/25/20 08:00 98.1 20 97 Laboratory Tests Test 02/25/20 04:54 White Blood Count 9.0 K/UL (4.8-10.8) Red Blood Count 4.09 M/UL (4.70-6.10) L Hemoglobin 12.4 G/DL (14.2-18.0) L Hematocrit 37.4 % (42.0-52.0) L Mean Corpuscular Volume 91 FL (80-99) Mean Corpuscular Hemoglobin 30.2 PG (27.0-31.0) Mean Corpuscular Hemoglobin Concent 33.1 G/DL (32.0-36.0) Red Cell Distribution Width 13.6 % (11.6-14.8) Platelet Count 137 K/UL (150-450) L Mean Platelet Volume 8.5 FL (6.5-10.1) Neutrophils (%) (Auto) % (45.0-75.0) Lymphocytes (%) (Auto) % (20.0-45.0) Monocytes (%) (Auto) % (1.0-10.0) Eosinophils (%) (Auto) % (0.0-3.0) Basophils (%) (Auto) % (0.0-2.0) Sodium Level 150 MMOL/L (136-145) H Potassium Level 4.0 MMOL/L (3.5-5.1) Chloride Level 114 MMOL/L (98-107) H Carbon Dioxide Level 27 MMOL/L (21-32) Anion Gap 10 mmol/L (5-15) Blood Urea Nitrogen 29 mg/dL (7-18) H Creatinine 1.2 MG/DL (0.55-1.30) Estimat Glomerular Filtration Rate > 60 mL/min (>60) Glucose Level 95 MG/DL (74-106) Calcium Level 8.0 MG/DL (8.5-10.1) L Microbiology Date/Time Source Procedure Growth Status 02/24/20 18:30 Nasopharynx SARS-CoV-2 RdRp Gene Assay - Final Complete l Intake and Output 02/24/20 02/25/20 19:00 07:00 Intake Total 240 ml 260 ml Balance 240 ml 260 ml Intake Oral 240 ml 260 ml # Voids 2 2 # Bowel Movements 1 Objective PHYSICAL EXAMINATION: GENERAL: The patient is a thin-appearing male, in no apparent distress. HEENT: Eyes, pupils equal and responsive to light and accommodation. Extraocular movements are intact. NECK: Supple without lymphadenopathy. CHEST: Lungs are clear to auscultation bilaterally with decreased breath sounds bilateral bases. Otherwise, without rales. CARDIOVASCULAR: Regular rhythm and rate. S1, S2 normal without murmurs, rubs, or gallops. ABDOMEN: Soft, nontender, and nondistended. Positive bowel sounds. No evidence of hepatosplenomegaly. Currently, no rebound or guarding noted. EXTREMITIES: Negative for clubbing, cyanosis, or edema. RECTAL/GENITAL: Not performed. NEUROLOGIC: Cranial nerves II through XII are grossly intact without focal deficits. Assessment/Plan Assessment/Plan ASSESSMENT: This is an 84-year-old male. 1. COVID-19 positive. 2. Fever. 3. Probable COVID-19 pneumonia. 4. Chronic renal failure. 5. Dysphagia. 6. History of cerebral palsy. 7. Brain aneurysm. 8. Subarachnoid hemorrhage. 9. Benign prostatic hypertrophy. 10. Coronary artery disease. 11. Hypertension. 12. Congestive heart failure. 13. Bilateral lower extremity deep venous thrombosis. 14. Iron deficiency anemia. 15. Hypercholesterolemia. 16. Seizure disorder. 17. Schizophrenia. 18. UTI=MRSA TREATMENT: 1. COVID-19 positive/probable pneumonia. Pulmonary consultation = Dr. Aldair Patel. The patient has been placed empirically on Decadron. The patient is currently on azithromycin and ceftriaxone. 2. Bilateral lower extremity deep venous thrombosis (chronic). Anticoagulation=heparin subcut 3. Chronic renal failure. 4. Dysphagia. 5. History of cerebral palsy. 6. Subarachnoid hemorrhage. 7. Benign prostatic hypertrophy. 8. Coronary artery disease. 9. Hypertension. Continue clonidine as above. 10. Iron deficiency anemia. 11. Hypercholesterolemia. 12. Seizure disorder. Continue valproic acid as above. 13. Schizophrenia. 14. Full code 15. aBX=Jose Mcclain MD Feb 25, 2020 12:34
--- NOTE | 2020-02-25 13:46 | Infectious Diseases Prog Note ---
Assessment/Plan Assessment: Sepsis COVID19 infection (dx'ed [employer]PER[employer] 02/17/20)- no apparent PNA on CXR- sp NC, now at RA -02/23 rapid COVID PCR + -02/22 CXR: Minimal atelectasis noted left lung base. -02/19 CXR: Mild left basilar atelectasis. No clear consolidation. UTI R/o probable bacteremia -u.a wbc 20-30, nit +, leuk +2; ucx >100k MRSA ( R tetracycline; S Vanco, bactrim) -Bcx NTD Fever; improving No leukocytosis Cerebral Palsy anemia HTN non verbal HLD hx of B/l LE DVT 2015 on coumadin CKD iron def anemia R hip fx s/p ORIF 2013 CAD/NC GERD SAH 2ry to cerebral aneurysm DM2 COPD schizoaffective disorder- depressive type BPH seizure disorder [facility] [facility] Plan: -on Decadron #5 per pulm -IV Vancomycin #3 for MRSA in ucx -current at and no PNA on CXR; if respiratory decompensation, will consider remdesivir -02/22 SP Azithromycin #3 -02/19 SP Ceftriaxone x1 -f/u cx -Monitor CBC/CMP, temperatures -Repeat Bcx x2 if T>100.4 -COVID19 isolation Thank you for consulting [facility]. Will continue to follow along with you. Discussed with RN and Dr Patel. Subjective Allergies: Coded Allergies: PENICILLIN G (Verified Allergy, Intermediate, 04/13/14) PENICILLINS (Unverified Allergy, Unknown, 07/21/18) Tm 101.5 Bcx NTD at no leukocytosis Objective Last 24 Hour Vital Signs Date Time Temp Pulse Resp B/P (MAP) Pulse Ox O2 Delivery O2 Flow Rate FiO2 02/25/20 09:55 78 123/80 02/25/20 09:00 Nasal Cannula 2.0 02/25/20 08:00 78 02/25/20 08:00 98.1 87 20 123/80 (94) 97 02/25/20 04:00 98.8 80 22 122/76 (91) 94 02/25/20 04:00 80 02/25/20 01:00 99.1 02/25/20 00:58 99.1 02/25/20 00:00 84 02/25/20 00:00 101.5 84 22 104/64 (77) 97 02/24/20 21:02 83 119/61 02/24/20 21:00 Nasal Cannula 2.0 02/24/20 20:00 88 02/24/20 20:00 98.8 85 21 115/57 (76) 98 02/24/20 16:00 97.8 82 20 135/78 (97) 94 02/24/20 16:00 75 Height (Feet): 5 Height (Inches): 10.00 Weight (Pounds): 159 General Appearance: WD/WN HEENT: normocephalic, atraumatic, EOMI Respiratory: chest wall non-tender Cardiovascular: normal peripheral pulses Abdomen: normal bowel sounds, no organomegaly Microbiology Date/Time Source Procedure Growth Status 02/24/20 18:30 Nasopharynx SARS-CoV-2 RdRp Gene Assay - Final Complete Laboratory Tests Test 02/25/20 04:54 White Blood Count 9.0 K/UL (4.8-10.8) Red Blood Count 4.09 M/UL (4.70-6.10) L Hemoglobin 12.4 G/DL (14.2-18.0) L Hematocrit 37.4 % (42.0-52.0) L Mean Corpuscular Volume 91 FL (80-99) Mean Corpuscular Hemoglobin 30.2 PG (27.0-31.0) Mean Corpuscular Hemoglobin Concent 33.1 G/DL (32.0-36.0) Red Cell Distribution Width 13.6 % (11.6-14.8) Platelet Count 137 K/UL (150-450) L Mean Platelet Volume 8.5 FL (6.5-10.1) Neutrophils (%) (Auto) % (45.0-75.0) Lymphocytes (%) (Auto) % (20.0-45.0) Monocytes (%) (Auto) % (1.0-10.0) Eosinophils (%) (Auto) % (0.0-3.0) Basophils (%) (Auto) % (0.0-2.0) Sodium Level 150 MMOL/L (136-145) H Potassium Level 4.0 MMOL/L (3.5-5.1) Chloride Level 114 MMOL/L (98-107) H Carbon Dioxide Level 27 MMOL/L (21-32) Anion Gap 10 mmol/L (5-15) Blood Urea Nitrogen 29 mg/dL (7-18) H Creatinine 1.2 MG/DL (0.55-1.30) Estimat Glomerular Filtration Rate > 60 mL/min (>60) Glucose Level 95 MG/DL (74-106) Calcium Level 8.0 MG/DL (8.5-10.1) L Current Medications Medications (Trade) Dose Ordered Sig/Yazmin Route PRN Reason Start Time Stop Time Status Last Admin Dose Admin Acetaminophen (Tylenol) 650 mg Q6H PRN ORAL Temp >100.5 and Mild Pain 02/21/20 01:45 03/22/20 01:44 02/25/20 00:28 Acetaminophen/ Hydrocodone Bitart ([place] ) 1 tab Q6H PRN ORAL For Mod to Severe Pain 02/21/20 01:45 02/28/20 01:44 Albuterol/ Ipratropium (Albuterol/ Ipratropium) 3 ml Q4H PRN HHN Shortness of Breath 02/20/20 22:45 02/25/20 22:44 Albuterol/ Ipratropium (Combivent Respimat) 1 puff Q4H PRN INH Shortness of Breath 02/22/20 11:00 03/23/20 10:59 Atorvastatin Calcium (Lipitor) 40 mg BEDTIME ORAL 02/21/20 21:00 05/21/20 20:59 02/24/20 21:00 Clonidine HCl (Catapres Tab) 0.1 mg Q8H PRN ORAL For SBP >160 02/21/20 01:45 05/21/20 01:44 Dexamethasone (Decadron) 4 mg DAILY ORAL 02/21/20 09:00 03/22/20 08:59 02/25/20 09:55 Dextrose (Dextrose 50%) 25 ml Q30M PRN IV Hypoglycemia 02/20/20 22:45 05/20/20 22:44 Dextrose (Dextrose 50%) 50 ml Q30M PRN IV Hypoglycemia 02/20/20 22:45 05/20/20 22:44 Diclofenac Sodium (Voltaren gel) 1 applic BID PRN TOPIC As needed for pain 02/21/20 01:45 05/21/20 01:44 Docusate Sodium (Colace) 100 mg TWICE A DAY ORAL 02/21/20 09:00 03/22/20 08:59 02/25/20 09:54 Heparin Sodium (Porcine) (Heparin 5000 units/ml) 5,000 units EVERY 12 HOURS SUBQ 02/22/20 09:00 04/07/20 08:59 02/25/20 09:57 Metoprolol Tartrate (Lopressor) 25 mg EVERY 12 HOURS ORAL 02/21/20 09:00 05/21/20 08:59 02/25/20 09:55 Multivitamins (Multivitamins) 1 tab DAILY ORAL 02/21/20 09:00 03/22/20 08:59 02/25/20 09:55 Ondansetron HCl (Zofran) 4 mg Q6H PRN IVP Nausea & Vomiting 02/20/20 22:45 03/21/20 22:44 Polyethylene Glycol (Miralax) 17 gm DAILYPRN PRN ORAL Constipation 02/20/20 22:45 03/21/20 22:44 Promethazine HCl/ Codeine (Phenergan with Codeine) 5 ml Q6H PRN ORAL cough 02/20/20 22:45 03/21/20 22:44 Quetiapine Fumarate (SEROqueL) 25 mg Q12HR ORAL 02/21/20 09:00 04/06/20 08:59 02/25/20 09:55 Tamsulosin HCl (Flomax) 0.4 mg BEDTIME ORAL 02/21/20 21:00 03/22/20 20:59 02/24/20 20:59 Valproic Acid (Depakene) 500 mg EVERY 12 HOURS ORAL 02/21/20 09:00 04/06/20 08:59 02/25/20 09:55 Vancomycin HCl (Vanco pharmacy to dose) 1 ea DAILY PRN MISC Per rx protocol 02/23/20 18:00 03/24/20 17:59 Vancomycin HCl 1.25 gm/Dextrose 275 ml @ 183.333 mls/hr Q24H IVPB 02/24/20 20:00 02/29/20 19:59 02/24/20 20:53 Daly Daniel M.D. Feb 25, 2020 13:46
[2020-02-25 16:00] VITALS: BP 113/75
--- NOTE | 2020-02-25 16:40 | NUR ---
CASE MANAGEMENT: REVIEW SI: COVID-19 . PNA T 97.9 HR 87 RR 20 BP 102/59 SAT 94% NC/2L H/H 12.4/37.4 NA 150 IS: DECADRON PO QD VANCOMYCIN IV Q24HR HEPARIN SUBQ Q12HR TELEMETRY UNIT STATUS DCP: PATIENT IS FROM [facility]
--- NOTE | 2020-02-25 17:15 | Pulmonology Progress Note ---
Subjective ROS Limited/Unobtainable: Yes Constitutional: Reports: no symptoms HEENT: Repors: no symptoms Respiratory: Reports: no symptoms Allergies: Coded Allergies: PENICILLIN G (Verified Allergy, Intermediate, 04/13/14) PENICILLINS (Unverified Allergy, Unknown, 07/21/18) Objective Last 24 Hour Vital Signs Date Time Temp Pulse Resp B/P (MAP) Pulse Ox O2 Delivery O2 Flow Rate FiO2 02/25/20 16:00 79 02/25/20 16:00 98.1 84 22 113/75 (88) 93 02/25/20 12:00 97.9 90 20 102/59 (73) 94 02/25/20 12:00 87 02/25/20 09:55 78 123/80 02/25/20 09:00 Nasal Cannula 2.0 02/25/20 08:00 78 02/25/20 08:00 98.1 87 20 123/80 (94) 97 02/25/20 04:00 98.8 80 22 122/76 (91) 94 02/25/20 04:00 80 02/25/20 01:00 99.1 02/25/20 00:58 99.1 02/25/20 00:00 84 02/25/20 00:00 101.5 84 22 104/64 (77) 97 02/24/20 21:02 83 119/61 02/24/20 21:00 Nasal Cannula 2.0 02/24/20 20:00 88 02/24/20 20:00 98.8 85 21 115/57 (76) 98 Intake and Output 02/24/20 02/25/20 19:00 07:00 Intake Total 240 ml 260 ml Balance 240 ml 260 ml Intake Oral 240 ml 260 ml # Voids 2 2 # Bowel Movements 1 General Appearance: WD/WN HEENT: normocephalic, atraumatic, EOMI Respiratory: chest wall non-tender Cardiovascular: normal peripheral pulses Abdomen: normal bowel sounds, no organomegaly Genitourinary: normal external genitalia Skin: no rash Neurologic: podiatry professor II-XII grossly normal Microbiology Date/Time Source Procedure Growth Status 02/24/20 18:30 Nasopharynx SARS-CoV-2 RdRp Gene Assay - Final Complete Laboratory Tests 02/25/20 04:54: White Blood Count 9.0, Red Blood Count 4.09L, Hemoglobin 12.4L, Hematocrit 37.4L , Mean Corpuscular Volume 91, Mean Corpuscular Hemoglobin 30.2, Mean Corpuscular Hemoglobin Concent 33.1, Red Cell Distribution Width 13.6, Platelet Count 137L, Mean Platelet Volume 8.5, Neutrophils (%) (Auto) , Lymphocytes (%) (Auto) , Monocytes (%) (Auto) , Eosinophils (%) (Auto) , Basophils (%) (Auto) , Sodium Level 150H, Potassium Level 4.0, Chloride Level 114H, Carbon Dioxide Level 27, Anion Gap 10, Blood Urea Nitrogen 29H, Creatinine 1.2, Estimat Glomerular Filtration Rate > 60, Glucose Level 95, Calcium Level 8.0L Current Medications Medications (Trade) Dose Ordered Sig/Yazmin Route PRN Reason Start Time Stop Time Status Last Admin Dose Admin Acetaminophen (Tylenol) 650 mg Q6H PRN ORAL Temp >100.5 and Mild Pain 02/21/20 01:45 03/22/20 01:44 02/25/20 00:28 Acetaminophen/ Hydrocodone Bitart ([place] 10/325) 1 tab Q6H PRN ORAL For Mod to Severe Pain 02/21/20 01:45 02/28/20 01:44 Albuterol/ Ipratropium (Albuterol/ Ipratropium) 3 ml Q4H PRN HHN Shortness of Breath 02/20/20 22:45 02/25/20 22:44 Albuterol/ Ipratropium (Combivent Respimat) 1 puff Q4H PRN INH Shortness of Breath 02/22/20 11:00 03/23/20 10:59 Atorvastatin Calcium (Lipitor) 40 mg BEDTIME ORAL 02/21/20 21:00 05/21/20 20:59 02/24/20 21:00 Clonidine HCl (Catapres Tab) 0.1 mg Q8H PRN ORAL For SBP >160 02/21/20 01:45 05/21/20 01:44 Dexamethasone (Decadron) 6 mg DAILY ORAL 02/26/20 09:00 03/01/20 12:00 Dextrose (Dextrose 50%) 25 ml Q30M PRN IV Hypoglycemia 02/20/20 22:45 05/20/20 22:44 Dextrose (Dextrose 50%) 50 ml Q30M PRN IV Hypoglycemia 02/20/20 22:45 05/20/20 22:44 Diclofenac Sodium (Voltaren gel) 1 applic BID PRN TOPIC As needed for pain 02/21/20 01:45 05/21/20 01:44 Docusate Sodium (Colace) 100 mg TWICE A DAY ORAL 02/21/20 09:00 03/22/20 08:59 02/25/20 09:54 Heparin Sodium (Porcine) (Heparin 5000 units/ml) 5,000 units EVERY 12 HOURS SUBQ 02/22/20 09:00 04/07/20 08:59 02/25/20 09:57 Metoprolol Tartrate (Lopressor) 25 mg EVERY 12 HOURS ORAL 02/21/20 09:00 05/21/20 08:59 02/25/20 09:55 Multivitamins (Multivitamins) 1 tab DAILY ORAL 02/21/20 09:00 03/22/20 08:59 02/25/20 09:55 Ondansetron HCl (Zofran) 4 mg Q6H PRN IVP Nausea & Vomiting 02/20/20 22:45 03/21/20 22:44 Polyethylene Glycol (Miralax) 17 gm DAILYPRN PRN ORAL Constipation 02/20/20 22:45 03/21/20 22:44 Promethazine HCl/ Codeine (Phenergan with Codeine) 5 ml Q6H PRN ORAL cough 02/20/20 22:45 03/21/20 22:44 Quetiapine Fumarate (SEROqueL) 25 mg Q12HR ORAL 02/21/20 09:00 04/06/20 08:59 02/25/20 09:55 Tamsulosin HCl (Flomax) 0.4 mg BEDTIME ORAL 02/21/20 21:00 03/22/20 20:59 02/24/20 20:59 Valproic Acid (Depakene) 500 mg EVERY 12 HOURS ORAL 02/21/20 09:00 04/06/20 08:59 02/25/20 09:55 Vancomycin HCl (Vanco pharmacy to dose) 1 ea DAILY PRN MISC Per rx protocol 02/23/20 18:00 03/24/20 17:59 Vancomycin HCl 1.25 gm/Dextrose 275 ml @ 183.333 mls/hr Q24H IVPB 02/24/20 20:00 02/29/20 19:59 02/24/20 20:53 Assessment/Plan Problems: (1) COVID-19 (2) Hypernatremia (3) HTN (hypertension) (4) CAD (coronary artery disease) (5) Cerebral palsy (6) SAH (subarachnoid hemorrhage) (7) BPH (benign prostatic hyperplasia) Assessment/Plan no new complains all reviewed cxr negative CRP still high chopra culture, MRSA nares on [place] ID evaluaion dvt prophylaxis seizure precaution dvt prohylaxis. Aldair Patel MD Feb 25, 2020 17:15
[2020-02-25] MEDS ORDERED: NS 275ml ONE (18:24)
--- NOTE | 2020-02-25 19:35 | NUR ---
NURSE HAND-OFF REPORT: Important Events on Shift: Pt tolerating RA Patient Status: Stable Diet: Regular finely chopped mech soft Pending Orders: Pending Results/Labs: Pending MD notification: Latest Vital Signs: Temperature 98.1 , Pulse 79 , B/P 113 /75 , Respiratory Rate 22 , O2 SAT 93 , Nasal Cannula, O2 Flow Rate 2.0 . Vital Sign Comment: EKG Rhythm: Sinus Rhythm Rhythm change?: N MD Notified?: N - MD Response: Latest Carrillo Fall Score: 70 Fall Risk: High Risk Safety Measures: Call light Within Reach, Bed Alarm Zone 1, Side Rails Side Rails x2, Bed position Low and Locked. Fall Precautions: Yellow Socks Yellow Gown Door Sign Patient Fall Education Report given to
--- NOTE | 2020-02-25 19:45 | NUR ---
NURSE NOTES: Patient received from Dea AMAYA. Patient in stable condition. A&O x 1-2. No s/s of acute distress. On 2L of oxygen via nasal cannula saturating well. IV site on Right hand 24G patent and intact. Bed in lowest position and locked. Bedside table and call light within reach. WIll continue plan of care.
[2020-02-25 20:00] VITALS: BP 116/66
[2020-02-25] MEDS: Vancomycin 1.25 GM in D5W 275 ML IVPB SCH (20:37)
[2020-02-25] MEDS: Tamsulosin 0.4mg cap ORAL SCH (20:38)
[2020-02-25] MEDS: Atorvastatin 20mg tab ORAL SCH (20:38)
--- NOTE | 2020-02-25 22:02 | Cardiology Report ---
APPROVED REPORT EKG Measurement Heart [id number] [id number] <Conclusion> Normal sinus rhythm Left axis deviation Minimal voltage criteria for LVH, may be normal variant Inferior infarct, age undetermined Abnormal ECG
[2020-02-26] VITALS: BP 131/85
[2020-02-26 04:00] VITALS: BP 107/66
[2020-02-26 04:50] LABS: BASOPHILS % (AUTO) 0.4 % (0.0-2.0); EOSINOPHILS % (AUTO) 0.2 % (0.0-3.0); HEMATOCRIT 35.8 % (42.0-52.0); HEMOGLOBIN 11.9 G/DL (14.2-18.0); LYMPHOCYTES % (AUTO) 7.2 % (20.0-45.0); MEAN CORPUSCULAR VOLUME 91 FL (80-99); MONOCYTES % (AUTO) 9.4 % (1.0-10.0); NEUTROPHILS % (AUTO) 82.7 % (45.0-75.0); PLATELET COUNT 153 K/UL (150-450); RED BLOOD COUNT 3.94 M/UL (4.70-6.10); RED CELL DISTRIBUTION WIDTH 13.4 % (11.6-14.8); WHITE BLOOD COUNT 6.4 K/UL (4.8-10.8)
[2020-02-26 05:10] LABS: ANION GAP 8 mmol/L (5-15); BLOOD UREA NITROGEN 31 mg/dL (7-18); CALCIUM 8.1 MG/DL (8.5-10.1); CARBON DIOXIDE 29 MMOL/L (21-32); CHLORIDE 111 MMOL/L (98-107); POTASSIUM 4.2 MMOL/L (3.5-5.1); SODIUM 147 MMOL/L (136-145)
--- NOTE | 2020-02-26 07:17 | NUR ---
RD ASSESSMENT & RECOMMENDATIONS SEE CARE ACTIVITY FOR COMPLETE ASSESSMENT DAILY ESTIMATED NEEDS: Needs based on pulmonary 69.5kg 25-30 kcals/kg 2192-4539 total kcals 1.25-1.5 g protein/kg 87-104 g total protein 25-30 mL/kg 0860-8559 total fluid mLs NUTRITION DIAGNOSIS: Chewing and swallowing difficulty R/T edentulous status, h/o dysphagia, h/o cerebral palsy as evidenced by pt on finely chopped texture diet, poor po intake noted. CURRENT DIET: Regular ms finely chopped PO DIET RECOMMENDATIONS: Maintain Regular diet/ texture per MIXED SIGNAL DESIGN ENGINEER ADDITIONAL RECOMMENDATIONS: * Rec MIXED SIGNAL DESIGN ENGINEER eval for appropriate texture- dysphagia dx, h/o cerebral palsy * Add Ensure 1 bottle tid w/ meals + snacks as tolerated in b/w meal s * Monitor PO intake and tolerance * Calibrated bedscale wt for accurate CBW, noted downtrend in wt * Skin integrity, add NEO Fruit punch BID as tolerated * Consider appetite stimulant -> Non oral feeds w/ continued poor to fair po intake
--- NOTE | 2020-02-26 07:25 | NUR ---
NURSE NOTES: Received report from Jaun/RN. Patient is awake in semi-fowlers position, eating breakfast. On 3L nasal cannula. Not distress or SOB noted. IV on right hand 24G patent and clean SL. Call light within reach. Bed in lowest position and locked, side rails up X3. Will continue plan of care.
--- NOTE | 2020-02-26 07:43 | NUR ---
NURSE HAND-OFF REPORT: Important Events on Shift:[None] Patient Status: [Stable] Diet: [Regular mech soft finely chopped] Pending Orders: [] Pending Results/Labs:[] Pending MD notification:[] Latest Vital Signs: Temperature 97.7 , Pulse 68 , B/P 107 /66 , Respiratory Rate 24 , O2 SAT 98 , Nasal Cannula, O2 Flow Rate 2.0 . Vital Sign Comment: [] EKG Rhythm: Sinus Rhythm Rhythm change?: N MD Notified?: N - MD Response: Latest Carrillo Fall Score: 70 Fall Risk: High Risk Safety Measures: Call light Within Reach, Bed Alarm Zone 1, Side Rails Side Rails x2, Bed position Low and Locked. Fall Precautions: Yellow Socks Yellow Gown Door Sign Patient Fall Education Report given to [Yun AMAYA].
[2020-02-26 08:00] VITALS: BP 164/101
[2020-02-26] MEDS: Docusate 100mg cap ORAL SCH ×2 (10:03→17:20)
[2020-02-26] MEDS: Valproic Acid 250mg/5ml Liquid ORAL SCH ×2 (10:05→22:10)
[2020-02-26] MEDS: Heparin 5000 units/ml inj SUBQ SCH ×2 (10:06→22:12)
--- NOTE | 2020-02-26 11:44 | Pulmonology Progress Note ---
Subjective ROS Limited/Unobtainable: Yes Constitutional: Reports: no symptoms HEENT: Repors: no symptoms Respiratory: Reports: no symptoms Allergies: Coded Allergies: PENICILLIN G (Verified Allergy, Intermediate, 04/13/14) PENICILLINS (Unverified Allergy, Unknown, 07/21/18) Objective Last 24 Hour Vital Signs Date Time Temp Pulse Resp B/P (MAP) Pulse Ox O2 Delivery O2 Flow Rate FiO2 02/26/20 10:04 164/101 02/26/20 10:03 82 164/101 02/26/20 09:14 Nasal Cannula 3.0 02/26/20 08:00 81 02/26/20 08:00 97.3 82 19 164/101 (122) 95 82 02/26/20 04:00 97.7 68 24 107/66 (80) 98 02/26/20 04:00 68 02/26/20 00:00 97.5 66 24 131/85 (100) 96 02/26/20 00:00 66 02/25/20 21:00 Nasal Cannula 2.0 02/25/20 20:38 76 133/93 02/25/20 20:00 99.5 83 24 116/66 (83) 90 02/25/20 20:00 92 02/25/20 16:00 79 02/25/20 16:00 98.1 84 22 113/75 (88) 93 02/25/20 12:00 97.9 90 20 102/59 (73) 94 02/25/20 12:00 87 Intake and Output 02/25/20 02/26/20 19:00 07:00 Intake Total 960 ml Balance 960 ml Intake Oral 960 ml # Voids 3 2 # Bowel Movements 2 General Appearance: WD/WN HEENT: normocephalic, atraumatic, EOMI Respiratory: chest wall non-tender Cardiovascular: normal peripheral pulses Abdomen: normal bowel sounds, no organomegaly Genitourinary: normal external genitalia Skin: no rash 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 II-XII grossly normal Microbiology Date/Time Source Procedure Growth Status 02/24/20 18:30 Nasopharynx SARS-CoV-2 RdRp Gene Assay - Final Complete Laboratory Tests 02/26/20 04:22: White Blood Count 6.4, Red Blood Count 3.94L, Hemoglobin 11.9L, Hematocrit 35.8L , Mean Corpuscular Volume 91, Mean Corpuscular Hemoglobin 30.3, Mean Corpuscular Hemoglobin Concent 33.3, Red Cell Distribution Width 13.4, Platelet Count 153, Mean Platelet Volume 7.4, Neutrophils (%) (Auto) 82.7H, Lymphocytes (%) (Auto) 7.2L, Monocytes (%) (Auto) 9.4, Eosinophils (%) (Auto) 0.2, Basophils (%) (Auto) 0.4, Sodium Level 147H, Potassium Level 4.2, Chloride Level 111H, Carbon Dioxide Level 29, Anion Gap 8, Blood Urea Nitrogen 31H, Creatinine 1.0, Estimat Glomerular Filtration Rate > 60, Glucose Level 97, Calcium Level 8.1L Current Medications Medications (Trade) Dose Ordered Sig/Yazmin Route PRN Reason Start Time Stop Time Status Last Admin Dose Admin Acetaminophen (Tylenol) 650 mg Q6H PRN ORAL Temp >100.5 and Mild Pain 02/21/20 01:45 03/22/20 01:44 02/25/20 00:28 Acetaminophen/ Hydrocodone Bitart ([place] 10/325) 1 tab Q6H PRN ORAL For Mod to Severe Pain 02/21/20 01:45 02/28/20 01:44 Albuterol/ Ipratropium (Combivent Respimat) 1 puff Q4H PRN INH Shortness of Breath 02/22/20 11:00 03/23/20 10:59 Atorvastatin Calcium (Lipitor) 40 mg BEDTIME ORAL 02/21/20 21:00 05/21/20 20:59 02/25/20 20:38 Clonidine HCl (Catapres Tab) 0.1 mg Q8H PRN ORAL For SBP >160 02/21/20 01:45 05/21/20 01:44 02/26/20 10:04 Dexamethasone (Decadron) 6 mg DAILY ORAL 02/26/20 09:00 03/01/20 12:00 02/26/20 10:04 Dextrose (Dextrose 50%) 25 ml Q30M PRN IV Hypoglycemia 02/20/20 22:45 05/20/20 22:44 Dextrose (Dextrose 50%) 50 ml Q30M PRN IV Hypoglycemia 02/20/20 22:45 05/20/20 22:44 Diclofenac Sodium (Voltaren gel) 1 applic BID PRN TOPIC As needed for pain 02/21/20 01:45 05/21/20 01:44 Docusate Sodium (Colace) 100 mg TWICE A DAY ORAL 02/21/20 09:00 03/22/20 08:59 02/26/20 10:03 Heparin Sodium (Porcine) (Heparin 5000 units/ml) 5,000 units EVERY 12 HOURS SUBQ 02/22/20 09:00 04/07/20 08:59 02/26/20 10:06 Metoprolol Tartrate (Lopressor) 25 mg EVERY 12 HOURS ORAL 02/21/20 09:00 05/21/20 08:59 02/26/20 10:03 Multivitamins (Multivitamins) 1 tab DAILY ORAL 02/21/20 09:00 03/22/20 08:59 02/26/20 10:03 Ondansetron HCl (Zofran) 4 mg Q6H PRN IVP Nausea & Vomiting 02/20/20 22:45 03/21/20 22:44 Polyethylene Glycol (Miralax) 17 gm DAILYPRN PRN ORAL Constipation 02/20/20 22:45 03/21/20 22:44 Promethazine HCl/ Codeine (Phenergan with Codeine) 5 ml Q6H PRN ORAL cough 02/20/20 22:45 03/21/20 22:44 Quetiapine Fumarate (SEROqueL) 25 mg Q12HR ORAL 02/21/20 09:00 04/06/20 08:59 02/26/20 10:04 Tamsulosin HCl (Flomax) 0.4 mg BEDTIME ORAL 02/21/20 21:00 03/22/20 20:59 02/25/20 20:38 Valproic Acid (Depakene) 500 mg EVERY 12 HOURS ORAL 02/21/20 09:00 04/06/20 08:59 02/26/20 10:05 Vancomycin HCl (Vanco pharmacy to dose) 1 ea DAILY PRN MISC Per rx protocol 02/23/20 18:00 03/24/20 17:59 Vancomycin HCl 1.25 gm/Dextrose 275 ml @ 183.333 mls/hr Q24H IVPB 02/24/20 20:00 02/29/20 19:59 02/25/20 20:37 Assessment/Plan Problems: (1) COVID-19 (2) Hypernatremia (3) HTN (hypertension) (4) CAD (coronary artery disease) (5) Cerebral palsy (6) SAH (subarachnoid hemorrhage) (7) BPH (benign prostatic hyperplasia) Assessment/Plan doing better all reviewed cxr negative CRP still high chopra culture, MRSA nares on Decardon dvt prophylaxis seizure precaution dvt prohylaxis. Aldair Patel MD Feb 26, 2020 11:44
[2020-02-26 11:51] VITALS: BP 104/74
--- NOTE | 2020-02-26 12:20 | Infectious Diseases Prog Note ---
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 -02/19 CXR: Mild left basilar atelectasis. No clear consolidation. UTI R/o probable bacteremia -u.a wbc 20-30, nit +, leuk +2; ucx >100k MRSA ( R tetracycline; S Vanco, bactrim) -Bcx NTD Fever; improving No leukocytosis Cerebral Palsy anemia HTN non verbal HLD hx of B/l LE DVT 2015 on coumadin CKD iron def anemia R hip fx s/p ORIF 2013 CAD/[place] GERD SAH 2ry to cerebral aneurysm DM2 COPD schizoaffective disorder- depressive type BPH seizure disorder [place] resident ([place]) Plan: -on Decadron #6 per pulm -IV Vancomycin #4/5 for MRSA in ucx -current at and no PNA on CXR; if respiratory decompensation, will consider remdesivir -02/22 SP Azithromycin #3 -02/19 SP Ceftriaxone x1 -f/u cx -Monitor CBC/CMP, temperatures -Repeat Bcx x2 if T>100.4 -COVID19 isolation Thank you for consulting [facility]. Will continue to follow along with you. Discussed with RN and Dr Patel. Subjective Allergies: Coded Allergies: PENICILLIN G (Verified Allergy, Intermediate, 04/13/14) PENICILLINS (Unverified Allergy, Unknown, 07/21/18) afebrile >36hrs at Bcx NTD Objective Last 24 Hour Vital Signs Date Time Temp Pulse Resp B/P (MAP) Pulse Ox O2 Delivery O2 Flow Rate FiO2 02/26/20 11:51 97.9 85 21 104/74 (84) 97 82 02/26/20 10:04 164/101 02/26/20 10:03 82 164/101 02/26/20 09:14 Nasal Cannula 3.0 02/26/20 08:00 81 02/26/20 08:00 97.3 82 19 164/101 (122) 95 82 02/26/20 04:00 97.7 68 24 107/66 (80) 98 02/26/20 04:00 68 02/26/20 00:00 97.5 66 24 131/85 (100) 96 02/26/20 00:00 66 02/25/20 21:00 Nasal Cannula 2.0 02/25/20 20:38 76 133/93 02/25/20 20:00 99.5 83 24 116/66 (83) 90 02/25/20 20:00 92 02/25/20 16:00 79 02/25/20 16:00 98.1 84 22 113/75 (88) 93 Height (Feet): 5 Height (Inches): 10.00 Weight (Pounds): 159 General Appearance: WD/WN HEENT: normocephalic, atraumatic, EOMI Respiratory: chest wall non-tender Cardiovascular: normal peripheral pulses Abdomen: normal bowel sounds, no organomegaly Microbiology Date/Time Source Procedure Growth Status 02/24/20 18:30 Nasopharynx SARS-CoV-2 RdRp Gene Assay - Final Complete Laboratory Tests Test 02/26/20 04:22 White Blood Count 6.4 K/UL (4.8-10.8) Red Blood Count 3.94 M/UL (4.70-6.10) L Hemoglobin 11.9 G/DL (14.2-18.0) L Hematocrit 35.8 % (42.0-52.0) L Mean Corpuscular Volume 91 FL (80-99) Mean Corpuscular Hemoglobin 30.3 PG (27.0-31.0) Mean Corpuscular Hemoglobin Concent 33.3 G/DL (32.0-36.0) Red Cell Distribution Width 13.4 % (11.6-14.8) Platelet Count 153 K/UL (150-450) Mean Platelet Volume 7.4 FL (6.5-10.1) Neutrophils (%) (Auto) 82.7 % (45.0-75.0) H Lymphocytes (%) (Auto) 7.2 % (20.0-45.0) L Monocytes (%) (Auto) 9.4 % (1.0-10.0) Eosinophils (%) (Auto) 0.2 % (0.0-3.0) Basophils (%) (Auto) 0.4 % (0.0-2.0) Sodium Level 147 MMOL/L (136-145) H Potassium Level 4.2 MMOL/L (3.5-5.1) Chloride Level 111 MMOL/L (98-107) H Carbon Dioxide Level 29 MMOL/L (21-32) Anion Gap 8 mmol/L (5-15) Blood Urea Nitrogen 31 mg/dL (7-18) H Creatinine 1.0 MG/DL (0.55-1.30) Estimat Glomerular Filtration Rate > 60 mL/min (>60) Glucose Level 97 MG/DL (74-106) Calcium Level 8.1 MG/DL (8.5-10.1) L Current Medications Medications (Trade) Dose Ordered Sig/Yazmin Route PRN Reason Start Time Stop Time Status Last Admin Dose Admin Acetaminophen (Tylenol) 650 mg Q6H PRN ORAL Temp >100.5 and Mild Pain 02/21/20 01:45 03/22/20 01:44 02/25/20 00:28 Acetaminophen/ Hydrocodone Bitart ([place] [address]) 1 tab Q6H PRN ORAL For Mod to Severe Pain 02/21/20 01:45 02/28/20 01:44 Albuterol/ Ipratropium (Combivent Respimat) 1 puff Q4H PRN INH Shortness of Breath 02/22/20 11:00 03/23/20 10:59 Atorvastatin Calcium (Lipitor) 40 mg BEDTIME ORAL 02/21/20 21:00 05/21/20 20:59 02/25/20 20:38 Clonidine HCl (Catapres Tab) 0.1 mg Q8H PRN ORAL For SBP >160 02/21/20 01:45 05/21/20 01:44 02/26/20 10:04 Dexamethasone (Decadron) 6 mg DAILY ORAL 02/26/20 09:00 03/01/20 12:00 02/26/20 10:04 Dextrose (Dextrose 50%) 25 ml Q30M PRN IV Hypoglycemia 02/20/20 22:45 05/20/20 22:44 Dextrose (Dextrose 50%) 50 ml Q30M PRN IV Hypoglycemia 02/20/20 22:45 05/20/20 22:44 Diclofenac Sodium (Voltaren gel) 1 applic BID PRN TOPIC As needed for pain 02/21/20 01:45 05/21/20 01:44 Docusate Sodium (Colace) 100 mg TWICE A DAY ORAL 02/21/20 09:00 03/22/20 08:59 02/26/20 10:03 Heparin Sodium (Porcine) (Heparin 5000 units/ml) 5,000 units EVERY 12 HOURS SUBQ 02/22/20 09:00 04/07/20 08:59 02/26/20 10:06 Metoprolol Tartrate (Lopressor) 25 mg EVERY 12 HOURS ORAL 02/21/20 09:00 05/21/20 08:59 02/26/20 10:03 Multivitamins (Multivitamins) 1 tab DAILY ORAL 02/21/20 09:00 03/22/20 08:59 02/26/20 10:03 Ondansetron HCl (Zofran) 4 mg Q6H PRN IVP Nausea & Vomiting 02/20/20 22:45 03/21/20 22:44 Polyethylene Glycol (Miralax) 17 gm DAILYPRN PRN ORAL Constipation 02/20/20 22:45 03/21/20 22:44 Promethazine HCl/ Codeine (Phenergan with Codeine) 5 ml Q6H PRN ORAL cough 02/20/20 22:45 03/21/20 22:44 Quetiapine Fumarate (SEROqueL) 25 mg Q12HR ORAL 02/21/20 09:00 04/06/20 08:59 02/26/20 10:04 Tamsulosin HCl (Flomax) 0.4 mg BEDTIME ORAL 02/21/20 21:00 03/22/20 20:59 02/25/20 20:38 Valproic Acid (Depakene) 500 mg EVERY 12 HOURS ORAL 02/21/20 09:00 04/06/20 08:59 02/26/20 10:05 Vancomycin HCl (Vanco pharmacy to dose) 1 ea DAILY PRN MISC Per rx protocol 02/23/20 18:00 03/24/20 17:59 Vancomycin HCl 1.25 gm/Dextrose 275 ml @ 183.333 mls/hr Q24H IVPB 02/24/20 20:00 02/29/20 19:59 02/25/20 20:37 Daly Daniel M.D. Feb 26, 2020 12:20
--- NOTE | 2020-02-26 13:50 | NUR ---
CASE MANAGEMENT: REVIEW 02/26/2020 SI:SEPSIS. COVID (+) VS: T 97.9 HR 85 RR 21 B/P 104/74 SATS 97% ON 3L/NC LABS: NA 147 CL 111 BUN 31 CA 8.1 IS:LOPRESSOR PO Q12H DEPAKENE PO Q12H FLOMAX PO QHS LIPITOR PO QHS DECADRON PO QD SEROQUEL PO Q12H VANCO IV Q24H PLAN OF CARE: -on Decadron #6 per pulm -IV Vancomycin #4/5 for MRSA in ucx WOUND EVAL
--- NOTE | 2020-02-26 14:12 | NUR ---
DISCHARGE PLANNING: NOTE DC ORDER REQUESTED. ID CLEARED FOR DC. CM S/W [facility] AT [facility] REGARDING COVID (+) STATUS AND CONTINUATION OF DECADRON. [facility] CAN ACCOMMODATE THIS PATIENT. CLINICALS FAXED. AWAITING ROOM NUMBER. Addendum: 02/26/20 at 1524 by Myra Wallace CM [facility] @ [facility] WILL BE ABLE TO ACCEPT THIS PATIENT TOMORROW 02/26. [facility] WOULD NOT PROVIDE CM WITH A TENTATIVE ROOM NUMBER AT THIS TIME. CM WILL F/U IN AM.
[2020-02-26 16:00] VITALS: BP 101/63
--- NOTE | 2020-02-26 19:39 | NUR ---
NURSE HAND-OFF REPORT: Important Events on Shift:None Patient Status: Stable Diet: Regular mechanical soft Pending Orders: Pending Results/Labs: Pending MD notification: Latest Vital Signs: Temperature 97.3 , Pulse 68 , B/P 101 /63 , Respiratory Rate 21 , O2 SAT 97 , Room Air, O2 Flow Rate 3.0 . Vital Sign Comment: Stable EKG Rhythm: Sinus Rhythm Rhythm change?: N MD Notified?: N - MD Response: Latest Carrillo Fall Score: 70 Fall Risk: High Risk Safety Measures: Call light Within Reach, Bed Alarm Zone 1, Side Rails Side Rails x3, Bed position Low and Locked. Fall Precautions: Yellow Socks Yellow Gown Door Sign Patient Fall Education Report given to Kelsie/JOSE LUIS.
--- NOTE | 2020-02-26 19:45 | NUR ---
NURSE NOTES: Important Events on Shift: Received report from Yun Last RN. Pt in stable condition, plan of care to be continue along with close monitoring. Patient Status: Stable Diet: Regular mech soft Pending Orders: none Pending Results/Labs: none Pending MD notification: none Latest Vital Signs: Temperature 97.9 , Pulse 64 , B/P 107 /68 , Respiratory Rate 24 , O2 SAT 93 , Room Air, O2 Flow Rate 3.0 . Vital Sign Comment: stable EKG Rhythm: Sinus Rhythm Rhythm change?: N MD Notified?: N - MD Response: Latest Carrillo Fall Score: 70 Fall Risk: High Risk Safety Measures: Call light Within Reach, Bed Alarm Zone 1, Side Rails Side Rails x3, Bed position Low and Locked. Fall Precautions: YES Yellow Socks YES Yellow Gown YES Door Sign YES Patient Fall Education YES
--- NOTE | 2020-02-26 19:55 | Internal Med Progress Note ---
Subjective Date of Service: Feb 26, 2020 Physician Name YudelkaJose Attending Physician Joey Perry MD Current Medications Medications (Trade) Dose Ordered Sig/Yazmin Route PRN Reason Start Time Stop Time Status Last Admin Dose Admin Acetaminophen (Tylenol) 650 mg Q6H PRN ORAL Temp >100.5 and Mild Pain 02/21/20 01:45 03/22/20 01:44 02/25/20 00:28 Acetaminophen/ Hydrocodone Bitart ([place] 10/325) 1 tab Q6H PRN ORAL For Mod to Severe Pain 02/21/20 01:45 02/28/20 01:44 Albuterol/ Ipratropium (Combivent Respimat) 1 puff Q4H PRN INH Shortness of Breath 02/22/20 11:00 03/23/20 10:59 Atorvastatin Calcium (Lipitor) 40 mg BEDTIME ORAL 02/21/20 21:00 05/21/20 20:59 02/25/20 20:38 Clonidine HCl (Catapres Tab) 0.1 mg Q8H PRN ORAL For SBP >160 02/21/20 01:45 05/21/20 01:44 02/26/20 10:04 Dexamethasone (Decadron) 6 mg DAILY ORAL 02/26/20 09:00 03/01/20 12:00 02/26/20 10:04 Dextrose (Dextrose 50%) 25 ml Q30M PRN IV Hypoglycemia 02/20/20 22:45 05/20/20 22:44 Dextrose (Dextrose 50%) 50 ml Q30M PRN IV Hypoglycemia 02/20/20 22:45 05/20/20 22:44 Diclofenac Sodium (Voltaren gel) 1 applic BID PRN TOPIC As needed for pain 02/21/20 01:45 05/21/20 01:44 Docusate Sodium (Colace) 100 mg TWICE A DAY ORAL 02/21/20 09:00 03/22/20 08:59 02/26/20 17:20 Heparin Sodium (Porcine) (Heparin 5000 units/ml) 5,000 units EVERY 12 HOURS SUBQ 02/22/20 09:00 04/07/20 08:59 02/26/20 10:06 Metoprolol Tartrate (Lopressor) 25 mg EVERY 12 HOURS ORAL 02/21/20 09:00 05/21/20 08:59 02/26/20 10:03 Multivitamins (Multivitamins) 1 tab DAILY ORAL 02/21/20 09:00 03/22/20 08:59 02/26/20 10:03 Ondansetron HCl (Zofran) 4 mg Q6H PRN IVP Nausea & Vomiting 02/20/20 22:45 03/21/20 22:44 Polyethylene Glycol (Miralax) 17 gm DAILYPRN PRN ORAL Constipation 02/20/20 22:45 03/21/20 22:44 Promethazine HCl/ Codeine (Phenergan with Codeine) 5 ml Q6H PRN ORAL cough 02/20/20 22:45 03/21/20 22:44 Quetiapine Fumarate (SEROqueL) 25 mg Q12HR ORAL 02/21/20 09:00 04/06/20 08:59 02/26/20 10:04 Tamsulosin HCl (Flomax) 0.4 mg BEDTIME ORAL 02/21/20 21:00 03/22/20 20:59 02/25/20 20:38 Valproic Acid (Depakene) 500 mg EVERY 12 HOURS ORAL 02/21/20 09:00 04/06/20 08:59 02/26/20 10:05 [facility] 1 ea DAILY PRN MISC Per rx protocol 02/23/20 18:00 03/24/20 17:59 Vancomycin HCl 1.25 gm/Dextrose 275 ml @ 183.333 mls/hr Q24H IVPB 02/24/20 20:00 02/29/20 19:59 02/25/20 20:37 Allergies: Coded Allergies: PENICILLIN G (Verified Allergy, Intermediate, 04/13/14) PENICILLINS (Unverified Allergy, Unknown, 07/21/18) ROS Limited/Unobtainable: Yes Subjective 84 YO M admitted with fever. Now COVID 19 positive. Cover for Int aki-DR Perry Objective Last Vital Signs Date Time Temp Pulse Resp B/P (MAP) Pulse Ox O2 Delivery O2 Flow Rate FiO2 02/26/20 18:30 Room Air 02/26/20 16:00 68 02/26/20 16:00 97.3 21 101/63 (76) 97 02/26/20 09:14 3.0 Laboratory Tests Test 02/26/20 04:22 02/26/20 18:40 White Blood Count 6.4 K/UL (4.8-10.8) Red Blood Count 3.94 M/UL (4.70-6.10) L Hemoglobin 11.9 G/DL (14.2-18.0) L Hematocrit 35.8 % (42.0-52.0) L Mean Corpuscular Volume 91 FL (80-99) Mean Corpuscular Hemoglobin 30.3 PG (27.0-31.0) Mean Corpuscular Hemoglobin Concent 33.3 G/DL (32.0-36.0) Red Cell Distribution Width 13.4 % (11.6-14.8) Platelet Count 153 K/UL (150-450) Mean Platelet Volume 7.4 FL (6.5-10.1) Neutrophils (%) (Auto) 82.7 % (45.0-75.0) H Lymphocytes (%) (Auto) 7.2 % (20.0-45.0) L Monocytes (%) (Auto) 9.4 % (1.0-10.0) Eosinophils (%) (Auto) 0.2 % (0.0-3.0) Basophils (%) (Auto) 0.4 % (0.0-2.0) Sodium Level 147 MMOL/L (136-145) H Potassium Level 4.2 MMOL/L (3.5-5.1) Chloride Level 111 MMOL/L (98-107) H Carbon Dioxide Level 29 MMOL/L (21-32) Anion Gap 8 mmol/L (5-15) Blood Urea Nitrogen 31 mg/dL (7-18) H Creatinine 1.0 MG/DL (0.55-1.30) Estimat Glomerular Filtration Rate > 60 mL/min (>60) Glucose Level 97 MG/DL (74-106) Calcium Level 8.1 MG/DL (8.5-10.1) L Vancomycin Level Trough 10.8 ug/mL (5.0-12.0) Microbiology Date/Time Source Procedure Growth Status 02/24/20 18:30 Nasopharynx SARS-CoV-2 RdRp Gene Assay - Final Complete Intake and Output 02/25/20 02/26/20 19:00 07:00 Intake Total 960 ml Balance 960 ml Intake Oral 960 ml # Voids 3 2 # Bowel Movements 2 Objective PHYSICAL EXAMINATION: GENERAL: The patient is a thin-appearing male, in no apparent distress. HEENT: Eyes, pupils equal and responsive to light and accommodation. Extraocular movements are intact. NECK: Supple without lymphadenopathy. CHEST: Lungs are clear to auscultation bilaterally with decreased breath sounds bilateral bases. Otherwise, without rales. CARDIOVASCULAR: Regular rhythm and rate. S1, S2 normal without murmurs, rubs, or gallops. ABDOMEN: Soft, nontender, and nondistended. Positive bowel sounds. No evidence of hepatosplenomegaly. Currently, no rebound or guarding noted. EXTREMITIES: Negative for clubbing, cyanosis, or edema. RECTAL/GENITAL: Not performed. NEUROLOGIC: Cranial nerves II through XII are grossly intact without focal deficits. Assessment/Plan Assessment/Plan ASSESSMENT: This is an 84-year-old male. 1. COVID-19 positive. 2. Fever. 3. Probable COVID-19 pneumonia. 4. Chronic renal failure. 5. Dysphagia. 6. History of cerebral palsy. 7. Brain aneurysm. 8. Subarachnoid hemorrhage. 9. Benign prostatic hypertrophy. 10. Coronary artery disease. 11. Hypertension. 12. Congestive heart failure. 13. Bilateral lower extremity deep venous thrombosis. 14. Iron deficiency anemia. 15. Hypercholesterolemia. 16. Seizure disorder. 17. Schizophrenia. 18. UTI=MRSA TREATMENT: 1. COVID-19 positive/probable pneumonia. Pulmonary consultation = Dr. Aldair Patel. The patient has been placed empirically on Decadron. The patient is currently on azithromycin and ceftriaxone. 2. Bilateral lower extremity deep venous thrombosis (chronic). Anticoagulation=heparin subcut 3. Chronic renal failure. 4. Dysphagia. 5. History of cerebral palsy. 6. Subarachnoid hemorrhage. 7. Benign prostatic hypertrophy. 8. Coronary artery disease. 9. Hypertension. Continue clonidine as above. 10. Iron deficiency anemia. 11. Hypercholesterolemia. 12. Seizure disorder. Continue valproic acid as above. 13. Schizophrenia. 14. Full code 15. aBX=Jose Mcclain MD Feb 26, 2020 19:55
[2020-02-26 20:00] VITALS: BP 116/67
[2020-02-26] MEDS: Atorvastatin 20mg tab ORAL SCH (22:11)
[2020-02-26] MEDS: Tamsulosin 0.4mg cap ORAL SCH (22:11)
[2020-02-26] MEDS: Vancomycin 1.25 GM in D5W 275 ML IVPB SCH (22:14)
[2020-02-27] VITALS: BP 107/68
[2020-02-27 04:00] VITALS: BP 123/72
[2020-02-27 05:47] LABS: BASOPHILS % (AUTO) 0.6 % (0.0-2.0); HEMATOCRIT 36.4 % (42.0-52.0); HEMOGLOBIN 12.2 G/DL (14.2-18.0); LYMPHOCYTES % (AUTO) 12.5 % (20.0-45.0); MEAN CORPUSCULAR VOLUME 90 FL (80-99); MONOCYTES % (AUTO) 12.6 % (1.0-10.0); NEUTROPHILS % (AUTO) 74.3 % (45.0-75.0); PLATELET COUNT 180 K/UL (150-450); RED BLOOD COUNT 4.06 M/UL (4.70-6.10); RED CELL DISTRIBUTION WIDTH 13.7 % (11.6-14.8)
[2020-02-27 06:06] LABS: ANION GAP 9 mmol/L (5-15); BLOOD UREA NITROGEN 36 mg/dL (7-18); CALCIUM 8.3 MG/DL (8.5-10.1); CARBON DIOXIDE 28 MMOL/L (21-32); CHLORIDE 113 MMOL/L (98-107); POTASSIUM 4.3 MMOL/L (3.5-5.1); SODIUM 149 MMOL/L (136-145)
--- NOTE | 2020-02-27 07:25 | NUR ---
NURSE NOTES: Received report from Kelsie/JOSE LUIS. Patient sleeping, laying semi-fowlers. On room air, no distress or SOB noted. IV on right hand 24G SL, patent and clean. Bed in the lowest position and locked. Side rails up X3. Call light within reach, encouraged to use it when needed. Will continue plan of care.
--- NOTE | 2020-02-27 07:39 | NUR ---
NURSE HAND-OFF REPORT: Important Events on Shift: None Patient Status: Stable Diet: Regular mech soft Pending Orders: None Pending Results/Labs:AM labs Pending MD notification: Latest Vital Signs: Temperature 97.5 , Pulse 65 , B/P 123 /72 , Respiratory Rate 24 , O2 SAT 97 , Room Air, O2 Flow Rate 3.0 . Vital Sign Comment: Stable EKG Rhythm: Sinus Rhythm Rhythm change?: N MD Notified?: N - MD Response: Latest Carrillo Fall Score: 70 Fall Risk: High Risk Safety Measures: Call light Within Reach, Bed Alarm Zone 1, Side Rails Side Rails x3, Bed position Low and Locked. Fall Precautions: YES Yellow Socks YES Yellow Gown YES Door Sign YES Patient Fall Education YES Report given to Yun Feng RN
[2020-02-27 08:00] VITALS: BP 107/67
--- NOTE | 2020-02-27 09:05 | NUR ---
Nursing notes: During morning vitals CLOUD SOFTWARE ENGINEER advised Rn and CRN about O2 status of 86% on room air, RT was called and placed the pt on a ventury mask at 14L with 55% Fio2, Amanda Roberts Shadi notified of new event
[2020-02-27] MEDS: Docusate 100mg cap ORAL SCH ×2 (09:14→17:24)
[2020-02-27] MEDS: Valproic Acid 250mg/5ml Liquid ORAL SCH ×2 (09:15→20:23)
[2020-02-27] MEDS: Heparin 5000 units/ml inj SUBQ SCH ×2 (09:27→20:25)
--- NOTE | 2020-02-27 09:44 | NUR ---
CASE MANAGEMENT: REVIEW 02/27/2020 SI:SEPSIS. COVID (+) VS: T 97.5 HR 65 RR 24 B/P 107/67 SATS 86% ON 14L/VENTURI MASK FIO2 55 LABS: NA 149 CL 113 BUN 36 GLU 267 CA 8.3 IS:LOPRESSOR PO Q12H DEPAKENE PO Q12H FLOMAX PO QHS LIPITOR PO QHS DECADRON PO QD SEROQUEL PO Q12H VANCO IV Q24H PLAN OF CARE: -on Decadron #7 per pulm -IV Vancomycin #5/5 for MRSA in ucx WOUND EVAL CXR
--- NOTE | 2020-02-27 10:55 | NUR ---
RADIOLOGY DEPT., CHEST X-RAY DONE-P.DYE
--- NOTE | 2020-02-27 11:26 | Infectious Diseases Prog Note ---
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 -02/19 CXR: Mild left basilar atelectasis. No clear consolidation. UTI R/o probable bacteremia -u.a wbc 20-30, nit +, leuk +2; ucx >100k MRSA ( R tetracycline; S Vanco, bactrim) -Bcx NTD Fever; SP No leukocytosis Cerebral Palsy anemia HTN non verbal HLD hx of B/l LE DVT 2015 on coumadin CKD iron def anemia R hip fx s/p ORIF 2013 CAD/MS GERD SAH 2ry to cerebral aneurysm DM2 COPD schizoaffective disorder- depressive type BPH seizure disorder PA resident ([facility]) Plan: -on Decadron #7 -IV Vancomycin #5/5 for MRSA in ucx -current at RA and no PNA on CXR; if respiratory decompensation, will consider remdesivir -02/22 SP Azithromycin #3 -02/19 SP Ceftriaxone x1 -f/u cx -Monitor CBC/CMP, temperatures -Repeat Bcx x2 if T>100.4 -COVID19 isolation =f/u CXR Thank you for consulting [facility]. Will continue to follow along with you. Discussed with RN and Dr Patel. Subjective Allergies: Coded Allergies: PENICILLIN G (Verified Allergy, Intermediate, 04/13/14) PENICILLINS (Unverified Allergy, Unknown, 07/21/18) afebrile >48 desaturated to 86% at RA- now is on venturi mask 14L 55% Objective Last 24 Hour Vital Signs Date Time Temp Pulse Resp B/P (MAP) Pulse Ox O2 Delivery O2 Flow Rate FiO2 02/27/20 09:00 65 107/67 02/27/20 08:00 97.9 68 24 107/67 (80) 86 65 02/27/20 04:00 61 02/27/20 04:00 97.5 65 24 123/72 (89) 97 65 02/27/20 00:00 97.9 64 24 107/68 (81) 93 64 02/27/20 00:00 69 02/26/20 22:11 68 101/63 02/26/20 20:00 67 02/26/20 20:00 97.3 62 21 116/67 (83) 97 82 02/26/20 18:30 Room Air 02/26/20 16:00 68 02/26/20 16:00 97.3 62 21 101/63 (76) 97 82 02/26/20 12:00 81 02/26/20 11:51 97.9 85 21 104/74 (84) 97 82 Height (Feet): 5 Height (Inches): 10.00 Weight (Pounds): 159 Respiratory: symmetric chest expasion Cardiovascular: SI, S2 normal Abdomen: not distended sKIN: no rash Microbiology Date/Time Source Procedure Growth Status 02/24/20 18:30 Nasopharynx SARS-CoV-2 RdRp Gene Assay - Final Complete Laboratory Tests Test 02/26/20 18:40 02/27/20 05:13 02/27/20 06:34 02/27/20 08:46 Vancomycin Level Trough 10.8 ug/mL (5.0-12.0) White Blood Count 5.0 K/UL (4.8-10.8) Red Blood Count 4.06 M/UL (4.70-6.10) L Hemoglobin 12.2 G/DL (14.2-18.0) L Hematocrit 36.4 % (42.0-52.0) L Mean Corpuscular Volume 90 FL (80-99) Mean Corpuscular Hemoglobin 30.1 PG (27.0-31.0) Mean Corpuscular Hemoglobin Concent 33.5 G/DL (32.0-36.0) Red Cell Distribution Width 13.7 % (11.6-14.8) Platelet Count 180 K/UL (150-450) Mean Platelet Volume 6.9 FL (6.5-10.1) Neutrophils (%) (Auto) 74.3 % (45.0-75.0) Lymphocytes (%) (Auto) 12.5 % (20.0-45.0) L Monocytes (%) (Auto) 12.6 % (1.0-10.0) H Eosinophils (%) (Auto) 0.0 % (0.0-3.0) Basophils (%) (Auto) 0.6 % (0.0-2.0) Sodium Level 149 MMOL/L (136-145) H Potassium Level 4.3 MMOL/L (3.5-5.1) Chloride Level 113 MMOL/L (98-107) H Carbon Dioxide Level 28 MMOL/L (21-32) Anion Gap 9 mmol/L (5-15) Blood Urea Nitrogen 36 mg/dL (7-18) H Creatinine 1.0 MG/DL (0.55-1.30) Estimat Glomerular Filtration Rate > 60 mL/min (>60) Glucose Level 90 MG/DL (74-106) Calcium Level 8.3 MG/DL (8.5-10.1) L POC Whole Blood Glucose 267 MG/DL (74-106) H Arterial Blood pH 7.414 (7.350-7.450) Arterial Blood Partial Pressure CO2 41.6 mmHg (35.0-45.0) Arterial Blood Partial Pressure O2 72.3 mmHg (75.0-100.0) L Arterial Blood HCO3 26.0 mmol/L (22.0-26.0) Arterial Blood Oxygen Saturation 92.8 % (95-100) L Arterial Blood Base Excess 1.3 (-2-2) Cosmo Test Positive Current Medications Medications (Trade) Dose Ordered Sig/Yazmin Route PRN Reason Start Time Stop Time Status Last Admin Dose Admin Acetaminophen (Tylenol) 650 mg Q6H PRN ORAL Temp >100.5 and Mild Pain 02/21/20 01:45 03/22/20 01:44 02/25/20 00:28 Acetaminophen/ Hydrocodone Bitart ([place] 10/325) 1 tab Q6H PRN ORAL For Mod to Severe Pain 02/21/20 01:45 02/28/20 01:44 Albuterol/ Ipratropium (Combivent Respimat) 1 puff Q4H PRN INH Shortness of Breath 02/22/20 11:00 03/23/20 10:59 Atorvastatin Calcium (Lipitor) 40 mg BEDTIME ORAL 02/21/20 21:00 05/21/20 20:59 02/26/20 22:11 Clonidine HCl (Catapres Tab) 0.1 mg Q8H PRN ORAL For SBP >160 02/21/20 01:45 05/21/20 01:44 02/26/20 10:04 Dexamethasone (Decadron) 6 mg DAILY ORAL 02/26/20 09:00 03/01/20 12:00 02/27/20 09:15 Dextrose (Dextrose 50%) 25 ml Q30M PRN IV Hypoglycemia 02/20/20 22:45 05/20/20 22:44 Dextrose (Dextrose 50%) 50 ml Q30M PRN IV Hypoglycemia 02/20/20 22:45 05/20/20 22:44 Diclofenac Sodium (Voltaren gel) 1 applic BID PRN TOPIC As needed for pain 02/21/20 01:45 05/21/20 01:44 Docusate Sodium (Colace) 100 mg TWICE A DAY ORAL 02/21/20 09:00 03/22/20 08:59 02/27/20 09:14 Heparin Sodium (Porcine) (Heparin 5000 units/ml) 5,000 units EVERY 12 HOURS SUBQ 02/22/20 09:00 04/07/20 08:59 02/27/20 09:27 Metoprolol Tartrate (Lopressor) 25 mg EVERY 12 HOURS ORAL 02/21/20 09:00 05/21/20 08:59 02/26/20 22:11 Multivitamins (Multivitamins) 1 tab DAILY ORAL 02/21/20 09:00 03/22/20 08:59 02/27/20 09:14 Ondansetron HCl (Zofran) 4 mg Q6H PRN IVP Nausea & Vomiting 02/20/20 22:45 03/21/20 22:44 Polyethylene Glycol (Miralax) 17 gm DAILYPRN PRN ORAL Constipation 02/20/20 22:45 03/21/20 22:44 Promethazine HCl/ Codeine (Phenergan with Codeine) 5 ml Q6H PRN ORAL cough 02/20/20 22:45 03/21/20 22:44 Quetiapine Fumarate (SEROqueL) 25 mg Q12HR ORAL 02/21/20 09:00 04/06/20 08:59 02/27/20 09:14 Tamsulosin HCl (Flomax) 0.4 mg BEDTIME ORAL 02/21/20 21:00 03/22/20 20:59 02/26/20 22:11 Valproic Acid (Depakene) 500 mg EVERY 12 HOURS ORAL 02/21/20 09:00 04/06/20 08:59 02/27/20 09:15 Vancomycin HCl (Vanco pharmacy to dose) 1 ea DAILY PRN MISC Per rx protocol 02/23/20 18:00 03/24/20 17:59 Vancomycin HCl 1.25 gm/Dextrose 275 ml @ 183.333 mls/hr Q24H IVPB 02/24/20 20:00 02/29/20 19:59 02/26/20 22:14 Daly Daniel M.D. Feb 27, 2020 11:26
--- NOTE | 2020-02-27 11:36 | Diagnostic Imaging Report ---
Procedure: XRAY Chest 1v Reason for study: Reason For Exam: SOB Comparison films: 02/23/2020. FINDINGS: A single one view chest is obtained. Vascularity is normal. Mild densities noted lateral left lung base either atelectasis versus early infiltrate. Cardiac and mediastinal silhouette are within normal limits. No large effusion seen. The bony thorax appear unremarkable. IMPRESSION: Mild atelectasis versus early infiltrate left lung base.
--- NOTE | 2020-02-27 11:51 | NUR ---
NURSE NOTES: Contacted pt Next of Dev to get consent for the Rendesivir medication to be given to pt. Talked to Kelli Jiang and she agreed to consent.
--- NOTE | 2020-02-27 11:58 | NUR ---
CASE MANAGEMENT: NOTE ROOM 22B @ [facility] IS AVAILABLE FOR WEEKEND DC IF PT STABILIZES.
[2020-02-27 12:00] VITALS: BP 107/63
--- NOTE | 2020-02-27 13:11 | Pulmonology Progress Note ---
Subjective ROS Limited/Unobtainable: Yes Constitutional: Reports: no symptoms HEENT: Repors: no symptoms Respiratory: Reports: no symptoms Allergies: Coded Allergies: PENICILLIN G (Verified Allergy, Intermediate, 04/13/14) PENICILLINS (Unverified Allergy, Unknown, 07/21/18) Objective Last 24 Hour Vital Signs Date Time Temp Pulse Resp B/P (MAP) Pulse Ox O2 Delivery O2 Flow Rate FiO2 02/27/20 12:00 98.6 67 20 107/63 (78) 97 65 02/27/20 09:00 Venturi Mask 14.0 02/27/20 09:00 65 107/67 02/27/20 08:00 97.9 68 24 107/67 (80) 86 65 02/27/20 08:00 61 02/27/20 04:00 61 02/27/20 04:00 97.5 65 24 123/72 (89) 97 65 02/27/20 00:00 97.9 64 24 107/68 (81) 93 64 02/27/20 00:00 69 02/26/20 22:11 68 101/63 02/26/20 20:00 67 02/26/20 20:00 97.3 62 21 116/67 (83) 97 82 02/26/20 18:30 Room Air 02/26/20 16:00 68 02/26/20 16:00 97.3 62 21 101/63 (76) 97 82 Intake and Output 02/26/20 02/27/20 19:00 07:00 Intake Total 480 ml Balance 480 ml Intake Oral 480 ml General Appearance: WD/WN HEENT: normocephalic, atraumatic, EOMI Respiratory: chest wall non-tender Cardiovascular: normal peripheral pulses Abdomen: normal bowel sounds, no organomegaly Genitourinary: normal external genitalia Skin: no rash Neurologic: 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 II-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 grossly normal Lymphatic: no neck adenopathy Musculoskeletal: normal muscle bulk Microbiology Date/Time Source Procedure Growth Status 02/24/20 18:30 Nasopharynx SARS-CoV-2 RdRp Gene Assay - Final Complete Laboratory Tests 02/26/20 18:40: Vancomycin Level Trough 10.8 02/27/20 05:13: White Blood Count 5.0, Red Blood Count 4.06L, Hemoglobin 12.2L, Hematocrit 36.4L , Mean Corpuscular Volume 90, Mean Corpuscular Hemoglobin 30.1, Mean Corpuscular Hemoglobin Concent 33.5, Red Cell Distribution Width 13.7, Platelet Count 180, Mean Platelet Volume 6.9, Neutrophils (%) (Auto) 74.3, Lymphocytes (%) (Auto) 12.5L, Monocytes (%) (Auto) 12.6H, Eosinophils (%) (Auto) 0.0, Basophils (%) (Auto) 0.6, Sodium Level 149H, Potassium Level 4.3, Chloride Level 113H, Carbon Dioxide Level 28, Anion Gap 9, Blood Urea Nitrogen 36H, Creatinine 1.0, Estimat Glomerular Filtration Rate > 60, Glucose Level 90, Calcium Level 8.3L 02/27/20 06:34: POC Whole Blood Glucose 267H 02/27/20 08:46: Arterial Blood pH 7.414, Arterial Blood Partial Pressure CO2 41.6, Arterial Blood Partial Pressure O2 72.3L, Arterial Blood HCO3 26.0, Arterial Blood Oxygen Saturation 92.8L, Arterial Blood Base Excess 1.3, Cosmo Test Positive Current Medications Medications (Trade) Dose Ordered Sig/Yamzin Route PRN Reason Start Time Stop Time Status Last Admin Dose Admin Acetaminophen (Tylenol) 650 mg Q6H PRN ORAL Temp >100.5 and Mild Pain 02/21/20 01:45 03/22/20 01:44 02/25/20 00:28 Acetaminophen/ Hydrocodone Bitart ([place] 10/325) 1 tab Q6H PRN ORAL For Mod to Severe Pain 02/21/20 01:45 02/28/20 01:44 Albuterol/ Ipratropium (Combivent Respimat) 1 puff Q4H PRN INH Shortness of Breath 02/22/20 11:00 03/23/20 10:59 Atorvastatin Calcium (Lipitor) 40 mg BEDTIME ORAL 02/21/20 21:00 05/21/20 20:59 02/26/20 22:11 Clonidine HCl (Catapres Tab) 0.1 mg Q8H PRN ORAL For SBP >160 02/21/20 01:45 05/21/20 01:44 02/26/20 10:04 Dexamethasone (Decadron) 6 mg DAILY ORAL 02/26/20 09:00 03/01/20 12:00 02/27/20 09:15 Dextrose (Dextrose 50%) 25 ml Q30M PRN IV Hypoglycemia 02/20/20 22:45 05/20/20 22:44 Dextrose (Dextrose 50%) 50 ml Q30M PRN IV Hypoglycemia 02/20/20 22:45 05/20/20 22:44 Diclofenac Sodium (Voltaren gel) 1 applic BID PRN TOPIC As needed for pain 02/21/20 01:45 05/21/20 01:44 Docusate Sodium (Colace) 100 mg TWICE A DAY ORAL 02/21/20 09:00 03/22/20 08:59 02/27/20 09:14 Heparin Sodium (Porcine) (Heparin 5000 units/ml) 5,000 units EVERY 12 HOURS SUBQ 02/22/20 09:00 04/07/20 08:59 02/27/20 09:27 Metoprolol Tartrate (Lopressor) 25 mg EVERY 12 HOURS ORAL 02/21/20 09:00 05/21/20 08:59 02/26/20 22:11 Miscellaneous Medication (Remdesivir Fact Sheet) 1 ea ONCE MISC 02/27/20 13:15 02/27/20 13:16 Multivitamins (Multivitamins) 1 tab DAILY ORAL 02/21/20 09:00 03/22/20 08:59 02/27/20 09:14 Ondansetron HCl (Zofran) 4 mg Q6H PRN IVP Nausea & Vomiting 02/20/20 22:45 03/21/20 22:44 Polyethylene Glycol (Miralax) 17 gm DAILYPRN PRN ORAL Constipation 02/20/20 22:45 03/21/20 22:44 Promethazine HCl/ Codeine (Phenergan with Codeine) 5 ml Q6H PRN ORAL cough 02/20/20 22:45 03/21/20 22:44 Quetiapine Fumarate (SEROqueL) 25 mg Q12HR ORAL 02/21/20 09:00 04/06/20 08:59 02/27/20 09:14 Remdesivir 100 mg/ Sodium Chloride 250 ml @ 250 mls/hr Q24H IV 02/28/20 14:00 03/02/20 14:59 Remdesivir 200 mg/ Sodium Chloride 250 ml @ 125 mls/hr ONCE IV 02/27/20 14:00 02/27/20 15:59 Tamsulosin HCl (Flomax) 0.4 mg BEDTIME ORAL 02/21/20 21:00 03/22/20 20:59 02/26/20 22:11 Valproic Acid (Depakene) 500 mg EVERY 12 HOURS ORAL 02/21/20 09:00 04/06/20 08:59 02/27/20 09:15 Vancomycin HCl (Vanco pharmacy to dose) 1 ea DAILY PRN MISC Per rx protocol 02/23/20 18:00 03/24/20 17:59 Vancomycin HCl 1.25 gm/Dextrose 275 ml @ 183.333 mls/hr Q24H IVPB 02/24/20 20:00 02/29/20 19:59 02/26/20 22:14 Assessment/Plan Problems: (1) Acute respiratory failure (2) COVID-19 (3) Hypernatremia (4) HTN (hypertension) (5) CAD (coronary artery disease) (6) Cerebral palsy (7) SAH (subarachnoid hemorrhage) (8) BPH (benign prostatic hyperplasia) (9) History of alcohol abuse Assessment/Plan pt developed dyspnea and desaturation, CXR done didn't show any new infiltrate. will get CT angio to rule out PE cxr negative 02/26 CRP still high chopra culture, MRSA nares on Decardon dvt prophylaxis seizure precaution dvt prohylaxis. Aldair Patel MD Feb 27, 2020 13:11
[2020-02-27] MEDS ORDERED: Omnipaque 350 100ml vial INJ PRN (13:15)
[2020-02-27] MEDS ORDERED: Remdesivir Fact Sheet MISC SCH (13:15)
[2020-02-27] MEDS ORDERED: Loading Dose:Remdesivir 200mg/NS 210ml IV SCH ×2 (14:00)
[2020-02-27 16:00] VITALS: BP 123/60
--- NOTE | 2020-02-27 16:40 | Diagnostic Imaging Report ---
CT ANGIOGRAM CHEST WITH CONTRAST INDICATION: Chest pain, dyspnea TECHNIQUE: Continuous helical transaxial imaging of the chest was obtained after administration of intravenous contrast, and the pulmonary arterial phase. Coronal 2-D reformats were also obtained. Study obtained in a Siemens sensation [address] Automatic Exposure Control was utilized. Total Dose length Product (DLP): [address] Dose Index Volume (CTDIvol): 50.7 mGy COMPARISON: CTA chest dated 07/23/2018 FINDINGS: Diagnostic Limited examination due to significant motion artifact. Lungs and pleura: Small right pleural effusion. Scattered patchy groundglass opacities. There is reticular interstitial prominence, predominantly in a peripheral distribution, which is also seen on prior examination. There are streaky bibasilar airspace opacities. Right pleural-based calcifications are again noted. Heart and mediastinum: Stable cardiomegaly. No pericardial effusion. Moderate coronary artery calcifications. Airway: Patent. Lymph nodes: Prominent nonenlarged mediastinal lymph nodes. Vasculature:Main pulmonary artery measures at the upper limits of normal. Mild aortic atherosclerotic calcification. Ascending aorta is normal in caliber. Upper abdomen: Small volume ascites. Small hiatal hernia. Gallbladder is contracted, limiting evaluation. Bones and soft tissue: Redemonstration of gynecomastia. There are multilevel discogenic degenerative changes of the visualized spine. IMPRESSION: Diagnostically limited examination due to significant motion artifact. Within these limitations: 1. No central or large segmental pulmonary embolism; evaluation of distal smaller pulmonary arteries is limited due to motion artifact, and emboli at these levels cannot be entirely excluded. 2. Patchy ground glass opacities and interstitial reticulation which are nonspecific findings but can be seen with pneumonia superimposed on underlying interstitial fibrosis, atypical/viral pneumonia, chronic pulmonary edema, or scarring from prior infection/inflammation. 3. Small right pleural effusion. 4. Cardiomegaly. The CT scanner at [facility] is accredited by the [employer] and the scans are performed using protocols designed to limit radiation exposure to as low as reasonably achievable to attain images of sufficient resolution adequate for diagnostic evaluation
--- NOTE | 2020-02-27 18:09 | Internal Med Progress Note ---
Subjective Physician Name Joey Perry Attending Physician Joey Perry MD Current Medications Medications (Trade) Dose Ordered Sig/Yazmin Route PRN Reason Start Time Stop Time Status Last Admin Dose Admin Acetaminophen (Tylenol) 650 mg Q6H PRN ORAL Temp >100.5 and Mild Pain 02/21/20 01:45 03/22/20 01:44 02/25/20 00:28 Acetaminophen/ Hydrocodone Bitart ([place] 10/325) 1 tab Q6H PRN ORAL For Mod to Severe Pain 02/21/20 01:45 02/28/20 01:44 Albuterol/ Ipratropium (Combivent Respimat) 1 puff Q4H PRN INH Shortness of Breath 02/22/20 11:00 03/23/20 10:59 Atorvastatin Calcium (Lipitor) 40 mg BEDTIME ORAL 02/21/20 21:00 05/21/20 20:59 02/26/20 22:11 Clonidine HCl (Catapres Tab) 0.1 mg Q8H PRN ORAL For SBP >160 02/21/20 01:45 05/21/20 01:44 02/26/20 10:04 Dexamethasone (Decadron) 6 mg DAILY ORAL 02/26/20 09:00 03/01/20 12:00 02/27/20 09:15 Dextrose (Dextrose 50%) 25 ml Q30M PRN IV Hypoglycemia 02/20/20 22:45 05/20/20 22:44 Dextrose (Dextrose 50%) 50 ml Q30M PRN IV Hypoglycemia 02/20/20 22:45 05/20/20 22:44 Diclofenac Sodium (Voltaren gel) 1 applic BID PRN TOPIC As needed for pain 02/21/20 01:45 05/21/20 01:44 Docusate Sodium (Colace) 100 mg TWICE A DAY ORAL 02/21/20 09:00 03/22/20 08:59 02/27/20 17:24 Heparin Sodium (Porcine) (Heparin 5000 units/ml) 5,000 units EVERY 12 HOURS SUBQ 02/22/20 09:00 04/07/20 08:59 02/27/20 09:27 Iohexol (Omnipaque 350 100ml) 100 ml NOW PRN INJ Radiology Procedure 02/27/20 13:15 02/29/20 13:14 Metoprolol Tartrate (Lopressor) 25 mg EVERY 12 HOURS ORAL 02/21/20 09:00 05/21/20 08:59 02/26/20 22:11 Multivitamins (Multivitamins) 1 tab DAILY ORAL 02/21/20 09:00 03/22/20 08:59 02/27/20 09:14 Ondansetron HCl (Zofran) 4 mg Q6H PRN IVP Nausea & Vomiting 02/20/20 22:45 03/21/20 22:44 Polyethylene Glycol (Miralax) 17 gm DAILYPRN PRN ORAL Constipation 02/20/20 22:45 03/21/20 22:44 Promethazine HCl/ Codeine (Phenergan with Codeine) 5 ml Q6H PRN ORAL cough 02/20/20 22:45 03/21/20 22:44 Quetiapine Fumarate (SEROqueL) 25 mg Q12HR ORAL 02/21/20 09:00 04/06/20 08:59 02/27/20 09:14 Remdesivir 100 mg/ Sodium Chloride 250 ml @ 250 mls/hr Q24H IV 02/28/20 14:00 03/02/20 14:59 Tamsulosin HCl (Flomax) 0.4 mg BEDTIME ORAL 02/21/20 21:00 03/22/20 20:59 02/26/20 22:11 Valproic Acid (Depakene) 500 mg EVERY 12 HOURS ORAL 02/21/20 09:00 04/06/20 08:59 02/27/20 09:15 Vancomycin HCl (Vanco pharmacy to dose) 1 ea DAILY PRN MISC Per rx protocol 02/23/20 18:00 03/24/20 17:59 Vancomycin HCl 1.25 gm/Dextrose 275 ml @ 183.333 mls/hr Q24H IVPB 02/24/20 20:00 02/29/20 19:59 02/26/20 22:14 Allergies: Coded Allergies: PENICILLIN G (Verified Allergy, Intermediate, 04/13/14) PENICILLINS (Unverified Allergy, Unknown, 07/21/18) Subjective In [place] [id number] isolation room, awake, responsive, on 4 L 45% oxygen Via Ventimask. Na: 149 Objective Last Vital Signs Date Time Temp Pulse Resp B/P (MAP) Pulse Ox O2 Delivery O2 Flow Rate FiO2 02/27/20 16:00 97.9 98 22 123/60 (81) 94 98 02/27/20 09:00 Venturi Mask 14.0 Laboratory Tests Test 02/26/20 18:40 02/27/20 05:13 02/27/20 06:34 02/27/20 08:46 Vancomycin Level Trough 10.8 ug/mL (5.0-12.0) White Blood Count 5.0 K/UL (4.8-10.8) Red Blood Count 4.06 M/UL (4.70-6.10) L Hemoglobin 12.2 G/DL (14.2-18.0) L Hematocrit 36.4 % (42.0-52.0) L Mean Corpuscular Volume 90 FL (80-99) Mean Corpuscular Hemoglobin 30.1 PG (27.0-31.0) Mean Corpuscular Hemoglobin Concent 33.5 G/DL (32.0-36.0) Red Cell Distribution Width 13.7 % (11.6-14.8) Platelet Count 180 K/UL (150-450) Mean Platelet Volume 6.9 FL (6.5-10.1) Neutrophils (%) (Auto) 74.3 % (45.0-75.0) Lymphocytes (%) (Auto) 12.5 % (20.0-45.0) L Monocytes (%) (Auto) 12.6 % (1.0-10.0) H Eosinophils (%) (Auto) 0.0 % (0.0-3.0) Basophils (%) (Auto) 0.6 % (0.0-2.0) Sodium Level 149 MMOL/L (136-145) H Potassium Level 4.3 MMOL/L (3.5-5.1) Chloride Level 113 MMOL/L (98-107) H Carbon Dioxide Level 28 MMOL/L (21-32) Anion Gap 9 mmol/L (5-15) Blood Urea Nitrogen 36 mg/dL (7-18) H Creatinine 1.0 MG/DL (0.55-1.30) Estimat Glomerular Filtration Rate > 60 mL/min (>60) Glucose Level 90 MG/DL (74-106) Calcium Level 8.3 MG/DL (8.5-10.1) L POC Whole Blood Glucose 267 MG/DL (74-106) H Arterial Blood pH 7.414 (7.350-7.450) Arterial Blood Partial Pressure CO2 41.6 mmHg (35.0-45.0) Arterial Blood Partial Pressure O2 72.3 mmHg (75.0-100.0) L Arterial Blood HCO3 26.0 mmol/L (22.0-26.0) Arterial Blood Oxygen Saturation 92.8 % (95-100) L Arterial Blood Base Excess 1.3 (-2-2) Cosmo Test Positive Microbiology Date/Time Source Procedure Growth Status 02/24/20 18:30 Nasopharynx SARS-CoV-2 RdRp Gene Assay - Final Complete Intake and Output 02/26/20 02/27/20 19:00 07:00 Intake Total 480 ml Balance 480 ml Intake Oral 480 ml Objective General: No acute distress, awake, responsive, shortness of breath. HEENT: NCAT, sclera anicteric, PERRL, EOMI. Neck: Supple, no significant jugular venous distention, Lungs: Fair inspiratory effort, Decrease air at bases, no Wheeze or Rales. Heart: Regular rate and rhythm, normal S1/S2, no murmurs. Abdomen: soft, nontender, nondistended. Normoactive bowel sounds. / Rectal: Refused and deferred. Extremities: No Cyanosis , clubbing or edema. Neuro: CN2-12 grossly intact, Able to move all extremities Skin: warm, no rash Assessment/Plan Assessment/Plan ASSESSMENT: This is an 84-year-old male. 1. COVID-19 positive. 2. Fever. 3. Probable COVID-19 pneumonia. 4. Chronic renal failure. 5. Dysphagia. 6. History of cerebral palsy. 7. Brain aneurysm. 8. Subarachnoid hemorrhage. 9. Benign prostatic hypertrophy. 10. Coronary artery disease. 11. Hypertension. 12. Congestive heart failure. 13. Bilateral lower extremity deep venous thrombosis. 14. Iron deficiency anemia. 15. Hypercholesterolemia. 16. Seizure disorder. 17. Schizophrenia. 18. UTI=MRSA 19: Hyponatremia. TREATMENT: 1. COVID-19 pneumonia. Pulmonary consultation = Dr. Aldair Patel. 2. Bilateral lower extremity deep venous thrombosis (chronic). Anticoagulation=heparin subcut 3. Chronic renal failure. 4. Dysphagia. 5. History of cerebral palsy. 6. Subarachnoid hemorrhage. 7. Benign prostatic hypertrophy. 8. Coronary artery disease. 9. Hypertension. Continue clonidine as above. 10. Iron deficiency anemia. 11. Hypercholesterolemia. 12. Seizure disorder. Continue valproic acid as above. 13. Schizophrenia. -On Remdesivir IV -on Decadron #7 -IV Vancomycin #5/5 for MRSA in ucx -02/22 SP Azithromycin #3 -02/19 SP Ceftriaxone x1 -CT angio of chest R/O PE -Full code -DVT Prophylaxis: Heparin SQ Joey Perry MD Feb 27, 2020 18:09
--- NOTE | 2020-02-27 19:32 | NUR ---
NURSE HAND-OFF REPORT: Important Events on Shift:Pt on Venturi mask 4L 55% Fio2 Patient Status: Stable Diet: Regular mechanical soft Pending Orders: Pending Results/Labs: Pending MD notification: Latest Vital Signs: Temperature 97.9 , Pulse 70 , B/P 123 /60 , Respiratory Rate 22 , O2 SAT 94 , Venturi Mask, O2 Flow Rate 14.0 . Vital Sign Comment: Stable EKG Rhythm: Sinus Rhythm Rhythm change?: N MD Notified?: N - MD Response: Latest Carrillo Fall Score: 70 Fall Risk: High Risk Safety Measures: Call light Within Reach, Bed Alarm Zone 1, Side Rails Side Rails x3, Bed position Low and Locked. Fall Precautions: Yellow Socks Yellow Gown Door Sign Patient Fall Education Report given to Jaun/RN.
--- NOTE | 2020-02-27 19:32 | NUR ---
NURSE NOTES: Patient received from Yun AMAYA. Patient in stable condition. A&O x1-2. No s/s of acute distress On 4L of oxygen via Venturi Mask saturating well on 93%. IV site on Right forearm 20G saline locked. Bed in lowest position and locked. Call light and bedside table within reach. Will continue plan of care.
[2020-02-27 20:00] VITALS: BP 131/81
[2020-02-27] MEDS: Vancomycin 1.25 GM in D5W 275 ML IVPB SCH (20:09)
[2020-02-27] MEDS: Atorvastatin 20mg tab ORAL SCH (20:22)
[2020-02-27] MEDS: Tamsulosin 0.4mg cap ORAL SCH (20:23)
[2020-02-28] VITALS (7 sets, daily range): BP systolic 100–151; BP diastolic 42–94
--- NOTE | 2020-02-28 07:26 | NUR ---
NURSE HAND-OFF REPORT: Important Events on Shift:[None] Patient Status: [Stable ] Diet: [Regular mech soft texture Pending Orders: [] Pending Results/Labs:[] Pending MD notification:[] Latest Vital Signs: Temperature 98.8 , Pulse 90 , B/P 138 /88 , Respiratory Rate 22 , O2 SAT 98 , Venturi Mask, O2 Flow Rate 4.0 . Vital Sign Comment: [] EKG Rhythm: Sinus Rhythm Rhythm change?: N MD Notified?: N - MD Response: Latest Carrillo Fall Score: 70 Fall Risk: High Risk Safety Measures: Call light Within Reach, Bed Alarm Zone 1, Side Rails Side Rails x3, Bed position Low and Locked. Fall Precautions: Yellow Socks Yellow Gown Door Sign Patient Fall Education Report given to [Jennifer AMAYA].
--- NOTE | 2020-02-28 07:54 | NUR ---
NURSE NOTES: Received report from JOSE LUIS Zamorano. Patient awake, alert. Eyes open, tracks and follows. Oriented x0, mumbles and nods in response to orientation questions. Skin warm, dry, color normal for ethnicity. Short of breath at rest, unlabored, on venturi mask. Radial pulses palpable, equal. Optifoam applied to sacrum and bilateral heels. IV flushed patent, intact. No redness or edema observed. Per RN Jaun, VAMSHI labs pending, RN notified lab to draw d/t unsuccessful attempt. Bed low and locked, side rails raised x3, bed alarm on, call light in reach.
[2020-02-28] MEDS: Docusate 100mg cap ORAL SCH ×2 (08:29→17:42)
[2020-02-28] MEDS: Valproic Acid 250mg/5ml Liquid ORAL SCH ×2 (08:30→20:45)
[2020-02-28] MEDS: Heparin 5000 units/ml inj SUBQ SCH ×2 (08:34→20:47)
--- NOTE | 2020-02-28 08:57 | Pulmonology Progress Note ---
Subjective ROS Limited/Unobtainable: Yes Constitutional: Reports: no symptoms HEENT: Repors: no symptoms Respiratory: Reports: no symptoms Allergies: Coded Allergies: PENICILLIN G (Verified Allergy, Intermediate, 04/13/14) PENICILLINS (Unverified Allergy, Unknown, 07/21/18) Objective Last 24 Hour Vital Signs Date Time Temp Pulse Resp B/P (MAP) Pulse Ox O2 Delivery O2 Flow Rate FiO2 02/28/20 08:30 70 151/84 02/28/20 08:00 Venturi Mask 4.0 02/28/20 08:00 98.1 70 19 151/84 (106) 94 02/28/20 04:00 90 02/28/20 04:00 98.8 90 22 138/88 (105) 98 90 02/28/20 00:00 67 02/28/20 00:00 97.5 96 21 128/80 (96) 94 67 02/27/20 21:00 Venturi Mask 4.0 02/27/20 20:23 93 140/95 02/27/20 20:00 78 02/27/20 20:00 97.9 96 21 131/81 (98) 94 96 02/27/20 16:00 70 02/27/20 16:00 97.9 98 22 123/60 (81) 94 98 02/27/20 12:00 98.6 67 20 107/63 (78) 97 65 02/27/20 12:00 54 02/27/20 09:00 Venturi Mask 14.0 02/27/20 09:00 65 107/67 Intake and Output 02/27/20 02/28/20 19:00 07:00 Intake Total 360 ml Output Total 600 ml 600 ml Balance -240 ml -600 ml Intake Oral 360 ml Output Urine Total 600 ml 600 ml # Voids 3 1 General Appearance: WD/WN HEENT: normocephalic, atraumatic, EOMI Respiratory: chest wall non-tender Cardiovascular: normal peripheral pulses Abdomen: normal bowel sounds, no organomegaly Genitourinary: normal external genitalia Skin: no rash Neurologic: bar host II-XII grossly normal Lymphatic: no neck adenopathy Musculoskeletal: normal muscle bulk Laboratory Tests 02/28/20 08:20: White Blood Count [Pending], Red Blood Count [Pending], Hemoglobin [Pending], Hematocrit [Pending], Mean Corpuscular Volume [Pending], Mean Corpuscular Hemoglobin [Pending], Mean Corpuscular Hemoglobin Concent [Pending], Red Cell Distribution Width [Pending], Platelet Count [Pending], Mean Platelet Volume [Pending], Neutrophils (%) (Auto) [Pending], Lymphocytes (%) (Auto) [Pending], Monocytes (%) (Auto) [Pending], Eosinophils (%) (Auto) [Pending], Basophils (%) (Auto) [Pending], Sodium Level [Pending], Potassium Level [Pending], Chloride Level [Pending], Carbon Dioxide Level [Pending], Blood Urea Nitrogen [Pending], Creatinine [Pending], Estimat Glomerular Filtration Rate [Pending], Glucose Level [Pending], Calcium Level [Pending], Total Bilirubin [Pending], Direct Bilirubin [Pending], Aspartate Amino Transf (AST/SGOT) [Pending], Alanine Aminotransferase (ALT/SGPT) [Pending], Alkaline Phosphatase [Pending], Total Protein [Pending], Albumin [Pending], Globulin [Pending] Current Medications Medications (Trade) Dose Ordered Sig/Yazmin Route PRN Reason Start Time Stop Time Status Last Admin Dose Admin Acetaminophen (Tylenol) 650 mg Q6H PRN ORAL Temp >100.5 and Mild Pain 02/21/20 01:45 03/22/20 01:44 02/25/20 00:28 Albuterol/ Ipratropium (Combivent Respimat) 1 puff Q4H PRN INH Shortness of Breath 02/22/20 11:00 03/23/20 10:59 Atorvastatin Calcium (Lipitor) 40 mg BEDTIME ORAL 02/21/20 21:00 05/21/20 20:59 02/27/20 20:22 Clonidine HCl (Catapres Tab) 0.1 mg Q8H PRN ORAL For SBP >160 02/21/20 01:45 05/21/20 01:44 02/26/20 10:04 Dexamethasone (Decadron) 6 mg DAILY ORAL 02/26/20 09:00 03/01/20 12:00 02/28/20 08:29 Dextrose (Dextrose 50%) 25 ml Q30M PRN IV Hypoglycemia 02/20/20 22:45 05/20/20 22:44 Dextrose (Dextrose 50%) 50 ml Q30M PRN IV Hypoglycemia 02/20/20 22:45 05/20/20 22:44 Diclofenac Sodium (Voltaren gel) 1 applic BID PRN TOPIC As needed for pain 02/21/20 01:45 05/21/20 01:44 Docusate Sodium (Colace) 100 mg TWICE A DAY ORAL 02/21/20 09:00 03/22/20 08:59 02/28/20 08:29 Heparin Sodium (Porcine) (Heparin 5000 units/ml) 5,000 units EVERY 12 HOURS SUBQ 02/22/20 09:00 04/07/20 08:59 02/28/20 08:34 Iohexol (Omnipaque 350 100ml) 100 ml NOW PRN INJ Radiology Procedure 02/27/20 13:15 02/29/20 13:14 Metoprolol Tartrate (Lopressor) 25 mg EVERY 12 HOURS ORAL 02/21/20 09:00 05/21/20 08:59 02/28/20 08:30 Multivitamins (Multivitamins) 1 tab DAILY ORAL 02/21/20 09:00 03/22/20 08:59 02/28/20 08:30 Ondansetron HCl (Zofran) 4 mg Q6H PRN IVP Nausea & Vomiting 02/20/20 22:45 03/21/20 22:44 Polyethylene Glycol (Miralax) 17 gm DAILYPRN PRN ORAL Constipation 02/20/20 22:45 03/21/20 22:44 Promethazine HCl/ Codeine (Phenergan with Codeine) 5 ml Q6H PRN ORAL cough 02/20/20 22:45 03/21/20 22:44 Quetiapine Fumarate (SEROqueL) 25 mg Q12HR ORAL 02/21/20 09:00 04/06/20 08:59 02/28/20 08:30 Remdesivir 100 mg/ Sodium Chloride 250 ml @ 250 mls/hr Q24H IV 02/28/20 14:00 03/02/20 14:59 Tamsulosin HCl (Flomax) 0.4 mg BEDTIME ORAL 02/21/20 21:00 03/22/20 20:59 02/27/20 20:23 Valproic Acid (Depakene) 500 mg EVERY 12 HOURS ORAL 02/21/20 09:00 04/06/20 08:59 02/28/20 08:30 Vancomycin HCl (Vanco pharmacy to dose) 1 ea DAILY PRN MISC Per rx protocol 02/23/20 18:00 03/24/20 17:59 Vancomycin HCl 1.25 gm/Dextrose 275 ml @ 183.333 mls/hr Q24H IVPB 02/24/20 20:00 02/29/20 19:59 02/27/20 20:09 Assessment/Plan Problems: (1) Acute respiratory failure (2) COVID-19 (3) Hypernatremia (4) HTN (hypertension) (5) CAD (coronary artery disease) (6) Cerebral palsy (7) SAH (subarachnoid hemorrhage) (8) BPH (benign prostatic hyperplasia) (9) History of alcohol abuse Assessment/Plan CT angio ruled out PE, interstitial infiltrate CRP still high chopra culture, MRSA nares on Decardon dvt prophylaxis seizure precaution dvt prohylaxis. Aldair Patel MD Feb 28, 2020 08:57
[2020-02-28 09:24] LABS: BASOPHILS % (AUTO) 0.9 % (0.0-2.0); EOSINOPHILS % (AUTO) 0.1 % (0.0-3.0); HEMOGLOBIN 12.8 G/DL (14.2-18.0); LYMPHOCYTES % (AUTO) 10.3 % (20.0-45.0); MEAN CORPUSCULAR VOLUME 91 FL (80-99); MONOCYTES % (AUTO) 8.8 % (1.0-10.0); NEUTROPHILS % (AUTO) 79.9 % (45.0-75.0); PLATELET COUNT 206 K/UL (150-450); RED BLOOD COUNT 4.06 M/UL (4.70-6.10); RED CELL DISTRIBUTION WIDTH 13.9 % (11.6-14.8); WHITE BLOOD COUNT 7.4 K/UL (4.8-10.8)
[2020-02-28 09:45] LABS: ALANINE AMINOTRANSFERASE 20 U/L (12-78); ALBUMIN 2.4 G/DL (3.4-5.0); ALBUMIN/GLOBULIN RATIO 0.5 (1.0-2.7); ALKALINE PHOSPHATASE 56 U/L (46-116); ANION GAP 9 mmol/L (5-15); ASPARTATE AMINO TRANSFERASE 37 U/L (15-37); BILIRUBIN,DIRECT 0.1 MG/DL (0.0-0.3); BILIRUBIN,TOTAL 0.4 MG/DL (0.2-1.0); BLOOD UREA NITROGEN 36 mg/dL (7-18); CALCIUM 8.8 MG/DL (8.5-10.1); CARBON DIOXIDE 28 MMOL/L (21-32); CHLORIDE 112 MMOL/L (98-107); SODIUM 149 MMOL/L (136-145)
--- NOTE | 2020-02-28 10:56 | NUR ---
NURSE NOTES: Pt. having episodes of SB per conveyor monitor Cindy. HR 46-58. Patient at baseline assessment: awake, alert, opens eyes tracking/following. Patient denies dizziness or chest pain. Vitals as follows: BP 139/94, pulse 62, SPO2 94% on venturi mask 4L/45% FiO2. Left message for MD Patel, awaiting response.
--- NOTE | 2020-02-28 12:29 | Infectious Diseases Prog Note ---
Assessment/Plan Assessment: Sepsis COVID19 infection (dx'ed [facility] 02/17/20)- no apparent PNA on CXR- sp NC, sp RA- desaturated to 86% at RA-now on VM -02/23 rapid COVID PCR + -02/22 CXR: Minimal atelectasis noted left lung base. -02/19 CXR: Mild left basilar atelectasis. No clear consolidation. UTI R/o probable bacteremia -u.a wbc 20-30, nit +, leuk +2; ucx >100k MRSA ( R tetracycline; S Vanco, bactrim) -Bcx NTD Fever; SP No leukocytosis Cerebral Palsy anemia HTN non verbal HLD hx of B/l LE DVT 2015 on coumadin CKD iron def anemia R hip fx s/p ORIF 2013 CAD/MA GERD SAH 2ry to cerebral aneurysm DM2 COPD schizoaffective disorder- depressive type BPH seizure disorder [place] resident ([facility]) Plan: -on Decadron #8 - DC IV Vancomycin #5/5 for MRSA in ucx - on remdesivir # 2 -02/22 SP Azithromycin #3 -02/19 SP Ceftriaxone x1 -f/u cx -Monitor CBC/CMP, temperatures -Repeat Bcx x2 if T>100.4 -COVID19 isolation =f/u CXR Thank you for consulting [facility]. Will continue to follow along with you. Discussed with RN and Dr Patel. Subjective Allergies: Coded Allergies: PENICILLIN G (Verified Allergy, Intermediate, 04/13/14) PENICILLINS (Unverified Allergy, Unknown, 07/21/18) onVent mask Objective Last 24 Hour Vital Signs Date Time Temp Pulse Resp B/P (MAP) Pulse Ox O2 Delivery O2 Flow Rate FiO2 02/28/20 10:48 97.7 62 22 139/94 (109) 94 02/28/20 08:58 83 02/28/20 08:30 70 151/84 02/28/20 08:00 Venturi Mask 4.0 02/28/20 08:00 51 02/28/20 08:00 98.1 70 19 151/84 (106) 94 02/28/20 04:00 90 02/28/20 04:00 98.8 90 22 138/88 (105) 98 90 02/28/20 00:00 67 02/28/20 00:00 97.5 96 21 128/80 (96) 94 67 02/27/20 21:00 Venturi Mask 4.0 02/27/20 20:23 93 140/95 02/27/20 20:00 78 02/27/20 20:00 97.9 96 21 131/81 (98) 94 96 02/27/20 16:00 70 02/27/20 16:00 97.9 98 22 123/60 (81) 94 98 Height (Feet): 5 Height (Inches): 10.00 Weight (Pounds): 159 HEENT: anicteric Respiratory/Chest: no respiratory distress Cardiovascular: no JVD Laboratory Tests Test 02/28/20 08:20 White Blood Count 7.4 K/UL (4.8-10.8) Red Blood Count 4.06 M/UL (4.70-6.10) L Hemoglobin 12.8 G/DL (14.2-18.0) L Hematocrit 37.0 % (42.0-52.0) L Mean Corpuscular Volume 91 FL (80-99) Mean Corpuscular Hemoglobin 31.6 PG (27.0-31.0) H Mean Corpuscular Hemoglobin Concent 34.7 G/DL (32.0-36.0) Red Cell Distribution Width 13.9 % (11.6-14.8) Platelet Count 206 K/UL (150-450) Mean Platelet Volume 7.2 FL (6.5-10.1) Neutrophils (%) (Auto) 79.9 % (45.0-75.0) H Lymphocytes (%) (Auto) 10.3 % (20.0-45.0) L Monocytes (%) (Auto) 8.8 % (1.0-10.0) Eosinophils (%) (Auto) 0.1 % (0.0-3.0) Basophils (%) (Auto) 0.9 % (0.0-2.0) Sodium Level 149 MMOL/L (136-145) H Potassium Level 4.0 MMOL/L (3.5-5.1) Chloride Level 112 MMOL/L (98-107) H Carbon Dioxide Level 28 MMOL/L (21-32) Anion Gap 9 mmol/L (5-15) Blood Urea Nitrogen 36 mg/dL (7-18) H Creatinine 1.0 MG/DL (0.55-1.30) Estimat Glomerular Filtration Rate > 60 mL/min (>60) Glucose Level 81 MG/DL (74-106) Calcium Level 8.8 MG/DL (8.5-10.1) Total Bilirubin 0.4 MG/DL (0.2-1.0) Direct Bilirubin 0.1 MG/DL (0.0-0.3) Aspartate Amino Transf (AST/SGOT) 37 U/L (15-37) Alanine Aminotransferase (ALT/SGPT) 20 U/L (12-78) Alkaline Phosphatase 56 U/L (46-116) Total Protein 7.1 G/DL (6.4-8.2) Albumin 2.4 G/DL (3.4-5.0) L Globulin 4.7 g/dL Albumin/Globulin Ratio 0.5 (1.0-2.7) L Current Medications Medications (Trade) Dose Ordered Sig/Yazmin Route PRN Reason Start Time Stop Time Status Last Admin Dose Admin Acetaminophen (Tylenol) 650 mg Q6H PRN ORAL Temp >100.5 and Mild Pain 02/21/20 01:45 03/22/20 01:44 02/25/20 00:28 Albuterol/ Ipratropium (Combivent Respimat) 1 puff Q4H PRN INH Shortness of Breath 02/22/20 11:00 03/23/20 10:59 Atorvastatin Calcium (Lipitor) 40 mg BEDTIME ORAL 02/21/20 21:00 05/21/20 20:59 02/27/20 20:22 Clonidine HCl (Catapres Tab) 0.1 mg Q8H PRN ORAL For SBP >160 02/21/20 01:45 05/21/20 01:44 02/26/20 10:04 Dexamethasone (Decadron) 6 mg DAILY ORAL 02/26/20 09:00 03/01/20 12:00 02/28/20 08:29 Dextrose (Dextrose 50%) 25 ml Q30M PRN IV Hypoglycemia 02/20/20 22:45 05/20/20 22:44 Dextrose (Dextrose 50%) 50 ml Q30M PRN IV Hypoglycemia 02/20/20 22:45 05/20/20 22:44 Diclofenac Sodium (Voltaren gel) 1 applic BID PRN TOPIC As needed for pain 02/21/20 01:45 05/21/20 01:44 Docusate Sodium (Colace) 100 mg TWICE A DAY ORAL 02/21/20 09:00 03/22/20 08:59 02/28/20 08:29 Heparin Sodium (Porcine) (Heparin 5000 units/ml) 5,000 units EVERY 12 HOURS SUBQ 02/22/20 09:00 04/07/20 08:59 02/28/20 08:34 Iohexol (Omnipaque 350 100ml) 100 ml NOW PRN INJ Radiology Procedure 02/27/20 13:15 02/29/20 13:14 Metoprolol Tartrate (Lopressor) 25 mg EVERY 12 HOURS ORAL 02/21/20 09:00 05/21/20 08:59 02/28/20 08:30 Multivitamins (Multivitamins) 1 tab DAILY ORAL 02/21/20 09:00 03/22/20 08:59 02/28/20 08:30 Ondansetron HCl (Zofran) 4 mg Q6H PRN IVP Nausea & Vomiting 02/20/20 22:45 03/21/20 22:44 Polyethylene Glycol (Miralax) 17 gm DAILYPRN PRN ORAL Constipation 02/20/20 22:45 03/21/20 22:44 Promethazine HCl/ Codeine (Phenergan with Codeine) 5 ml Q6H PRN ORAL cough 02/20/20 22:45 03/21/20 22:44 Quetiapine Fumarate (SEROqueL) 25 mg Q12HR ORAL 02/21/20 09:00 04/06/20 08:59 02/28/20 08:30 Remdesivir 100 mg/ Sodium Chloride 250 ml @ 250 mls/hr Q24H IV 02/28/20 14:00 03/02/20 14:59 Tamsulosin HCl (Flomax) 0.4 mg BEDTIME ORAL 02/21/20 21:00 03/22/20 20:59 02/27/20 20:23 Valproic Acid (Depakene) 500 mg EVERY 12 HOURS ORAL 02/21/20 09:00 04/06/20 08:59 02/28/20 08:30 Vancomycin HCl (Vanco pharmacy to dose) 1 ea DAILY PRN MISC Per rx protocol 02/23/20 18:00 10/14/20 17:59 Vancomycin HCl 1.25 gm/Dextrose 275 ml @ 183.333 mls/hr Q24H IVPB 02/24/20 20:00 02/29/20 19:59 02/27/20 20:09 Arvin Roberts MD Feb 28, 2020 12:29
--- NOTE | 2020-02-28 13:46 | NUR ---
NURSE NOTES: Left message for MD Perry re: bradycardia to 46, resolved HR now 68. BP 100/73, SPO2 95%. Awaiting response.
[2020-02-28] MEDS: Maintenance Dose:Remdesivir 100mg/NS 230ml x 4 Doses IV SCH ×2 (14:07)
--- NOTE | 2020-02-28 15:41 | Internal Med Progress Note ---
Subjective Date of Service: Feb 28, 2020 Physician Name YudelkaJose Attending Physician Joey Perry MD Current Medications Medications (Trade) Dose Ordered Sig/Yazmin Route PRN Reason Start Time Stop Time Status Last Admin Dose Admin Acetaminophen (Tylenol) 650 mg Q6H PRN ORAL Temp >100.5 and Mild Pain 02/21/20 01:45 03/22/20 01:44 02/25/20 00:28 Albuterol/ Ipratropium (Combivent Respimat) 1 puff Q4H PRN INH Shortness of Breath 02/22/20 11:00 03/23/20 10:59 Atorvastatin Calcium (Lipitor) 40 mg BEDTIME ORAL 02/21/20 21:00 05/21/20 20:59 02/27/20 20:22 Clonidine HCl (Catapres Tab) 0.1 mg Q8H PRN ORAL For SBP >160 02/21/20 01:45 05/21/20 01:44 02/26/20 10:04 Dexamethasone (Decadron) 6 mg DAILY ORAL 02/26/20 09:00 03/01/20 12:00 02/28/20 08:29 Dextrose (Dextrose 50%) 25 ml Q30M PRN IV Hypoglycemia 02/20/20 22:45 05/20/20 22:44 Dextrose (Dextrose 50%) 50 ml Q30M PRN IV Hypoglycemia 02/20/20 22:45 05/20/20 22:44 Diclofenac Sodium (Voltaren gel) 1 applic BID PRN TOPIC As needed for pain 02/21/20 01:45 05/21/20 01:44 Docusate Sodium (Colace) 100 mg TWICE A DAY ORAL 02/21/20 09:00 03/22/20 08:59 02/28/20 08:29 Heparin Sodium (Porcine) (Heparin 5000 units/ml) 5,000 units EVERY 12 HOURS SUBQ 02/22/20 09:00 04/07/20 08:59 02/28/20 08:34 Iohexol (Omnipaque 350 100ml) 100 ml NOW PRN INJ Radiology Procedure 02/27/20 13:15 02/29/20 13:14 Metoprolol Tartrate (Lopressor) 25 mg EVERY 12 HOURS ORAL 02/21/20 09:00 05/21/20 08:59 02/28/20 08:30 Multivitamins (Multivitamins) 1 tab DAILY ORAL 02/21/20 09:00 03/22/20 08:59 02/28/20 08:30 Ondansetron HCl (Zofran) 4 mg Q6H PRN IVP Nausea & Vomiting 02/20/20 22:45 03/21/20 22:44 Polyethylene Glycol (Miralax) 17 gm DAILYPRN PRN ORAL Constipation 02/20/20 22:45 03/21/20 22:44 Promethazine HCl/ Codeine (Phenergan with Codeine) 5 ml Q6H PRN ORAL cough 02/20/20 22:45 03/21/20 22:44 Quetiapine Fumarate (SEROqueL) 25 mg Q12HR ORAL 02/21/20 09:00 04/06/20 08:59 02/28/20 08:30 Remdesivir 100 mg/ Sodium Chloride 250 ml @ 250 mls/hr Q24H IV 02/28/20 14:00 03/02/20 14:59 02/28/20 14:07 Tamsulosin HCl (Flomax) 0.4 mg BEDTIME ORAL 02/21/20 21:00 03/22/20 20:59 02/27/20 20:23 Valproic Acid (Depakene) 500 mg EVERY 12 HOURS ORAL 02/21/20 09:00 04/06/20 08:59 02/28/20 08:30 Allergies: Coded Allergies: PENICILLIN G (Verified Allergy, Intermediate, 04/13/14) PENICILLINS (Unverified Allergy, Unknown, 07/21/18) ROS Limited/Unobtainable: Yes Subjective 84 YO M admitted with fever. Now COVID 19 positive. Cover for Int aki-DR Perry Objective Last Vital Signs Date Time Temp Pulse Resp B/P (MAP) Pulse Ox O2 Delivery O2 Flow Rate FiO2 02/28/20 12:00 97.6 72 21 100/73 (82) 95 02/28/20 08:00 Venturi Mask 4.0 Laboratory Tests Test 02/28/20 08:20 White Blood Count 7.4 K/UL (4.8-10.8) Red Blood Count 4.06 M/UL (4.70-6.10) L Hemoglobin 12.8 G/DL (14.2-18.0) L Hematocrit 37.0 % (42.0-52.0) L Mean Corpuscular Volume 91 FL (80-99) Mean Corpuscular Hemoglobin 31.6 PG (27.0-31.0) H Mean Corpuscular Hemoglobin Concent 34.7 G/DL (32.0-36.0) Red Cell Distribution Width 13.9 % (11.6-14.8) Platelet Count 206 K/UL (150-450) Mean Platelet Volume 7.2 FL (6.5-10.1) Neutrophils (%) (Auto) 79.9 % (45.0-75.0) H Lymphocytes (%) (Auto) 10.3 % (20.0-45.0) L Monocytes (%) (Auto) 8.8 % (1.0-10.0) Eosinophils (%) (Auto) 0.1 % (0.0-3.0) Basophils (%) (Auto) 0.9 % (0.0-2.0) Sodium Level 149 MMOL/L (136-145) H Potassium Level 4.0 MMOL/L (3.5-5.1) Chloride Level 112 MMOL/L (98-107) H Carbon Dioxide Level 28 MMOL/L (21-32) Anion Gap 9 mmol/L (5-15) Blood Urea Nitrogen 36 mg/dL (7-18) H Creatinine 1.0 MG/DL (0.55-1.30) Estimat Glomerular Filtration Rate > 60 mL/min (>60) Glucose Level 81 MG/DL (74-106) Calcium Level 8.8 MG/DL (8.5-10.1) Total Bilirubin 0.4 MG/DL (0.2-1.0) Direct Bilirubin 0.1 MG/DL (0.0-0.3) Aspartate Amino Transf (AST/SGOT) 37 U/L (15-37) Alanine Aminotransferase (ALT/SGPT) 20 U/L (12-78) Alkaline Phosphatase 56 U/L (46-116) Total Protein 7.1 G/DL (6.4-8.2) Albumin 2.4 G/DL (3.4-5.0) L Globulin 4.7 g/dL Albumin/Globulin Ratio 0.5 (1.0-2.7) L Intake and Output 02/27/20 02/28/20 19:00 07:00 Intake Total 360 ml Output Total 600 ml 600 ml Balance -240 ml -600 ml Intake Oral 360 ml Output Urine Total 600 ml 600 ml # Voids 3 1 Objective PHYSICAL EXAMINATION: GENERAL: The patient is a thin-appearing male, in no apparent distress. HEENT: Eyes, pupils equal and responsive to light and accommodation. Extraocular movements are intact. NECK: Supple without lymphadenopathy. CHEST: Lungs are clear to auscultation bilaterally with decreased breath sounds bilateral bases. Otherwise, without rales. CARDIOVASCULAR: Regular rhythm and rate. S1, S2 normal without murmurs, rubs, or gallops. ABDOMEN: Soft, nontender, and nondistended. Positive bowel sounds. No evidence of hepatosplenomegaly. Currently, no rebound or guarding noted. EXTREMITIES: Negative for clubbing, cyanosis, or edema. RECTAL/GENITAL: Not performed. NEUROLOGIC: Cranial nerves II through XII are grossly intact without focal deficits. Assessment/Plan Assessment/Plan ASSESSMENT: This is an 84-year-old male. 1. COVID-19 positive. 2. Fever. 3. Probable COVID-19 pneumonia. 4. Chronic renal failure. 5. Dysphagia. 6. History of cerebral palsy. 7. Brain aneurysm. 8. Subarachnoid hemorrhage. 9. Benign prostatic hypertrophy. 10. Coronary artery disease. 11. Hypertension. 12. Congestive heart failure. 13. Bilateral lower extremity deep venous thrombosis. 14. Iron deficiency anemia. 15. Hypercholesterolemia. 16. Seizure disorder. 17. Schizophrenia. 18. UTI=MRSA TREATMENT: 1. COVID-19 positive/probable pneumonia. Pulmonary consultation = Dr. Aldair Patel. The patient has been placed empirically on Decadron. The patient is currently on azithromycin and ceftriaxone. 2. Bilateral lower extremity deep venous thrombosis (chronic). Anticoagulation=heparin subcut 3. Chronic renal failure. 4. Dysphagia. 5. History of cerebral palsy. 6. Subarachnoid hemorrhage. 7. Benign prostatic hypertrophy. 8. Coronary artery disease. 9. Hypertension. Continue clonidine as above. 10. Iron deficiency anemia. 11. Hypercholesterolemia. 12. Seizure disorder. Continue valproic acid as above. 13. Schizophrenia. 14. Full code 15. aBX=Jose Mcclain MD Feb 28, 2020 15:41
--- NOTE | 2020-02-28 16:47 | NUR ---
NURSE NOTES: Per MD Perry, hold beta blockers for now d/t episodes of bradycardia.
--- NOTE | 2020-02-28 19:24 | NUR ---
NURSE HAND-OFF REPORT: Important Events on Shift: Bradycardia 40s, per MD Perry, hold beta blockers. Patient Status: Stable Diet: Mechanical soft, regular. Pending Orders: N/A Pending Results/Labs:N/A Pending MD notification:N/A Latest Vital Signs: Temperature 96.7 , Pulse 71 , B/P 141 /81 , Respiratory Rate 19 , O2 SAT 94 , Venturi Mask, O2 Flow Rate 4.0 . Vital Sign Comment: Bradycardia episodes EKG Rhythm: Sinus Rhythm Rhythm change?: Y MD Notified?: N -MD Patel/MD [place] BLOCK Response: Message left await call Latest Carrillo Fall Score: 70 Fall Risk: High Risk Safety Measures: Call light Within Reach, Bed Alarm Zone 1, Side Rails Side Rails x3, Bed position Low and Locked. Fall Precautions: Yellow Socks Yellow Gown Door Sign Patient Fall Education Report given to JOSE LUIS Zamorano.
--- NOTE | 2020-02-28 19:36 | NUR ---
NURSE NOTES: Patient received from Jennifer AMAYA. Patient in stable condition. A&Ox1. No s/s of acute distress. On o2 supply via Venturi Mask @ 4L/min. IV site on Right forearm 20G saline locked. Bed in lowest position and locked. Call light and bedside table within reach. Will continue to monitor.
[2020-02-28] MEDS: Atorvastatin 20mg tab ORAL SCH (20:44)
[2020-02-28] MEDS: Tamsulosin 0.4mg cap ORAL SCH (20:44)
[2020-02-29] VITALS: BP 138/57
[2020-02-29 04:00] VITALS: BP 123/74
--- NOTE | 2020-02-29 04:54 | NUR ---
NURSE NOTES: Patient had an episode 7 beats of Vtach. Vital signs stable and patient asymptomatic. Primary MD Dr. Perry notified. Awaiting call back.
--- NOTE | 2020-02-29 07:30 | NUR ---
NURSE HAND-OFF REPORT: Important Events on Shift:[7 beats of Vtach doctor notified and endorsed to RN] Patient Status: [Stable] Diet: [Regular mech soft 1:1 Feeder] Pending Orders: [] Pending Results/Labs:[] Pending MD notification:[] Latest Vital Signs: Temperature 97.9 , Pulse 82 , B/P 123 /74 , Respiratory Rate 20 , O2 SAT 90 , Venturi Mask, O2 Flow Rate 4.0 . Vital Sign Comment: [] EKG Rhythm: Sinus Rhythm Rhythm change?: N MD Notified?: N -MD Patel/MD [place] BLOCK Response: Message left await call Latest Carrillo Fall Score: 70 Fall Risk: High Risk Safety Measures: Call light Within Reach, Bed Alarm Zone 1, Side Rails Side Rails x3, Bed position Low and Locked. Fall Precautions: Yellow Socks Yellow Gown Door Sign Patient Fall Education Report given to [María Rodriguez RN.].
--- NOTE | 2020-02-29 07:55 | NUR ---
NURSE NOTES: Patient received from laxmi AMAYA. Patient in stable condition. A&Ox1. No s/s of acute distress. Pt was titrated down to NC @ 4L and tolerating well at 96%. IV site patent and intact on Right FA 24G running. Bed is in lowest position and locked. Call light and bedside table within reach. WIll continue plan of care.
[2020-02-29 08:00] VITALS: BP 140/96
[2020-02-29] MEDS: Valproic Acid 250mg/5ml Liquid ORAL SCH ×2 (09:16→20:13)
[2020-02-29] MEDS: Heparin 5000 units/ml inj SUBQ SCH ×2 (09:17→20:42)
[2020-02-29] MEDS: Docusate 100mg cap ORAL SCH ×2 (09:21→17:41)
--- NOTE | 2020-02-29 10:58 | Pulmonology Progress Note ---
Subjective ROS Limited/Unobtainable: Yes Constitutional: Reports: no symptoms HEENT: Repors: no symptoms Respiratory: Reports: no symptoms Allergies: Coded Allergies: PENICILLIN G (Verified Allergy, Intermediate, 04/13/14) PENICILLINS (Unverified Allergy, Unknown, 07/21/18) Objective Last 24 Hour Vital Signs Date Time Temp Pulse Resp B/P (MAP) Pulse Ox O2 Delivery O2 Flow Rate FiO2 02/29/20 09:16 80 140/96 02/29/20 08:23 80 140/96 02/29/20 08:21 98 Nasal Cannula 4.0 36 02/29/20 08:00 98.4 80 21 140/96 (111) 98 02/29/20 04:00 97.9 86 20 123/74 (90) 90 02/29/20 04:00 82 02/29/20 00:00 96.3 83 20 138/57 (84) 93 02/29/20 00:00 83 02/28/20 21:00 Venturi Mask 4.0 02/28/20 20:00 97.9 82 20 126/42 (70) 93 02/28/20 20:00 82 02/28/20 16:00 71 02/28/20 16:00 96.7 96 19 141/81 (101) 94 02/28/20 12:00 97.6 72 21 100/73 (82) 95 02/28/20 11:49 69 Intake and Output 02/28/20 02/29/20 19:00 07:00 Intake Total 440 ml Balance 440 ml Intake Oral 440 ml # Voids 2 2 General Appearance: WD/WN HEENT: normocephalic, atraumatic, EOMI Respiratory: chest wall non-tender Cardiovascular: normal peripheral pulses Abdomen: normal bowel sounds, no organomegaly Genitourinary: normal external genitalia Skin: no rash 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 Lymphatic: no neck adenopathy Musculoskeletal: normal muscle bulk Current Medications Medications (Trade) Dose Ordered Sig/Yazmin Route PRN Reason Start Time Stop Time Status Last Admin Dose Admin Acetaminophen (Tylenol) 650 mg Q6H PRN ORAL Temp >100.5 and Mild Pain 02/21/20 01:45 03/22/20 01:44 02/25/20 00:28 Albuterol/ Ipratropium (Combivent Respimat) 1 puff Q4H PRN INH Shortness of Breath 02/22/20 11:00 03/23/20 10:59 Atorvastatin Calcium (Lipitor) 40 mg BEDTIME ORAL 02/21/20 21:00 05/21/20 20:59 02/28/20 20:44 Clonidine HCl (Catapres Tab) 0.1 mg Q8H PRN ORAL For SBP >160 02/21/20 01:45 05/21/20 01:44 02/26/20 10:04 Dexamethasone (Decadron) 6 mg DAILY ORAL 02/26/20 09:00 03/01/20 12:00 02/29/20 09:16 Dextrose (Dextrose 50%) 25 ml Q30M PRN IV Hypoglycemia 02/20/20 22:45 05/20/20 22:44 Dextrose (Dextrose 50%) 50 ml Q30M PRN IV Hypoglycemia 02/20/20 22:45 05/20/20 22:44 Diclofenac Sodium (Voltaren gel) 1 applic BID PRN TOPIC As needed for pain 02/21/20 01:45 05/21/20 01:44 Docusate Sodium (Colace) 100 mg TWICE A DAY ORAL 02/21/20 09:00 03/22/20 08:59 02/29/20 09:21 Heparin Sodium (Porcine) (Heparin 5000 units/ml) 5,000 units EVERY 12 HOURS SUBQ 02/22/20 09:00 04/07/20 08:59 02/29/20 09:17 Iohexol (Omnipaque 350 100ml) 100 ml NOW PRN INJ Radiology Procedure 02/27/20 13:15 02/29/20 13:14 Metoprolol Tartrate (Lopressor) 25 mg EVERY 12 HOURS ORAL 02/21/20 09:00 05/21/20 08:59 02/29/20 09:16 Multivitamins (Multivitamins) 1 tab DAILY ORAL 02/21/20 09:00 03/22/20 08:59 02/29/20 09:16 Ondansetron HCl (Zofran) 4 mg Q6H PRN IVP Nausea & Vomiting 02/20/20 22:45 03/21/20 22:44 Polyethylene Glycol (Miralax) 17 gm DAILYPRN PRN ORAL Constipation 02/20/20 22:45 03/21/20 22:44 Promethazine HCl/ Codeine (Phenergan with Codeine) 5 ml Q6H PRN ORAL cough 02/20/20 22:45 03/21/20 22:44 Quetiapine Fumarate (SEROqueL) 25 mg Q12HR ORAL 02/21/20 09:00 04/06/20 08:59 02/29/20 09:16 Remdesivir 100 mg/ Sodium Chloride 250 ml @ 250 mls/hr Q24H IV 02/28/20 14:00 03/02/20 14:59 02/28/20 14:07 Tamsulosin HCl (Flomax) 0.4 mg BEDTIME ORAL 02/21/20 21:00 03/22/20 20:59 02/28/20 20:44 Valproic Acid (Depakene) 500 mg EVERY 12 HOURS ORAL 02/21/20 09:00 04/06/20 08:59 02/29/20 09:16 Assessment/Plan Problems: (1) Acute respiratory failure (2) COVID-19 (3) Hypernatremia (4) HTN (hypertension) (5) CAD (coronary artery disease) (6) Cerebral palsy (7) SAH (subarachnoid hemorrhage) (8) BPH (benign prostatic hyperplasia) (9) History of alcohol abuse Assessment/Plan check cxr in am doing better f/u CRP chopra culture, MRSA nares on Decardon dvt prophylaxis seizure precaution dvt prohylaxis. Aldair Patel MD Feb 29, 2020 10:58
[2020-02-29 12:00] VITALS: BP 130/91
[2020-02-29] MEDS: Maintenance Dose:Remdesivir 100mg/NS 230ml x 4 Doses IV SCH ×2 (14:05)
[2020-02-29 16:00] VITALS: BP 129/63
--- NOTE | 2020-02-29 16:22 | Internal Med Progress Note ---
Subjective Date of Service: Feb 29, 2020 Physician Name YudelkaJose Attending Physician Joey Perry MD Current Medications Medications (Trade) Dose Ordered Sig/Yazmin Route PRN Reason Start Time Stop Time Status Last Admin Dose Admin Acetaminophen (Tylenol) 650 mg Q6H PRN ORAL Temp >100.5 and Mild Pain 02/21/20 01:45 03/22/20 01:44 02/25/20 00:28 Albuterol/ Ipratropium (Combivent Respimat) 1 puff Q4H PRN INH Shortness of Breath 02/22/20 11:00 03/23/20 10:59 Atorvastatin Calcium (Lipitor) 40 mg BEDTIME ORAL 02/21/20 21:00 05/21/20 20:59 02/28/20 20:44 Clonidine HCl (Catapres Tab) 0.1 mg Q8H PRN ORAL For SBP >160 02/21/20 01:45 05/21/20 01:44 02/26/20 10:04 Dexamethasone (Decadron) 6 mg DAILY ORAL 02/26/20 09:00 03/01/20 12:00 02/29/20 09:16 Dextrose (Dextrose 50%) 25 ml Q30M PRN IV Hypoglycemia 02/20/20 22:45 05/20/20 22:44 Dextrose (Dextrose 50%) 50 ml Q30M PRN IV Hypoglycemia 02/20/20 22:45 05/20/20 22:44 Diclofenac Sodium (Voltaren gel) 1 applic BID PRN TOPIC As needed for pain 02/21/20 01:45 05/21/20 01:44 Docusate Sodium (Colace) 100 mg TWICE A DAY ORAL 02/21/20 09:00 03/22/20 08:59 02/29/20 09:21 Heparin Sodium (Porcine) (Heparin 5000 units/ml) 5,000 units EVERY 12 HOURS SUBQ 02/22/20 09:00 04/07/20 08:59 02/29/20 09:17 Metoprolol Tartrate (Lopressor) 25 mg EVERY 12 HOURS ORAL 02/21/20 09:00 05/21/20 08:59 02/29/20 09:16 Multivitamins (Multivitamins) 1 tab DAILY ORAL 02/21/20 09:00 03/22/20 08:59 02/29/20 09:16 Ondansetron HCl (Zofran) 4 mg Q6H PRN IVP Nausea & Vomiting 02/20/20 22:45 03/21/20 22:44 Polyethylene Glycol (Miralax) 17 gm DAILYPRN PRN ORAL Constipation 02/20/20 22:45 03/21/20 22:44 Promethazine HCl/ Codeine (Phenergan with Codeine) 5 ml Q6H PRN ORAL cough 02/20/20 22:45 03/21/20 22:44 Quetiapine Fumarate (SEROqueL) 25 mg Q12HR ORAL 02/21/20 09:00 04/06/20 08:59 02/29/20 09:16 Remdesivir 100 mg/ Sodium Chloride 250 ml @ 250 mls/hr Q24H IV 02/28/20 14:00 03/02/20 14:59 02/29/20 14:05 Tamsulosin HCl (Flomax) 0.4 mg BEDTIME ORAL 02/21/20 21:00 03/22/20 20:59 02/28/20 20:44 Valproic Acid (Depakene) 500 mg EVERY 12 HOURS ORAL 02/21/20 09:00 04/06/20 08:59 02/29/20 09:16 Allergies: Coded Allergies: PENICILLIN G (Verified Allergy, Intermediate, 04/13/14) PENICILLINS (Unverified Allergy, Unknown, 07/21/18) ROS Limited/Unobtainable: Yes Subjective 84 YO M admitted with fever. Now COVID 19 positive. Cover for Int aki-DR Perry Objective Last Vital Signs Date Time Temp Pulse Resp B/P (MAP) Pulse Ox O2 Delivery O2 Flow Rate FiO2 02/29/20 12:00 98.1 63 20 130/91 (104) 94 02/29/20 09:00 Nasal Cannula 2.0 02/29/20 08:21 36 Intake and Output 02/28/20 02/29/20 19:00 07:00 Intake Total 440 ml Balance 440 ml Intake Oral 440 ml # Voids 2 2 Objective PHYSICAL EXAMINATION: GENERAL: The patient is a thin-appearing male, in no apparent distress. HEENT: Eyes, pupils equal and responsive to light and accommodation. Extraocular movements are intact. NECK: Supple without lymphadenopathy. CHEST: Lungs are clear to auscultation bilaterally with decreased breath sounds bilateral bases. Otherwise, without rales. CARDIOVASCULAR: Regular rhythm and rate. S1, S2 normal without murmurs, rubs, or gallops. ABDOMEN: Soft, nontender, and nondistended. Positive bowel sounds. No evidence of hepatosplenomegaly. Currently, no rebound or guarding noted. EXTREMITIES: Negative for clubbing, cyanosis, or edema. RECTAL/GENITAL: Not performed. NEUROLOGIC: Cranial nerves II through XII are grossly intact without focal deficits. Assessment/Plan Assessment/Plan ASSESSMENT: This is an 84-year-old male. 1. COVID-19 positive. 2. Fever. 3. Probable COVID-19 pneumonia. 4. Chronic renal failure. 5. Dysphagia. 6. History of cerebral palsy. 7. Brain aneurysm. 8. Subarachnoid hemorrhage. 9. Benign prostatic hypertrophy. 10. Coronary artery disease. 11. Hypertension. 12. Congestive heart failure. 13. Bilateral lower extremity deep venous thrombosis. 14. Iron deficiency anemia. 15. Hypercholesterolemia. 16. Seizure disorder. 17. Schizophrenia. 18. UTI=MRSA TREATMENT: 1. COVID-19 positive/probable pneumonia. Pulmonary consultation = Dr. Aldair Patel. The patient has been placed empirically on Decadron. The patient is S/P azithromycin and ceftriaxone. Continue Remdesivir 2. Bilateral lower extremity deep venous thrombosis (chronic). Anticoagulation=heparin subcut 3. Chronic renal failure. 4. Dysphagia. 5. History of cerebral palsy. 6. Subarachnoid hemorrhage. 7. Benign prostatic hypertrophy. 8. Coronary artery disease. 9. Hypertension. Continue clonidine as above. 10. Iron deficiency anemia. 11. Hypercholesterolemia. 12. Seizure disorder. Continue valproic acid as above. 13. Schizophrenia. 14. Full code 15. aBX=S/P Jose Mcclain MD Feb 29, 2020 16:22
--- NOTE | 2020-02-29 19:30 | NUR ---
NURSE NOTES: RECEIVED PATIENT LYING IN BED, EYES OPEN, NON VERBAL DURING ASSESSMENT, NO SIGNS AND SYMPTOMS OF PAIN. ALL NEEDS ANTICIPATED AND MET BY NURSING STAFF. IV INTACT TO RIGHT HAND/GAUGE 22, NO REDNESS/SWELLING NOTED. NO SIGNS AND SYMPTOMS OF ACUTE CARDIO RESPIRATORY DISTRESS/SHORTNESS OF BREATH, NO PERIPHERAL EDEMA NOTED. ABDOMEN SOFT/ROUND/AUDIBLE BOWEL SOUNDS, NO REPORT OF N/V, NO DIFFICULTY CHEWING/SWALLOWING, TOLERATING PO DIET/MEDICATION, CONDOM CATHETER INTACT, DRAINING YELLOW URINE VIA GRAVITY, NO SEDEMENT NOTED. OPTIFOAM INTACT TO SACRAL/BILATERAL HEELS/PROPHYLAXIS. SIDE RAILS UP X3/BED IN LOWEST POSITION FOR SAFETY, SEIZURE PRECAUTIONS OBSERVED/SIDE RAILS PADDED. FREQUENT ROUNDING FOR SAFETY/NEEDS. ISOLATION PRECAUTIONS OBSERVED AT ALL TIMES.
[2020-02-29 20:00] VITALS: BP 117/72
[2020-02-29] MEDS: Tamsulosin 0.4mg cap ORAL SCH (20:13)
[2020-02-29] MEDS: Atorvastatin 20mg tab ORAL SCH (20:13)
[2020-03-01] VITALS: BP 126/63
[2020-03-01 04:00] VITALS: BP 107/78
--- NOTE | 2020-03-01 06:05 | NUR ---
NURSE NOTES: RESTED WELL, SAFETY MAINTAINED THROUGHOUT THE NIGHT, NO SIGNIFICANT CHANGE OF CONDITION NOTED. CONTINUE WITH CURRENT PLAN OF CARE.
--- NOTE | 2020-03-01 07:26 | NUR ---
NURSE HAND-OFF REPORT: Important Events on Shift:[UNEVENTFUL SHIFT, SAFETY MAINTAINED, NO SEIZURE ACTIVITY NOTED-] Patient Status: [STABLE] Diet: [REGULAR MS CHOPPED] Pending Orders: [AM LABS] Pending Results/Labs:[] Pending MD notification:[N/A] Latest Vital Signs: Temperature 99.0 , Pulse 72 , B/P 107 /78 , Respiratory Rate 18 , O2 SAT 97 , Room Air, O2 Flow Rate 2.0 . Vital Sign Comment: [STABLE, AFEBRILE] EKG Rhythm: Sinus Rhythm Rhythm change?: N MD Notified?: N -MD Patel/MD [place] BLOCK Response: Message left await call Latest Carrillo Fall Score: 70 Fall Risk: High Risk Safety Measures: Call light Within Reach, Bed Alarm Zone 1, Side Rails Side Rails x3, Bed position Low and Locked. Fall Precautions: Yellow Socks Yellow Gown Door Sign Patient Fall Education Report given to [JOSE LUIS ALONZO].
--- NOTE | 2020-03-01 07:49 | NUR ---
NURSE NOTES: Received report from Nellie/JOSE LUIS. Patient in bed, resting, in semi-fowlers position. On room air, no distress or SOB noted. IV on right hand, 22G patent and clean. Call light within reach, bed in lowest position and locked, side rails up X3. Will continue plan of care.
[2020-03-01 07:57] LABS: BASOPHILS % (AUTO) 0.5 % (0.0-2.0); EOSINOPHILS % (AUTO) 0.5 % (0.0-3.0); HEMATOCRIT 42.9 % (42.0-52.0); HEMOGLOBIN 14.3 G/DL (14.2-18.0); LYMPHOCYTES % (AUTO) 10.8 % (20.0-45.0); MEAN CORPUSCULAR VOLUME 91 FL (80-99); MONOCYTES % (AUTO) 4.7 % (1.0-10.0); NEUTROPHILS % (AUTO) 83.5 % (45.0-75.0); PLATELET COUNT 193 K/UL (150-450); RED BLOOD COUNT 4.72 M/UL (4.70-6.10); RED CELL DISTRIBUTION WIDTH 13.7 % (11.6-14.8); WHITE BLOOD COUNT 7.1 K/UL (4.8-10.8)
[2020-03-01 08:00] VITALS: BP 120/74
[2020-03-01 08:43] LABS: ALANINE AMINOTRANSFERASE 23 U/L (12-78); ALBUMIN 2.6 G/DL (3.4-5.0); ALBUMIN/GLOBULIN RATIO 0.6 (1.0-2.7); ALKALINE PHOSPHATASE 62 U/L (46-116); ANION GAP 12 mmol/L (5-15); ASPARTATE AMINO TRANSFERASE 42 U/L (15-37); BILIRUBIN,DIRECT 0.1 MG/DL (0.0-0.3); BILIRUBIN,TOTAL 0.5 MG/DL (0.2-1.0); BLOOD UREA NITROGEN 35 mg/dL (7-18); CALCIUM 8.9 MG/DL (8.5-10.1); CARBON DIOXIDE 25 MMOL/L (21-32); CHLORIDE 111 MMOL/L (98-107); CREATININE 1.2 MG/DL (0.55-1.30); POTASSIUM 4.1 MMOL/L (3.5-5.1); SODIUM 148 MMOL/L (136-145)
[2020-03-01 08:47] LABS: PHOSPHORUS 3.9 MG/DL (2.5-4.9)
[2020-03-01] MEDS: Docusate 100mg cap ORAL SCH ×2 (09:10→17:37)
[2020-03-01] MEDS: Valproic Acid 250mg/5ml Liquid ORAL SCH ×2 (09:10→21:15)
[2020-03-01] MEDS: Heparin 5000 units/ml inj SUBQ SCH ×2 (09:12→21:16)
--- NOTE | 2020-03-01 11:14 | Pulmonology Progress Note ---
Subjective ROS Limited/Unobtainable: Yes Interval Events: temp of 99.5 Constitutional: Reports: no symptoms HEENT: Repors: no symptoms Respiratory: Reports: no symptoms Allergies: Coded Allergies: PENICILLIN G (Verified Allergy, Intermediate, 04/13/14) PENICILLINS (Unverified Allergy, Unknown, 07/21/18) Objective Last 24 Hour Vital Signs Date Time Temp Pulse Resp B/P (MAP) Pulse Ox O2 Delivery O2 Flow Rate FiO2 03/01/20 09:10 80 120/74 03/01/20 09:00 Room Air 03/01/20 08:00 97.2 80 20 120/74 (89) 98 03/01/20 08:00 59 03/01/20 04:00 99.0 77 18 107/78 (88) 97 03/01/20 04:00 72 03/01/20 00:00 74 03/01/20 00:00 98.4 73 18 126/63 (84) 99 02/29/20 20:00 99.5 72 18 117/72 (87) 97 02/29/20 20:00 72 02/29/20 18:32 Room Air 02/29/20 16:00 60 02/29/20 16:00 97.9 87 21 129/63 (85) 95 02/29/20 12:00 98.1 63 20 130/91 (104) 94 02/29/20 12:00 58 Intake and Output 02/29/20 03/01/20 19:00 07:00 Intake Total 480 ml Output Total 600 ml Balance -120 ml Intake Oral 480 ml Output Urine Total 600 ml General Appearance: WD/WN HEENT: normocephalic, atraumatic, EOMI Respiratory: chest wall non-tender Cardiovascular: normal peripheral pulses Abdomen: normal bowel sounds, no organomegaly Genitourinary: normal external genitalia Skin: no rash 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 Lymphatic: no neck adenopathy Musculoskeletal: normal muscle bulk Laboratory Tests 03/01/20 06:44: White Blood Count 7.1, Red Blood Count 4.72, Hemoglobin 14.3, Hematocrit 42.9, Mean Corpuscular Volume 91, Mean Corpuscular Hemoglobin 30.3, Mean Corpuscular Hemoglobin Concent 33.3, Red Cell Distribution Width 13.7, Platelet Count 193, Mean Platelet Volume 7.5, Neutrophils (%) (Auto) 83.5H, Lymphocytes (%) (Auto) 10.8L, Monocytes (%) (Auto) 4.7, Eosinophils (%) (Auto) 0.5, Basophils (%) (Auto) 0.5, Erythrocyte Sedimentation Rate 44H, Sodium Level 148H, Potassium Level 4.1, Chloride Level 111H, Carbon Dioxide Level 25, Anion Gap 12, Blood Urea Nitrogen 35H, Creatinine 1.2, Estimat Glomerular Filtration Rate > 60, Glucose Level 74, Calcium Level 8.9, Phosphorus Level 3.9, Magnesium Level 2.3, Total Bilirubin 0.5, Direct Bilirubin 0.1, Aspartate Amino Transf (AST/SGOT) 42H , Alanine Aminotransferase (ALT/SGPT) 23, Alkaline Phosphatase 62, C-Reactive Protein, Quantitative 4.4H, Total Protein 7.3, Albumin 2.6L, Globulin 4.7, Albumin/Globulin Ratio 0.6L Current Medications Medications (Trade) Dose Ordered Sig/Yazmin Route PRN Reason Start Time Stop Time Status Last Admin Dose Admin Acetaminophen (Tylenol) 650 mg Q6H PRN ORAL Temp >100.5 and Mild Pain 02/21/20 01:45 03/22/20 01:44 02/25/20 00:28 Albuterol/ Ipratropium (Combivent Respimat) 1 puff Q4H PRN INH Shortness of Breath 02/22/20 11:00 03/23/20 10:59 Atorvastatin Calcium (Lipitor) 40 mg BEDTIME ORAL 02/21/20 21:00 05/21/20 20:59 02/29/20 20:13 Clonidine HCl (Catapres Tab) 0.1 mg Q8H PRN ORAL For SBP >160 02/21/20 01:45 05/21/20 01:44 02/26/20 10:04 Dexamethasone (Decadron) 6 mg DAILY ORAL 02/26/20 09:00 03/01/20 12:00 03/01/20 09:11 Dextrose (Dextrose 50%) 25 ml Q30M PRN IV Hypoglycemia 02/20/20 22:45 05/20/20 22:44 Dextrose (Dextrose 50%) 50 ml Q30M PRN IV Hypoglycemia 02/20/20 22:45 05/20/20 22:44 Diclofenac Sodium (Voltaren gel) 1 applic BID PRN TOPIC As needed for pain 02/21/20 01:45 05/21/20 01:44 Docusate Sodium (Colace) 100 mg TWICE A DAY ORAL 02/21/20 09:00 03/22/20 08:59 03/01/20 09:10 Heparin Sodium (Porcine) (Heparin 5000 units/ml) 5,000 units EVERY 12 HOURS SUBQ 02/22/20 09:00 04/07/20 08:59 03/01/20 09:12 Metoprolol Tartrate (Lopressor) 25 mg EVERY 12 HOURS ORAL 02/21/20 09:00 05/21/20 08:59 03/01/20 09:10 Multivitamins (Multivitamins) 1 tab DAILY ORAL 02/21/20 09:00 03/22/20 08:59 03/01/20 09:10 Ondansetron HCl (Zofran) 4 mg Q6H PRN IVP Nausea & Vomiting 02/20/20 22:45 03/21/20 22:44 Polyethylene Glycol (Miralax) 17 gm DAILYPRN PRN ORAL Constipation 02/20/20 22:45 03/21/20 22:44 Promethazine HCl/ Codeine (Phenergan with Codeine) 5 ml Q6H PRN ORAL cough 02/20/20 22:45 03/21/20 22:44 Quetiapine Fumarate (SEROqueL) 25 mg Q12HR ORAL 02/21/20 09:00 04/06/20 08:59 03/01/20 09:10 Remdesivir 100 mg/ Sodium Chloride 250 ml @ 250 mls/hr Q24H IV 02/28/20 14:00 03/02/20 14:59 02/29/20 14:05 Tamsulosin HCl (Flomax) 0.4 mg BEDTIME ORAL 02/21/20 21:00 03/22/20 20:59 02/29/20 20:13 Valproic Acid (Depakene) 500 mg EVERY 12 HOURS ORAL 02/21/20 09:00 04/06/20 08:59 03/01/20 09:10 Assessment/Plan Problems: (1) Acute respiratory failure (2) COVID-19 (3) Hypernatremia (4) HTN (hypertension) (5) CAD (coronary artery disease) (6) Cerebral palsy (7) SAH (subarachnoid hemorrhage) (8) BPH (benign prostatic hyperplasia) (9) History of alcohol abuse Assessment/Plan check cxr: pending doing better f/u CRP chopra culture, MRSA nares on Decardon dvt prophylaxis seizure precaution dvt prohylaxis. Aldair Patel MD Mar 01, 2020 11:14
--- NOTE | 2020-03-01 11:54 | NUR ---
RD ASSESSMENT & RECOMMENDATIONS SEE CARE ACTIVITY FOR COMPLETE ASSESSMENT DAILY ESTIMATED NEEDS: Needs based on pulmonary 69.5kg 25-30 kcals/kg 3597-6955 total kcals 1.25-1.5 g protein/kg 87-104 g total protein 25-30 mL/kg 1375-2096 total fluid mLs NUTRITION DIAGNOSIS: Chewing and swallowing difficulty R/T edentulous status, h/o dysphagia, h/o cerebral palsy as evidenced by pt on finely chopped texture diet, poor po intake noted. CURRENT DIET: Regular ms finely chopped PO DIET RECOMMENDATIONS: Maintain Regular diet/ texture per HORSE RACING ANALYST ADDITIONAL RECOMMENDATIONS: * Rec HORSE RACING ANALYST eval for appropriate texture- dyspahgia dx, h/o cerebral palsey * Continue Ensure 1 bottle tid w/ meals + snacks as tolerated in b/w meals * Rec IVF w/ poor PO: Na and BUN elevated * Calibrated bedscale wt for accurate CBW, noted downtrend in wt * Skin integrity: cont MVI, add NEO Fruit punch BID as tolerated * Consider appetite stimulant -> Non oral feeds w/ continued poor po intake
[2020-03-01 12:00] VITALS: BP 128/72
--- NOTE | 2020-03-01 13:27 | NUR ---
CASE MANAGEMENT:REVIEW 03/01/20 SI: SEPSIS. COVID PNA 97/9 89 21 128/72 94% ON RA ESR+44 IS: IV REMDESIVIR Q24HRS (#4/5) DECADRON PO QD HEPARIN SQ Q12 : TELEMETRY STATUS DCP: FROM [facility]
--- NOTE | 2020-03-01 13:28 | Internal Med Progress Note ---
Subjective Date of Service: Mar 01, 2020 Physician Name JhaJose Attending Physician Joey Perry MD Current Medications Medications (Trade) Dose Ordered Sig/Yazmin Route PRN Reason Start Time Stop Time Status Last Admin Dose Admin Acetaminophen (Tylenol) 650 mg Q6H PRN ORAL Temp >100.5 and Mild Pain 02/21/20 01:45 03/22/20 01:44 02/25/20 00:28 Albuterol/ Ipratropium (Combivent Respimat) 1 puff Q4H PRN INH Shortness of Breath 02/22/20 11:00 03/23/20 10:59 Atorvastatin Calcium (Lipitor) 40 mg BEDTIME ORAL 02/21/20 21:00 05/21/20 20:59 02/29/20 20:13 Clonidine HCl (Catapres Tab) 0.1 mg Q8H PRN ORAL For SBP >160 02/21/20 01:45 05/21/20 01:44 02/26/20 10:04 Dextrose (Dextrose 50%) 25 ml Q30M PRN IV Hypoglycemia 02/20/20 22:45 05/20/20 22:44 Dextrose (Dextrose 50%) 50 ml Q30M PRN IV Hypoglycemia 02/20/20 22:45 05/20/20 22:44 Diclofenac Sodium (Voltaren gel) 1 applic BID PRN TOPIC As needed for pain 02/21/20 01:45 05/21/20 01:44 Docusate Sodium (Colace) 100 mg TWICE A DAY ORAL 02/21/20 09:00 03/22/20 08:59 03/01/20 09:10 Heparin Sodium (Porcine) (Heparin 5000 units/ml) 5,000 units EVERY 12 HOURS SUBQ 02/22/20 09:00 04/07/20 08:59 03/01/20 09:12 Metoprolol Tartrate (Lopressor) 25 mg EVERY 12 HOURS ORAL 02/21/20 09:00 05/21/20 08:59 03/01/20 09:10 Multivitamins (Multivitamins) 1 tab DAILY ORAL 02/21/20 09:00 03/22/20 08:59 03/01/20 09:10 Ondansetron HCl (Zofran) 4 mg Q6H PRN IVP Nausea & Vomiting 02/20/20 22:45 03/21/20 22:44 Polyethylene Glycol (Miralax) 17 gm DAILYPRN PRN ORAL Constipation 02/20/20 22:45 03/21/20 22:44 Promethazine HCl/ Codeine (Phenergan with Codeine) 5 ml Q6H PRN ORAL cough 02/20/20 22:45 03/21/20 22:44 Quetiapine Fumarate (SEROqueL) 25 mg Q12HR ORAL 02/21/20 09:00 04/06/20 08:59 03/01/20 09:10 Remdesivir 100 mg/ Sodium Chloride 250 ml @ 250 mls/hr Q24H IV 02/28/20 14:00 03/02/20 14:59 02/29/20 14:05 Tamsulosin HCl (Flomax) 0.4 mg BEDTIME ORAL 02/21/20 21:00 03/22/20 20:59 02/29/20 20:13 Valproic Acid (Depakene) 500 mg EVERY 12 HOURS ORAL 02/21/20 09:00 04/06/20 08:59 03/01/20 09:10 Allergies: Coded Allergies: PENICILLIN G (Verified Allergy, Intermediate, 04/13/14) PENICILLINS (Unverified Allergy, Unknown, 07/21/18) ROS Limited/Unobtainable: Yes Subjective 84 YO M admitted with fever. Now COVID 19 positive. Cover for Int aki-DR Perry Objective Last Vital Signs Date Time Temp Pulse Resp B/P (MAP) Pulse Ox O2 Delivery O2 Flow Rate FiO2 03/01/20 12:00 97.9 89 21 128/72 (90) 94 03/01/20 09:00 Room Air 02/29/20 09:00 2.0 02/29/20 08:21 36 Laboratory Tests Test 03/01/20 06:44 White Blood Count 7.1 K/UL (4.8-10.8) Red Blood Count 4.72 M/UL (4.70-6.10) Hemoglobin 14.3 G/DL (14.2-18.0) Hematocrit 42.9 % (42.0-52.0) Mean Corpuscular Volume 91 FL (80-99) Mean Corpuscular Hemoglobin 30.3 PG (27.0-31.0) Mean Corpuscular Hemoglobin Concent 33.3 G/DL (32.0-36.0) Red Cell Distribution Width 13.7 % (11.6-14.8) Platelet Count 193 K/UL (150-450) Mean Platelet Volume 7.5 FL (6.5-10.1) Neutrophils (%) (Auto) 83.5 % (45.0-75.0) H Lymphocytes (%) (Auto) 10.8 % (20.0-45.0) L Monocytes (%) (Auto) 4.7 % (1.0-10.0) Eosinophils (%) (Auto) 0.5 % (0.0-3.0) Basophils (%) (Auto) 0.5 % (0.0-2.0) Erythrocyte Sedimentation Rate 44 MM/HR (0-20) H Sodium Level 148 MMOL/L (136-145) H Potassium Level 4.1 MMOL/L (3.5-5.1) Chloride Level 111 MMOL/L (98-107) H Carbon Dioxide Level 25 MMOL/L (21-32) Anion Gap 12 mmol/L (5-15) Blood Urea Nitrogen 35 mg/dL (7-18) H Creatinine 1.2 MG/DL (0.55-1.30) Estimat Glomerular Filtration Rate > 60 mL/min (>60) Glucose Level 74 MG/DL (74-106) Calcium Level 8.9 MG/DL (8.5-10.1) Phosphorus Level 3.9 MG/DL (2.5-4.9) Magnesium Level 2.3 MG/DL (1.8-2.4) Total Bilirubin 0.5 MG/DL (0.2-1.0) Direct Bilirubin 0.1 MG/DL (0.0-0.3) Aspartate Amino Transf (AST/SGOT) 42 U/L (15-37) H Alanine Aminotransferase (ALT/SGPT) 23 U/L (12-78) Alkaline Phosphatase 62 U/L (46-116) C-Reactive Protein, Quantitative 4.4 mg/dL (0.00-0.90) H Total Protein 7.3 G/DL (6.4-8.2) Albumin 2.6 G/DL (3.4-5.0) L Globulin 4.7 g/dL Albumin/Globulin Ratio 0.6 (1.0-2.7) L Intake and Output 9/20/20 9/21/20 19:00 07:00 Intake Total 480 ml Output Total 600 ml Balance -120 ml Intake Oral 480 ml Output Urine Total 600 ml Objective PHYSICAL EXAMINATION: GENERAL: The patient is a thin-appearing male, in no apparent distress. HEENT: Eyes, pupils equal and responsive to light and accommodation. Extraocular movements are intact. NECK: Supple without lymphadenopathy. CHEST: Lungs are clear to auscultation bilaterally with decreased breath sounds bilateral bases. Otherwise, without rales. CARDIOVASCULAR: Regular rhythm and rate. S1, S2 normal without murmurs, rubs, or gallops. ABDOMEN: Soft, nontender, and nondistended. Positive bowel sounds. No evidence of hepatosplenomegaly. Currently, no rebound or guarding noted. EXTREMITIES: Negative for clubbing, cyanosis, or edema. RECTAL/GENITAL: Not performed. NEUROLOGIC: Cranial nerves II through XII are grossly intact without focal deficits. Assessment/Plan Assessment/Plan ASSESSMENT: This is an 84-year-old male. 1. COVID-19 positive. 2. Fever. 3. Probable COVID-19 pneumonia. 4. Chronic renal failure. 5. Dysphagia. 6. History of cerebral palsy. 7. Brain aneurysm. 8. Subarachnoid hemorrhage. 9. Benign prostatic hypertrophy. 10. Coronary artery disease. 11. Hypertension. 12. Congestive heart failure. 13. Bilateral lower extremity deep venous thrombosis. 14. Iron deficiency anemia. 15. Hypercholesterolemia. 16. Seizure disorder. 17. Schizophrenia. 18. UTI=MRSA TREATMENT: 1. COVID-19 positive/probable pneumonia. Pulmonary consultation = Dr. Aldair Patel. The patient has been placed empirically on Decadron. The patient is S/P azithromycin and ceftriaxone. Continue Remdesivir 2. Bilateral lower extremity deep venous thrombosis (chronic). Anticoagulation=heparin subcut 3. Chronic renal failure. 4. Dysphagia. 5. History of cerebral palsy. 6. Subarachnoid hemorrhage. 7. Benign prostatic hypertrophy. 8. Coronary artery disease. 9. Hypertension. Continue clonidine as above. 10. Iron deficiency anemia. 11. Hypercholesterolemia. 12. Seizure disorder. Continue valproic acid as above. 13. Schizophrenia. 14. Full code 15. aBX=S/P Jose Mcclain MD Mar 01, 2020 13:28
[2020-03-01] MEDS: Maintenance Dose:Remdesivir 100mg/NS 230ml x 4 Doses IV SCH ×2 (14:05)
[2020-03-01 16:00] VITALS: BP 105/83
--- NOTE | 2020-03-01 19:39 | NUR ---
NURSE HAND-OFF REPORT: Important Events on Shift: Patient Status: Stable Diet: Regular mechanical soft Pending Orders: Chest X-ray Pending Results/Labs:Mag, phos Pending notification: Latest Vital Signs: Temperature 97.3 , Pulse 77 , B/P 105 /83 , Respiratory Rate 23 , O2 SAT 94 , Room Air, O2 Flow Rate 2.0 . Vital Sign Comment: Stable EKG Rhythm: Sinus Rhythm Rhythm change?: N MD Notified?: N -MD Patel/MD [place] BLOCK Response: Message left await call Latest Carrillo Fall Score: 70 Fall Risk: High Risk Safety Measures: Call light Within Reach, Bed Alarm Zone 1, Side Rails Side Rails x3, Bed position Low and Locked. Fall Precautions: Yellow Socks Yellow Gown Door Sign Patient Fall Education Report given to Howard/RN.
--- NOTE | 2020-03-01 19:45 | NUR ---
NURSE NOTES: Pt received from JOSE LUIS Malcolm. Pt is resting is bed and shows no sign of pain. Pt is AO x1 and bedbound; pt is restless and moves around in bed. Pt is on RA breathing unlabored and sating 99%. Pt has condom catheter draining well to gravity. Pt is on cardiac monitoring SR and asymptomatic. Pt has sacral redness with clean optifoam dressing and will be turned q2h. Pt has RH 22G SL patent with site dry and intact. Bed locked in lowest position and call light within reach. Will continue to monitor.
[2020-03-01 20:00] VITALS: BP 122/85
--- NOTE | 2020-03-01 20:09 | Infectious Diseases Prog Note ---
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 Patchy ground glass opacities and interstitial reticulation which are nonspecific findings but can be seen with pneumonia superimposed on underlying interstitial fibrosis, atypical/viral pneumonia, chronic pulmonary edema, or scarring from prior infection/inflammation. Small right pleural effusion. Cardiomegaly. -02/23 rapid COVID PCR + -02/22 CXR: Minimal atelectasis noted left lung base. -02/19 CXR: Mild left basilar atelectasis. No clear consolidation. UTI R/o probable bacteremia -u.a wbc 20-30, nit +, leuk +2; ucx >100k MRSA ( R tetracycline; S Vanco, bactrim) -Bcx NTD Fever; SP No leukocytosis Cerebral Palsy anemia HTN non verbal HLD hx of B/l LE DVT 2015 on coumadin CKD iron def anemia R hip fx s/p ORIF 2013 CAD/WA GERD SAH 2ry to cerebral aneurysm DM2 COPD schizoaffective disorder- depressive type BPH seizure disorder [place] resident ([facility]) Plan: -on Decadron #10 - on remdesivir # 4/5 -02/27 SP IV Vancomycin #5 -02/22 SP Azithromycin #3 -02/19 SP Ceftriaxone x1 -f/u cx -Monitor CBC/CMP, temperatures -Repeat Bcx x2 if T>100.4 -COVID19 isolation Thank you for consulting [facility]. Will continue to follow along with you. Discussed with RN and Dr Patel. Subjective Allergies: Coded Allergies: PENICILLIN G (Verified Allergy, Intermediate, 04/13/14) PENICILLINS (Unverified Allergy, Unknown, 07/21/18) *late entry* afebrile at RA Objective Last 24 Hour Vital Signs Date Time Temp Pulse Resp B/P (MAP) Pulse Ox O2 Delivery O2 Flow Rate FiO2 03/01/20 16:00 97.3 76 23 105/83 (90) 94 03/01/20 16:00 77 03/01/20 12:00 78 03/01/20 12:00 97.9 89 21 128/72 (90) 94 03/01/20 09:10 80 120/74 03/01/20 09:00 Room Air 03/01/20 08:00 97.2 80 20 120/74 (89) 98 03/01/20 08:00 59 03/01/20 04:00 99.0 77 18 107/78 (88) 97 03/01/20 04:00 72 03/01/20 00:00 74 03/01/20 00:00 98.4 73 18 126/63 (84) 99 02/29/20 20:00 99.5 72 18 117/72 (87) 97 02/29/20 20:00 72 Height (Feet): 5 Height (Inches): 10.00 Weight (Pounds): 159 Respiratory: symmetric chest expasion Cardiovascular: SI, S2 normal Abdomen: not distended sKIN: no rash Laboratory Tests Test 03/01/20 06:44 White Blood Count 7.1 K/UL (4.8-10.8) Red Blood Count 4.72 M/UL (4.70-6.10) Hemoglobin 14.3 G/DL (14.2-18.0) Hematocrit 42.9 % (42.0-52.0) Mean Corpuscular Volume 91 FL (80-99) Mean Corpuscular Hemoglobin 30.3 PG (27.0-31.0) Mean Corpuscular Hemoglobin Concent 33.3 G/DL (32.0-36.0) Red Cell Distribution Width 13.7 % (11.6-14.8) Platelet Count 193 K/UL (150-450) Mean Platelet Volume 7.5 FL (6.5-10.1) Neutrophils (%) (Auto) 83.5 % (45.0-75.0) H Lymphocytes (%) (Auto) 10.8 % (20.0-45.0) L Monocytes (%) (Auto) 4.7 % (1.0-10.0) Eosinophils (%) (Auto) 0.5 % (0.0-3.0) Basophils (%) (Auto) 0.5 % (0.0-2.0) Erythrocyte Sedimentation Rate 44 MM/HR (0-20) H Sodium Level 148 MMOL/L (136-145) H Potassium Level 4.1 MMOL/L (3.5-5.1) Chloride Level 111 MMOL/L (98-107) H Carbon Dioxide Level 25 MMOL/L (21-32) Anion Gap 12 mmol/L (5-15) Blood Urea Nitrogen 35 mg/dL (7-18) H Creatinine 1.2 MG/DL (0.55-1.30) Estimat Glomerular Filtration Rate > 60 mL/min (>60) Glucose Level 74 MG/DL (74-106) Calcium Level 8.9 MG/DL (8.5-10.1) Phosphorus Level 3.9 MG/DL (2.5-4.9) Magnesium Level 2.3 MG/DL (1.8-2.4) Total Bilirubin 0.5 MG/DL (0.2-1.0) Direct Bilirubin 0.1 MG/DL (0.0-0.3) Aspartate Amino Transf (AST/SGOT) 42 U/L (15-37) H Alanine Aminotransferase (ALT/SGPT) 23 U/L (12-78) Alkaline Phosphatase 62 U/L (46-116) C-Reactive Protein, Quantitative 4.4 mg/dL (0.00-0.90) H Total Protein 7.3 G/DL (6.4-8.2) Albumin 2.6 G/DL (3.4-5.0) L Globulin 4.7 g/dL Albumin/Globulin Ratio 0.6 (1.0-2.7) L Current Medications Medications (Trade) Dose Ordered Sig/Yazmin Route PRN Reason Start Time Stop Time Status Last Admin Dose Admin Acetaminophen (Tylenol) 650 mg Q6H PRN ORAL Temp >100.5 and Mild Pain 02/21/20 01:45 03/22/20 01:44 02/25/20 00:28 Albuterol/ Ipratropium (Combivent Respimat) 1 puff Q4H PRN INH Shortness of Breath 02/22/20 11:00 03/23/20 10:59 Atorvastatin Calcium (Lipitor) 40 mg BEDTIME ORAL 02/21/20 21:00 05/21/20 20:59 02/29/20 20:13 Clonidine HCl (Catapres Tab) 0.1 mg Q8H PRN ORAL For SBP >160 02/21/20 01:45 05/21/20 01:44 02/26/20 10:04 Dextrose (Dextrose 50%) 25 ml Q30M PRN IV Hypoglycemia 02/20/20 22:45 05/20/20 22:44 Dextrose (Dextrose 50%) 50 ml Q30M PRN IV Hypoglycemia 02/20/20 22:45 05/20/20 22:44 Diclofenac Sodium (Voltaren gel) 1 applic BID PRN TOPIC As needed for pain 02/21/20 01:45 05/21/20 01:44 Docusate Sodium (Colace) 100 mg TWICE A DAY ORAL 02/21/20 09:00 03/22/20 08:59 03/01/20 17:37 Heparin Sodium (Porcine) (Heparin 5000 units/ml) 5,000 units EVERY 12 HOURS SUBQ 02/22/20 09:00 04/07/20 08:59 03/01/20 09:12 Metoprolol Tartrate (Lopressor) 25 mg EVERY 12 HOURS ORAL 02/21/20 09:00 05/21/20 08:59 03/01/20 09:10 Multivitamins (Multivitamins) 1 tab DAILY ORAL 02/21/20 09:00 03/22/20 08:59 03/01/20 09:10 Ondansetron HCl (Zofran) 4 mg Q6H PRN IVP Nausea & Vomiting 02/20/20 22:45 03/21/20 22:44 Polyethylene Glycol (Miralax) 17 gm DAILYPRN PRN ORAL Constipation 02/20/20 22:45 03/21/20 22:44 Promethazine HCl/ Codeine (Phenergan with Codeine) 5 ml Q6H PRN ORAL cough 02/20/20 22:45 03/21/20 22:44 Quetiapine Fumarate (SEROqueL) 25 mg Q12HR ORAL 02/21/20 09:00 04/06/20 08:59 03/01/20 09:10 Remdesivir 100 mg/ Sodium Chloride 250 ml @ 250 mls/hr Q24H IV 02/28/20 14:00 03/02/20 14:59 03/01/20 14:05 Tamsulosin HCl (Flomax) 0.4 mg BEDTIME ORAL 02/21/20 21:00 03/22/20 20:59 02/29/20 20:13 Valproic Acid (Depakene) 500 mg EVERY 12 HOURS ORAL 02/21/20 09:00 04/06/20 08:59 03/01/20 09:10 Daly Daniel M.D. Mar 01, 2020 20:09
[2020-03-01] MEDS: Atorvastatin 20mg tab ORAL SCH (21:14)
[2020-03-01] MEDS: Tamsulosin 0.4mg cap ORAL SCH (21:15)
[2020-03-02] VITALS: BP_SYST 135; BP_SYST 149; BP_DIAS 80; BP_DIAS 82
[2020-03-02 04:00] VITALS: BP 130/81
[2020-03-02 06:40] LABS: BASOPHILS % (AUTO) 1.8 % (0.0-2.0); EOSINOPHILS % (AUTO) 0.1 % (0.0-3.0); HEMATOCRIT 40.8 % (42.0-52.0); HEMOGLOBIN 13.8 G/DL (14.2-18.0); LYMPHOCYTES % (AUTO) 13.5 % (20.0-45.0); MEAN CORPUSCULAR VOLUME 91 FL (80-99); MONOCYTES % (AUTO) 6.2 % (1.0-10.0); NEUTROPHILS % (AUTO) 78.5 % (45.0-75.0); PLATELET COUNT 192 K/UL (150-450); RED BLOOD COUNT 4.49 M/UL (4.70-6.10); RED CELL DISTRIBUTION WIDTH 13.8 % (11.6-14.8); WHITE BLOOD COUNT 7.6 K/UL (4.8-10.8)
[2020-03-02 07:10] LABS: ALANINE AMINOTRANSFERASE 28 U/L (12-78); ALBUMIN 2.5 G/DL (3.4-5.0); ALBUMIN/GLOBULIN RATIO 0.6 (1.0-2.7); ALKALINE PHOSPHATASE 76 U/L (46-116); ANION GAP 9 mmol/L (5-15); ASPARTATE AMINO TRANSFERASE 42 U/L (15-37); BILIRUBIN,DIRECT < 0.1 MG/DL (0.0-0.3); BILIRUBIN,TOTAL 0.5 MG/DL (0.2-1.0); BLOOD UREA NITROGEN 39 mg/dL (7-18); CALCIUM 8.9 MG/DL (8.5-10.1); CARBON DIOXIDE 28 MMOL/L (21-32); CHLORIDE 111 MMOL/L (98-107); CREATININE 1.2 MG/DL (0.55-1.30); POTASSIUM 4.6 MMOL/L (3.5-5.1); SODIUM 148 MMOL/L (136-145)
--- NOTE | 2020-03-02 07:15 | NUR ---
NURSE HAND-OFF REPORT: Important Events on Shift:No Changes Patient Status: Stable Diet: Regular Mechanical Soft Pending Orders: CXR Pending Results/Labs:AM Labs Pending MD notification:[] Latest Vital Signs: Temperature 97.3 , Pulse 77 , B/P 130 /81 , Respiratory Rate 23 , O2 SAT 99 , Room Air, O2 Flow Rate 4.0 . Vital Sign Comment: [] EKG Rhythm: Sinus Rhythm Rhythm change?: N MD Notified?: N -MD Patel/MD [place] BLOCK Response: Message left await call Latest Carrillo Fall Score: 70 Fall Risk: High Risk Safety Measures: Call light Within Reach, Bed Alarm Zone 1, Side Rails Side Rails x3, Bed position Low and Locked. Fall Precautions: Yellow Socks Yellow Gown Door Sign Patient Fall Education Report given to []. Addendum: 03/02/20 at 0749 by Dell Cevallos RN VSS. Report given to JOSE LUIS Parker.
--- NOTE | 2020-03-02 07:39 | NUR ---
NURSE NOTES: Received patient in bed. Awake, A/O x1. On room air, respirations unlabored. Patient denies pain. IV in the Right hand, site intact. Patient is a high fall risk d/t Carrillo fall score of 70. Patient placed close to the nurse's station for safety and close monitoring. Yellow socks on, yellow gown on, bed alarm placed on high sensitivity, bed at the lowest position, bed alarm within reach - unable to return demonstration. CN and CLIENT SUPPORT COORDINATOR made aware.
[2020-03-02 08:00] VITALS: BP 158/93
[2020-03-02 08:15] LABS: PHOSPHORUS 3.9 MG/DL (2.5-4.9)
[2020-03-02] MEDS: Docusate 100mg cap ORAL SCH ×2 (09:03→17:19)
[2020-03-02] MEDS: Valproic Acid 250mg/5ml Liquid ORAL SCH ×2 (09:04→20:52)
[2020-03-02] MEDS: Heparin 5000 units/ml inj SUBQ SCH ×2 (09:10→20:54)
--- NOTE | 2020-03-02 10:58 | Diagnostic Imaging Report ---
Indication: Dyspnea Technique: One view of the chest Comparison: 02/27/2020 Findings: Lungs pleural spaces are clear. The heart size is normal. There is minimal scarring or atelectasis in the right perihilar region. No significant interim change Impression: No definite acute process
--- NOTE | 2020-03-02 11:07 | Pulmonology Progress Note ---
Subjective ROS Limited/Unobtainable: Yes Interval Events: temp of 99.5 Constitutional: Reports: no symptoms HEENT: Repors: no symptoms Respiratory: Reports: no symptoms Allergies: Coded Allergies: PENICILLIN G (Verified Allergy, Intermediate, 04/13/14) PENICILLINS (Unverified Allergy, Unknown, 07/21/18) Objective Last 24 Hour Vital Signs Date Time Temp Pulse Resp B/P (MAP) Pulse Ox O2 Delivery O2 Flow Rate FiO2 03/02/20 09:03 70 158/93 03/02/20 09:00 Room Air 03/02/20 08:00 57 03/02/20 08:00 97.7 70 22 158/93 (114) 98 03/02/20 04:00 97.3 77 23 130/81 (97) 99 03/02/20 04:00 60 03/02/20 00:00 65 03/02/20 00:00 97.2 70 20 135/80 (98) 99 03/01/20 22:15 97 Nasal Cannula 4.0 36 03/01/20 21:14 140/72 03/01/20 21:00 Room Air 03/01/20 20:00 97.7 77 23 122/85 (97) 94 03/01/20 20:00 76 03/01/20 16:00 97.3 76 23 105/83 (90) 94 03/01/20 16:00 77 03/01/20 12:00 78 03/01/20 12:00 97.9 89 21 128/72 (90) 94 Intake and Output 03/01/20 03/02/20 19:00 07:00 Intake Total 720 ml Output Total 300 ml 350 ml Balance -300 ml 370 ml Intake Oral 720 ml Output Urine Total 300 ml 350 ml # Voids 1 General Appearance: WD/WN HEENT: normocephalic, atraumatic, EOMI Respiratory: chest wall non-tender Cardiovascular: normal peripheral pulses Abdomen: normal bowel sounds, no organomegaly Genitourinary: normal external genitalia Skin: no rash Neurologic: shift lab technician II-XII grossly normal Lymphatic: no neck adenopathy Musculoskeletal: normal muscle bulk Laboratory Tests 03/02/20 05:50: White Blood Count 7.6, Red Blood Count 4.49L, Hemoglobin 13.8L, Hematocrit 40.8L , Mean Corpuscular Volume 91, Mean Corpuscular Hemoglobin 30.8, Mean Corpuscular Hemoglobin Concent 33.9, Red Cell Distribution Width 13.8, Platelet Count 192, Mean Platelet Volume 7.0, Neutrophils (%) (Auto) 78.5H, Lymphocytes (%) (Auto) 13.5L, Monocytes (%) (Auto) 6.2, Eosinophils (%) (Auto) 0.1, Basophils (%) (Auto) 1.8, Erythrocyte Sedimentation Rate 32H, Sodium Level 148H, Potassium Level 4.6, Chloride Level 111H, Carbon Dioxide Level 28, Anion Gap 9, Blood Urea Nitrogen 39H, Creatinine 1.2, Estimat Glomerular Filtration Rate > 60, Glucose Level 82, Calcium Level 8.9, Phosphorus Level 3.9, Magnesium Level 2.2, Total Bilirubin 0.5, Direct Bilirubin < 0.1, Aspartate Amino Transf (AST/SGOT) 42H, Alanine Aminotransferase (ALT/SGPT) 28, Alkaline Phosphatase 76, C-Reactive Protein, Quantitative 3.6H, Total Protein 7.0, Albumin 2.5L, Globulin 4.5, Albumin/Globulin Ratio 0.6L Current Medications Medications (Trade) Dose Ordered Sig/Yazmin Route PRN Reason Start Time Stop Time Status Last Admin Dose Admin Acetaminophen (Tylenol) 650 mg Q6H PRN ORAL Temp >100.5 and Mild Pain 02/21/20 01:45 03/22/20 01:44 02/25/20 00:28 Albuterol/ Ipratropium (Combivent Respimat) 1 puff Q4H PRN INH Shortness of Breath 02/22/20 11:00 03/23/20 10:59 Atorvastatin Calcium (Lipitor) 40 mg BEDTIME ORAL 02/21/20 21:00 05/21/20 20:59 03/01/20 21:14 Clonidine HCl (Catapres Tab) 0.1 mg Q8H PRN ORAL For SBP >160 02/21/20 01:45 05/21/20 01:44 02/26/20 10:04 Dextrose (Dextrose 50%) 25 ml Q30M PRN IV Hypoglycemia 02/20/20 22:45 05/20/20 22:44 Dextrose (Dextrose 50%) 50 ml Q30M PRN IV Hypoglycemia 02/20/20 22:45 05/20/20 22:44 Diclofenac Sodium (Voltaren gel) 1 applic BID PRN TOPIC As needed for pain 02/21/20 01:45 05/21/20 01:44 Docusate Sodium (Colace) 100 mg TWICE A DAY ORAL 02/21/20 09:00 03/22/20 08:59 03/02/20 09:03 Heparin Sodium (Porcine) (Heparin 5000 units/ml) 5,000 units EVERY 12 HOURS SUBQ 02/22/20 09:00 04/07/20 08:59 03/02/20 09:10 Metoprolol Tartrate (Lopressor) 25 mg EVERY 12 HOURS ORAL 02/21/20 09:00 05/21/20 08:59 03/02/20 09:03 Multivitamins (Multivitamins) 1 tab DAILY ORAL 02/21/20 09:00 03/22/20 08:59 03/02/20 09:03 Ondansetron HCl (Zofran) 4 mg Q6H PRN IVP Nausea & Vomiting 02/20/20 22:45 03/21/20 22:44 Polyethylene Glycol (Miralax) 17 gm DAILYPRN PRN ORAL Constipation 02/20/20 22:45 03/21/20 22:44 Promethazine HCl/ Codeine (Phenergan with Codeine) 5 ml Q6H PRN ORAL cough 02/20/20 22:45 03/21/20 22:44 Quetiapine Fumarate (SEROqueL) 25 mg Q12HR ORAL 02/21/20 09:00 04/06/20 08:59 03/02/20 09:03 Remdesivir 100 mg/ Sodium Chloride 250 ml @ 250 mls/hr Q24H IV 02/28/20 14:00 03/02/20 14:59 03/01/20 14:05 Tamsulosin HCl (Flomax) 0.4 mg BEDTIME ORAL 02/21/20 21:00 03/22/20 20:59 03/01/20 21:15 Valproic Acid (Depakene) 500 mg EVERY 12 HOURS ORAL 02/21/20 09:00 04/06/20 08:59 03/02/20 09:04 Assessment/Plan Problems: (1) Acute respiratory failure (2) COVID-19 (3) Hypernatremia (4) HTN (hypertension) (5) CAD (coronary artery disease) (6) Cerebral palsy (7) SAH (subarachnoid hemorrhage) (8) BPH (benign prostatic hyperplasia) (9) History of alcohol abuse Assessment/Plan check cxr: RADHA doing better f/u CRP chopra culture, MRSA nares on Decardon dvt prophylaxis seizure precaution dvt prohylaxis. Aldair Patel MD Mar 02, 2020 11:07
[2020-03-02 12:00] VITALS: BP 113/80
--- NOTE | 2020-03-02 12:56 | NUR ---
RADIOLOGY DEPT., CHEST X-RAY DONE.-P.DYE
[2020-03-02] MEDS: Maintenance Dose:Remdesivir 100mg/NS 230ml x 4 Doses IV SCH ×2 (14:15)
[2020-03-02 16:00] VITALS: BP 123/69
--- NOTE | 2020-03-02 16:25 | Internal Med Progress Note ---
Subjective Date of Service: Mar 02, 2020 Physician Name Jose Jha Attending Physician Joey Perry MD Current Medications Medications (Trade) Dose Ordered Sig/Yazmin Route PRN Reason Start Time Stop Time Status Last Admin Dose Admin Acetaminophen (Tylenol) 650 mg Q6H PRN ORAL Temp >100.5 and Mild Pain 02/21/20 01:45 03/22/20 01:44 02/25/20 00:28 Albuterol/ Ipratropium (Combivent Respimat) 1 puff Q4H PRN INH Shortness of Breath 02/22/20 11:00 03/23/20 10:59 Atorvastatin Calcium (Lipitor) 40 mg BEDTIME ORAL 02/21/20 21:00 05/21/20 20:59 03/01/20 21:14 Clonidine HCl (Catapres Tab) 0.1 mg Q8H PRN ORAL For SBP >160 02/21/20 01:45 05/21/20 01:44 02/26/20 10:04 Dextrose (Dextrose 50%) 25 ml Q30M PRN IV Hypoglycemia 02/20/20 22:45 05/20/20 22:44 Dextrose (Dextrose 50%) 50 ml Q30M PRN IV Hypoglycemia 02/20/20 22:45 05/20/20 22:44 Diclofenac Sodium (Voltaren gel) 1 applic BID PRN TOPIC As needed for pain 02/21/20 01:45 05/21/20 01:44 Docusate Sodium (Colace) 100 mg TWICE A DAY ORAL 02/21/20 09:00 03/22/20 08:59 03/02/20 09:03 Heparin Sodium (Porcine) (Heparin 5000 units/ml) 5,000 units EVERY 12 HOURS SUBQ 02/22/20 09:00 04/07/20 08:59 03/02/20 09:10 Metoprolol Tartrate (Lopressor) 25 mg EVERY 12 HOURS ORAL 02/21/20 09:00 05/21/20 08:59 03/02/20 09:03 Multivitamins (Multivitamins) 1 tab DAILY ORAL 02/21/20 09:00 03/22/20 08:59 03/02/20 09:03 Ondansetron HCl (Zofran) 4 mg Q6H PRN IVP Nausea & Vomiting 02/20/20 22:45 03/21/20 22:44 Polyethylene Glycol (Miralax) 17 gm DAILYPRN PRN ORAL Constipation 02/20/20 22:45 03/21/20 22:44 Promethazine HCl/ Codeine (Phenergan with Codeine) 5 ml Q6H PRN ORAL cough 02/20/20 22:45 03/21/20 22:44 Quetiapine Fumarate (SEROqueL) 25 mg Q12HR ORAL 02/21/20 09:00 04/06/20 08:59 03/02/20 09:03 Tamsulosin HCl (Flomax) 0.4 mg BEDTIME ORAL 02/21/20 21:00 03/22/20 20:59 03/01/20 21:15 Valproic Acid (Depakene) 500 mg EVERY 12 HOURS ORAL 02/21/20 09:00 04/06/20 08:59 03/02/20 09:04 Allergies: Coded Allergies: PENICILLIN G (Verified Allergy, Intermediate, 04/13/14) PENICILLINS (Unverified Allergy, Unknown, 07/21/18) ROS Limited/Unobtainable: Yes Subjective 84 YO M admitted with fever. Now COVID 19 positive. Cover for Int med-DR Perry Objective Last Vital Signs Date Time Temp Pulse Resp B/P (MAP) Pulse Ox O2 Delivery O2 Flow Rate FiO2 03/02/20 12:00 59 03/02/20 12:00 97.7 22 113/80 (91) 97 03/02/20 09:00 Room Air 03/01/20 22:15 4.0 36 Laboratory Tests Test 03/02/20 05:50 White Blood Count 7.6 K/UL (4.8-10.8) Red Blood Count 4.49 M/UL (4.70-6.10) L Hemoglobin 13.8 G/DL (14.2-18.0) L Hematocrit 40.8 % (42.0-52.0) L Mean Corpuscular Volume 91 FL (80-99) Mean Corpuscular Hemoglobin 30.8 PG (27.0-31.0) Mean Corpuscular Hemoglobin Concent 33.9 G/DL (32.0-36.0) Red Cell Distribution Width 13.8 % (11.6-14.8) Platelet Count 192 K/UL (150-450) Mean Platelet Volume 7.0 FL (6.5-10.1) Neutrophils (%) (Auto) 78.5 % (45.0-75.0) H Lymphocytes (%) (Auto) 13.5 % (20.0-45.0) L Monocytes (%) (Auto) 6.2 % (1.0-10.0) Eosinophils (%) (Auto) 0.1 % (0.0-3.0) Basophils (%) (Auto) 1.8 % (0.0-2.0) Erythrocyte Sedimentation Rate 32 MM/HR (0-20) H Sodium Level 148 MMOL/L (136-145) H Potassium Level 4.6 MMOL/L (3.5-5.1) Chloride Level 111 MMOL/L (98-107) H Carbon Dioxide Level 28 MMOL/L (21-32) Anion Gap 9 mmol/L (5-15) Blood Urea Nitrogen 39 mg/dL (7-18) H Creatinine 1.2 MG/DL (0.55-1.30) Estimat Glomerular Filtration Rate > 60 mL/min (>60) Glucose Level 82 MG/DL (74-106) Calcium Level 8.9 MG/DL (8.5-10.1) Phosphorus Level 3.9 MG/DL (2.5-4.9) Magnesium Level 2.2 MG/DL (1.8-2.4) Total Bilirubin 0.5 MG/DL (0.2-1.0) Direct Bilirubin < 0.1 MG/DL (0.0-0.3) Aspartate Amino Transf (AST/SGOT) 42 U/L (15-37) H Alanine Aminotransferase (ALT/SGPT) 28 U/L (12-78) Alkaline Phosphatase 76 U/L (46-116) C-Reactive Protein, Quantitative 3.6 mg/dL (0.00-0.90) H Total Protein 7.0 G/DL (6.4-8.2) Albumin 2.5 G/DL (3.4-5.0) L Globulin 4.5 g/dL Albumin/Globulin Ratio 0.6 (1.0-2.7) L Intake and Output 0 03/01/20 03/02/20 19:00 07:00 Intake Total 720 ml Output Total 300 ml 350 ml Balance -300 ml 370 ml Intake Oral 720 ml Output Urine Total 300 ml 350 ml # Voids 1 Objective PHYSICAL EXAMINATION: GENERAL: The patient is a thin-appearing male, in no apparent distress. HEENT: Eyes, pupils equal and responsive to light and accommodation. Extraocular movements are intact. NECK: Supple without lymphadenopathy. CHEST: Lungs are clear to auscultation bilaterally with decreased breath sounds bilateral bases. Otherwise, without rales. CARDIOVASCULAR: Regular rhythm and rate. S1, S2 normal without murmurs, rubs, or gallops. ABDOMEN: Soft, nontender, and nondistended. Positive bowel sounds. No evidence of hepatosplenomegaly. Currently, no rebound or guarding noted. EXTREMITIES: Negative for clubbing, cyanosis, or edema. RECTAL/GENITAL: Not performed. NEUROLOGIC: Cranial nerves II through XII are grossly intact without focal deficits. Assessment/Plan Assessment/Plan ASSESSMENT: This is an 84-year-old male. 1. COVID-19 positive. 2. Fever. 3. Probable COVID-19 pneumonia. 4. Chronic renal failure. 5. Dysphagia. 6. History of cerebral palsy. 7. Brain aneurysm. 8. Subarachnoid hemorrhage. 9. Benign prostatic hypertrophy. 10. Coronary artery disease. 11. Hypertension. 12. Congestive heart failure. 13. Bilateral lower extremity deep venous thrombosis. 14. Iron deficiency anemia. 15. Hypercholesterolemia. 16. Seizure disorder. 17. Schizophrenia. 18. UTI=MRSA TREATMENT: 1. COVID-19 positive/probable pneumonia. Pulmonary consultation = Dr. Aldair Patel. The patient has been placed empirically on Decadron. The patient is S/P azithromycin and ceftriaxone. Continue Remdesivir 2. Bilateral lower extremity deep venous thrombosis (chronic). Anticoagulation=heparin subcut 3. Chronic renal failure. 4. Dysphagia. 5. History of cerebral palsy. 6. Subarachnoid hemorrhage. 7. Benign prostatic hypertrophy. 8. Coronary artery disease. 9. Hypertension. Continue clonidine as above. 10. Iron deficiency anemia. 11. Hypercholesterolemia. 12. Seizure disorder. Continue valproic acid as above. 13. Schizophrenia. 14. Full code 15. aBX=S/P Vanco 16. Discharge to [facility] Jose Jha MD Mar 02, 2020 16:25
--- NOTE | 2020-03-02 17:01 | NUR ---
*-* DISCHARGE PLANNED*-* PATIENT HAS BEEN ACCEPTED BACK TO: [facility] P:[phone] FOR NURSE TO NURSE REPORT ROOM# 20.[facility]ORT[facility] SET FOR 9:30AM ON 03/03/2020 S/W ASPEN [id number]. S/W PATIENTS LUIS A SINGH, WHO IS IN AGREEMENT [facility] DISCHARGE PLAN.
--- NOTE | 2020-03-02 18:55 | NUR ---
NURSE HAND-OFF REPORT: Important Events on Shift:[IV remdesevir completed, DC order back to SNF] Patient Status: [FULL CODE] Diet: [regular, Mechanical soft] Pending Orders: [DC back to SNF] Pending Results/Labs:[] Pending MD notification:[] Latest Vital Signs: Temperature 97.7 , Pulse 49 , B/P 123 /69 , Respiratory Rate 22 , O2 SAT 93 , Room Air, O2 Flow Rate 4.0 . Vital Sign Comment: [] EKG Rhythm: Sinus Bradycardia Rhythm change?: N MD Notified?: N -MD Patel/MD [place] BLOCK Response: Latest Carrillo Fall Score: 70 Fall Risk: High Risk Safety Measures: Call light Within Reach, Bed Alarm Zone 1, Side Rails Side Rails x2, Bed position Low and Locked. Fall Precautions: Yellow Socks Yellow Gown Door Sign Patient Fall Education Report given to [Irene AMAYA].
--- NOTE | 2020-03-02 19:29 | NUR ---
NURSE NOTES: Received report from JOSE LUIS Parker. Patient is asleep, alert and oriented x 1. manager monitoring is in place, shows sinus rhythm. On regular, mechanical soft and can swallow whole pills. On fall and aspiration precaution. IV site is on right hand g-22 saline lock that is patent and intact. Safety measures are in place, bed in lowest and locked position, side rails up x 2. Bed alarm is on. Will continue plan of care.
[2020-03-02 20:00] VITALS: BP 120/67
--- NOTE | 2020-03-02 20:49 | Infectious Diseases Prog Note ---
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 Patchy ground glass opacities and interstitial reticulation which are nonspecific findings but can be seen with pneumonia superimposed on underlying interstitial fibrosis, atypical/viral pneumonia, chronic pulmonary edema, or scarring from prior infection/inflammation. Small right pleural effusion. Cardiomegaly. -02/23 rapid COVID PCR + -02/22 CXR: Minimal atelectasis noted left lung base. -02/19 CXR: Mild left basilar atelectasis. No clear consolidation. 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 Will continue to follow along with you. Discussed with RN Subjective Allergies: Coded Allergies: PENICILLIN G (Verified Allergy, Intermediate, 04/13/14) PENICILLINS (Unverified Allergy, Unknown, 07/21/18) *late entry* afebrile at RA Objective Last 24 Hour Vital Signs Date Time Temp Pulse Resp B/P (MAP) Pulse Ox O2 Delivery O2 Flow Rate FiO2 03/02/20 16:00 49 03/02/20 16:00 97.7 54 22 123/69 (87) 93 03/02/20 12:00 59 03/02/20 12:00 97.7 63 22 113/80 (91) 97 03/02/20 09:03 70 158/93 03/02/20 09:00 Room Air 03/02/20 08:00 57 03/02/20 08:00 97.7 70 22 158/93 (114) 98 03/02/20 04:00 97.3 77 23 130/81 (97) 99 03/02/20 04:00 60 03/02/20 00:00 65 03/02/20 00:00 97.2 70 20 135/80 (98) 99 03/01/20 22:15 97 Nasal Cannula 4.0 36 03/01/20 21:14 140/72 03/01/20 21:00 Room Air Height (Feet): 5 Height (Inches): 10.00 Weight (Pounds): 159 Respiratory: symmetric chest expasion Cardiovascular: SI, S2 normal Abdomen: not distended sKIN: no rash Laboratory Tests Test 03/02/20 05:50 White Blood Count 7.6 K/UL (4.8-10.8) Red Blood Count 4.49 M/UL (4.70-6.10) L Hemoglobin 13.8 G/DL (14.2-18.0) L Hematocrit 40.8 % (42.0-52.0) L Mean Corpuscular Volume 91 FL (80-99) Mean Corpuscular Hemoglobin 30.8 PG (27.0-31.0) Mean Corpuscular Hemoglobin Concent 33.9 G/DL (32.0-36.0) Red Cell Distribution Width 13.8 % (11.6-14.8) Platelet Count 192 K/UL (150-450) Mean Platelet Volume 7.0 FL (6.5-10.1) Neutrophils (%) (Auto) 78.5 % (45.0-75.0) H Lymphocytes (%) (Auto) 13.5 % (20.0-45.0) L Monocytes (%) (Auto) 6.2 % (1.0-10.0) Eosinophils (%) (Auto) 0.1 % (0.0-3.0) Basophils (%) (Auto) 1.8 % (0.0-2.0) Erythrocyte Sedimentation Rate 32 MM/HR (0-20) H Sodium Level 148 MMOL/L (136-145) H Potassium Level 4.6 MMOL/L (3.5-5.1) Chloride Level 111 MMOL/L (98-107) H Carbon Dioxide Level 28 MMOL/L (21-32) Anion Gap 9 mmol/L (5-15) Blood Urea Nitrogen 39 mg/dL (7-18) H Creatinine 1.2 MG/DL (0.55-1.30) Estimat Glomerular Filtration Rate > 60 mL/min (>60) Glucose Level 82 MG/DL (74-106) Calcium Level 8.9 MG/DL (8.5-10.1) Phosphorus Level 3.9 MG/DL (2.5-4.9) Magnesium Level 2.2 MG/DL (1.8-2.4) Total Bilirubin 0.5 MG/DL (0.2-1.0) Direct Bilirubin < 0.1 MG/DL (0.0-0.3) Aspartate Amino Transf (AST/SGOT) 42 U/L (15-37) H Alanine Aminotransferase (ALT/SGPT) 28 U/L (12-78) Alkaline Phosphatase 76 U/L (46-116) C-Reactive Protein, Quantitative 3.6 mg/dL (0.00-0.90) H Total Protein 7.0 G/DL (6.4-8.2) Albumin 2.5 G/DL (3.4-5.0) L Globulin 4.5 g/dL Albumin/Globulin Ratio 0.6 (1.0-2.7) L Current Medications Medications (Trade) Dose Ordered Sig/Yazmin Route PRN Reason Start Time Stop Time Status Last Admin Dose Admin Acetaminophen (Tylenol) 650 mg Q6H PRN ORAL Temp >100.5 and Mild Pain 02/21/20 01:45 03/22/20 01:44 02/25/20 00:28 Albuterol/ Ipratropium (Combivent Respimat) 1 puff Q4H PRN INH Shortness of Breath 02/22/20 11:00 03/23/20 10:59 Atorvastatin Calcium (Lipitor) 40 mg BEDTIME ORAL 02/21/20 21:00 05/21/20 20:59 03/01/20 21:14 Clonidine HCl (Catapres Tab) 0.1 mg Q8H PRN ORAL For SBP >160 02/21/20 01:45 05/21/20 01:44 02/26/20 10:04 Dextrose (Dextrose 50%) 25 ml Q30M PRN IV Hypoglycemia 02/20/20 22:45 05/20/20 22:44 Dextrose (Dextrose 50%) 50 ml Q30M PRN IV Hypoglycemia 02/20/20 22:45 05/20/20 22:44 Diclofenac Sodium (Voltaren gel) 1 applic BID PRN TOPIC As needed for pain 02/21/20 01:45 05/21/20 01:44 Docusate Sodium (Colace) 100 mg TWICE A DAY ORAL 02/21/20 09:00 03/22/20 08:59 03/02/20 17:19 Heparin Sodium (Porcine) (Heparin 5000 units/ml) 5,000 units EVERY 12 HOURS SUBQ 02/22/20 09:00 04/07/20 08:59 03/02/20 09:10 Metoprolol Tartrate (Lopressor) 25 mg EVERY 12 HOURS ORAL 02/21/20 09:00 05/21/20 08:59 03/02/20 09:03 Multivitamins (Multivitamins) 1 tab DAILY ORAL 02/21/20 09:00 03/22/20 08:59 03/02/20 09:03 Ondansetron HCl (Zofran) 4 mg Q6H PRN IVP Nausea & Vomiting 02/20/20 22:45 03/21/20 22:44 Polyethylene Glycol (Miralax) 17 gm DAILYPRN PRN ORAL Constipation 02/20/20 22:45 03/21/20 22:44 Promethazine HCl/ Codeine (Phenergan with Codeine) 5 ml Q6H PRN ORAL cough 02/20/20 22:45 03/21/20 22:44 Quetiapine Fumarate (SEROqueL) 25 mg Q12HR ORAL 02/21/20 09:00 04/06/20 08:59 03/02/20 09:03 Tamsulosin HCl (Flomax) 0.4 mg BEDTIME ORAL 02/21/20 21:00 03/22/20 20:59 03/01/20 21:15 Valproic Acid (Depakene) 500 mg EVERY 12 HOURS ORAL 02/21/20 09:00 04/06/20 08:59 03/02/20 09:04 Daly Daniel M.D. Mar 02, 2020:49
[2020-03-02] MEDS: Atorvastatin 20mg tab ORAL SCH (20:53)
[2020-03-02] MEDS: Tamsulosin 0.4mg cap ORAL SCH (20:53)
[2020-03-03] VITALS: BP 113/67
[2020-03-03 04:00] VITALS: BP 107/70
--- NOTE | 2020-03-03 07:17 | NUR ---
NURSE HAND-OFF REPORT: Important Events on Shift: Patient has been in stable condition the whole night. Patient Status: Patient is awake on bed, in stable condition. Plan of care endorsed. Diet: Regular, mechanical soft-finely chopped. Can swallow whole pills. Pending Orders: none Pending Results/Labs: Direct bili, CMP, CBC Pending MD notification:NONE Latest Vital Signs: Temperature 97.2 , Pulse 62 , B/P 107 /70 , Respiratory Rate 24 , O2 SAT 95 , Room Air, O2 Flow Rate 4.0 . Vital Sign Comment: STABLE EKG Rhythm: Sinus Rhythm Rhythm change?: N MD Notified?: N -MD Patel/MD [place] BLOCK Response: Message left await call Latest Carrillo Fall Score: 70 Fall Risk: High Risk Safety Measures: Call light Within Reach, Bed Alarm Zone 1, Side Rails Side Rails x2, Bed position Low and Locked. Fall Precautions: Yellow Socks Yellow Gown Door Sign Patient Fall Education Report given to JOSE LUIS Ramirez.
--- NOTE | 2020-03-03 07:20 | NUR ---
NURSE NOTES: Pt is in bed resting, he is has no need of oxygen, pt has no complains of SOB, monitor car operator no signs of cardiac distress. Bed locked and in lowest position. Call light within reach. bed alarm on for safety yellow socks on. Bed side rails padded. will continue to monitor pt.
[2020-03-03 07:32] LABS: BASOPHILS % (AUTO) 1.1 % (0.0-2.0); EOSINOPHILS % (AUTO) 1.1 % (0.0-3.0); HEMATOCRIT 46.7 % (42.0-52.0); HEMOGLOBIN 15.5 G/DL (14.2-18.0); LYMPHOCYTES % (AUTO) 20.3 % (20.0-45.0); MEAN CORPUSCULAR VOLUME 93 FL (80-99); MONOCYTES % (AUTO) 6.8 % (1.0-10.0); NEUTROPHILS % (AUTO) 70.8 % (45.0-75.0); PLATELET COUNT 146 K/UL (150-450); RED BLOOD COUNT 5.05 M/UL (4.70-6.10); RED CELL DISTRIBUTION WIDTH 14.1 % (11.6-14.8); WHITE BLOOD COUNT 5.5 K/UL (4.8-10.8)
[2020-03-03 09:49] LABS: ALANINE AMINOTRANSFERASE 26 U/L (12-78); ALBUMIN 2.4 G/DL (3.4-5.0); ALBUMIN/GLOBULIN RATIO 0.6 (1.0-2.7); ALKALINE PHOSPHATASE 74 U/L (46-116); ANION GAP 7 mmol/L (5-15); ASPARTATE AMINO TRANSFERASE 38 U/L (15-37); BILIRUBIN,DIRECT < 0.1 MG/DL (0.0-0.3); BILIRUBIN,TOTAL 0.4 MG/DL (0.2-1.0); BLOOD UREA NITROGEN 35 mg/dL (7-18); CALCIUM 8.9 MG/DL (8.5-10.1); CARBON DIOXIDE 28 MMOL/L (21-32); CHLORIDE 108 MMOL/L (98-107); POTASSIUM 4.3 MMOL/L (3.5-5.1); SODIUM 143 MMOL/L (136-145)
[2020-03-03 10:05] VITALS: BP 122/92
[2020-03-03] MEDS: Docusate 100mg cap ORAL SCH (10:05)
[2020-03-03] MEDS: Valproic Acid 250mg/5ml Liquid ORAL SCH (10:05)
[2020-03-03] MEDS: Heparin 5000 units/ml inj SUBQ SCH (10:30)
--- NOTE | 2020-03-03 10:46 | NUR ---
NURSE NOTES: pt DC via ambulance in stable condition. V/s signs stable, T97.5, hr70 R 20 B/P 122/92 O2 93. cardiac monitor was taken off. IV taken off site is not bleeding. Pt had no belongings. DC package was given to emergency personnel. Family Kelli was notified of DC. Also Report was given to [facility] report given to
--- NOTE | 2020-03-03 17:10 | Pulmonology Progress Note ---
Subjective ROS Limited/Unobtainable: Yes Constitutional: Reports: no symptoms HEENT: Repors: no symptoms Respiratory: Reports: no symptoms Allergies: Coded Allergies: PENICILLIN G (Verified Allergy, Intermediate, 04/13/14) PENICILLINS (Unverified Allergy, Unknown, 07/21/18) Objective Last 24 Hour Vital Signs Date Time Temp Pulse Resp B/P (MAP) Pulse Ox O2 Delivery O2 Flow Rate FiO2 03/03/20 10:05 70 122/92 03/03/20 09:00 Room Air 03/03/20 04:00 97.2 62 24 107/70 (82) 95 03/03/20 04:00 64 03/03/20 00:00 49 03/03/20 00:00 97.0 84 24 113/67 (82) 95 03/02/20 21:00 Room Air 03/02/20 20:52 71 120/67 03/02/20 20:00 72 03/02/20 20:00 96.6 71 24 120/67 (84) 96 03/02/20 19:08 95 Nasal Cannula 4.0 36 Intake and Output 03/02/20 03/03/20 19:00 07:00 Intake Total 355 ml 150 ml Output Total 450 ml Balance 355 ml -300 ml Intake Oral 355 ml 150 ml Output Urine Total 450 ml # Voids 3 General Appearance: WD/WN HEENT: normocephalic, atraumatic, EOMI Respiratory: chest wall non-tender Cardiovascular: normal peripheral pulses Abdomen: normal bowel sounds, no organomegaly Genitourinary: normal external genitalia Skin: no rash Neurologic: health and safety advisor II-XII grossly normal Lymphatic: no neck adenopathy Musculoskeletal: normal muscle bulk Laboratory Tests 03/03/20 06:30: White Blood Count 5.5, Red Blood Count 5.05, Hemoglobin 15.5, Hematocrit 46.7, Mean Corpuscular Volume 93, Mean Corpuscular Hemoglobin 30.6, Mean Corpuscular Hemoglobin Concent 33.1, Red Cell Distribution Width 14.1, Platelet Count 146L, Mean Platelet Volume 8.0, Neutrophils (%) (Auto) 70.8, Lymphocytes (%) (Auto) 20.3, Monocytes (%) (Auto) 6.8, Eosinophils (%) (Auto) 1.1, Basophils (%) (Auto) 1.1 03/03/20 09:05: Sodium Level 143, Potassium Level 4.3, Chloride Level 108H, Carbon Dioxide Level 28, Anion Gap 7, Blood Urea Nitrogen 35H, Creatinine 1.0, Estimat Glomerular Filtration Rate > 60, Glucose Level 79, Calcium Level 8.9, Total Bilirubin 0.4, Direct Bilirubin < 0.1, Aspartate Amino Transf (AST/SGOT) 38H, Alanine Aminotransferase (ALT/SGPT) 26, Alkaline Phosphatase 74, Total Protein 6.7, Albumin 2.4L, Globulin 4.3, Albumin/Globulin Ratio 0.6L Assessment/Plan Problems: (1) Acute respiratory failure (2) COVID-19 (3) Hypernatremia (4) HTN (hypertension) (5) CAD (coronary artery disease) (6) Cerebral palsy (7) SAH (subarachnoid hemorrhage) (8) BPH (benign prostatic hyperplasia) (9) History of alcohol abuse Assessment/Plan doing better f/u CRP chopra culture, MRSA nares on [place] dvt prophylaxis seizure precaution dvt prohylaxis. dc planning Aldair Patel MD Mar 03, 2020 17:10
--- NOTE | 2020-03-04 08:23 | Discharge Summary ---
Discharge Summary Discharge Summary _ DATE OF ADMISSION: 02/20/2020 DATE OF DISCHARGE: 03/03/2020 DISCHARGED BY: [place] REASON FOR ADMISSION: 84 years old male, resident of long-term facility, with past medical history of coronary artery disease, status post OK, hypertension, hypercholesterolemia, COPD, diabetes mellitus, cerebral palsy, seizure disorder, status post subarachnoid hemorrhage, schizophrenia, recently was tested positive for COVID-19 in the facility, presented for evaluation due to fever. Fever was greater than 100.7 for the past 2 days, and was not coming down. No reported cough. Upon evaluation in emergency room patient was febrile and hypoxic , requiring supplemental oxygen. Rapid COVID-19 was positive. Laboratory work-up revealed no leukocytosis, stable hemoglobin and hematocrit. Platelet count 83. Sodium 154 , chloride 115 . BUN 37, creatinine 1.3. Lactic acid 2 . Glucose 104. Troponin 0 0.043 . EKG revealed sinus rhythm , no acute ischemic changes CRP 6.1 Urinalysis revealed +3 protein, +2 leukocyte esterase, pyuria and many bacteria . Chest x-ray revealed no acute cardiopulmonary pathology . In emergency room patient received empiric antibiotic, antipyretic , IV fluids, Lovenox , albuterol via MDI and admitted for further management. CONSULTANTS: pulmonary Dr. Patel ID specialist Dr Daniel [facility] COURSE: Patient admitted to isolation room. Supplemental oxygen provided and titrated to keep pulse oximetry above 92%. Patient required Venturi mask and then nasal cannula. Albuterol via MDI provided as needed. Patient completed 5 days of Remdesivir and 10 days of steroids. Patient was followed up with inflammatory markers to access the risk for cytokine storm . Patient was on antibiotic as per ID recommendation. Chest x-ray revealed no apparent pneumonia. CTA revealed no evidence of pulmonary emboli. Patchy ground-glass opacity and interstitial reticulation noted, which can be seen with pneumonia superimposed on underlying interstitial fibrosis, atypical/viral pneumonia, chronic pulmonary edema. Blood cultures were negative. Urine culture revealed MRSA. Final COVID-19 was positive as well. DVT prophylaxis provided. SNF medications continued. Blood pressure and blood sugar remained stable. As patient clinically improved, he was able to be weaned from Venturi mask and then from nasal cannula. Prior to discharge pulse oximetry stable on room air. Fevers resolved. Renal parameters and electrolytes were closely monitored. Electrolytes corrected as needed. Hypernatremia resolved with IV fluids; prior to discharge sodium 143. Platelet count was closely monitored, trended up . Thrombocytopenia resolved on 02/25. Patient clinically stabilized and was ready for discharge back to long-term facility for continuation of care. FINAL DIAGNOSES: Sepsis COVID-19 infection MRSA UTI Acute hypoxemic respiratory failure -resolved Hypernatremia Coronary artery disease with history of [place] COPD HTN Cerebral palsy BPH DISCHARGE MEDICATIONS: See Medication Reconciliation list. DISCHARGE INSTRUCTIONS: Patient was discharged to the long-term facility. Follow up with medical doctor at the facility. I have been assigned to dictate discharge summary for this account. I was not involved in the patient's management. Shira Alas NP Mar 04, 2020 08:23
== END 2020-03-03 10:35 | DRG 871 ==
LOC: EDBD 20:17 → EMR 20:25 → EDBEDREQ 23:07 → 2E 23:21
DX: A41.89 Other specified sepsis (principal); U07.1 COVID-19; J96.01 Acute respiratory failure with hypoxia; I60.9 Nontraumatic subarachnoid hemorrhage, unspecified; E87.0 Hyperosmolality and hypernatremia; N39.0 Urinary tract infection, site not specified; I82.503 Chronic embolism and thrombosis of unspecified deep veins of lower extremity, bilateral; B95.62 Methicillin resistant Staphylococcus aureus infection as the cause of diseases classified elsewhere; I25.10 Atherosclerotic heart disease of native coronary artery without angina pectoris; N40.0 Benign prostatic hyperplasia without lower urinary tract symptoms; Z88.0 Allergy status to penicillin; D50.9 Iron deficiency anemia, unspecified; G80.9 Cerebral palsy, unspecified; G40.909 Epilepsy, unspecified, not intractable, without status epilepticus; I25.2 Old myocardial infarction; K21.9 Gastro-esophageal reflux disease without esophagitis; R13.10 Dysphagia, unspecified; E78.00 Pure hypercholesterolemia, unspecified; F25.8 Other schizoaffective disorders; F10.11 Alcohol abuse, in remission; I50.9 Heart failure, unspecified
CPT/HCPCS: 36415; 71045; 71275; 80048; 80053; 80069; 80202; 81003; 82248; 82550; 82553; 82728; 82803; 82962; 83605; 83615; 83735; 84100; 84484; 85007; 85025; 85379; 85384; 85610; 85651; 85730; 86140; 87040; 87081; 87086; 87181; 93005; 96361; 96365; 99285; J3490; J7030; U0002